=== PATIENT | female | born 1935 | race Caucasian/White ===

== ENCOUNTER → 2016-10-01 | Outpatient (CLI) | payer MEDICARE, BC, OTHER ==
[2016-08-15 05:23] VITALS: BP 145/83
[~2016-10-01] MED LIST: ACET325T9 PO; AMIO200T PO; AMIO200T2 PO; AMLO5TAB4 PO; ASPI-482 PO; ATOR40TA PO; ATOR40TA59 PO; BIOTENE DRY MO237 ML MM; BISA10SU55 RC; BISA5TAB4 PO; CARV3.122 PO; CARV6.25 PO; CYCL1DRO OP; DICY10CA53 PO; DICY20TA30 PO; DULO30CA2 PO; DULO60CA6 PO; ENAL2.5T PO; ENOX40DI SQ; FENT1PAT13 TD; FERR-26 PO; FOLI1TAB16 PO; FURO-68 PO; FURO40TA4 PO; GUAI100L79 PO; HYDR-2666 PO; HYDR-79 PO; HYDR-963 PO; HYDR-971 PO; LEVO88TA4 PO; LINA145C PO; MAGN400O4 PO; MAGN400T3 PO; MELA3TAB PO; METO25TA4 PO; METO50TA10 PO; MULT1TAB52 PO; NITR0.4T SL; NITR0.4T6 SL; NITR50CA11 PO; OMEP20CA9 PO; OMEP20TA PO; ONDA8TAB12 PO; PANT40TA3 PO; POLY17PO5 PO; POTA20TA12 PO; POTA20TA4 PO; POTA20TA82 PO; SENN8.6T6 PO; SENNA-S PO; SPIR50TA2 PO; TEMA15CA6 PO; TORS20TA PO; TORS20TA2 PO; WARF3TAB PO; WARF4TAB PO; WARF5TAB PO; WARF5TAB7 PO; Warfarin Sodium MC
--- NOTE | 2016-10-01 13:28 | RAD ---
EXAM: Right shoulder, 2 views. HISTORY: Fracture follow-up. COMPARISON: 07/12/2016. FINDINGS: Internal and external rotation views of the right shoulder are obtained. There has been slight interval callus rotation along a right humeral neck fracture line. The degree of displacement is unchanged. There is partial visual aeration of cardiac pacemaker defibrillator leads. IMPRESSION: Slight interval healing of a right femoral neck fracture.
== END | disposition home or self-care (01) ==
LOC: DXRADRC 13:11
PROVIDERS: ATTEND Orthopaedic Surgery Sports Medicine
DX: S42.211D Unspecified displaced fracture of surgical neck of right humerus, subsequent encounter for fracture with routine healing (principal); X58.XXXD Exposure to other specified factors, subsequent encounter
CPT/HCPCS: 73030

== ENCOUNTER 2017-02-04 10:32 | Emergency (ER) | payer MEDICARE, BC, OTHER ==
[~2017-02-04] VITALS: Ht 167.6 cm; Wt 86.2 kg
[~2017-02-04 10:32] MED LIST changes: +FENT-73 TD; -FENT1PAT13 TD; -HYDR-2666 PO; +HYDR-2758 PO; -MAGN400O4 PO; +MAGN400O7 PO; -MELA3TAB PO; +MELA3TAB2 PO; +NITR0.4T22 SL; -NITR0.4T6 SL; -OMEP20TA PO; +OMEP20TA8 PO; +WARF-78 PO; -WARF3TAB PO; +WARF3TAB54 PO; -WARF4TAB PO; +WARF4TAB68 PO; -WARF5TAB PO
--- NOTE | 2017-02-04 11:33 | PHYS DOC ---
General Chief Complaint: SORE THROAT Stated Complaint: SORE THROAT Time Seen by MD: 10:34 Source: patient, old records Exam Limitations: no limitations Problems: History of Present Illness Initial Comments Patient is an 81-year-old female who comes to the emergency department complaining of throat pain. Patient states that she saw her doctor 1 week ago today for the same symptoms. She saw Dr. White, says she was diagnosed with a virus and prescribed a Z-Luis Fernando. Patient states she's been taking medications as prescribed however her pain symptoms have shown no improvement. Patient describes right ear pain which radiates to the jaw angle/throat. Patient states that the discomfort is better when her lower plate of her denture is in, when it is removed the discomfort worsens. She is removed her dentures and has no intraoral lesions tenderness or swelling that she can locate. She denies any hearing changes no ear discharge she wears hearing aids but has not been using on the past week per her doctor's instructions. No fever chills sweats or myalgias no headache neck stiffness rash nausea or vomiting. Timing/Duration: last week Severity: moderate Location: ear (R), throat Prearrival Treatment: over the counter meds, prescription meds Modifying Factors: improves with other Associated Symptoms: sore throat, other Allergies: Coded Allergies: Penicillins (Verified Allergy, Intermediate, RASH, 05/05/15) Sulfa (Sulfonamide Antibiotics) (Verified Allergy, Intermediate, 05/05/15) UNKNOWN REACTION WAS TOLD I WAS ALLERGIC TO IT. Past Medical History Medical History: other (atrial fibrillation, arthritis, congestive heart failure, coagulopathy, depression, GERD, hyperlipidemia, hypertension, basal cell carcinoma) Surgical History: other (pacer/defibrillator, total knee replacement, cholecystectomy) Social History Smoker: non-smoker Alcohol: none Drugs: none Constitutional: denies chills, denies diaphoresis, denies fever, denies malaise Ears: see HPI, denies dizziness, denies tinnitus, denies bloody discharge, denies clear discharge Nose: denies clots, denies congestion, denies epistaxis Mouth: denies clots, denies pain, denies swelling, denies bloody discharge Throat: see HPI, denies neck stiffness Respiratory: denies cough, denies shortness of breath Cardiovascular: denies chest pain, denies palpitations Gastrointestinal: denies nausea, denies vomiting Physical Exam General Appearance: no apparent distress, obese Eyes: bilateral eye normal inspection, bilateral eye PERRL, bilateral eye EOMI Ears: right ear foreign body (large amount of wax noted), right ear TM dull, right ear TM red, left ear canal normal, left ear TM normal, bilateral ear auricle normal Nose: normal inspection Mouth/Throat: normal mouth inspection, pharynx normal Neck: non-tender, supple Cardiovascular/Respiratory: normal peripheral pulses, no respiratory distress Neurologic/Psychiatric: manager primary II-XII nml as tested, alert, normal mood/affect, oriented x 3 Skin: normal color, warm/dry Departure Time of Disposition: 11:28 Disposition: 01 HOME, SELF-CARE Diagnosis: serous otitis, reactive lymphadenopathy, allergic Condition: GOOD Additional Instructions: Activity as tolerated. Drink plenty of fluids to avoid dehydration. Over the counter zyrtec (cetirizine) daily at bedtime. OTC tylenol as needed. Rx: prednisone, doxycycline Take doxycycline with food to avoid abdominal discomfort and nausea. OTC probiotics or cultured yogurt (vince gonzalez) daily while taking above medications. Follow up with your doctor in 3-5 days for INR check. Follow up with your doctor in 7-10 days for recheck. Return to ED with new or changing symptoms. CLINT VIZCARRA DO Feb 04, 2017 11:33
[2017-02-04 11:41] VITALS: BP 150/81
[2017-02-04] MEDS ORDERED: predniSONE 10 MG TABLET PO ONE (12:00)
== END 2017-02-04 11:45 | disposition home or self-care (01) ==
LOC: ER 10:32
DX: H65.91 Unspecified nonsuppurative otitis media, right ear (principal); R59.1 Generalized enlarged lymph nodes; I48.91 Unspecified atrial fibrillation; I11.0 Hypertensive heart disease with heart failure; I50.9 Heart failure, unspecified; K21.9 Gastro-esophageal reflux disease without esophagitis; E78.5 Hyperlipidemia, unspecified; M19.90 Unspecified osteoarthritis, unspecified site; Z88.2 Allergy status to sulfonamides; Z88.0 Allergy status to penicillin; Z95.0 Presence of cardiac pacemaker
CPT/HCPCS: 87070; 87880; 99283; J7512

== ENCOUNTER 2017-02-12 11:28 | Inpatient (IN) | payer MEDICARE, BC, OTHER ==
[~2017-02-12] VITALS: Ht 165.1 cm; Wt 85.8 kg
[2017-02-12] MEDS ORDERED: 0.9 % SODIUM CHLORIDE 10 ML DISP.SYRIN. IV PRN (12:00)
[2017-02-12] MEDS ORDERED: IV NORMAL SALINE 1,000ML 1,000 ML IV SCH (12:10)
[2017-02-12] MEDS ORDERED: ONDANSETRON PF 4 MG/2 ML VIAL. IV ONE (12:10)
--- NOTE | 2017-02-12 12:12 | PHYS DOC ---
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 She's been seen by multiple providers for upper respiratory tract symptoms and sore throat been on a course of azithromycin and a course of doxycycline with prednisone and she says that her right lower quadrant left lower quadrant abdominal pain is just gotten progressively worse. She has had prior surgery on her uterus having a full hysterectomy back in April and cholecystectomy In January 1989. She says the pain is relatively constant but has gotten progressively worse over last several days although her bowel movements have been normal without blood or looseness she's had some mild nausea without vomiting. She denies any sick contacts denies any travel, has any fevers, chills UTI symptoms vaginal bleeding or discharge. She has chronic lower back pain is not new today. Her main concern is her nausea and increasing lower abdominal pain. He described as a dull ache at present as 7 of 10 worse with movements and direct pressure. my abdominal pain differential includes but not limited to ectopic , UTI, pyonephritis, cholecystitis, cholelithiasis, pancreatitis, appendicitis, small bowel obstruction, large bowel obstruction, diverticulosis, Diverticulum, intussusception, volvulus, irritable bowel disease, Crohn's or ulcerative colitis,, was considered upon arrival. Dr. Hamilton PCP Review of Systems Review of Systems Constitutional: Denies fever or chills [plains of generalized weakness and decreased appetite. Eyes: Denies change in visual acuity, redness, or eye pain [] HENT: Denies nasal congestion or sore throat [] Respiratory: Denies cough or shortness of breath [] Cardiovascular: No additional information not addressed in HPI [] GI: Does complain of lower abdominal pain with, nausea, no vomiting, bloody stools or diarrhea [] : Denies dysuria or hematuria [] Musculoskeletal: Planes of chronic lower joint pain lower back pain Integument: Denies rash or skin lesions [] Neurologic: Denies headache, focal weakness or sensory changes [] Endocrine: Denies polyuria or polydipsia [] Current Medications Current Medications Current Medications Medications (Trade) Dose Ordered Sig/[place] Start Time Stop Time Status Last Admin Dose Admin Hydromorphone HCl (Dilaudid) 0.5 mg PRN Q15MIN PRN 02/12/17 12:00 02/13/17 11:59 Ondansetron HCl (Zofran) 4 mg 1X ONCE 02/12/17 12:10 02/12/17 12:11 Sodium Chloride (Normal Saline Flush) 10 ml QSHIFT PRN 02/12/17 12:00 Allergies Allergies Allergies Coded Allergies Type Severity Reaction Last Updated Verified Penicillins Allergy Intermediate RASH 05/05/15 Yes Sulfa (Sulfonamide Antibiotics) Allergy Intermediate 05/05/15 Yes Physical Exam Physical Exam This patient's vital signs been reviewed by me upon arrival noted to be mildly hypertensive with no tachycardia and hypoxia no fever. Constitutional: Well developed, well nourished, patient is mildly obese and in mild distress secondary to pain she is nontoxic in appearance. HENT: Normocephalic, atraumatic, bilateral external ears normal, she does demonstrated dry mucous membranes no oral exudates, nose normal. [] Eyes: PERRLA, EOMI, conjunctiva normal, no discharge. [] Neck: Normal range of motion, no tenderness, supple, no stridor. [] Cardiovascular:Heart rate regular rhythm, no murmur [] Lungs & Thorax: Bilateral breath sounds clear to auscultation [] Abdomen: Does have tenderness to the right lower and left lower quadrant with no masses guarding rebound or organomegaly. She has no pulsatile masses or sign no Pimentel's or McBurney's point tenderness to palpation. Skin: Warm, dry, no erythema, no rash. [] Back: No tenderness, no CVA tenderness. [] Extremities: No tenderness, no cyanosis, no clubbing, ROM intact, no edema. [] Neurologic: Alert and oriented X 3, normal motor function, normal sensory function, no focal deficits noted. [] Psychologic: She does seem somewhat depressed with a blunted affect but judgment is normal. Current Patient Data Vital Signs Vital Signs Date Time Temp Pulse Resp B/P (MAP) Pulse Ox O2 Delivery O2 Flow Rate FiO2 02/12/17 11:28 97.6 80 18 96 Room Air 02/12/17 12:10 142/82 (102) Vital Signs Date Time Temp Pulse Resp B/P (MAP) Pulse Ox O2 Delivery O2 Flow Rate FiO2 02/12/17 13:12 82 16 111/68 (82) 93 02/12/17 11:28 97.6 Room Air Lab Results Laboratory Tests Test 02/12/17 12:00 02/12/17 12:56 White Blood Count 7.5 x10^3/uL (4.0-11.0) Red Blood Count 4.94 x10^6/uL (3.50-5.40) Hemoglobin 17.0 g/dL (12.0-15.5) H Hematocrit 49.6 % (36.0-47.0) H Mean Corpuscular Volume 101 fL (79-100) H Mean Corpuscular Hemoglobin 34 pg (25-35) Mean Corpuscular Hemoglobin Concent 34 g/dL (31-37) Red Cell Distribution Width 16.2 % (11.5-14.5) H Platelet Count 153 x10^3/uL (140-400) Neutrophils (%) (Auto) 73 % (31-73) Lymphocytes (%) (Auto) 18 % (24-48) L Monocytes (%) (Auto) 7 % (0-9) Eosinophils (%) (Auto) 2 % (0-3) Basophils (%) (Auto) 0 % (0-3) Neutrophils # (Auto) 5.4 x10^3uL (1.8-7.7) Lymphocytes # (Auto) 1.4 x10^3/uL (1.0-4.8) Monocytes # (Auto) 0.5 x10^3/uL (0.0-1.1) Eosinophils # (Auto) 0.1 x10^3/uL (0.0-0.7) Basophils # (Auto) 0.0 x10^3/uL (0.0-0.2) Prothrombin Time 47.6 SEC (9.4-11.4) H Prothrombin Time INR 4.6 (0.9-1.1) *H PTT 42 SEC (23-33) H Sodium Level 135 mmol/L (136-145) L Potassium Level 4.8 mmol/L (3.5-5.1) Chloride Level 96 mmol/L (98-107) L Carbon Dioxide Level 34 mmol/L (21-32) H Anion Gap 5 (6-14) L Blood Urea Nitrogen 44 mg/dL (7-20) H Creatinine 1.9 mg/dL (0.6-1.0) H Estimated GFR (Cockcroft-Gault) 25.3 Glucose Level 123 mg/dL (70-99) H Calcium Level 9.3 mg/dL (8.5-10.1) Total Bilirubin 1.3 mg/dL (0.2-1.0) H Direct Bilirubin 0.3 mg/dL (0.0-0.2) H Aspartate Amino Transferase (AST) 27 U/L (15-37) Alanine Aminotransferase (ALT) 49 U/L (14-59) Alkaline Phosphatase 63 U/L (46-116) Troponin I Quantitative < 0.017 ng/mL (0-0.055) Total Protein 6.6 g/dL (6.4-8.2) Albumin 3.4 g/dL (3.4-5.0) Lipase 239 U/L (73-393) Urine Collection Type Void Urine Color Straw Urine Clarity Clear Urine pH 6.0 Urine Specific [place] <=1.005 Urine Protein Neg (NEG-TRACE) Urine Glucose (UA) Neg mg/dL (NEG) Urine Ketones (Stick) Neg mg/dL (NEG) Urine Blood Neg (NEG) Urine Nitrite Neg (NEG) Urine Bilirubin Neg (NEG) Urine Urobilinogen Dipstick 0.2 mg/dL (0.2 mg/dL) Urine Leukocyte Esterase Neg (NEG) Urine RBC 0 /HPF (0-2) Urine WBC 0 /HPF (0-4) Urine Squamous Epithelial Cells Occ /LPF Urine Bacteria 0 /HPF (0-FEW) Urine Hyaline Casts Occ /HPF EKG EKG [] Impression to EKG timed 12:10 PM demonstrates 02/12/2017 a heart rate of 80 patient has a ventricular paced rhythm with a white count care is complex secondary to the pacing. Patient is an occasional PVC that is apparent by Dr. Parikh. Radiology/Procedures Radiology/Procedures [] Signed PATIENT: LEYDA RICHARDSON ACCOUNT: [id number] : 1935 LOCATION: ER AGE: 81 SEX: F EXAM STATUS: REG ER ORD. PHYSICIAN: CHAITANYA PARIKH MD REASON: lower ab pain PROCEDURE: CT ABDOMEN PELVIS WO CONTRAST CT scan of the abdomen and pelvis without contrast 02/12/2017 Clinical history: Abdominal pain for 2 weeks. Technique: Unenhanced contiguous, 3 mm axial sections were obtained through the abdomen and pelvis. One or more of the following individualized dose reduction techniques were utilized for this study: 1. Automated exposure control. 2. Adjustment of the mA and/or kV according to patient size. 3. Use of iterative reconstruction technique. Findings: Comparison study dated 01/04/2016. Images through the lung bases demonstrate mild cardiomegaly. Dependent subsegmental atelectasis is seen in both lower lobes. The liver, spleen, and pancreas are within normal limits. A 2.5 cm low-attenuation lesion is seen involving the right adrenal gland which likely represents an adrenal adenoma. Fullness of the left adrenal gland is seen. These findings are unchanged. Several well-defined low-attenuation lesions are seen scattered throughout both kidneys. These measure 5 mm 2.6 cm in size. They likely represent cysts. Moderate atherosclerotic calcification of the abdominal aorta and its branches is seen. The abdominal aorta tapers normally. Surgical clips are seen within the gallbladder fossa consistent with a cholecystectomy. No free fluid or free air is seen within the abdomen. An IVC filter is noted in place. There is no evidence of bowel obstruction. A small umbilical hernia seen which contains fat. It measures 2 cm in size. Surgical clips are seen posterior and medial to the cecum consistent with an appendectomy. Multiple diverticula are seen involving the descending colon. No inflammatory changes are seen in the adjacent fat. Images through the pelvis demonstrate the urinary bladder distended with urine. A small amount of air is seen within the urinary bladder which is presumably related to a recent catheterization. No free fluid is seen. The patient appears to be post hysterectomy. Calcifications are seen within the pelvis consistent with phleboliths. Innumerable diverticula are seen involving the sigmoid colon. No inflammatory changes are seen within the adjacent fat. Mild S-shaped curvature of the thoracolumbar spine is seen. Degenerative changes are seen involving the lower thoracic and throughout the lumbar spine and both hips. Impression: No acute abnormality is seen. DICTATED AND SIGNED BY: WENDY BELL MD DATE: 02/12/17 1230 CC: CHAITANYA PARIKH MD; MOLLY HAMILTON MD ~ Course & Med Decision Making Course & Med Decision Making Pertinent Labs and Imaging studies reviewed. (See chart for details) She presents with abdominal pain in the right lower left lower quadrant.y abdominal pain differential includes but not limited to, UTI, pyonephritis, cholecystitis, cholelithiasis, pancreatitis, appendicitis, small bowel obstruction, large bowel obstruction, diverticulosis, Diverticulum, intussusception, volvulus, irritable bowel disease, Crohn's or ulcerative colitis, was the considered diagnoses of differential on arrival. I concern is patient does have a history of vascular disease although she is on Coumadin ischemic colitis is in his seemingly possible cause for symptoms. Patient tells me that their symptoms given during CC are improved. We reviewed labs and radiology reports with patient and reviewed the vital signs as well as laboratory work which demonstrated increased hemoconcentration based on the fact of the patient's H&H is increased. Patient's BUN/creatinine also increased demonstrating significant dehydration and renal insufficiency. Patient feels better but still relatively uncomfortable. Although the patient's had symptoms for some time last 2 weeks progressively worse as pressure last several days after being provided to course of antibiotics by concern is an inflammatory and infectious process is gone unresolved. I would advise close follow-up and admission to the hospital for serial abdominal exams to make sure that there is no surgical issue that will develop ear. sHe is willing to be admitted to the hospital for specialty care and routine management of her abdominal pain. He was somewhat reluctant to be admitted to the hospital at first because she is worried about her at home the other part is the fact she's had an issue with her creatinine the past but does not know the specific numbers. Given the fact the patient's, poor historian and she still having some tenderness to palpation left lower quadrant on my exam although she says her pain is almost resolved my concern is ischemic bowel or some other issue within the bowel that has yet to reveal itself. Nurse Monitoring note: Internal Medicine Nurse Monitoring called at of the service 1:50 Consult called back at 1:58 PM Discussed the case I presented and they agreed with admission. Time of acceptance 1:58 PM []Impression: Abdominal pain of unclear etiology, renal insufficiency, dehydration, nausea without clear cause., Elevated INR of >4. Dragon Disclaimer Dragon Disclaimer This chart was dictated in whole or in part using Voice Recognition software in a busy, high-work load, and often noisy Emergency Department environment. It may contain unintended and wholly unrecognized errors or omissions. Departure Departure: Impression: Primary Impression: Atrial fibrillation Additional Impressions: Abdominal pain Dehydration Renal insufficiency Disposition: 09 ADMITTED INPATIENT Admitting Physician: Carito Box Condition: GUARDED Referrals: MOLLY HAMILTON MD (PCP) Problem Qualifiers CHAITANYA PARIKH MD Feb 12, 2017 12:12
[2017-02-12 12:13] LABS: BASO % 0 % (0-3); EOS # 0.1 x10^3/uL (0.0-0.7); EOS % 2 % (0-3); HEMATOCRIT 49.6 % (36.0-47.0); LYMPH # 1.4 x10^3/uL (1.0-4.8); LYMPH % 18 % (24-48); MEAN CORPUSCULAR HEMOGLOBIN 34 pg (25-35); MEAN CORPUSCULAR HGB CONC 34 g/dL (31-37); MEAN CORPUSCULAR VOLUME 101 fL (79-100); MONO # 0.5 x10^3/uL (0.0-1.1); MONO % 7 % (0-9); NEUT # 5.4 x10^3uL (1.8-7.7); NEUT % 73 % (31-73); PLATELET COUNT 153 x10^3/uL (140-400); RED BLOOD COUNT 4.94 x10^6/uL (3.50-5.40); RED CELL DISTRIBUTION WIDTH 16.2 % (11.5-14.5); WHITE BLOOD COUNT 7.5 x10^3/uL (4.0-11.0)
[2017-02-12 12:25] LABS: ALBUMIN 3.4 g/dL (3.4-5.0); CALCIUM 9.3 mg/dL (8.5-10.1); CREATININE 1.9 mg/dL (0.6-1.0); DIRECT BILIRUBIN 0.3 mg/dL (0.0-0.2); GFR 25.3; POTASSIUM 4.8 mmol/L (3.5-5.1); TOTAL BILIRUBIN 1.3 mg/dL (0.2-1.0); TOTAL PROTEIN 6.6 g/dL (6.4-8.2)
[2017-02-12] MEDS: HYDROmorphone PF 1 MG/ML DISP.SYRIN IV/SQ PRN ×2 (12:37→20:29)
--- NOTE | 2017-02-12 12:45 | RAD ---
CT scan of the abdomen and pelvis without contrast 02/12/2017 Clinical history: Abdominal pain for 2 weeks. Technique: Unenhanced contiguous, 3 mm axial sections were obtained through the abdomen and pelvis. One or more of the following individualized dose reduction techniques were utilized for this study: 1. Automated exposure control. 2. Adjustment of the mA and/or kV according to patient size. 3. Use of iterative reconstruction technique. Findings: Comparison study dated 01/04/2016. Images through the lung bases demonstrate mild cardiomegaly. Dependent subsegmental atelectasis is seen in both lower lobes. The liver, spleen, and pancreas are within normal limits. A 2.5 cm low-attenuation lesion is seen involving the right adrenal gland which likely represents an adrenal adenoma. Fullness of the left adrenal gland is seen. These findings are unchanged. Several well-defined low-attenuation lesions are seen scattered throughout both kidneys. These measure 5 mm 2.6 cm in size. They likely represent cysts. Moderate atherosclerotic calcification of the abdominal aorta and its branches is seen. The abdominal aorta tapers normally. Surgical clips are seen within the gallbladder fossa consistent with a cholecystectomy. No free fluid or free air is seen within the abdomen. An IVC filter is noted in place. There is no evidence of bowel obstruction. A small umbilical hernia seen which contains fat. It measures 2 cm in size. Surgical clips are seen posterior and medial to the cecum consistent with an appendectomy. Multiple diverticula are seen involving the descending colon. No inflammatory changes are seen in the adjacent fat. Images through the pelvis demonstrate the urinary bladder distended with urine. A small amount of air is seen within the urinary bladder which is presumably related to a recent catheterization. No free fluid is seen. The patient appears to be post hysterectomy. Calcifications are seen within the pelvis consistent with phleboliths. Innumerable diverticula are seen involving the sigmoid colon. No inflammatory changes are seen within the adjacent fat. Mild S-shaped curvature of the thoracolumbar spine is seen. Degenerative changes are seen involving the lower thoracic and throughout the lumbar spine and both hips. Impression: No acute abnormality is seen.
[2017-02-12 13:17] LABS: BACTERIA,URINE 0 /HPF (0-FEW); BILIRUBIN,URINE NEG (NEG); CLARITY,URINE CLEAR; COLOR,URINE STRAW; GLUCOSE,URINE NEG (NEG); HYALINE CASTS, URINE OCC /HPF; NITRITE,URINE NEG (NEG); RBC,URINE 0 /HPF (0-2); SQUAMOUS EPITHELIAL CELL,UR OCC /LPF; UROBILINOGEN,URINE 0.2 mg/dL (0.2 mg/dL); WBC,URINE 0 /HPF (0-4)
--- NOTE | 2017-02-12 13:27 | EKG ---
[address] [address] Test Date: 2017-02-12 Test Time: 12:10:50 Pat Name: LEYDA RICHARDSON Department: Room: Gender: F Veterinary Medicine Doctor: ANAID : 1935 Requested By: CHAITANYA PARIKH Order Number: [id number] Reading MD: Pedro Hughes Measurements Intervals [place] Rate: 80 P: 0 ND: 86 QRS: -151 QRSD: 140 T: 27 QT: 394 QTc: 458 Interpretive Statements V PACED BEATS VENTRICULAR PREMATURE COMPLEX(ES) RI6.01 Unconfirmed report Electronically Signed On 02-18-2017 9:29:47 CDT by Pedro Hughes
[2017-02-12] MEDS: IV NORMAL SALINE 1,000ML 1,000 ML IV SCH (14:01)
[2017-02-12] MEDS ORDERED: ONDANSETRON PF 4 MG/2 ML VIAL. IV PRN (14:15)
[2017-02-12] MEDS ORDERED: ACETAMINOPHEN 325 MG TABLET PO PRN (14:15)
[2017-02-12] MEDS ORDERED: fentaNYL PF 100 MCG/2 ML VIAL IV PRN (14:15)
[2017-02-12 16:21] VITALS: BP 142/81
[2017-02-12 18:38] VITALS: BP 103/63
[2017-02-12 21:49] VITALS: BP 132/77
--- NOTE | 2017-02-13 01:50 | ACF ---
Admission Criteria Forms ABDOMINAL PAIN Clinical Indications for Admission to Inpatient Care (Place 'X' for any and all applicable criteria): Admission is indicated for ANY ONE of the following(1)(2)(3)(4)(5): [x]I. Inpatient admission required rather than observation care (Also use Abdominal Pain: Observation Care, as appropriate) because of ANY ONE of the following: [x]a) Severe pain requiring acute inpatient management [x]b) Identification of etiology/finding that requires inpatient care (eg, aortic dissection, free air) [ ]c) Absent bowel sounds with complete ileus(6) [ ]d) Suspected toxic megacolon [ ]e) Severe electrolyte abnormalities requiring inpatient care [ ]f) High fever or infection requiring inpatient admission as indicated by ANY ONE of following(7)(8): [ ] i) Appropriate outpatient or observational care antimicrobial treatment unavailable, not effective, or not feasible [ ] ii) Documented bacteremia [ ] iii) Temperature > 104.9 degrees F (oral) [ ] iv) T >103.1 F (oral) or < 96.8 F(rectal) that does not respond to all emergency treatment measures [ ]g) Signs of intestinal obstruction [B] [ ]h) Hemodynamic instability [ ]i) IV fluid to replace significant ongoing losses (greater than 3 L/m2 per day) (12)(13) [ ]j) Percutaneous or open drainage (eg, abscess, biliary tract ) procedures [ ]k) Parenteral nutrition regimen that must be implemented on inpatient basis [ ]l) Other condition,treatment or monitoring requiring inpatient admission. [ ]II. Peritoneal signs present [ ]III. Surgery needed that cannot be performed on an ambulatory basis. [ ]IV. Evaluation requires patient to not eat or drink for extended period ( eg, more than 24 hours). [ ]V. Contraindications and/or Inappropriate clinical situations for Observational Care in patients with abdominal pain, when ANY ONE of the following is required: [ ]a) Thorough evaluation is required to prevent catastrophic events due to delays in diagnosing (e.g.Mesenteric ischemia) 1,3 [ ]b) Patient with severe pathology or with chronic symptoms unlikely to improve in the ED stay (3) [ ]. General contraindications and/or Inappropriate clinical situations for Observational Care in patients with abdominal pain, when ANY ONE of the following is required: [ ]a) Prediction of prolongation of LOS based on ANY ONE of the following may be considered as a contraindication for observational care 2, 3, 4, 5, 6, 7, 8, 9, 10, 11 [ ]i) Age > 65 yrs. [ ]ii) Patient arriving by ambulance [ ]iii) Patient with high acuity [ ]iv) Patient requiring vital sign monitoring [ ]v) Patient on IV medication [ ]b) Systolic blood pressures 180mmHg 3,12 [ ]c) Patient with altered mental status including delirium and other alteration of consciousness, (3) [ ]d) Patient whose discharge disposition will be to a fpc home or rehabilitation home should not be managed in Emergency Department Observation Unit. CMS rule requires 3 days hospital stay before such placement.3,13 [ ]e) Patient with failure to thrive due to broad array of etiologies 3,16,17 [ ]f) Inability to ambulate 3,14 Extended stay beyond goal length of stay may be needed for(2)(3): [ ]a) Persistent abdominal pain with suspected intra-abdominal process [ ]b) Diagnosed condition requiring continued stay (e.g., pancreatitis, complicated diverticulitis) [ ]c) Surgery (e.g., colectomy) The original [facility] content created by [employer] has been revised. The portions of the content which have been revised are identified through the use of italic text or in bold, and [facility] has neither reviewed nor approved the modified material.All other unmodified content is copyright [employer]. Please see references footnoted in the original [employer] edition 2016 Admission Criteria Met?: Yes MARY VALENZUELA Feb 13, 2017 01:50
[2017-02-13] MEDS: IV NORMAL SALINE 1,000ML 1,000 ML IV SCH ×2 (02:17→17:22)
[2017-02-13 05:19] VITALS: BP 123/77
[2017-02-13] MEDS: HYDROmorphone PF 1 MG/ML DISP.SYRIN IV/SQ PRN (07:24)
[2017-02-13] MEDS ORDERED: NITROGLYCERIN SUBLINGUAL 0.4 MG BOTTLE OF 25. SL PRN (08:00)
[2017-02-13 08:12] LABS: BASO % 0 % (0-3); EOS # 0.2 x10^3/uL (0.0-0.7); EOS % 3 % (0-3); HEMOGLOBIN 15.6 g/dL (12.0-15.5); LYMPH # 1.2 x10^3/uL (1.0-4.8); LYMPH % 22 % (24-48); MEAN CORPUSCULAR HEMOGLOBIN 34 pg (25-35); MEAN CORPUSCULAR HGB CONC 34 g/dL (31-37); MEAN CORPUSCULAR VOLUME 101 fL (79-100); MONO # 0.4 x10^3/uL (0.0-1.1); MONO % 7 % (0-9); NEUT # 3.6 x10^3uL (1.8-7.7); NEUT % 67 % (31-73); PLATELET COUNT 135 x10^3/uL (140-400); RED BLOOD COUNT 4.58 x10^6/uL (3.50-5.40); RED CELL DISTRIBUTION WIDTH 16.5 % (11.5-14.5); WHITE BLOOD COUNT 5.3 x10^3/uL (4.0-11.0)
[2017-02-13] MEDS ORDERED: ONDANSETRON ODT 4 MG TAB.RAPDIS PO PRN (08:15)
[2017-02-13 08:31] LABS: CALCIUM 8.4 mg/dL (8.5-10.1); CREATININE 1.5 mg/dL (0.6-1.0); GFR 33.2; MAGNESIUM 1.8 mg/dL (1.8-2.4); POTASSIUM 4.9 mmol/L (3.5-5.1)
[2017-02-13] MEDS: ASPIRIN ENTERIC COATED 81 MG TABLET.DR. PO SCH (08:54)
[2017-02-13] MEDS: CARVEDILOL 3.125 MG TABLET PO SCH ×2 (08:54→18:01)
[2017-02-13] MEDS: POTASSIUM CHLORIDE 20 MEQ TABLET.ER. PO SCH (08:54)
[2017-02-13] MEDS: DULoxetine HCL 60 MG CAPSULE.DR PO SCH (08:55)
[2017-02-13] MEDS: DICYCLOMINE HCL 20 MG TABLET PO SCH ×3 (08:55→20:18)
[2017-02-13] MEDS: FOLIC ACID 1 MG TABLET PO SCH (08:55)
[2017-02-13] MEDS: LEVOTHYROXINE 88 MCG TABLET PO SCH (08:55)
[2017-02-13] MEDS: PANTOPRAZOLE 40 MG TABLET. PO SCH (08:55)
[2017-02-13] MEDS: POLYETHYLENE GLYCOL 3350 17 GM PACKET. PO SCH (09:00)
[2017-02-13] MEDS ORDERED: fentaNYL 12MCG/HR 1 PATCH PATCH TD SCH (09:00)
[2017-02-13 10:28] VITALS: BP 153/81
--- NOTE | 2017-02-13 13:12 | RAD ---
Double contrast upper GI study 02/13/2017 Clinical history: Persistent nausea and vomiting. Technique: A double contrast upper GI study was performed under fluoroscopic control. The total fluoroscopic time is 1.9 minutes. 8 digital spot radiographs were obtained. Findings: Comparison is made to a CT scan of the abdomen and pelvis dated 02/24/2017. An AP supine digital radiograph of the abdomen/pelvis was obtained as a electrician bus radiograph. This demonstrates surgical clips within the right upper quadrant of the abdomen consistent with a cholecystectomy. An IVC filter is noted in place. The abdominal bowel gas pattern is nonobstructive. A moderate amount of stool is seen throughout the colon. Calcifications are seen within the pelvis consistent with phleboliths. Atherosclerotic calcification of the abdominal aorta and its branches is seen. Degenerative changes are seen involving the lumbar spine and both hips. The mucosal pattern of the esophagus, stomach and duodenum is within normal limits. Tertiary contractions of esophagus are seen consistent with mild to moderate esophageal dysmotility. There is a small to moderate sized sliding hiatal hernia. Moderate to severe gastroesophageal reflux is seen to the level of the superior thoracic esophagus. A Pacemaker is noted in place. Impression: 1. Mild to moderate esophageal dysmotility. 2. Small to moderate-sized sliding hiatal hernia. Moderate to severe gastroesophageal reflux is seen.
[2017-02-13 13:48] VITALS: BP 119/56
--- NOTE | 2017-02-13 13:55 | HP ---
ADMIT DATE: 02/13/2017 REASON FOR ADMISSION: Stomach pain and nausea. HISTORY OF PRESENT ILLNESS: This is an 81-year-old female who is well known to me from her previous admission. She states that she has had a 2-week history of her stomach bothering her. Denies vomiting, but definitely nausea and pain in her stomach without diarrhea. She has been to the doctor a couple of times. The first time she was prescribed a Z-TON and then was prescribed prednisone and doxycycline. She came to the Emergency Room on Saturday and then was prescribed prednisone and doxycycline. Reports a little bit of dizziness. She has had enalapril decreased from b.i.d. to once a day by her polygraph operator. Also associated with this problem is she had a little bit of right ear pain and that was why she was prescribed the prednisone and the doxycycline. She has also been having some problems with her gums from her dentures, but she has not been wearing them very much. She reports a weight loss also, a little bit of weight loss. ALLERGIES: PENICILLIN, SULFA. MEDICATIONS: Other medications are on the SEP. She has had her Coumadin decreased to 2 mg daily and 4 mg on Saturday. PAST MEDICAL HISTORY: Other medical problems include a right humerus fracture in July 2016 and coronary artery disease and has had stent deployment. She has a history of a DVT; history of mitral valve replacement; long-term use of anticoagulants; hyperlipidemia; hypothyroidism; Factor V Leiden; atrial fibrillation; hypokalemia, acute, and pain issues from her falls. PAST SURGICAL HISTORY: Coronary stent placement, hysterectomy, bilateral knee replacements, multiple cardiac catheterizations. REVIEW OF SYSTEMS: Positive for multiple falls and still some dizziness and this recurrent stomach pain that she has had. SOCIAL HISTORY: The patient still lives in her own home. She has been to her 66 years. No tobacco or alcohol. OBJECTIVE: VITAL SIGNS: Blood pressure is 123/77, temperature 97.2, pulse 79, respirations 15, pulse ox is 96% on room air. HEENT: The patient's right ear has a little bit of erythema in the canal, otherwise negative. Left ear negative. Eyes are clear. Nose patent. Throat clear. Gums were examined, could not find any type of inflammation or infection. Tongue is normal in appearance as well as underneath the tongue. NECK: Her neck was supple. I did not appreciate any abnormalities. LUNGS: Clear. CARDIOVASCULAR: Regular rhythm and rate with a 3/6 systolic murmur. ABDOMEN: Soft, nontender. EXTREMITIES: With trace to 1+ edema. LABORATORY DATA: Initially, sodium was 135; BUN 44; creatinine 1.9, now it is 3.8 and 1.5 after fluids. Bilirubin was 1.3, indirect bilirubin 0.3. Her upper GI is pending. Her INR was 4.6. IMAGING: Abdominal pelvis CT was negative, but she has had a cholecystectomy and upper GI is pending. ASSESSMENT: 1. Persistent stomach pain with nausea, questionable etiology, could be side effects from doxycycline or the Zithromax. 2. Dehydration, receiving IV fluids. 3. Nausea, receiving antiemetics. 4. Supratherapeutic INR. Coumadin is being held. 5. History of deep venous thrombosis. 6. Coronary artery disease with stent deployment 7. Frequent falls. 8. History of right femur fracture. PLAN: Await the results of upper GI. Give her IV fluids and we will hold off on any antibiotics at this time. HAMZAH GAMBINO DO DR: BRIAN/gary JOB#: [id number] / [id number]
[2017-02-13] MEDS: HYDROcodone/APAP 5/325MG 1 TAB TABLET PO PRN ×2 (14:31→20:23)
[2017-02-13] MEDS ORDERED: WARFARIN 4 MG TABLET. PO SCH (16:00)
[2017-02-13] MEDS: ACETAMINOPHEN 325 MG TABLET PO PRN (16:22)
[2017-02-13] MEDS: HYDROmorphone PF 1 MG/ML DISP.SYRIN IVP PRN ×2 (17:23→18:00)
[2017-02-13 19:39] VITALS: BP 113/64
[2017-02-13] MEDS ORDERED: ATORVASTATIN CALCIUM 20 MG TABLET PO SCH (21:00)
[2017-02-13] MEDS ORDERED: TEMAZEPAM 15 MG CAPSULE PO SCH (21:00)
[2017-02-13 22:01] VITALS: BP 115/70
[2017-02-14 05:06] VITALS: BP 118/74
[2017-02-14] MEDS: IV NORMAL SALINE 1,000ML 1,000 ML IV SCH (05:07)
[2017-02-14] MEDS: LEVOTHYROXINE 88 MCG TABLET PO SCH (05:07)
[2017-02-14] MEDS: HYDROcodone/APAP 5/325MG 1 TAB TABLET PO PRN (05:08)
[2017-02-14 06:41] LABS: BASO % 0 % (0-3); EOS # 0.2 x10^3/uL (0.0-0.7); EOS % 4 % (0-3); HEMATOCRIT 40.4 % (36.0-47.0); HEMOGLOBIN 13.6 g/dL (12.0-15.5); LYMPH # 1.2 x10^3/uL (1.0-4.8); LYMPH % 28 % (24-48); MEAN CORPUSCULAR HEMOGLOBIN 34 pg (25-35); MEAN CORPUSCULAR HGB CONC 34 g/dL (31-37); MEAN CORPUSCULAR VOLUME 101 fL (79-100); MONO # 0.3 x10^3/uL (0.0-1.1); MONO % 8 % (0-9); NEUT # 2.6 x10^3uL (1.8-7.7); NEUT % 60 % (31-73); PLATELET COUNT 120 x10^3/uL (140-400); RED BLOOD COUNT 3.99 x10^6/uL (3.50-5.40); RED CELL DISTRIBUTION WIDTH 16.5 % (11.5-14.5); WHITE BLOOD COUNT 4.4 x10^3/uL (4.0-11.0)
[2017-02-14 06:55] LABS: ALBUMIN 2.5 g/dL (3.4-5.0); ALBUMIN/GLOBULIN RATIO 0.9 (1.0-1.7); CALCIUM 8.2 mg/dL (8.5-10.1); CREATININE 1.2 mg/dL (0.6-1.0); MAGNESIUM 1.8 mg/dL (1.8-2.4); POTASSIUM 4.7 mmol/L (3.5-5.1); TOTAL BILIRUBIN 0.6 mg/dL (0.2-1.0); TOTAL PROTEIN 5.2 g/dL (6.4-8.2)
[2017-02-14] MEDS ORDERED: LINACLOTIDE 145 MCG CAPSULE. PO SCH (07:30)
[2017-02-14] MEDS: POLYETHYLENE GLYCOL 3350 17 GM PACKET. PO SCH (09:00)
[2017-02-14] MEDS: FOLIC ACID 1 MG TABLET PO SCH (09:33)
[2017-02-14] MEDS: POTASSIUM CHLORIDE 20 MEQ TABLET.ER. PO SCH (09:33)
[2017-02-14] MEDS: ASPIRIN ENTERIC COATED 81 MG TABLET.DR. PO SCH (09:34)
[2017-02-14] MEDS: DICYCLOMINE HCL 20 MG TABLET PO SCH (09:34)
[2017-02-14] MEDS: CARVEDILOL 3.125 MG TABLET PO SCH (09:34)
[2017-02-14] MEDS: DULoxetine HCL 60 MG CAPSULE.DR PO SCH (09:34)
[2017-02-14] MEDS: PANTOPRAZOLE 40 MG TABLET. PO SCH (09:34)
[2017-02-14 10:04] VITALS: BP 123/78
[2017-02-14] MEDS ORDERED: PANT40TA3 PO (10:52)
[2017-02-14] MEDS ORDERED: DULO60CA6 PO (10:52)
[2017-02-14] MEDS ORDERED: LINA145C PO (10:52)
[2017-02-14] MEDS ORDERED: WARF4TAB68 PO (10:52)
--- NOTE | 2017-02-14 13:18 | PDOC3 ---
Discharge Summary Visit Information Final Diagnosis Problems Medical Problems: (1) Abdominal pain Status: Acute 2. gum pain secondary poor fitting dentures Status: Acute (3) Dehydration Status: Acute (4)ANA from ATN from hypoperfusion Status: Acute . Persistent stomach pain with nausea, questionable etiology, could be side effects from doxycycline or the Zithromax. 2. Dehydration,-treated 3. Nausea, . 4. Supratherapeutic INR. In therapeutic range at discharge 5. History of deep venous thrombosis. 6. Coronary artery disease with stent deployment 7. Frequent falls. 8. History of right femur fracture 9. GERD 10. esophageal dysmotility 11. moderate hiatal hernia 12. otitis externa-resolved Problems: Brief Hospital Course Allergies Allergies Coded Allergies Type Severity Reaction Last Updated Verified Penicillins Allergy Intermediate RASH 02/12/17 Yes Sulfa (Sulfonamide Antibiotics) Allergy Intermediate 02/12/17 Yes Vital Signs Vital Signs Date Time Temp Pulse Resp B/P (MAP) Pulse Ox O2 Delivery O2 Flow Rate FiO2 02/14/17 10:04 97.5 77 20 123/78 (93) 96 Room Air Lab Results Laboratory Tests Test 02/12/17 16:36 02/13/17 07:47 02/14/17 06:05 Nasal Screen MRSA (PCR) Negative (Negative) White Blood Count 5.3 x10^3/uL (4.0-11.0) 4.4 x10^3/uL (4.0-11.0) Red Blood Count 4.58 x10^6/uL (3.50-5.40) 3.99 x10^6/uL (3.50-5.40) Hemoglobin 15.6 g/dL (12.0-15.5) 13.6 g/dL (12.0-15.5) Hematocrit 46.0 % (36.0-47.0) 40.4 % (36.0-47.0) Mean Corpuscular Volume 101 fL (79-100) 101 fL (79-100) Mean Corpuscular Hemoglobin 34 pg (25-35) 34 pg (25-35) Mean Corpuscular Hemoglobin Concent 34 g/dL (31-37) 34 g/dL (31-37) Red Cell Distribution Width 16.5 % (11.5-14.5) 16.5 % (11.5-14.5) Platelet Count 135 x10^3/uL (140-400) 120 x10^3/uL (140-400) Neutrophils (%) (Auto) 67 % (31-73) 60 % (31-73) Lymphocytes (%) (Auto) 22 % (24-48) 28 % (24-48) Monocytes (%) (Auto) 7 % (0-9) 8 % (0-9) Eosinophils (%) (Auto) 3 % (0-3) 4 % (0-3) Basophils (%) (Auto) 0 % (0-3) 0 % (0-3) Neutrophils # (Auto) 3.6 x10^3uL (1.8-7.7) 2.6 x10^3uL (1.8-7.7) Lymphocytes # (Auto) 1.2 x10^3/uL (1.0-4.8) 1.2 x10^3/uL (1.0-4.8) Monocytes # (Auto) 0.4 x10^3/uL (0.0-1.1) 0.3 x10^3/uL (0.0-1.1) Eosinophils # (Auto) 0.2 x10^3/uL (0.0-0.7) 0.2 x10^3/uL (0.0-0.7) Basophils # (Auto) 0.0 x10^3/uL (0.0-0.2) 0.0 x10^3/uL (0.0-0.2) Prothrombin Time 41.3 SEC (9.4-11.4) 23.7 SEC (9.4-11.4) Prothromb Time International Ratio 4.0 (0.9-1.1) 2.3 (0.9-1.1) Sodium Level 134 mmol/L (136-145) 137 mmol/L (136-145) Potassium Level 4.9 mmol/L (3.5-5.1) 4.7 mmol/L (3.5-5.1) Chloride Level 100 mmol/L (98-107) 104 mmol/L (98-107) Carbon Dioxide Level 35 mmol/L (21-32) 33 mmol/L (21-32) Anion Gap -1 (6-14) 0 (6-14) Blood Urea Nitrogen 38 mg/dL (7-20) 27 mg/dL (7-20) Creatinine 1.5 mg/dL (0.6-1.0) 1.2 mg/dL (0.6-1.0) Estimated GFR (Cockcroft-Gault) 33.2 43.0 Glucose Level 107 mg/dL (70-99) 118 mg/dL (70-99) Calcium Level 8.4 mg/dL (8.5-10.1) 8.2 mg/dL (8.5-10.1) Magnesium Level 1.8 mg/dL (1.8-2.4) 1.8 mg/dL (1.8-2.4) BUN/Creatinine Ratio 23 (6-20) Total Bilirubin 0.6 mg/dL (0.2-1.0) Aspartate Amino Transf (AST/SGOT) 18 U/L (15-37) Alanine Aminotransferase (ALT/SGPT) 35 U/L (14-59) Alkaline Phosphatase 46 U/L (46-116) Total Protein 5.2 g/dL (6.4-8.2) Albumin 2.5 g/dL (3.4-5.0) Albumin/Globulin Ratio 0.9 (1.0-1.7) Brief Hospital Course Ms. Kang is a 81 old who had been treated as an outpatient for otitis externa and sore gums with erythromax and doxycycline. I believe thes meds gave her stomach pain and that in combination with the gum soreness kept her from eating and dringin adequately. She presented with acute renal failure and dehydration. She was treated with IV fluids and a Protonix IV. Her kidney function improved to her baseline. She had a GI study which showed esophageal dysmotility, hiatal hernia and GERD, none of which are new findings but which need to be followed up upon. He PE did not show any evidence of a gum infection and her otitis externa of the right ear had resolved. Discharge Information Condition at Discharge: Improved Disposition/Orders: D/C to Home Dischare Medications Current Medications Hydromorphone HCl (Dilaudid) 0.5 mg PRN Q15MIN PRN IV/SQ PAIN GREATER THAN 3/ 10 Last administered on 02/13/17t 07:24; Start 02/12/17 at 12:00; Stop 02/13/17 at 11:59; Status DC Sodium Chloride 1,000 ml @ 1,000 mls/hr Q1H IV Last administered on 02/12/17 12:10; Start 02/12/17 at 12:10; Stop 02/12/17 at 13:09; Status DC Sodium Chloride (Normal Saline Flush) 10 ml QSHIFT PRN IV AFTER MEDS AND BLOOD DRAWS Last administered on 02/12/17 12:34; Start 02/12/17 at 12:00; Stop at 12:36; Status DC Ondansetron HCl (Zofran) 4 mg 1X ONCE IV Last administered on 02/12/17 12:10; Start 02/12/17 at 12:10; Stop 02/12/17 at 12:11; Status DC Ondansetron HCl (Zofran) 4 mg PRN Q4HRS PRN IV NAUSEA/VOMITING; Start 02/12/17 at 14:15; Stop 02/13/17 at 14:14; Status DC Fentanyl Citrate (Fentanyl 2ml Vial) 50 mcg PRN Q2HR PRN IV PAIN; Start at 14:15; Stop 02/13/17 at 08:24; Status DC Sodium Chloride 1,000 ml @ 80 mls/hr [id number] IV Last administered on 02/13/17 02:17; Start 02/12/17 at 14:01; Stop 02/13/17 at 14:00; Status DC Acetaminophen (Tylenol) 650 mg PRN Q4HRS PRN PO FEVER; Start 02/12/17 at 14:15; Stop 02/13/17 at 08:08; Status DC Acetaminophen (Tylenol) 650 mg PRN Q8HRS PRN PO PAIN Last administered on 16:22; Start 02/13/17 at 08:00; Stop 02/14/17 at 12:36; Status DC Aspirin (Aspirin Enteric Coated) 81 mg DAILY PO Last administered on 02/14/17 09:34; Start 02/13/17 at 09:00; Stop 02/14/17 at 12:36; Status DC Carvedilol (Coreg) 3.125 mg BIDWMEALS PO Last administered on 02/14/17 09:34; Start 02/13/17 at 08:00; Stop 02/14/17 at 12:36; Status DC Dicyclomine HCl (Bentyl) 20 mg TID PO Last administered on 02/14/17 09:34; Start 02/13/17 at 09:00; Stop 02/14/17 at 12:36; Status DC Duloxetine HCl (Cymbalta) 60 mg DAILY PO Last administered on 02/14/17 09:34; Start 02/13/17 at 09:00; Stop 02/14/17 at 12:36; Status DC Fentanyl (Duragesic 12mcg/ Hr) 1 patch Q3DAYS TD ; Start 02/13/17 at 09:00; Stop 02/13/17 at 16:56; Status DC Folic Acid (Folic Acid) 1 mg DAILY PO Last administered on 02/14/17 09:33; Start 02/13/17 at 09:00; Stop 02/14/17 at 12:36; Status DC Acetaminophen/ Hydrocodone Bitart (Lortab 5/325) 1 tab PRN Q4HRS PRN PO PAIN Last administered on 02/14/17 05:08; Start 02/13/17 at 08:00; Stop 02/14/17 at 12:36; Status DC Levothyroxine Sodium (Synthroid) 88 mcg DAILY06 PO Last administered on 05:07; Start 02/13/17 at 09:00; Stop 02/14/17 at 12:36; Status DC Nitroglycerin (Nitrostat) 0.4 mg PRN Q5MIN PRN SL CHEST PAIN; Start 02/13/17 at 08:00; Stop 02/14/17 at 12:36; Status DC Pantoprazole Sodium (Protonix) 40 mg DAILY PO Last administered on 02/14/17 09 :34; Start 02/13/17 at 09:00; Stop 02/14/17 at 12:36; Status DC Polyethylene Glycol (miraLAX) 17 gm DAILY PO ; Start 02/13/17 at 09:00; Stop 04/23 at 12:36; Status DC Potassium Chloride (Klor-Con) 20 meq DAILY PO Last administered on 02/14/17 09 :33; Start 02/13/17 at 09:00; Stop 02/14/17 at 12:36; Status DC Temazepam (Restoril) 15 mg QHS PO Last administered on 02/13/17 20:18; Start at 21:00; Stop 02/14/17 at 12:36; Status DC Warfarin Sodium (Coumadin) 4 mg DAILY16 PO ; Start 02/13/17 at 16:00; Stop at 16:00; Status DC Atorvastatin Calcium (Lipitor) 40 mg QHS PO Last administered on 02/13/17 20:18 ; Start 02/13/17 at 21:00; Stop 02/14/17 at 12:36; Status DC Ondansetron HCl (Zofran Odt) 8 mg PRN QID PRN PO NAUSEA; Start 02/13/17 at 08:15 ; Stop 02/14/17 at 12:36; Status DC Warfarin Sodium (Coumadin Per Pharmacy) 1 each PRN DAILY PRN MC SEE COMMENTS Last administered on 02/13/17 13:09; Start 02/13/17 at 08:30; Stop 02/14/17 at 12 :36; Status DC Warfarin Sodium (Coumadin - No Dose Today) 1 each 1X WARF ONCE MC ; Start at 16:00; Stop 02/13/17 at 16:01; Status DC Sodium Chloride 1,000 ml @ 75 mls/hr [id number] IV Last administered on 05:07; Start 02/13/17 at 17:20; Stop 02/14/17 at 12:36; Status DC Hydromorphone HCl (Dilaudid) 0.2 mg PRN Q4HRS PRN IVP PAIN Last administered on 02/13/17 18:00; Start 02/13/17 at 17:15; Stop 02/14/17 at 12:36; Status DC Active Scripts Active Coumadin (Warfarin Sodium) 4 Mg Tablet 2 Mg PO DAILY16 Linzess (Linaclotide) 145 Mcg Capsule 145 Mcg PO PRN PRN MDD 1 Protonix (Pantoprazole Sodium) 40 Mg Tablet.dr 40 Mg PO BID 90 Days LAST DOSE: today at 8AM NEXT DOSE: tomorrow at 8AM Cymbalta (Duloxetine Hcl) 60 Mg Capsule.dr 30 Mg PO DAILY 90 Days LAST DOSE: today at 8AM NEXT DOSE: tomorrow at 8AM [Warfarin Sodium] 1 EACH Each 1 Each MC PRN DAILY PRN Hydrocodone-Apap 5-325 (Hydrocodone Bit/Acetaminophen) 1 Each Tablet 1 Tab PO PRN Q4HRS PRN Carvedilol 3.125 Mg Tablet 3.125 Mg PO BIDWMEALS Restoril (Temazepam) 15 Mg Capsule 1 Cap PO QHS 30 Days Klor-Con M20 (Potassium Chloride) 20 Meq Tab.er.prt 1 Tab PO DAILY Reported Demadex (Torsemide) 20 Mg Tablet 20 Mg PO DAILY Enalapril Maleate 2.5 Mg Tablet 2.5 Mg PO HS CONTINUE PRESCRIBED Bentyl (Dicyclomine Hcl) 20 Mg Tablet 20 Mg PO TID LAST DOSE: today AM NEXT DOSE: today afternoon Lipitor (Atorvastatin Calcium) 40 Mg Tablet 40 Mg PO QHS last dose: last night at bedtime next dose: tonight at bedtime Aspir 81 (Aspirin) 81 Mg Tablet.dr 81 Mg PO DAILY Indication: heart health LAST DOSE: today at 8AM NEXT DOSE: tomorrow at 8AM NITROGLYCERIN SubLingual (Nitroglycerin) 0.4 Mg Tab.subl 0.4 Mg SL PRN Q5MIN PRN last dose As needed for chest pain next dose Tylenol (Acetaminophen) 325 Mg Tablet 650 Mg PO PRN Q8HRS PRN last dose: as needed next dose Levothyroxine Sodium 88 Mcg Tablet 88 Mcg PO DAILY LAST DOSE: today at 7AM NEXT DOSE: tomorrow at 7AM Folic Acid 1 Mg Tablet 1 Mg PO DAILY last dose: today at 8AM next dose: tomorrow at 8AM Patient Instructions Patient Instuctions See typwriitten instructions on [facility]. She will need to have her INR checked next week and her Coumadin was decreased. HAMZAH GAMBINO DO Feb 14, 2017 13:18
== END 2017-02-14 11:45 | disposition home or self-care (01) | DRG 684 ==
LOC: ER 11:28 → ICU 14:54 → 1 SOUTH 21:40 → OBSVTOIN 02-13 08:02
PROVIDERS: ADMIT Family Medicine; ATTEND Family Medicine
DX: N17.9 Acute kidney failure, unspecified (principal); I25.10 Atherosclerotic heart disease of native coronary artery without angina pectoris; I48.91 Unspecified atrial fibrillation; I50.9 Heart failure, unspecified; I11.0 Hypertensive heart disease with heart failure; K21.9 Gastro-esophageal reflux disease without esophagitis; K44.9 Diaphragmatic hernia without obstruction or gangrene; G89.29 Other chronic pain; H60.91 Unspecified otitis externa, right ear; K22.4 Dyskinesia of esophagus; E66.9 Obesity, unspecified; E87.6 Hypokalemia; E86.0 Dehydration; E78.5 Hyperlipidemia, unspecified; E78.00 Pure hypercholesterolemia, unspecified; E03.9 Hypothyroidism, unspecified; F32.9 Major depressive disorder, single episode, unspecified; R29.6 Repeated falls; Z96.653 Presence of artificial knee joint, bilateral; M19.90 Unspecified osteoarthritis, unspecified site; T36.4X5A Adverse effect of tetracyclines, initial encounter; T36.3X5A Adverse effect of macrolides, initial encounter; M54.5 Low back pain; Z86.73 Personal history of transient ischemic attack (TIA), and cerebral infarction without residual deficits; Z87.891 Personal history of nicotine dependence; Z95.2 Presence of prosthetic heart valve; Z95.5 Presence of coronary angioplasty implant and graft; Z79.01 Long term (current) use of anticoagulants; Z79.82 Long term (current) use of aspirin; Z79.899 Other long term (current) drug therapy; Z86.711 Personal history of pulmonary embolism; Z86.718 Personal history of other venous thrombosis and embolism; Z68.31 Body mass index [BMI] 31.0-31.9, adult; Z88.0 Allergy status to penicillin; Z88.1 Allergy status to other antibiotic agents; Z90.49 Acquired absence of other specified parts of digestive tract; Z95.0 Presence of cardiac pacemaker; Y92.89 Other specified places as the place of occurrence of the external cause; N18.3 Chronic kidney disease, stage 3 (moderate)
CPT/HCPCS: 36415; 74176; 74241; 80048; 80053; 80076; 81001; 83605; 83690; 83735; 84484; 85027; 85610; 85730; 86677; 87641; 93005; 96361; 96374; G0378; G0379; J1170; J2405; 99285-25; J7030

== ENCOUNTER → 2017-02-22 | Outpatient (CLI) | payer MEDICARE, BC, OTHER ==
[2017-02-14 10:04] VITALS: BP 123/78
[~2017-02-22] MED LIST changes: +SENN-87 PO; -SENN8.6T6 PO
[2017-02-22 10:29] LABS: BASO % 1 % (0-3); EOS # 0.1 x10^3/uL (0.0-0.7); EOS % 4 % (0-3); HEMATOCRIT 43.2 % (36.0-47.0); HEMOGLOBIN 14.2 g/dL (12.0-15.5); LYMPH # 1.4 x10^3/uL (1.0-4.8); LYMPH % 36 % (24-48); MEAN CORPUSCULAR HEMOGLOBIN 34 pg (25-35); MEAN CORPUSCULAR HGB CONC 33 g/dL (31-37); MEAN CORPUSCULAR VOLUME 102 fL (79-100); MONO # 0.3 x10^3/uL (0.0-1.1); MONO % 7 % (0-9); NEUT % 53 % (31-73); PLATELET COUNT 112 x10^3/uL (140-400); RED BLOOD COUNT 4.22 x10^6/uL (3.50-5.40); RED CELL DISTRIBUTION WIDTH 16.7 % (11.5-14.5); WHITE BLOOD COUNT 3.8 x10^3/uL (4.0-11.0)
[2017-02-22 10:36] LABS: ALBUMIN 3.2 g/dL (3.4-5.0); ALBUMIN/GLOBULIN RATIO 1.1 (1.0-1.7); CALCIUM 8.6 mg/dL (8.5-10.1); CREATININE 1.5 mg/dL (0.6-1.0); GFR 33.2; MAGNESIUM 1.8 mg/dL (1.8-2.4); POTASSIUM 4.5 mmol/L (3.5-5.1); TOTAL BILIRUBIN 0.7 mg/dL (0.2-1.0); TOTAL PROTEIN 6.1 g/dL (6.4-8.2)
[2017-02-22 13:35] LABS: FREE T4 1.33 ng/dL (0.76-1.46); THYROID STIM HORMONE (TSH) 5.35 uIU/mL (0.358-3.740)
== END | disposition home or self-care (01) ==
LOC: LAB 09:50
PROVIDERS: ATTEND Internal Medicine
DX: I10 Essential (primary) hypertension (principal); E03.9 Hypothyroidism, unspecified
CPT/HCPCS: 36415; 80053; 83735; 84439; 84443; 85025

== ENCOUNTER → 2017-04-09 | Outpatient (CLI) | payer MEDICARE, BC, OTHER ==
[~2017-04-09] MED LIST changes: +LEVO100T5 PO; -METO50TA10 PO; +METO50TA29 PO
== END | disposition home or self-care (01) ==
LOC: SURG 13:32
PROVIDERS: ATTEND Anesthesiology
DX: M47.816 Spondylosis without myelopathy or radiculopathy, lumbar region (principal); M54.16 Radiculopathy, lumbar region; M16.12 Unilateral primary osteoarthritis, left hip; I11.0 Hypertensive heart disease with heart failure; I50.9 Heart failure, unspecified; G45.9 Transient cerebral ischemic attack, unspecified; I48.91 Unspecified atrial fibrillation; Z90.89 Acquired absence of other organs; Z90.710 Acquired absence of both cervix and uterus; Z90.49 Acquired absence of other specified parts of digestive tract
CPT/HCPCS: 99204

== ENCOUNTER → 2017-04-09 | Outpatient (CLI) | payer MEDICARE, BC, OTHER ==
[~2017-04-09] MED LIST changes: -LEVO100T5 PO
--- NOTE | 2017-04-09 16:59 | RAD ---
CT lumbar spine Indication: Back pain Technique: CT of the lumbar spine without IV contrast with multiplanar reformats. Comparison: None Findings: 5 lumbar vertebral bodies. Lumbar spine is in normal anatomic alignment. No compression deformities. Multilevel intervertebral disc space narrowing with vacuum phenomena and productive changes compatible with degenerative disc disease. No lytic or sclerotic osseous lesions. Segmental analysis: L1-L2: Circumferential disc bulge flattening the anterior thecal sac. Mild bilateral facet arthropathy. Moderate right neural foramina narrowing. L2-L3: Circumferential disc bulge with superimposed central disc protrusion indenting anterior thecal sac. There is mild narrowing of spinal canal measuring 1.2 cm in AP dimension. Mild bilateral facet arthropathy. Severe left and mild right neural foramina narrowing. L3-L4: Circumferential disc bulge with superimposed central disc protrusion indenting anterior thecal sac. Mild to moderate bilateral facet arthropathy. Moderate right and severe left neural foramina narrowing. L4-L5: Circumferential disc bulge flattening anterior thecal sac. Severe bilateral facet arthropathy. Moderate right and left neural from narrowing. L5-S1: Circumferential disc bulge flattening anterior thecal sac. Severe bilateral facet arthropathy. Severe bilateral neural foramina narrowing. Infrarenal IVC noted. Moderate to severe diffuse atherosclerotic disease of the abdominal aorta and bilateral common iliac arteries. Multiple right-sided renal cysts. Impression: Multilevel degenerative disc disease and facet arthropathy causing varying amount of neural foramina narrowing as described above. PQRS Compliance Statement: One or more of the following individualized dose reduction techniques were utilized for this examination: 1. Automated exposure control 2. Adjustment of the mA and/or kV according to patient size 3. Use of iterative reconstruction technique
== END | disposition home or self-care (01) ==
LOC: CT 14:18
PROVIDERS: ATTEND Anesthesiology
DX: M51.36 Other intervertebral disc degeneration, lumbar region (principal); M12.88 Other specific arthropathies, not elsewhere classified, other specified site; I70.0 Atherosclerosis of aorta; N28.1 Cyst of kidney, acquired
CPT/HCPCS: 72131

== ENCOUNTER → 2017-04-30 | Outpatient (CLI) | payer MEDICARE, BC, OTHER ==
[~2017-04-30] MED LIST changes: +BUPIVACAINE MPF 0.25% 10 ML VIAL. ONE; +DEXAMETHASONE SOD PHOS 4 MG/ML VIAL ONE; +IOHEXOL 300 MG/ML 50 ML VIAL. ONE; +LEVO100T5 PO; +LIDOCAINE 1% PF 30 ML VIAL. ONE
== END | disposition home or self-care (01) ==
LOC: SURG 12:56
PROVIDERS: ATTEND Anesthesiology
DX: M54.16 Radiculopathy, lumbar region (principal); I25.10 Atherosclerotic heart disease of native coronary artery without angina pectoris; E78.00 Pure hypercholesterolemia, unspecified; E03.9 Hypothyroidism, unspecified; Z86.73 Personal history of transient ischemic attack (TIA), and cerebral infarction without residual deficits; Z90.710 Acquired absence of both cervix and uterus; Z87.440 Personal history of urinary (tract) infections; Z88.0 Allergy status to penicillin; Z88.2 Allergy status to sulfonamides
CPT/HCPCS: 64483; 64484; J1100; J2001; J3490; Q9967

== ENCOUNTER 2017-05-06 09:08 | Inpatient (IN) | payer MEDICARE, BC, OTHER ==
[~2017-05-06] VITALS: Ht 167.6 cm; Wt 87.1 kg
[~2017-05-06 09:08] MED LIST changes: -BUPIVACAINE MPF 0.25% 10 ML VIAL. ONE; -DEXAMETHASONE SOD PHOS 4 MG/ML VIAL ONE; -IOHEXOL 300 MG/ML 50 ML VIAL. ONE; -LEVO100T5 PO; -LIDOCAINE 1% PF 30 ML VIAL. ONE
[2017-05-06] MEDS ORDERED: NITROGLYCERIN SUBLINGUAL 0.4 MG BOTTLE OF 25. SL PRN ×3 (09:45→16:30)
--- NOTE | 2017-05-06 09:51 | PHYS DOC ---
General Chief Complaint: SHORTNESS OF BREATH Stated Complaint: SOA Time Seen by MD: 09:24 Source: patient, old records Exam Limitations: no limitations Problems: History of Present Illness Initial Comments Patient is an 82-year-old female brought to the ED by her with chest pain and shortness of breath. Patient states that she was taken off her Coumadin prior to epidural injection which was done last Saturday to treat left leg pain symptoms. She was treated with Lovenox in the period that she was off Coumadin, and states that on Saturday she resumed her Coumadin and discontinued Lovenox injections on Saturday or the following day, she says she has it written down in her black notebook at home. She states that her INR was checked by her doctor on Saturday it was subtherapeutic at 1. Her Coumadin dosing was increased over the weekend and she is due for INR checked this morning. Patient says starting on she first noticed intermittent chest pains described as located at her anterior left lower ribs, sharp and stabbing, pains occurring only with deep breaths and certain movements. The shortness of breath she describes as being present only when the pain limits her ability to breathe deeply, she denies any nausea diaphoresis weakness or lightheadedness arm or neck symptoms. No fever chills sweats or myalgias, no coughing and wheezing malaise or lethargy no headache or new focal neurologic deficit. She denies any increase or worsening of her chest pain and shortness of breath symptoms should she first noticed them last . She does state that for the past 2 days she's had swelling and tenderness at her posterolateral left lower leg. She denies any trauma and states it doesn't feel like prior DVTs. In the emergency department patient denies any chest pain at rest, and she has to take a deep breath to reproduce the discomfort which does make her wince somewhat. Nitroglycerin sublingually 1 had no effect on her pain symptoms. ED vitals: 97.7, 82, 16, 128/88, 96% room air Patient follows with Dr. Mahmood cardiology. Timing/Duration: intermittent Severity: severe Modifying Factors: worse with movement, improves with rest Associated Symptoms: chest pain, shortness of breath Allergies: Coded Allergies: Penicillins (Verified Allergy, Intermediate, RASH, 05/06/17) Sulfa (Sulfonamide Antibiotics) (Verified Allergy, Intermediate, 05/06/17) UNKNOWN REACTION WAS TOLD I WAS ALLERGIC TO IT. Past Medical History Medical History: other (coronary artery disease, mitral valve repair, hyperlipidemia, hypothyroidism, factor V Leiden deficiency, atrial fibrillation , hypokalemia, chronic pain, DVT, PE, hypertension, macular degeneration, skin cancer) Surgical History: other (cardiac stent, hysterectomy, multiple cardiac catheterizations, pacer/defibrillator, vena cava filter, cholecystectomy, appendectomy, total knee replacement, right femur fracture repair, cataracts) Social History Smoker: non-smoker Alcohol: none Drugs: none Review of Systems Constitutional: denies chills, denies diaphoresis, denies fever, denies malaise Respiratory: see HPI, denies cough, denies orthopnea, shortness of breath, denies wheezing Cardiovascular: see HPI, denies palpitations, denies syncope Gastrointestinal: denies abdominal pain, denies diarrhea, denies nausea, denies vomiting Genitourinary: denies dysuria, denies frequency, denies hematuria Musculoskeletal: see HPI Psychiatric/Neurological: denies headache, denies numbness, denies paresthesia , denies seizure, denies weakness Hematologic/Lymphatic: see HPI Physical Exam General Appearance: WD/WN, no apparent distress Ear, Nose, Throat: hearing grossly normal, normal ENT inspection, normal pharynx Neck: non-tender, supple Respiratory: normal breath sounds, no respiratory distress, other (mildly decreased at the bases good air movement, chest pain complaint nonreproducible) Cardiovascular: normal peripheral pulses, other (2+ pitting lower extremity edema patient states his baseline, paced rhythm auscultated's regular rate) Gastrointestinal: normal bowel sounds, non tender, soft Back: no CVA tenderness, no vertebral tenderness Extremities: normal range of motion, no calf tenderness, pelvis stable, other ( 1 cm superficial subcutaneous soft round mass posterior lateral left lower leg no erythema or increase in localized edema) 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 Interpreted by Dr. Persaud. 10:15: Patient reports "something is going on in my chest" she points to her epigastrium and states that it feels funny as if gurgling. Repeat EKG requested stat, vital signs remain unchanged no associated diaphoresis, nausea, shortness of breath, arm or neck symptoms. Patient reports that she took her morning meds but has not eaten this morning. EKG: (10:30) paced rhythm 80 bpm unchanged from prior study. Interpreted by Dr. Persaud. Pertinent labs: D-dimer 1.20, BUN 31, creatinine 1.4, BNP 3431, INR 1.6, troponin less than 0.017 1103: I discussed the patient thoroughly over the phone with instrumentation designer hospitalist Dr. Box. Dr. Box is immediately familiar with the patient by name as she has cared for the patient in the past. After thorough discussion of the patient's chief complaint and ED findings and inability to perform CT angiogram due to renal studies Dr. Box requests inpatient telemetry admission to follow cardiac enzymes and obtain VQ scan. Lower extremity Dopplers are pending, she also requests a cardiology consultation and gentle diuresis with Lasix 20 mg IV. I discussed this with the patient she expressed agreement, she does add that "if I have to have any surgeries I want to go to my doctor at Dr Mahmood." I asked the patient is that where she would like to be admitted initially and she replied negatively. Impressions: Congestive heart failure Dyspnea with chest tightness Hypercoagulable state with subtherapeutic INR Chronic renal insufficiency Elevated d-dimer Departure Disposition: ADMITTED INPATIENT Condition: STABLE Additional Instructions: Inpatient telemetry admission Dr. Box is accepting. CLINT PERSAUD DO May 06, 2017 09:51
[2017-05-06 09:58] LABS: BASO % 1 % (0-3); EOS # 0.2 x10^3/uL (0.0-0.7); EOS % 3 % (0-3); HEMATOCRIT 40.1 % (36.0-47.0); HEMOGLOBIN 13.7 g/dL (12.0-15.5); LYMPH # 1.1 x10^3/uL (1.0-4.8); LYMPH % 20 % (24-48); MEAN CORPUSCULAR HEMOGLOBIN 36 pg (25-35); MEAN CORPUSCULAR HGB CONC 34 g/dL (31-37); MEAN CORPUSCULAR VOLUME 104 fL (79-100); MONO # 0.5 x10^3/uL (0.0-1.1); MONO % 10 % (0-9); NEUT # 3.5 x10^3uL (1.8-7.7); NEUT % 66 % (31-73); PLATELET COUNT 125 x10^3/uL (140-400); RED BLOOD COUNT 3.86 x10^6/uL (3.50-5.40); RED CELL DISTRIBUTION WIDTH 15.4 % (11.5-14.5); WHITE BLOOD COUNT 5.3 x10^3/uL (4.0-11.0)
[2017-05-06] MEDS ORDERED: ENOXAPARIN ** NOTE DOSE ** SYRINGE SQ ONE (10:00)
[2017-05-06 10:17] LABS: ALBUMIN 3.2 g/dL (3.4-5.0); ALBUMIN/GLOBULIN RATIO 1.1 (1.0-1.7); CALCIUM 9.1 mg/dL (8.5-10.1); CREATININE 1.4 mg/dL (0.6-1.0); GFR 35.9; MAGNESIUM 1.9 mg/dL (1.8-2.4); POTASSIUM 4.8 mmol/L (3.5-5.1)
[2017-05-06] MEDS ORDERED: ACETAMINOPHEN 325 MG TABLET PO PRN ×2 (11:15→16:30)
[2017-05-06] MEDS ORDERED: FUROSEMIDE 40 MG/4 ML VIAL IVP ONE (11:15)
[2017-05-06] MEDS ORDERED: ONDANSETRON PF 4 MG/2 ML VIAL. IV PRN (11:15)
--- NOTE | 2017-05-06 11:43 | RAD ---
Bilateral lower extremity venous ultrasound, 05/06/2017: History: Chest pain, shortness of breath, factor V abnormality subtherapeutic INR, leg pain and swelling Duplex evaluation of the deep veins in the lower extremities was performed including grayscale, color-flow and spectral Doppler analysis. The femoral and popliteal veins demonstrate normal compressibility and normal responses to distal augmentation maneuvers. Color imaging of those vessels shows no evidence of intraluminal clot. The visualized deep veins in both calves are patent. IMPRESSION: There is no sonographic evidence of deep vein thrombosis in either lower extremity.
--- NOTE | 2017-05-06 12:13 | EKG ---
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
--- NOTE | 2017-05-06 12:14 | EKG ---
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
[2017-05-06 12:38] VITALS: BP 145/91
[2017-05-06] MEDS ORDERED: LEVO100T5 PO (15:59)
[2017-05-06 16:01] VITALS: BP 135/80
--- NOTE | 2017-05-06 16:03 | RAD ---
Indication shortness of air. Frontal and lateral views of the chest were obtained and are compared to an examination July 12, 2016. The heart and pulmonary vessels appear normal. The lungs are clear. Defibrillating and cardiac pacing device is noted. There has not been a significant change in the appearance of the chest compared to the previous exam. IMPRESSION: No acute finding in the chest. No significant change
--- NOTE | 2017-05-06 16:13 | RAD ---
Ventilation/perfusion lung scan, 05/06/2017: History: Dyspnea, subtherapeutic INR The ventilation study was performed utilizing 13.5 mCi of xenon-133. Comparison is made to a study from 05/21/2012. Activity in the lungs is mildly heterogeneous. There is moderate patchy retention of activity on the washout phase suggesting obstructive pulmonary disease. Perfusion imaging was performed utilizing 5.5 mCi of technetium 99m MAA. There is mildly heterogeneous activity in the lungs, similar to that seen on the ventilation study. These ventilation abnormalities are unchanged since an exam from 05/21/2012. No new, segmental or definite unmatched defects are seen to suggest acute emboli. IMPRESSION: 1. Abnormal ventilation and perfusion study suggesting obstructive pulmonary disease. 2. The probability of pulmonary emboli is considered to be low. 3. No significant change since 05/21/2012.
[2017-05-06] MEDS: HYDROcodone/APAP 5/325MG 1 TAB TABLET PO PRN ×2 (16:57→21:04)
[2017-05-06] MEDS: CARVEDILOL 3.125 MG TABLET PO SCH (16:58)
[2017-05-06] MEDS ORDERED: WARFARIN 4 MG TABLET. PO ONE (17:00)
[2017-05-06 19:17] VITALS: BP 117/74
[2017-05-06] MEDS: TEMAZEPAM 15 MG CAPSULE PO SCH (21:04)
[2017-05-06] MEDS: PANTOPRAZOLE 40 MG TABLET. PO SCH (21:04)
[2017-05-06] MEDS: ATORVASTATIN CALCIUM 20 MG TABLET PO SCH (21:04)
[2017-05-06] MEDS: DICYCLOMINE HCL 20 MG TABLET PO SCH (21:04)
[2017-05-06 23:05] VITALS: BP 118/77
[2017-05-07] MEDS: LEVOTHYROXINE 100 MCG TABLET PO SCH (05:32)
[2017-05-07 05:45] VITALS: BP 110/69
[2017-05-07 06:43] LABS: BASO % 1 % (0-3); EOS # 0.2 x10^3/uL (0.0-0.7); EOS % 4 % (0-3); HEMATOCRIT 40.9 % (36.0-47.0); HEMOGLOBIN 13.9 g/dL (12.0-15.5); LYMPH # 1.3 x10^3/uL (1.0-4.8); LYMPH % 34 % (24-48); MEAN CORPUSCULAR HEMOGLOBIN 35 pg (25-35); MEAN CORPUSCULAR HGB CONC 34 g/dL (31-37); MEAN CORPUSCULAR VOLUME 103 fL (79-100); MONO # 0.4 x10^3/uL (0.0-1.1); MONO % 11 % (0-9); NEUT % 50 % (31-73); PLATELET COUNT 135 x10^3/uL (140-400); RED BLOOD COUNT 3.95 x10^6/uL (3.50-5.40); RED CELL DISTRIBUTION WIDTH 15.6 % (11.5-14.5); WHITE BLOOD COUNT 3.9 x10^3/uL (4.0-11.0)
[2017-05-07 07:02] LABS: ALBUMIN 3.1 g/dL (3.4-5.0); ALBUMIN/GLOBULIN RATIO 1.1 (1.0-1.7); CREATININE 1.2 mg/dL (0.6-1.0); GFR 42.9; POTASSIUM 4.3 mmol/L (3.5-5.1); TOTAL BILIRUBIN 0.8 mg/dL (0.2-1.0)
[2017-05-07 07:12] LABS: MAGNESIUM 1.9 mg/dL (1.8-2.4)
[2017-05-07] MEDS: FOLIC ACID 1 MG TABLET PO SCH (08:37)
[2017-05-07] MEDS: TORSEMIDE 20 MG TABLET. PO SCH (08:37)
[2017-05-07] MEDS: DULoxetine HCL 30 MG CAPSULE.DR PO SCH (08:37)
[2017-05-07] MEDS: POTASSIUM CHLORIDE 20 MEQ TABLET.ER. PO SCH (08:38)
[2017-05-07] MEDS: CARVEDILOL 3.125 MG TABLET PO SCH ×2 (08:38→18:54)
[2017-05-07] MEDS: ASPIRIN ENTERIC COATED 81 MG TABLET.DR. PO SCH (08:39)
[2017-05-07] MEDS: PANTOPRAZOLE 40 MG TABLET. PO SCH ×2 (08:39→20:12)
[2017-05-07] MEDS: LISINOPRIL 5 MG TABLET. PO SCH (08:39)
[2017-05-07] MEDS: DICYCLOMINE HCL 20 MG TABLET PO SCH ×3 (08:39→20:11)
[2017-05-07] MEDS ORDERED: FLU VACC QS2017-18 (36MOS+)/PF 0.5 ML SYRINGE. VAX IM ONE (09:00)
--- NOTE | 2017-05-07 09:21 | CARD ---
APPROVED REPORT EXAM: Two-dimensional and M-mode echocardiogram with Doppler and color Doppler. Other Information Quality : Good Rhythm : Atrial Fibrillation--Pacemaker INDICATION Cardiac Disease: CAD Chest Pain Surgery/Intervention ICD/Pacemaker: 2D DIMENSIONS RVDd2.5 (2.9-3.5cm)Left Atrium(2D)3.8 (1.6-4.0cm) IVSd1.0 (0.7-1.1cm)Aortic Root(2D)3.1 (2.0-3.7cm) LVDd4.5 (3.9-5.9cm)LVOT Diameter2.0 (1.8-2.4cm) PWd0.9 (0.7-1.1cm)LVDs3.3 (2.5-4.0cm) FS (%) 27.2 %SV49.8 ml LVEF(%)53.1 (>50%) Aortic Valve AoV Peak Kee.114.5cm/sAoV VTI18.2cm AO Peak GR.5.2mmHgLVOT Peak Kee.79.6cm/s LVOT VTI 14.20cmAO Mean GR.3mmHg SONALI (VMAX)2.24wp2EBL (VTI)2.37cm2 AI P 1/2 Ozbk363aj Mitral Valve MV E Uufoygwm349.2cm/sMV DECEL BIRA288vd MV A Velocity1.3cm/sE/A Ratio78.6 Tricuspid Valve TR P. Wepptfmb548vt/sRAP XVTGGXBJ5vkAn TR Peak Gr.70jgCnWEZU28hjPi LEFT VENTRICLE The left ventricle is normal size. There is normal left ventricular wall thickness. Left ventricle sy stolic function is mild to moderate decreased. EF 40-45% The inferolateral wall is severely hypokinet ic. The remainder of the LV is mildly globally hypokinetic. Tissue Doppler imaging reveals moderate l eft ventricular diastolic dysfunction. RIGHT VENTRICLE The right ventricle is normal size. The right ventricular systolic function is normal. There is a pac emaker lead in the right ventricle. ATRIA The left atrium size is moderately dilated. The right atrium is moderately dilated. A pacemaker is se en in the right atrium consistent with history. The interatrial septum is intact with no evidence for an atrial septal defect or patent foramen ovale as noted on 2-D or Doppler imaging. AORTIC VALVE The aortic valve is calcified with mildly restricted leaflet motion. Doppler and Color Flow revealed mild aortic regurgitation. There is no significant aortic valvular stenosis. MITRAL VALVE The mitral valve is mildly thickened. Mitral annular calcification is moderate. There is no evidence of mitral valve prolapse. There is no mitral valve stenosis. Doppler and Color-flow revealed trace to mild mitral regurgitation. TRICUSPID VALVE The tricuspid valve is normal in structure and function. Doppler and Color Flow revealed trace tricus pid regurgitation. The PA pressure was estimated at 22 mmHg. There is no tricuspid valve stenosis. PULMONIC VALVE Doppler and Color Flow revealed no pulmonic valvular regurgitation. There is no pulmonic valvular vickey nosis. GREAT VESSELS The aortic root is normal in size. The ascending aorta is not well seen. The IVC is normal in size an d collapses >50% with inspiration. PERICARDIAL EFFUSION There is no evidence of significant pericardial effusion. Critical Notification Critical Value: No <Conclusion> Left ventricle systolic function is mild to moderate decreased. EF 40-45% The inferolateral wall is severely hypokinetic. The remainder of the LV is mildly globally hypokineti c. There is a pacemaker lead in the right ventricle. Doppler and Color Flow revealed mild aortic regurgitation.
--- NOTE | 2017-05-07 09:27 | PDOC2 ---
CONSULT Date of Admission DATE: 05/07/17 TIME: 09:26 Problem List Problems Medical Problems: (1) Congestive heart failure Status: Acute History of Present Illness Ms Kang is an 82 year old female who presented to the ED with complaints of chest pain. She describes left lower chest pain that is sharp and related to deep inspiration and upper body movement. She denies pain at rest or with walking unless taking a deep breath. This started last week but increased in intensity so she presented for evaluation. She denies dyspnea, palpitations, lightheadedness or syncope. She reports decreased functional capacity due to knee pain. She did have her knee injected last week and was off of her warfarin for this. Her INR remains subtherapeutic. She normally follows with Dr Mahmood at and would prefer any necessary procedures be done by him. Past Medical History CAD with prior stenting, Chronic atrial fibrillation, Factor V Leiden, mitral valve disease with repair, hypertension, hyperlipidemia, DVT, PE, hypothyroidism , hypokalemia, chronic pain, degenerative joint disease, PPM Past Surgical History Coronary stent placement, hysterectomy, bilateral knee replacements, multiple cardiac catheterizations, pacemaker placement Family History non contributory due to age Social History Non smoker, no significant ETOH, no illicit drugs Current Medications Current Medications Nitroglycerin (Nitrostat) 0.4 mg PRN Q5MIN PRN SL CP RATING > 1/10 Last administered on 05/06/17 10:26; Start 05/06/17 at 09:45; Stop 05/06/17 at 13 :32; Status DC Enoxaparin Sodium (Lovenox 100mg Syringe) 88 mg 1X ONCE SQ Last administered on 05/06/17 10:37; Start 05/06/17 at 10:00; Stop 05/06/17 at 10:01; Status DC Ondansetron HCl (Zofran) 4 mg PRN Q4HRS PRN IV NAUSEA/VOMITING; Start at 11:15; Stop 05/07/17 at 11:14 Acetaminophen (Tylenol) 650 mg PRN Q4HRS PRN PO FEVER; Start 05/06/17 at 11:15 ; Stop 05/06/17 at 16:44; Status DC Nitroglycerin (Nitrostat) 0.4 mg PRN Q5MIN PRN SL CHEST PAIN; Start 05/06/17 at 11:15; Stop 05/06/17 at 16:48; Status DC Furosemide (Lasix) 20 mg 1X ONCE IVP Last administered on 05/06/17 14:32; Start 05/06/17 at 11:15; Stop 05/06/17 at 11:16; Status DC Influenza Virus Vaccine Quadrival (Fluarix Quad [id number] Syringe) 0.5 ml ONCE ONCE VAX IM ; Start 05/07/17 at 09:00; Stop 05/07/17 at 09:01; Status DC Acetaminophen (Tylenol) 650 mg PRN Q8HRS PRN PO PAIN; Start 05/06/17 at 16:30 Aspirin (Aspirin Enteric Coated) 81 mg DAILY PO Last administered on 08:39; Start 05/07/17 at 09:00 Carvedilol (Coreg) 3.125 mg BIDWMEALS PO Last administered on 05/07/17 08:38 ; Start 05/06/17 at 17:00 Dicyclomine HCl (Bentyl) 20 mg TID PO Last administered on 05/07/17 08:39; Start 05/06/17 at 21:00 Duloxetine HCl (Cymbalta) 30 mg DAILY PO Last administered on 05/07/17 08:37 ; Start 05/07/17 at 09:00 Folic Acid (Folic Acid) 1 mg DAILY PO Last administered on 05/07/17 08:37; Start 05/07/17 at 09:00 Acetaminophen/ Hydrocodone Bitart (Lortab 5/325) 1 tab PRN Q4HRS PRN PO PAIN Last administered on 05/06/17 21:04; Start 05/06/17 at 16:30 Levothyroxine Sodium (Synthroid) 100 mcg DAILY06 PO Last administered on 05:32; Start 05/07/17 at 06:00 Nitroglycerin (Nitrostat) 0.4 mg PRN Q5MIN PRN SL CHEST PAIN; Start 05/06/17 at 16:30 Pantoprazole Sodium (Protonix) 40 mg BID PO Last administered on 05/07/17 08: 39; Start 05/06/17 at 21:00 Potassium Chloride (Klor-Con) 20 meq DAILY PO Last administered on 05/07/17 08:38; Start 05/07/17 at 09:00 Temazepam (Restoril) 15 mg QHS PO Last administered on 05/06/17 21:04; Start 05/06/17 at 21:00 Torsemide (Demadex) 20 mg DAILY PO Last administered on 05/07/17 08:37; Start 05/07/17 at 09:00 Atorvastatin Calcium (Lipitor) 40 mg QHS PO Last administered on 05/06/17 21: 04; Start 05/06/17 at 21:00 Lisinopril (Prinivil) 5 mg DAILY PO Last administered on 05/07/17 08:39; Start 05/07/17 at 09:00 Warfarin Sodium (Coumadin Per Pharmacy) 1 each PRN DAILY PRN MC SEE COMMENTS Last administered on 05/06/17 17:02; Start 05/06/17 at 17:00 Warfarin Sodium (Coumadin) 4 mg 1X ONCE PO Last administered on 05/06/17 16: 56; Start 05/06/17 at 17:00; Stop 05/06/17 at 17:01; Status DC Active Scripts Active Coumadin (Warfarin Sodium) 4 Mg Tablet 2 Mg PO DAILY16 Protonix (Pantoprazole Sodium) 40 Mg Tablet.dr 40 Mg PO BID 90 Days LAST DOSE: today at 8AM NEXT DOSE: tomorrow at 8AM Cymbalta (Duloxetine Hcl) 60 Mg Capsule.dr 30 Mg PO DAILY 90 Days LAST DOSE: today at 8AM NEXT DOSE: tomorrow at 8AM [Warfarin Sodium] 1 EACH Each 1 Each MC PRN DAILY PRN Hydrocodone-Apap 5-325 (Hydrocodone Bit/Acetaminophen) 1 Each Tablet 1 Tab PO PRN Q4HRS PRN Carvedilol 3.125 Mg Tablet 3.125 Mg PO BIDWMEALS Restoril (Temazepam) 15 Mg Capsule 1 Cap PO QHS 30 Days Klor-Con M20 (Potassium Chloride) 20 Meq Tab.er.prt 1 Tab PO DAILY Reported Levothyroxine Sodium 100 Mcg Tablet 1 Tab PO DAILY06 Demadex (Torsemide) 20 Mg Tablet 20 Mg PO DAILY Enalapril Maleate 2.5 Mg Tablet 2.5 Mg PO HS CONTINUE PRESCRIBED Bentyl (Dicyclomine Hcl) 20 Mg Tablet 20 Mg PO TID LAST DOSE: today AM NEXT DOSE: today afternoon Lipitor (Atorvastatin Calcium) 40 Mg Tablet 40 Mg PO QHS last dose: last night at bedtime next dose: tonight at bedtime Aspir 81 (Aspirin) 81 Mg Tablet.dr 81 Mg PO DAILY Indication: heart health LAST DOSE: today at 8AM NEXT DOSE: tomorrow at 8AM NITROGLYCERIN SubLingual (Nitroglycerin) 0.4 Mg Tab.subl 0.4 Mg SL PRN Q5MIN PRN last dose As needed for chest pain next dose Tylenol (Acetaminophen) 325 Mg Tablet 650 Mg PO PRN Q8HRS PRN last dose: as needed next dose Folic Acid 1 Mg Tablet 1 Mg PO DAILY last dose: today at 8AM next dose: tomorrow at 8AM Allergies: Coded Allergies: Penicillins (Verified Allergy, Intermediate, RASH, 05/06/17) Sulfa (Sulfonamide Antibiotics) (Verified Allergy, Intermediate, 05/06/17) UNKNOWN REACTION WAS TOLD I WAS ALLERGIC TO IT. Review of System as per HPI or negative General: Alert, Oriented X3, Cooperative, No acute distress HEENT: Atraumatic, EOMI, Other (no JVD/HJR) Lungs: Clear to auscultation, Normal air movement Heart: Regular rate, Normal S1, Normal S2 Abdomen: Normal bowel sounds, Soft, No tenderness Extremities: No clubbing, No cyanosis, No edema, Normal pulses Neuro: Normal speech, Strength at 5/5 X4 ext Psych/Mental Status: Mental status NL, Mood NL VITALS Vital Signs Date Time Temp Pulse Resp B/P (MAP) Pulse Ox O2 Delivery O2 Flow Rate FiO2 05/07/17 08:39 82 110/69 05/07/17 05:45 97.7 18 96 Room Air Labs Laboratory Tests Test 05/06/17 09:40 05/06/17 16:30 05/06/17 22:12 05/07/17 06:16 White Blood Count 5.3 x10^3/uL (4.0-11.0) 3.9 x10^3/uL (4.0-11.0) Red Blood Count 3.86 x10^6/uL (3.50-5.40) 3.95 x10^6/uL (3.50-5.40) Hemoglobin 13.7 g/dL (12.0-15.5) 13.9 g/dL (12.0-15.5) Hematocrit 40.1 % (36.0-47.0) 40.9 % (36.0-47.0) Mean Corpuscular Volume 104 fL (79-100) 103 fL (79-100) Mean Corpuscular Hemoglobin 36 pg (25-35) 35 pg (25-35) Mean Corpuscular Hemoglobin Concent 34 g/dL (31-37) 34 g/dL (31-37) Red Cell Distribution Width 15.4 % (11.5-14.5) 15.6 % (11.5-14.5) Platelet Count 125 x10^3/uL (140-400) 135 x10^3/uL (140-400) Neutrophils (%) (Auto) 66 % (31-73) 50 % (31-73) Lymphocytes (%) (Auto) 20 % (24-48) 34 % (24-48) Monocytes (%) (Auto) 10 % (0-9) 11 % (0-9) Eosinophils (%) (Auto) 3 % (0-3) 4 % (0-3) Basophils (%) (Auto) 1 % (0-3) 1 % (0-3) Neutrophils # (Auto) 3.5 x10^3uL (1.8-7.7) 2.0 x10^3uL (1.8-7.7) Lymphocytes # (Auto) 1.1 x10^3/uL (1.0-4.8) 1.3 x10^3/uL (1.0-4.8) Monocytes # (Auto) 0.5 x10^3/uL (0.0-1.1) 0.4 x10^3/uL (0.0-1.1) Eosinophils # (Auto) 0.2 x10^3/uL (0.0-0.7) 0.2 x10^3/uL (0.0-0.7) Basophils # (Auto) 0.0 x10^3/uL (0.0-0.2) 0.0 x10^3/uL (0.0-0.2) Prothrombin Time 16.7 SEC (9.4-11.4) 17.4 SEC (9.4-11.4) Prothromb Time International Ratio 1.6 (0.9-1.1) 1.7 (0.9-1.1) Activated Partial Thromboplast Time 25 SEC (23-33) D-Dimer (Leanna) 1.20 mg/L (0.00-0.50) Sodium Level 137 mmol/L (136-145) 137 mmol/L (136-145) Potassium Level 4.8 mmol/L (3.5-5.1) 4.3 mmol/L (3.5-5.1) Chloride Level 102 mmol/L (98-107) 101 mmol/L (98-107) Carbon Dioxide Level 32 mmol/L (21-32) 30 mmol/L (21-32) Anion Gap 3 (6-14) 6 (6-14) Blood Urea Nitrogen 31 mg/dL (7-20) 30 mg/dL (7-20) Creatinine 1.4 mg/dL (0.6-1.0) 1.2 mg/dL (0.6-1.0) Estimated GFR (Cockcroft-Gault) 35.9 42.9 BUN/Creatinine Ratio 22 (6-20) 25 (6-20) Glucose Level 119 mg/dL (70-99) 113 mg/dL (70-99) Calcium Level 9.1 mg/dL (8.5-10.1) 9.0 mg/dL (8.5-10.1) Magnesium Level 1.9 mg/dL (1.8-2.4) 1.9 mg/dL (1.8-2.4) Total Bilirubin 1.0 mg/dL (0.2-1.0) 0.8 mg/dL (0.2-1.0) Aspartate Amino Transf (AST/SGOT) 24 U/L (15-37) 21 U/L (15-37) Alanine Aminotransferase (ALT/SGPT) 36 U/L (14-59) 31 U/L (14-59) Alkaline Phosphatase 57 U/L (46-116) 56 U/L (46-116) Creatine Kinase 30 U/L (26-192) Troponin I Quantitative < 0.017 ng/mL (0-0.055) < 0.017 ng/mL (0-0.055) < 0.017 ng/mL (0-0.055) AH-Uwi-L-Type Natriuretic Peptide 3431 pg/mL (0-449) 2674 pg/mL (0-449) Total Protein 6.0 g/dL (6.4-8.2) 6.0 g/dL (6.4-8.2) Albumin 3.2 g/dL (3.4-5.0) 3.1 g/dL (3.4-5.0) Albumin/Globulin Ratio 1.1 (1.0-1.7) 1.1 (1.0-1.7) Lipase 67 U/L (73-393) Images EKG - V paced CXR - no acute abn VQ COPD, low risk for PE Venous duplex neg for DVT Assessment/Plan 1. Chest pain, atypical- most consistent with musculoskeletal pain. MD ruled out. Await echocardiogram. 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 2. Elevated BNP - no overt heart failure 3. Elevated d dimer - VQ low prob for PE, venous duplex negative. INR remains sub therapeutic. goal 2-3. Adjust per pharmacy/PCP. 4. Chronic atrial fibrillation - currently rate controlled and 100% V paced. 5. s/p PPM - she reports normal device check this month with Dr Mahmood 6. CAD s/p PCI/Stent - Vianney negative. Angina free. Continue medical therapy and follow up with Dr Mahmood. 7. Hyperlipidemia - continue statin. Problems: KATY SANCHEZ APRN May 07, 2017 09:27
[2017-05-07 10:23] VITALS: BP 116/71
[2017-05-07 14:59] VITALS: BP 101/69
[2017-05-07] MEDS ORDERED: WARFARIN 3 MG TABLET. PO ONE (16:00)
--- NOTE | 2017-05-07 18:09 | HP ---
ADMIT DATE: 05/06/2017 REASON FOR ADMISSION: This is an 82-year-old female presenting to the Emergency Room after experiencing some left lower chest pain that was sharp. It was associated with deep inspiration, some movement, but of note is that 1 week ago, she got an epidural shot for a very painful left leg. The Coumadin that she takes was held. Then 2 days later, she got this chest pain, could not breathe and refrigerator assembler's office told her to go to the Emergency Room. She did get Lovenox prior to having the procedure. Also of note is she has been going to physical therapy 2-3 times a week for her leg, but has not experienced any chest pain there. ALLERGIES: PENICILLIN and SULFA. MEDICATIONS: Reviewed and corrected. PAST MEDICAL HISTORY: Chronic AFib, coronary artery disease with stent deployment, history of DVT, factor V Leiden, history of mitral valve repair, hypokalemia, chronic pain, falls. PAST SURGICAL HISTORY: Coronary stent placement, hysterectomy, bilateral knee replacements, multiple cardiac catheterizations. REVIEW OF SYSTEMS: Positive for fatigue and improved gardner lately. Denies fever, denies sore throat, left leg pain. OBJECTIVE: The patient is seen in her room. VITAL SIGNS: Blood pressure 110/69, temperature 97.7, pulse 82, respirations 18, pulse ox 96% on room air, height 66 inches, weight 194.06 pounds. HEENT: She is mildly hard of hearing, wears glasses. Her eyes were clear. Nose was patent. Throat was clear. NECK: Supple. LUNGS: Clear to auscultation. CARDIOVASCULAR: Regular rhythm and rate with a 2/6 systolic murmur heard at the aortic area. ABDOMEN: Soft, nontender. EXTREMITIES: Without edema. Her skin is of elderly type and the place where the pain was on her leg is no longer there to palpation. She does ambulate to the bathroom without assistance. LABORATORY DATA: Platelets 135 normal, white count slightly low at 3.9. BUN 30, creatinine 1.2. BNP 2674, albumin 3.1. Her D-dimer was 1.20 and her INR started off at 1.6. Her VQ scan was negative for PE, but positive for COPD. Lower extremity ultrasound is negative for DVT. ASSESSMENT: Her troponins are negative x 3. Her echocardiogram, however, was not normal and compared to the echo from 1 year ago, she has inferior lateral wall with severe hypokinesis, continues with decreased systolic function with ejection fraction of 40-45% and mildly globally hypokinetic left ventricle. ASSESSMENT: 1. Chest pain, myocardial infarction ruled out. 2. Hypokinetic inferior lateral wall. 3. History of coronary artery disease with stent placement. 4. Mild cardiomyopathy at 40%. 5. Elevated D-dimer, pulmonary embolism ruled out. 6. Factor V Leiden. 7. History of deep vein thrombosis. 8. Subtherapeutic INR. 9. Chronic pain. PLAN: The patient will have a pharmaceutical stress test tomorrow and she will be n.p.o. after midnight. No caffeine. Appreciate cardiology's input. HAMZAH GAMBINO DO DR: BRIAN/gary JOB#: [id number] / [id number]
[2017-05-07] MEDS: ATORVASTATIN CALCIUM 20 MG TABLET PO SCH (20:11)
[2017-05-07] MEDS: TEMAZEPAM 15 MG CAPSULE PO SCH (20:12)
[2017-05-07] MEDS: HYDROcodone/APAP 5/325MG 1 TAB TABLET PO PRN (20:12)
[2017-05-07 20:44] VITALS: BP 100/65
[2017-05-07 23:00] VITALS: BP 93/59
[2017-05-08 05:37] VITALS: BP 102/61
[2017-05-08] MEDS: LEVOTHYROXINE 100 MCG TABLET PO SCH (05:51)
[2017-05-08 06:45] LABS: ALBUMIN 3.4 g/dL (3.4-5.0); ALBUMIN/GLOBULIN RATIO 1.4 (1.0-1.7); CALCIUM 8.8 mg/dL (8.5-10.1); CREATININE 1.4 mg/dL (0.6-1.0); GFR 35.9; MAGNESIUM 1.9 mg/dL (1.8-2.4); POTASSIUM 4.4 mmol/L (3.5-5.1); TOTAL BILIRUBIN 0.8 mg/dL (0.2-1.0); TOTAL PROTEIN 5.8 g/dL (6.4-8.2)
[2017-05-08 07:31] LABS: BASO % 1 % (0-3); EOS # 0.2 x10^3/uL (0.0-0.7); EOS % 3 % (0-3); HEMATOCRIT 41.6 % (36.0-47.0); HEMOGLOBIN 14.2 g/dL (12.0-15.5); LYMPH # 1.5 x10^3/uL (1.0-4.8); LYMPH % 29 % (24-48); MEAN CORPUSCULAR HEMOGLOBIN 36 pg (25-35); MEAN CORPUSCULAR HGB CONC 34 g/dL (31-37); MEAN CORPUSCULAR VOLUME 104 fL (79-100); MONO # 0.5 x10^3/uL (0.0-1.1); MONO % 11 % (0-9); NEUT # 2.8 x10^3uL (1.8-7.7); NEUT % 56 % (31-73); PLATELET COUNT 128 x10^3/uL (140-400); RED BLOOD COUNT 3.99 x10^6/uL (3.50-5.40); RED CELL DISTRIBUTION WIDTH 15.5 % (11.5-14.5)
[2017-05-08] MEDS ORDERED: REGADENOSON 0.4 MG/5 ML DISP.SYRIN. IV ONE (08:00)
[2017-05-08] MEDS ORDERED: FLU VACC QS2017-18 (36MOS+)/PF 0.5 ML SYRINGE. VAX IM ONE (09:00)
[2017-05-08] MEDS: POTASSIUM CHLORIDE 20 MEQ TABLET.ER. PO SCH (10:20)
[2017-05-08] MEDS: DICYCLOMINE HCL 20 MG TABLET PO SCH ×2 (10:21→17:08)
[2017-05-08] MEDS: DULoxetine HCL 30 MG CAPSULE.DR PO SCH (10:23)
[2017-05-08] MEDS: ASPIRIN ENTERIC COATED 81 MG TABLET.DR. PO SCH (10:24)
[2017-05-08] MEDS: TORSEMIDE 20 MG TABLET. PO SCH (10:24)
[2017-05-08] MEDS: FOLIC ACID 1 MG TABLET PO SCH (10:26)
[2017-05-08] MEDS: LISINOPRIL 5 MG TABLET. PO SCH (10:26)
[2017-05-08] MEDS: CARVEDILOL 3.125 MG TABLET PO SCH ×2 (10:31→17:09)
[2017-05-08] MEDS: PANTOPRAZOLE 40 MG TABLET. PO SCH (10:33)
[2017-05-08 11:36] VITALS: BP 134/82
--- NOTE | 2017-05-08 11:40 | PDOC ---
PROGRESS NOTES Diagnosis Problem Problems Medical Problems: (1) Congestive heart failure Status: Acute Assessment Problems Medical Problems: (1) Congestive heart failure Status: Acute 1. Chest pain, atypical- most consistent with musculoskeletal pain. OR ruled out. Echo reveals mild systolic dysfunction and new inferolateral WMA. MPI this am. 2. Elevated BNP - no overt heart failure 3. Elevated d dimer - VQ low prob for PE, venous duplex negative. INR remains sub therapeutic. goal 2-3. Adjust per pharmacy/PCP. 4. Chronic atrial fibrillation s/p AVN ablation - currently rate controlled and 100% V paced. 5. ICM s/p PAINTER ROUGH-D - Check device 6. CAD s/p PCI/Stent - Vianney negative. Angina free. Await MPI results. Continue medical therapy. 7. Hyperlipidemia - continue statin. Problems: Subjective no chest pain, breathing easy, no palpitations or lightheadedness Objective Vital Signs Date Time Temp Pulse Resp B/P (MAP) Pulse Ox O2 Delivery O2 Flow Rate FiO2 05/08/17 10:31 68 110/67 05/08/17 08:00 Room Air 05/08/17 05:37 97.6 20 94 05/07/17 23:00 2.0 Abdomen: Normal bowel sounds, Soft Heart: Regular rate, Normal S1, Normal S2 Extremities: No cyanosis, Normal pulses General: Alert, Oriented X3, Cooperative, No acute distress HEENT: Atraumatic, EOMI, Mucous membr. moist/pink Lungs: Other (decreased bases without crackles, wheezes or rhonchi) Neuro: Normal speech, Strength at 5/5 X4 ext Psych/Mental Status: Mental status NL, Mood NL Review of Relevant I have reviewed the following items angela (where applicable) has been applied. Labs Laboratory Tests Test 05/06/17 16:30 05/06/17 22:12 05/07/17 06:16 05/08/17 06:10 Troponin I Quantitative < 0.017 ng/mL (0-0.055) < 0.017 ng/mL (0-0.055) White Blood Count 3.9 x10^3/uL (4.0-11.0) Red Blood Count 3.95 x10^6/uL (3.50-5.40) Hemoglobin 13.9 g/dL (12.0-15.5) Hematocrit 40.9 % (36.0-47.0) Mean Corpuscular Volume 103 fL (79-100) Mean Corpuscular Hemoglobin 35 pg (25-35) Mean Corpuscular Hemoglobin Concent 34 g/dL (31-37) Red Cell Distribution Width 15.6 % (11.5-14.5) Platelet Count 135 x10^3/uL (140-400) Neutrophils (%) (Auto) 50 % (31-73) Lymphocytes (%) (Auto) 34 % (24-48) Monocytes (%) (Auto) 11 % (0-9) Eosinophils (%) (Auto) 4 % (0-3) Basophils (%) (Auto) 1 % (0-3) Neutrophils # (Auto) 2.0 x10^3uL (1.8-7.7) Lymphocytes # (Auto) 1.3 x10^3/uL (1.0-4.8) Monocytes # (Auto) 0.4 x10^3/uL (0.0-1.1) Eosinophils # (Auto) 0.2 x10^3/uL (0.0-0.7) Basophils # (Auto) 0.0 x10^3/uL (0.0-0.2) Prothrombin Time 17.4 SEC (9.4-11.4) Prothromb Time International Ratio 1.7 (0.9-1.1) Sodium Level 137 mmol/L (136-145) 137 mmol/L (136-145) Potassium Level 4.3 mmol/L (3.5-5.1) 4.4 mmol/L (3.5-5.1) Chloride Level 101 mmol/L (98-107) 99 mmol/L (98-107) Carbon Dioxide Level 30 mmol/L (21-32) 28 mmol/L (21-32) Anion Gap 6 (6-14) 10 (6-14) Blood Urea Nitrogen 30 mg/dL (7-20) 38 mg/dL (7-20) Creatinine 1.2 mg/dL (0.6-1.0) 1.4 mg/dL (0.6-1.0) Estimated GFR (Cockcroft-Gault) 42.9 35.9 BUN/Creatinine Ratio 25 (6-20) 27 (6-20) Glucose Level 113 mg/dL (70-99) 106 mg/dL (70-99) Calcium Level 9.0 mg/dL (8.5-10.1) 8.8 mg/dL (8.5-10.1) Magnesium Level 1.9 mg/dL (1.8-2.4) 1.9 mg/dL (1.8-2.4) Total Bilirubin 0.8 mg/dL (0.2-1.0) 0.8 mg/dL (0.2-1.0) Aspartate Amino Transf (AST/SGOT) 21 U/L (15-37) 23 U/L (15-37) Alanine Aminotransferase (ALT/SGPT) 31 U/L (14-59) 29 U/L (14-59) Alkaline Phosphatase 56 U/L (46-116) 63 U/L (46-116) UW-Itc-E-Type Natriuretic Peptide 2674 pg/mL (0-449) Total Protein 6.0 g/dL (6.4-8.2) 5.8 g/dL (6.4-8.2) Albumin 3.1 g/dL (3.4-5.0) 3.4 g/dL (3.4-5.0) Albumin/Globulin Ratio 1.1 (1.0-1.7) 1.4 (1.0-1.7) Test 05/08/17 06:50 White Blood Count 5.0 x10^3/uL (4.0-11.0) Red Blood Count 3.99 x10^6/uL (3.50-5.40) Hemoglobin 14.2 g/dL (12.0-15.5) Hematocrit 41.6 % (36.0-47.0) Mean Corpuscular Volume 104 fL (79-100) Mean Corpuscular Hemoglobin 36 pg (25-35) Mean Corpuscular Hemoglobin Concent 34 g/dL (31-37) Red Cell Distribution Width 15.5 % (11.5-14.5) Platelet Count 128 x10^3/uL (140-400) Neutrophils (%) (Auto) 56 % (31-73) Lymphocytes (%) (Auto) 29 % (24-48) Monocytes (%) (Auto) 11 % (0-9) Eosinophils (%) (Auto) 3 % (0-3) Basophils (%) (Auto) 1 % (0-3) Neutrophils # (Auto) 2.8 x10^3uL (1.8-7.7) Lymphocytes # (Auto) 1.5 x10^3/uL (1.0-4.8) Monocytes # (Auto) 0.5 x10^3/uL (0.0-1.1) Eosinophils # (Auto) 0.2 x10^3/uL (0.0-0.7) Basophils # (Auto) 0.0 x10^3/uL (0.0-0.2) Prothrombin Time 19.4 SEC (9.4-11.4) Prothromb Time International Ratio 1.9 (0.9-1.1) Medications Current Medications Nitroglycerin (Nitrostat) 0.4 mg PRN Q5MIN PRN SL CP RATING > 1/10 Last administered on 05/06/17 10:26; Start 05/06/17 at 09:45; Stop 05/06/17 at 13 :32; Status DC Enoxaparin Sodium (Lovenox 100mg Syringe) 88 mg 1X ONCE SQ Last administered on 05/06/17 10:37; Start 05/06/17 at 10:00; Stop 05/06/17 at 10:01; Status DC Ondansetron HCl (Zofran) 4 mg PRN Q4HRS PRN IV NAUSEA/VOMITING; Start at 11:15; Stop 05/07/17 at 11:14; Status DC Acetaminophen (Tylenol) 650 mg PRN Q4HRS PRN PO FEVER; Start 05/06/17 at 11:15 ; Stop 05/06/17 at 16:44; Status DC Nitroglycerin (Nitrostat) 0.4 mg PRN Q5MIN PRN SL CHEST PAIN; Start 05/06/17 at 11:15; Stop 05/06/17 at 16:48; Status DC Furosemide (Lasix) 20 mg 1X ONCE IVP Last administered on 05/06/17 14:32; Start 05/06/17 at 11:15; Stop 05/06/17 at 11:16; Status DC Influenza Virus Vaccine Quadrival (Fluarix Quad [id number] Syringe) 0.5 ml ONCE ONCE VAX IM ; Start 05/07/17 at 09:00; Stop 05/07/17 at 09:01; Status Cancel Acetaminophen (Tylenol) 650 mg PRN Q8HRS PRN PO PAIN Last administered on 05/07 11:06; Start 05/06/17 at 16:30 Aspirin (Aspirin Enteric Coated) 81 mg DAILY PO Last administered on 05/08/17 10:24; Start 05/07/17 at 09:00 Carvedilol (Coreg) 3.125 mg BIDWMEALS PO Last administered on 05/08/17 10:31; Start 05/06/17 at 17:00 Dicyclomine HCl (Bentyl) 20 mg TID PO Last administered on 05/08/17 10:21; Start 05/06/17 at 21:00 Duloxetine HCl (Cymbalta) 30 mg DAILY PO Last administered on 05/08/17 10:23; Start 05/07/17 at 09:00 Folic Acid (Folic Acid) 1 mg DAILY PO Last administered on 05/08/17 10:26; Start 05/07/17 at 09:00 Acetaminophen/ Hydrocodone Bitart (Lortab 5/325) 1 tab PRN Q4HRS PRN PO PAIN Last administered on 05/07/17 20:12; Start 05/06/17 at 16:30 Levothyroxine Sodium (Synthroid) 100 mcg DAILY06 PO Last administered on 05:51; Start 05/07/17 at 06:00 Nitroglycerin (Nitrostat) 0.4 mg PRN Q5MIN PRN SL CHEST PAIN; Start 05/06/17 at 16:30 Pantoprazole Sodium (Protonix) 40 mg BID PO Last administered on 05/08/17 10: 33; Start 05/06/17 at 21:00 Potassium Chloride (Klor-Con) 20 meq DAILY PO Last administered on 05/08/17 10 :20; Start 05/07/17 at 09:00 Temazepam (Restoril) 15 mg QHS PO Last administered on 05/07/17 20:12; Start 05/06/17 at 21:00 Torsemide (Demadex) 20 mg DAILY PO Last administered on 05/08/17 10:24; Start 05/07/17 at 09:00 Atorvastatin Calcium (Lipitor) 40 mg QHS PO Last administered on 05/07/17 20: 11; Start 05/06/17 at 21:00 Lisinopril (Prinivil) 5 mg DAILY PO Last administered on 05/08/17 10:26; Start 05/07/17 at 09:00 Warfarin Sodium (Coumadin Per Pharmacy) 1 each PRN DAILY PRN MC SEE COMMENTS Last administered on 05/07/17 12:04; Start 05/06/17 at 17:00 Warfarin Sodium (Coumadin) 4 mg 1X ONCE PO Last administered on 05/06/17 16: 56; Start 05/06/17 at 17:00; Stop 05/06/17 at 17:01; Status DC Warfarin Sodium (Coumadin) 3 mg 1X WARF ONCE PO Last administered on 16:07; Start 05/07/17 at 16:00; Stop 05/07/17 at 16:01; Status DC Influenza Virus Vaccine Quadrival (Fluarix Quad [id number] Syringe) 0.5 ml ONCE ONCE VAX IM ; Start 05/08/17 at 09:00; Stop 05/08/17 at 09:01; Status DC Regadenoson (Lexiscan) 0.4 mg 1X ONCE IV Last administered on 05/08/17 09:16 ; Start 05/08/17 at 08:00; Stop 05/08/17 at 08:01; Status DC Active Scripts Active Coumadin (Warfarin Sodium) 4 Mg Tablet 2 Mg PO DAILY16 Protonix (Pantoprazole Sodium) 40 Mg Tablet.dr 40 Mg PO BID 90 Days LAST DOSE: today at 8AM NEXT DOSE: tomorrow at 8AM Cymbalta (Duloxetine Hcl) 60 Mg Capsule.dr 30 Mg PO DAILY 90 Days LAST DOSE: today at 8AM NEXT DOSE: tomorrow at 8AM [Warfarin Sodium] 1 EACH Each 1 Each MC PRN DAILY PRN Hydrocodone-Apap 5-325 (Hydrocodone Bit/Acetaminophen) 1 Each Tablet 1 Tab PO PRN Q4HRS PRN Carvedilol 3.125 Mg Tablet 3.125 Mg PO BIDWMEALS Restoril (Temazepam) 15 Mg Capsule 1 Cap PO QHS 30 Days Klor-Con M20 (Potassium Chloride) 20 Meq Tab.er.prt 1 Tab PO DAILY Reported Levothyroxine Sodium 100 Mcg Tablet 1 Tab PO DAILY06 Demadex (Torsemide) 20 Mg Tablet 20 Mg PO DAILY Enalapril Maleate 2.5 Mg Tablet 2.5 Mg PO HS CONTINUE PRESCRIBED Bentyl (Dicyclomine Hcl) 20 Mg Tablet 20 Mg PO TID LAST DOSE: today AM NEXT DOSE: today afternoon Lipitor (Atorvastatin Calcium) 40 Mg Tablet 40 Mg PO QHS last dose: last night at bedtime next dose: tonight at bedtime Aspir 81 (Aspirin) 81 Mg Tablet.dr 81 Mg PO DAILY Indication: heart health LAST DOSE: today at 8AM NEXT DOSE: tomorrow at 8AM NITROGLYCERIN SubLingual (Nitroglycerin) 0.4 Mg Tab.subl 0.4 Mg SL PRN Q5MIN PRN last dose As needed for chest pain next dose Tylenol (Acetaminophen) 325 Mg Tablet 650 Mg PO PRN Q8HRS PRN last dose: as needed next dose Folic Acid 1 Mg Tablet 1 Mg PO DAILY last dose: today at 8AM next dose: tomorrow at 8AM Vitals/I & O Vital Sign - Last 24 Hours 05/07/17 05/07/17 05/07/17 05/07/17 14:59 18:54 19:10 20:12 Temp 97.3 Pulse 80 80 Resp 20 18 B/P (MAP) 101/69 (80) 101/69 Pulse Ox 98 O2 Delivery Room Air Room Air Room Air 05/07/17 05/07/17 05/07/17 05/08/17 20:44 21:10 23:00 05:37 Temp 97.6 97.5 97.6 Pulse 80 83 83 Resp 16 18 20 20 B/P (MAP) 100/65 (77) 93/59 (70) 102/61 (75) Pulse Ox 96 95 94 O2 Delivery Room Air Room Air Nasal Cannula Room Air O2 Flow Rate 2.0 05/08/17 05/08/17 05/08/17 08:00 10:26 10:31 Pulse 79 68 B/P (MAP) 110/67 110/67 O2 Delivery Room Air KATY SANCHEZ APRN May 08, 2017 11:40
--- NOTE | 2017-05-08 12:24 | RAD ---
APPROVED REPORT Test Type: Pharmacological Stress Nurse/Tech: RT Brijesh (R) (N) Test Indications: Chest pain Cardiac History: Hypertension, A-fib, pacemaker Medications: See EHR Medical History: See EHR Resting Heart Rate: 105 bpm Resting Blood Pressure: 149/78mmHg Pretest Chest Pain: slight Pharm. Details Pharmacologic stress testing was performed using 0.4mg per 5ml of regadenoson given intravenously ove r 7-10 seconds. Stress Symptoms Chest pain POST EXERCISE Max HR: 163 bpm Max Blood Pressure: 149/78mmHg Blood Pressure response to exercise: Normal blood pressure response during stress. Heart Rate response to exercise: Increased Chest Pain: Yes. Arrhythmia: No. ST Change: No. INTERPRETATION Stress EKG Conclusion: Non-diagnostic EKG due to v-pacing Imaging Protocol IMAGE PROTOCOL: Rest Tc-99m/stress Tc-99m 1 day Rest: Stress: Viability: Radiopharm.Tc99m [id number] Sestamibi [id number] 30mCi Duration 20min. 15min. Img Date 05/08/2017 05/08/2017 Inj-Img [id number]. 45min. Rest Admin Site:IV - Left AntecubitalAdministrator: RT Brijesh (R)(N) Stress Admin Site: IV - Left AntecubitalAdministrator: RT Brijesh (R)(N) STRESS DATA End Diast. Vol.65.0mlAv. Heart Rate81.0bpm LVEDV index BSA1.0mlCardiac Output0.1L/min End Syst. Vol.18.0mlCO Index BSA3.8L/min LVESV index BSA0.0mlMyocardial Whjr399.0g Eject. Uviaqazd59.0% Stress Rates Pk. Fill Rate4.22EDV/secLVtime Pk. Fill 152.45msec Pk. Empty Rate4.86ESV/secLVtime Pk. Etets593.08msec 07/10 Pk. Fill1.50EDV/sec Stress Scores Regional WT0.00Summed WT6.00 Regional WM0.00Summed WM0.00 LV Perfusion There is a moderate sized, severe in intensity fixed defect involving the apex consistent with prior infarction without active ischemia. Wall Motion Grossly normal wall motion with an EF > 65% LV Perf. Quant 17 Seg. SSS12.00 17 Seg. SRS15.00 17 Seg. SDS0.00 Stress Defect Extent (% LAD)30.60Rest Defect Extent (% LAD)24.40Rev. Defect Extent (% LAD)3.10 Stress Defect Extent (% LCX) 31.30Rest Defect Extent (% LCX)52.50Rev. Defect Extent (% LCX)0.00 Stress Defect Extent (% RCA)10.00Rest Defect Extent (% RCA)14.40Rev. Defect Extent (% RCA)0.00 Stress Defect Extent (% BERNICE)29.80Rest Defect Extent (% BERNICE)30.90Rev. Defect Extent (% BERNICE)1.50 Other Information Quality:Average Risk Assessment: Low-Moderate Risk Conclusion 1. No evidence of EKG changes with stress testing. 2. Normal perfusion at stress/rest. 3. Low risk study. 4. EF > 60%.
[2017-05-08] MEDS ORDERED: WARF4TAB68 PO (13:07)
[2017-05-08] MEDS: HYDROcodone/APAP 5/325MG 1 TAB TABLET PO PRN ×2 (13:08→17:53)
--- NOTE | 2017-05-08 13:12 | PDOC3 ---
Discharge Summary Visit Information Date of Admission: May 06, 2017 Date of Discharge: May 08, 2017 Final Diagnosis Problems Medical Problems: (1) Congestive heart failure Status: Acute SSESSMENT: 1. Chest pain, myocardial infarction ruled out. MPI UNCHANGED 2. Hypokinetic inferior lateral wall. 3. History of coronary artery disease with stent placement. 5. Elevated D-dimer, pulmonary embolism ruled out. 6. Factor V Leiden. 7. History of deep vein thrombosis. 8. Subtherapeutic INR.-COUMADIN ADJUSTED 9. Chronic pain. Problems: Brief Hospital Course Allergies Allergies Coded Allergies Type Severity Reaction Last Updated Verified Penicillins Allergy Intermediate RASH 05/06/17 Yes Sulfa (Sulfonamide Antibiotics) Allergy Intermediate 05/06/17 Yes Vital Signs Vital Signs Date Time Temp Pulse Resp B/P (MAP) Pulse Ox O2 Delivery O2 Flow Rate FiO2 05/08/17 11:36 97.5 81 20 134/82 (99) 98 Room Air 05/07/17 23:00 2.0 Lab Results Laboratory Tests Test 05/06/17 16:30 05/06/17 22:12 05/07/17 06:16 05/08/17 06:10 Troponin I Quantitative < 0.017 ng/mL (0-0.055) < 0.017 ng/mL (0-0.055) White Blood Count 3.9 x10^3/uL (4.0-11.0) Red Blood Count 3.95 x10^6/uL (3.50-5.40) Hemoglobin 13.9 g/dL (12.0-15.5) Hematocrit 40.9 % (36.0-47.0) Mean Corpuscular Volume 103 fL (79-100) Mean Corpuscular Hemoglobin 35 pg (25-35) Mean Corpuscular Hemoglobin Concent 34 g/dL (31-37) Red Cell Distribution Width 15.6 % (11.5-14.5) Platelet Count 135 x10^3/uL (140-400) Neutrophils (%) (Auto) 50 % (31-73) Lymphocytes (%) (Auto) 34 % (24-48) Monocytes (%) (Auto) 11 % (0-9) Eosinophils (%) (Auto) 4 % (0-3) Basophils (%) (Auto) 1 % (0-3) Neutrophils # (Auto) 2.0 x10^3uL (1.8-7.7) Lymphocytes # (Auto) 1.3 x10^3/uL (1.0-4.8) Monocytes # (Auto) 0.4 x10^3/uL (0.0-1.1) Eosinophils # (Auto) 0.2 x10^3/uL (0.0-0.7) Basophils # (Auto) 0.0 x10^3/uL (0.0-0.2) Prothrombin Time 17.4 SEC (9.4-11.4) Prothromb Time International Ratio 1.7 (0.9-1.1) Sodium Level 137 mmol/L (136-145) 137 mmol/L (136-145) Potassium Level 4.3 mmol/L (3.5-5.1) 4.4 mmol/L (3.5-5.1) Chloride Level 101 mmol/L (98-107) 99 mmol/L (98-107) Carbon Dioxide Level 30 mmol/L (21-32) 28 mmol/L (21-32) Anion Gap 6 (6-14) 10 (6-14) Blood Urea Nitrogen 30 mg/dL (7-20) 38 mg/dL (7-20) Creatinine 1.2 mg/dL (0.6-1.0) 1.4 mg/dL (0.6-1.0) Estimated GFR (Cockcroft-Gault) 42.9 35.9 BUN/Creatinine Ratio 25 (6-20) 27 (6-20) Glucose Level 113 mg/dL (70-99) 106 mg/dL (70-99) Calcium Level 9.0 mg/dL (8.5-10.1) 8.8 mg/dL (8.5-10.1) Magnesium Level 1.9 mg/dL (1.8-2.4) 1.9 mg/dL (1.8-2.4) Total Bilirubin 0.8 mg/dL (0.2-1.0) 0.8 mg/dL (0.2-1.0) Aspartate Amino Transf (AST/SGOT) 21 U/L (15-37) 23 U/L (15-37) Alanine Aminotransferase (ALT/SGPT) 31 U/L (14-59) 29 U/L (14-59) Alkaline Phosphatase 56 U/L (46-116) 63 U/L (46-116) EP-Xfm-Y-Type Natriuretic Peptide 2674 pg/mL (0-449) Total Protein 6.0 g/dL (6.4-8.2) 5.8 g/dL (6.4-8.2) Albumin 3.1 g/dL (3.4-5.0) 3.4 g/dL (3.4-5.0) Albumin/Globulin Ratio 1.1 (1.0-1.7) 1.4 (1.0-1.7) Test 05/08/17 06:50 White Blood Count 5.0 x10^3/uL (4.0-11.0) Red Blood Count 3.99 x10^6/uL (3.50-5.40) Hemoglobin 14.2 g/dL (12.0-15.5) Hematocrit 41.6 % (36.0-47.0) Mean Corpuscular Volume 104 fL (79-100) Mean Corpuscular Hemoglobin 36 pg (25-35) Mean Corpuscular Hemoglobin Concent 34 g/dL (31-37) Red Cell Distribution Width 15.5 % (11.5-14.5) Platelet Count 128 x10^3/uL (140-400) Neutrophils (%) (Auto) 56 % (31-73) Lymphocytes (%) (Auto) 29 % (24-48) Monocytes (%) (Auto) 11 % (0-9) Eosinophils (%) (Auto) 3 % (0-3) Basophils (%) (Auto) 1 % (0-3) Neutrophils # (Auto) 2.8 x10^3uL (1.8-7.7) Lymphocytes # (Auto) 1.5 x10^3/uL (1.0-4.8) Monocytes # (Auto) 0.5 x10^3/uL (0.0-1.1) Eosinophils # (Auto) 0.2 x10^3/uL (0.0-0.7) Basophils # (Auto) 0.0 x10^3/uL (0.0-0.2) Prothrombin Time 19.4 SEC (9.4-11.4) Prothromb Time International Ratio 1.9 (0.9-1.1) Brief Hospital Course Ms. Kang is a 82 old [sex] who presented with [ ] Ms Kang is an 82 year old female who presented to the ED with complaints of chest pain. She describes left lower chest pain that is sharp and related to deep inspiration and upper body movement. She denies pain at rest or with walking unless taking a deep breath. This started last week but increased in intensity so she presented for evaluation. She denies dyspnea, palpitations, lightheadedness or syncope. She reports decreased functional capacity due to knee pain. She did have her knee injected last week and was off of her warfarin for this. Her INR remains subtherapeutic. She normally follows with Dr Mahmood at and would prefer any necessary procedures be done by him. [place] RULED OUT. COUMADIN ADJUSTED. LEXISCAN UNCHANGED. Discharge Information Condition at Discharge: Improved Disposition/Orders: D/C to Home Dischare Medications Current Medications Nitroglycerin (Nitrostat) 0.4 mg PRN Q5MIN PRN SL CP RATING > 1/10 Last administered on 05/06/17 10:26; Start 05/06/17 at 09:45; Stop 05/06/17 at 13 :32; Status DC Enoxaparin Sodium (Lovenox 100mg Syringe) 88 mg 1X ONCE SQ Last administered on 05/06/17 10:37; Start 05/06/17 at 10:00; Stop 05/06/17 at 10:01; Status DC Ondansetron HCl (Zofran) 4 mg PRN Q4HRS PRN IV NAUSEA/VOMITING; Start at 11:15; Stop 05/07/17 at 11:14; Status DC Acetaminophen (Tylenol) 650 mg PRN Q4HRS PRN PO FEVER; Start 05/06/17 at 11:15 ; Stop 05/06/17 at 16:44; Status DC Nitroglycerin (Nitrostat) 0.4 mg PRN Q5MIN PRN SL CHEST PAIN; Start 05/06/17 at 11:15; Stop 05/06/17 at 16:48; Status DC Furosemide (Lasix) 20 mg 1X ONCE IVP Last administered on 05/06/17 14:32; Start 05/06/17 at 11:15; Stop 05/06/17 at 11:16; Status DC Influenza Virus Vaccine Quadrival (Fluarix Quad [id number] Syringe) 0.5 ml ONCE ONCE VAX IM ; Start 05/07/17 at 09:00; Stop 05/07/17 at 09:01; Status Cancel Acetaminophen (Tylenol) 650 mg PRN Q8HRS PRN PO PAIN Last administered on 05/07 11:06; Start 05/06/17 at 16:30 Aspirin (Aspirin Enteric Coated) 81 mg DAILY PO Last administered on 05/08/17 10:24; Start 05/07/17 at 09:00 Carvedilol (Coreg) 3.125 mg BIDWMEALS PO Last administered on 05/08/17 10:31; Start 05/06/17 at 17:00 Dicyclomine HCl (Bentyl) 20 mg TID PO Last administered on 05/08/17 10:21; Start 05/06/17 at 21:00 Duloxetine HCl (Cymbalta) 30 mg DAILY PO Last administered on 05/08/17 10:23; Start 05/07/17 at 09:00 Folic Acid (Folic Acid) 1 mg DAILY PO Last administered on 05/08/17 10:26; Start 05/07/17 at 09:00 Acetaminophen/ Hydrocodone Bitart (Lortab 5/325) 1 tab PRN Q4HRS PRN PO PAIN Last administered on 05/08/17 13:08; Start 05/06/17 at 16:30 Levothyroxine Sodium (Synthroid) 100 mcg DAILY06 PO Last administered on 05:51; Start 05/07/17 at 06:00 Nitroglycerin (Nitrostat) 0.4 mg PRN Q5MIN PRN SL CHEST PAIN; Start 05/06/17 at 16:30 Pantoprazole Sodium (Protonix) 40 mg BID PO Last administered on 05/08/17 10: 33; Start 05/06/17 at 21:00 Potassium Chloride (Klor-Con) 20 meq DAILY PO Last administered on 05/08/17 10 :20; Start 05/07/17 at 09:00 Temazepam (Restoril) 15 mg QHS PO Last administered on 05/07/17 20:12; Start 05/06/17 at 21:00 Torsemide (Demadex) 20 mg DAILY PO Last administered on 05/08/17 10:24; Start 05/07/17 at 09:00 Atorvastatin Calcium (Lipitor) 40 mg QHS PO Last administered on 05/07/17 20: 11; Start 05/06/17 at 21:00 Lisinopril (Prinivil) 5 mg DAILY PO Last administered on 05/08/17 10:26; Start 05/07/17 at 09:00 Warfarin Sodium (Coumadin Per Pharmacy) 1 each PRN DAILY PRN MC SEE COMMENTS Last administered on 05/07/17 12:04; Start 05/06/17 at 17:00 Warfarin Sodium (Coumadin) 4 mg 1X ONCE PO Last administered on 05/06/17 16: 56; Start 05/06/17 at 17:00; Stop 05/06/17 at 17:01; Status DC Warfarin Sodium (Coumadin) 3 mg 1X WARF ONCE PO Last administered on 16:07; Start 05/07/17 at 16:00; Stop 05/07/17 at 16:01; Status DC Influenza Virus Vaccine Quadrival (Fluarix Quad [id number] Syringe) 0.5 ml ONCE ONCE VAX IM ; Start 05/08/17 at 09:00; Stop 05/08/17 at 09:01; Status DC Regadenoson (Lexiscan) 0.4 mg 1X ONCE IV Last administered on 05/08/17 09:16 ; Start 05/08/17 at 08:00; Stop 05/08/17 at 08:01; Status DC Active Scripts Active Coumadin (Warfarin Sodium) 4 Mg Tablet 2 Mg PO DAILY16 Protonix (Pantoprazole Sodium) 40 Mg Tablet.dr 40 Mg PO BID 90 Days LAST DOSE: today at 8AM NEXT DOSE: tomorrow at 8AM Cymbalta (Duloxetine Hcl) 60 Mg Capsule.dr 30 Mg PO DAILY 90 Days LAST DOSE: today at 8AM NEXT DOSE: tomorrow at 8AM [Warfarin Sodium] 1 EACH Each 1 Each MC PRN DAILY PRN Hydrocodone-Apap 5-325 (Hydrocodone Bit/Acetaminophen) 1 Each Tablet 1 Tab PO PRN Q4HRS PRN Carvedilol 3.125 Mg Tablet 3.125 Mg PO BIDWMEALS Restoril (Temazepam) 15 Mg Capsule 1 Cap PO QHS 30 Days Klor-Con M20 (Potassium Chloride) 20 Meq Tab.er.prt 1 Tab PO DAILY Reported Levothyroxine Sodium 100 Mcg Tablet 1 Tab PO DAILY06 Demadex (Torsemide) 20 Mg Tablet 20 Mg PO DAILY Enalapril Maleate 2.5 Mg Tablet 2.5 Mg PO HS CONTINUE PRESCRIBED Bentyl (Dicyclomine Hcl) 20 Mg Tablet 20 Mg PO TID LAST DOSE: today AM NEXT DOSE: today afternoon Lipitor (Atorvastatin Calcium) 40 Mg Tablet 40 Mg PO QHS last dose: last night at bedtime next dose: tonight at bedtime Aspir 81 (Aspirin) 81 Mg Tablet.dr 81 Mg PO DAILY Indication: heart health LAST DOSE: today at 8AM NEXT DOSE: tomorrow at 8AM NITROGLYCERIN SubLingual (Nitroglycerin) 0.4 Mg Tab.subl 0.4 Mg SL PRN Q5MIN PRN last dose As needed for chest pain next dose Tylenol (Acetaminophen) 325 Mg Tablet 650 Mg PO PRN Q8HRS PRN last dose: as needed next dose Folic Acid 1 Mg Tablet 1 Mg PO DAILY last dose: today at 8AM next dose: tomorrow at 8AM Patient Instructions Patient Instuctions SEE DISCHARGE INSTRUCTIONS ON [facility]. HAMZAH GAMBINO DO May 08, 2017 13:12
[2017-05-08 15:22] VITALS: BP 121/81
[2017-05-08] MEDS ORDERED: WARFARIN 4 MG TABLET. PO ONE (16:00)
[2017-05-08 17:09] VITALS: BP 121/81
== END 2017-05-08 18:00 | disposition home or self-care (01) | DRG 291 ==
LOC: ER 09:08 → 1 SOUTH 11:08
PROVIDERS: ADMIT Family Medicine; ATTEND Family Medicine
DX: I13.0 Hypertensive heart and chronic kidney disease with heart failure and stage 1 through stage 4 chronic kidney disease, or unspecified chronic kidney disease (principal); I50.23 Acute on chronic systolic (congestive) heart failure; D68.51 Activated protein C resistance; D68.59 Other primary thrombophilia; R07.89 Other chest pain; I42.9 Cardiomyopathy, unspecified; N18.9 Chronic kidney disease, unspecified; I25.10 Atherosclerotic heart disease of native coronary artery without angina pectoris; I50.9 Heart failure, unspecified; E03.9 Hypothyroidism, unspecified; E78.5 Hyperlipidemia, unspecified; G89.29 Other chronic pain; H35.30 Unspecified macular degeneration; I48.2 Chronic atrial fibrillation; Z96.653 Presence of artificial knee joint, bilateral; M19.90 Unspecified osteoarthritis, unspecified site; Z79.01 Long term (current) use of anticoagulants; Z79.82 Long term (current) use of aspirin; Z79.899 Other long term (current) drug therapy; Z85.828 Personal history of other malignant neoplasm of skin; Z86.718 Personal history of other venous thrombosis and embolism; Z95.0 Presence of cardiac pacemaker; Z95.5 Presence of coronary angioplasty implant and graft; Z98.49 Cataract extraction status, unspecified eye; Z87.81 Personal history of (healed) traumatic fracture; Z88.0 Allergy status to penicillin; Z88.2 Allergy status to sulfonamides; Z90.710 Acquired absence of both cervix and uterus
CPT/HCPCS: 36415; 71020; 78452; 78582; 80053; 82550; 83690; 83735; 83880; 84484; 85025; 85379; 85610; 85730; 90686; 93005; 93017; 93306; 93970; 96372; 96374; 96375; 96376; A9500; A9540; A9558; J1650; J1940; J2785; 99285-25

== ENCOUNTER → 2017-06-04 | Outpatient (CLI) | payer MEDICARE, BC, OTHER ==
[2017-05-08 17:09] VITALS: BP 121/81
[~2017-06-04] MED LIST changes: +LEVO100T5 PO
== END | disposition home or self-care (01) ==
LOC: SURG 14:14
PROVIDERS: ATTEND Anesthesiology
DX: M54.16 Radiculopathy, lumbar region (principal); I11.0 Hypertensive heart disease with heart failure; I50.9 Heart failure, unspecified; I25.10 Atherosclerotic heart disease of native coronary artery without angina pectoris; Z90.49 Acquired absence of other specified parts of digestive tract; Z90.710 Acquired absence of both cervix and uterus
CPT/HCPCS: 99213

== ENCOUNTER 2017-06-17 17:59 | Emergency (ER) | payer MEDICARE, BC, OTHER ==
[~2017-06-17] VITALS: Ht 167.6 cm; Wt 87.1 kg
--- NOTE | 2017-06-17 18:29 | ED.ADGEN ---
Past History Past Medical History: A-Fib, CAD, Cancer, DVT, High Cholesterol, Hypertension, Other Past Surgical History: Appendectomy, Cancer Surgery, Cholecystectomy, Hysterectomy, Knee Replacement, Pacemaker Smoking: Quit Greater Than 1 Year Alcohol Use: None Drug Use: None Adult General Chief Complaint Chief Complaint " They got coming off Lovenox to back on Coumadin.. and now I got more subQ bleeding... " " I was to get a epi dural ,.. but I was on Keflex and Lovenox so the cancel that... and I scarped this Lt díaz the skin and it is bleeding now..." HPI HPI Patient is a 82 year old female who presents with above complaints and increased ecchymosis at lovenox injection sites. Patient concerned about the new ecchymosis. Patient is on transition from Lovenox to Coumadin. She injured left díaz and a small 1 cm area of bleeding. She neurovascular intact. She has history of coagulopathy including factor V deficiency Review of Systems Review of Systems Constitutional: Denies fever or chills [] Eyes: Denies change in visual acuity, redness, or eye pain [] HENT: Denies nasal congestion or sore throat [] Respiratory: Denies cough or shortness of breath [] Cardiovascular: No additional information not addressed in HPI [] GI: Denies abdominal pain, nausea, vomiting, bloody stools or diarrhea [] : Denies dysuria or hematuria [] Musculoskeletal: Denies back pain or joint pain [] Integument: Playing of increased ecchymosis at sites of injection Neurologic: Denies headache, focal weakness or sensory changes [] Endocrine: Denies polyuria or polydipsia [] All other systems were reviewed and found to be within normal limits, except as documented in this note. Family History Family History Noncontributory Current Medications Current Medications Current Medications Medications (Trade) Dose Ordered Sig/[place] Start Time Stop Time Status Last Admin Dose Admin Furosemide (Lasix) 40 mg 1X ONCE 06/17/17 20:45 06/17/17 20:46 DC 06/17/17 20:55 40 MG Gelatin (Gelfoam Size 12-7mm) 1 each STK-MED ONCE 06/17/17 21:07 06/17/17 21:08 DC Allergies Allergies Allergies Coded Allergies Type Severity Reaction Last Updated Verified Penicillins Allergy Intermediate RASH 05/06/17 Yes Sulfa (Sulfonamide Antibiotics) Allergy Intermediate 05/06/17 Yes Physical Exam Physical Exam Constitutional: no acute distress, non-toxic appearance. [] HENT: Normocephalic, atraumatic, bilateral external ears normal, oropharynx moist, no oral exudates, nose normal. [] Eyes: PERRLA, EOMI, conjunctiva normal, no discharge. [] Neck: Normal range of motion, no tenderness, supple, no stridor. [] Cardiovascular:Heart rate regular rhythm, no murmur [] Lungs & Thorax: Bilateral breath sounds clear to auscultation [] Abdomen: Bowel sounds normal, soft, no tenderness, no masses, no pulsatile masses. Obese. Injection sites are ecchymosis. Skin: Warm, dry, no erythema, no rash. Contusion Lt díaz- 1 cm- bleeding Back: Chronic lumbar sacral tenderness, no CVA tenderness. [] Extremities: No tenderness, no cyanosis, no clubbing, ROM intact, mild ankle edema. [] Neurologic: Alert and oriented X 3, normal motor function, normal sensory function, no focal deficits noted. [] Psychologic: Affect anxious, judgement normal, mood normal. [] Current Patient Data Vital Signs Vital Signs Date Time Temp Pulse Resp B/P (MAP) Pulse Ox O2 Delivery O2 Flow Rate FiO2 06/17/17 18:48 81 147/91 (109) 98 06/17/17 17:59 97.9 18 Room Air Lab Results Laboratory Tests Test 06/17/17 18:45 White Blood Count 3.5 x10^3/uL (4.0-11.0) L Red Blood Count 3.70 x10^6/uL (3.50-5.40) Hemoglobin 13.1 g/dL (12.0-15.5) Hematocrit 38.2 % (36.0-47.0) Mean Corpuscular Volume 103 fL (79-100) H Mean Corpuscular Hemoglobin 35 pg (25-35) Mean Corpuscular Hemoglobin Concent 34 g/dL (31-37) Red Cell Distribution Width 14.3 % (11.5-14.5) Platelet Count 117 x10^3/uL (140-400) L Neutrophils (%) (Auto) 47 % (31-73) Lymphocytes (%) (Auto) 36 % (24-48) Monocytes (%) (Auto) 11 % (0-9) H Eosinophils (%) (Auto) 4 % (0-3) H Basophils (%) (Auto) 1 % (0-3) Neutrophils # (Auto) 1.7 x10^3uL (1.8-7.7) L Lymphocytes # (Auto) 1.3 x10^3/uL (1.0-4.8) Monocytes # (Auto) 0.4 x10^3/uL (0.0-1.1) Eosinophils # (Auto) 0.1 x10^3/uL (0.0-0.7) Basophils # (Auto) 0.0 x10^3/uL (0.0-0.2) Prothrombin Time 11.9 SEC (9.4-11.4) H Prothrombin Time INR 1.2 (0.9-1.1) H PTT 31 SEC (23-33) Sodium Level 143 mmol/L (136-145) Potassium Level 5.3 mmol/L (3.5-5.1) H Chloride Level 102 mmol/L (98-107) Carbon Dioxide Level 33 mmol/L (21-32) H Anion Gap 8 (6-14) Blood Urea Nitrogen 31 mg/dL (7-20) H Creatinine 1.6 mg/dL (0.6-1.0) H Estimated GFR (Cockcroft-Gault) 30.8 Glucose Level 107 mg/dL (70-99) H Calcium Level 9.8 mg/dL (8.5-10.1) EKG EKG [] Radiology/Procedures Radiology/Procedures [] Course & Med Decision Making Course & Med Decision Making Pertinent Labs and Imaging studies reviewed. (See chart for details). Patient to hold potassium. Patient to hold aspirin tonight patient to hold Coumadin tonight patient to hold Lovenox tonight. Patient follow-up primary care and review all labs. Return if any concerns. [] Final Impression Final Impression 1. Increase bleeding at injury and injection sites[] 2. Hyperkalemia 3. Elevated creatinine and BUN 4. Anemia 5. Bleeding from injury site left díaz Problems: Dragon Disclaimer Dragon Disclaimer This electronic medical record was generated, in whole or in part, using a voice recognition dictation system. AME MUNOZ MD Jun 17, 2017 18:29
[2017-06-17 19:12] LABS: BASO % 1 % (0-3); EOS # 0.1 x10^3/uL (0.0-0.7); EOS % 4 % (0-3); HEMATOCRIT 38.2 % (36.0-47.0); HEMOGLOBIN 13.1 g/dL (12.0-15.5); LYMPH # 1.3 x10^3/uL (1.0-4.8); LYMPH % 36 % (24-48); MEAN CORPUSCULAR HEMOGLOBIN 35 pg (25-35); MEAN CORPUSCULAR HGB CONC 34 g/dL (31-37); MEAN CORPUSCULAR VOLUME 103 fL (79-100); MONO # 0.4 x10^3/uL (0.0-1.1); MONO % 11 % (0-9); NEUT # 1.7 x10^3uL (1.8-7.7); NEUT % 47 % (31-73); PLATELET COUNT 117 x10^3/uL (140-400); RED CELL DISTRIBUTION WIDTH 14.3 % (11.5-14.5); WHITE BLOOD COUNT 3.5 x10^3/uL (4.0-11.0)
[2017-06-17 19:19] LABS: CALCIUM 9.8 mg/dL (8.5-10.1); CREATININE 1.6 mg/dL (0.6-1.0); GFR 30.8; POTASSIUM 5.3 mmol/L (3.5-5.1)
[2017-06-17] MEDS ORDERED: FUROSEMIDE 40 MG TABLET PO ONE (20:45)
[2017-06-17] MEDS ORDERED: GELATIN SPONGE SIZE 12-7MM SPONGE. ONE (21:07)
[2017-06-17 21:10] VITALS: BP 154/77
== END 2017-06-17 21:14 | disposition home or self-care (01) ==
LOC: ER 17:59
DX: S30.1XXA Contusion of abdominal wall, initial encounter (principal); S80.12XA Contusion of left lower leg, initial encounter; E87.5 Hyperkalemia; D64.9 Anemia, unspecified; I48.91 Unspecified atrial fibrillation; I25.10 Atherosclerotic heart disease of native coronary artery without angina pectoris; E78.00 Pure hypercholesterolemia, unspecified; I10 Essential (primary) hypertension; D68.2 Hereditary deficiency of other clotting factors; Z86.718 Personal history of other venous thrombosis and embolism; Z95.0 Presence of cardiac pacemaker; Z87.891 Personal history of nicotine dependence; Z88.2 Allergy status to sulfonamides; Z88.0 Allergy status to penicillin; X58.XXXA Exposure to other specified factors, initial encounter; Y93.89 Activity, other specified; Y99.8 Other external cause status; Y92.89 Other specified places as the place of occurrence of the external cause
CPT/HCPCS: 36415; 80048; 85025; 85610; 85730; 99284

== ENCOUNTER → 2017-07-16 | Outpatient (CLI) | payer MEDICARE, BC, OTHER ==
[2017-06-17 21:10] VITALS: BP 154/77
[~2017-07-16] MED LIST changes: +BUPIVACAINE MPF 0.25% 10 ML VIAL. ONE; +LIDOCAINE 1% PF 30 ML VIAL. ONE; +methylPREDNISolone ACETATE 40 MG/ML VIAL. ONE
== END | disposition home or self-care (01) ==
LOC: SURG 13:39
PROVIDERS: ATTEND Anesthesiology
DX: M47.816 Spondylosis without myelopathy or radiculopathy, lumbar region (principal); I11.0 Hypertensive heart disease with heart failure; I50.9 Heart failure, unspecified; M19.90 Unspecified osteoarthritis, unspecified site; E07.9 Disorder of thyroid, unspecified; Z86.73 Personal history of transient ischemic attack (TIA), and cerebral infarction without residual deficits
CPT/HCPCS: 64493; 64494; 64495; J1030; J2001; J3490

== ENCOUNTER → 2017-07-19 | Outpatient (CLI) | payer MEDICARE, BC, OTHER ==
[~2017-07-19] MED LIST changes: -BUPIVACAINE MPF 0.25% 10 ML VIAL. ONE; -LIDOCAINE 1% PF 30 ML VIAL. ONE; -methylPREDNISolone ACETATE 40 MG/ML VIAL. ONE
== END | disposition home or self-care (01) ==
LOC: LAB 12:21
PROVIDERS: ATTEND Internal Medicine Interventional Cardiology
DX: I48.2 Chronic atrial fibrillation (principal); Z79.01 Long term (current) use of anticoagulants; Z87.891 Personal history of nicotine dependence
CPT/HCPCS: 36415; 85610

== ENCOUNTER → 2017-11-27 | Outpatient (CLI) | payer MEDICARE, BC, OTHER ==
[~2017-11-27] MED LIST changes: -FERR-26 PO; +FERR325T14 PO; +WARF-31 PO; -WARF5TAB7 PO
[2017-11-27 13:38] LABS: CLARITY,URINE CLOUDY; COLOR,URINE STRAW; GLUCOSE,URINE NEG (NEG)
[2017-11-27 13:39] LABS: BACTERIA,URINE MOD /HPF (0-FEW); BILIRUBIN,URINE NEG (NEG); NITRITE,URINE NEG (NEG); SQUAMOUS EPITHELIAL CELL,UR OCC /LPF; UROBILINOGEN,URINE 0.2 mg/dL (0.2 mg/dL); WBC,URINE >40 /HPF (0-4)
== END | disposition home or self-care (01) ==
LOC: LAB 12:46
PROVIDERS: ATTEND Internal Medicine
DX: R30.0 Dysuria (principal)
CPT/HCPCS: 81001; 87086

== ENCOUNTER → 2017-12-06 | Outpatient (CLI) | payer MEDICARE, BC, OTHER ==
[~2017-12-06] MED LIST changes: -AMIO200T2 PO; +AMIO200T4 PO; -SPIR50TA2 PO; +SPIR50TA4 PO
--- NOTE | 2017-12-06 11:50 | RAD ---
CT HEAD WO CONTRAST History: FALL TODAY, patient on Coumadin Comparison: July 12, 2016 Technique: Noncontrast CT imaging was performed of the head. Exposure: One or more of the following individualized dose reduction techniques were utilized for this examination: 1. Automated exposure control 2. Adjustment of the mA and/or kV according to patient size 3. Use of iterative reconstruction technique. Findings: No acute extra-axial or parenchymal hemorrhage is identified. There is no significant intra-axial mass effect, midline shift, or extra-axial fluid collection. The dubois-white differentiation of the major vascular territories is preserved. Ventricular size is stable, proportionate to the sulcal spaces. There is mild supratentorial involutional change. There is again multifocal ill-defined low-density of the supratentorial parenchyma bilaterally probably due to chronic microvascular ischemic disease in a patient this age. There is again mild mineralization/calcification of the left basal ganglia. The mastoid air cells and the visualized paranasal sinuses are aerated. No acute calvarial abnormality is identified. There is atherosclerotic calcification carotid siphons and intradural vertebral arteries bilaterally. Impression: 1. No acute intracranial hemorrhage is identified. There is again ill-defined low-density of the supratentorial parenchyma probably due to chronic microvascular ischemic disease in a patient this age. Electronically signed by: Donn Thorne MD (12/06/2017 11:46 AM) [id number]
== END | disposition home or self-care (01) ==
LOC: CT 11:24
PROVIDERS: ATTEND Internal Medicine
DX: I70.8 Atherosclerosis of other arteries (principal); I99.8 Other disorder of circulatory system; I11.0 Hypertensive heart disease with heart failure; I50.9 Heart failure, unspecified; I48.91 Unspecified atrial fibrillation; Z79.899 Other long term (current) drug therapy; W19.XXXA Unspecified fall, initial encounter
CPT/HCPCS: 70450

== ENCOUNTER 2018-06-19 21:01 | Inpatient (IN) | payer MEDICARE, BC, OTHER ==
[~2018-06-19] VITALS: Ht 167.6 cm; Wt 90.7 kg
[~2018-06-19 21:01] MED LIST changes: -CARV3.122 PO; +CARV3.1230 PO; +HYDR-1179 PO; +HYDR-2155 PO; -HYDR-2758 PO; +HYDR-3136 PO; +HYDR-3165 PO; -HYDR-79 PO; -HYDR-963 PO; -HYDR-971 PO
--- NOTE | 2018-06-19 21:04 | ED.ADGEN ---
Past History Past Medical History: A-Fib, CAD, Cancer, DVT, High Cholesterol, Hypertension, Other Past Surgical History: Appendectomy, Cancer Surgery, Cholecystectomy, Hysterectomy, Knee Replacement, Pacemaker Smoking: Quit Greater Than 1 Year Alcohol Use: None Drug Use: None Adult General Chief Complaint Chief Complaint ".. I don't know .. I ve been having a heart pain... or chest pain for two day.s...... I took Nitro... for two days now... but I don't think it has helped... I called Dr. Rodriguez.. the director electronics said go to the hospital... they wanted me to come to .... but I said I did not want to do that.... they said it could be my chest... or a heart attack.. or broken heart..." HPI HPI Patient is a 83 year old female who presents with above hx and complaints of chest pain. Pt. reports nothing has made the pain better. Pain has remained since yesterday and somewhat constant. Patient rates her pain 5-6 out of 10. Nothing makes the pain go away including nitroglycerin. Patient has an extensive medical history including CADz, Dysrhythmia, angina, arthritis, factor V deficiency, depression, GERD, elevated cholesterol, hypertension, DVT, pulmonary embolisms, anemia, renal insufficiency, hyperkalemia, and mitral valve repair, pacer and defibrillator. Patient recently on 05/30 at our hospital. Patient had been 66 years. Patient has had marked increase in episodes of uncontrollable crying. Patient normally follows with Dr. Ruelas as primary. Follow s with Dr. Mahmood- Cardiology at . Last INR on was 2.1 at [facility]. Patient denies any trauma. Patient denies any travel. Patient denies any specific ill contacts. Patient has been compliant with medications. Review of Systems Review of Systems Constitutional: Denies fever or chills [] Eyes: Denies change in visual acuity, redness, or eye pain [] HENT: Denies nasal congestion or sore throat [] Respiratory: Denies cough or shortness of breath [] Cardiovascular: No additional information not addressed in HPI [] GI: Denies abdominal pain, nausea, vomiting, bloody stools or diarrhea [] : Denies dysuria or hematuria [] Musculoskeletal: Denies back pain or joint pain [] Integument: Denies rash or skin lesions [] Neurologic: Denies headache, focal weakness or sensory changes [] Endocrine: Denies polyuria or polydipsia [] All other systems were reviewed and found to be within normal limits, except as documented in this note. Family History Family History Noncontributory Current Medications Current Medications Current Medications Medications (Trade) Dose Ordered Sig/[place] Start Time Stop Time Status Last Admin Dose Admin Furosemide (Lasix) 40 mg 1X ONCE 06/20/18 00:00 06/20/18 00:01 DC 06/20/18 00:23 40 MG Sodium Chloride 1,000 ml @ 100 mls/hr Q10H 06/19/18 21:15 06/20/18 05:05 DC 06/20/18 00:19 100 MLS/HR See Nursing for home meds Allergies Allergies Allergies Coded Allergies Type Severity Reaction Last Updated Verified Penicillins Allergy Intermediate RASH 05/06/17 Yes Sulfa (Sulfonamide Antibiotics) Allergy Intermediate 05/06/17 Yes sulfamethoxazole Allergy Unknown 06/19/18 Yes trimethoprim Allergy Unknown 06/19/18 Yes Physical Exam Physical Exam Constitutional: Moderately acute distress, tearful and depressed in appearance. [] HENT: Normocephalic, atraumatic, bilateral external ears normal, oropharynx moist, no oral exudates, nose normal. [] Eyes: PERRLA, EOMI, conjunctiva normal, no discharge. Glasses Neck: Normal range of motion, no tenderness, supple, no stridor. [] Cardiovascular:Heart rate regular rhythm, mitral murmur [], PMI to the left Lungs & Thorax: Bilateral breath sounds equal apexes on auscultation, [pacer on left chest wall. Basilar crackles and a few scattered wheezes. Abdomen: Bowel sounds normal, soft, no tenderness, no masses, no pulsatile masses. Old surgery scars Skin: Warm, dry, no erythema, no rash. Poor turgor. Venous stasis changes, some blood blisters on left leg from what appears to be trauma. Back: No tenderness, no CVA tenderness. [] Extremities: No tenderness, no cyanosis, no clubbing, ROM intact, no edema. [] Arthritic changes. Neurologic: Alert and oriented X 3, normal motor function, normal sensory function, no focal deficits noted. [] Psychologic: Affect tearful, judgement normal, mood depressed Current Patient Data Vital Signs Vital Signs Date Time Temp Pulse Resp B/P (MAP) Pulse Ox O2 Delivery O2 Flow Rate FiO2 06/19/18 22:41 80 16 134/67 (89) 95 Room Air 06/19/18 21:10 97.7 Lab Results Laboratory Tests Test 06/19/18 21:55 White Blood Count 4.0 x10^3/uL (4.0-11.0) Red Blood Count 4.06 x10^6/uL (3.50-5.40) Hemoglobin 13.6 g/dL (12.0-15.5) Hematocrit 41.0 % (36.0-47.0) Mean Corpuscular Volume 101 fL (79-100) H Mean Corpuscular Hemoglobin 34 pg (25-35) Mean Corpuscular Hemoglobin Concent 33 g/dL (31-37) Red Cell Distribution Width 16.4 % (11.5-14.5) H Platelet Count 126 x10^3/uL (140-400) L Neutrophils (%) (Auto) 47 % (31-73) Lymphocytes (%) (Auto) 36 % (24-48) Monocytes (%) (Auto) 12 % (0-9) H Eosinophils (%) (Auto) 4 % (0-3) H Basophils (%) (Auto) 1 % (0-3) Neutrophils # (Auto) 1.9 x10^3uL (1.8-7.7) Lymphocytes # (Auto) 1.4 x10^3/uL (1.0-4.8) Monocytes # (Auto) 0.5 x10^3/uL (0.0-1.1) Eosinophils # (Auto) 0.2 x10^3/uL (0.0-0.7) Basophils # (Auto) 0.1 x10^3/uL (0.0-0.2) Erythrocyte Sedimentation Rate 6 (0-25) Prothrombin Time 21.8 SEC (9.4-11.4) H Prothrombin Time INR 2.3 (0.9-1.1) H PTT 34 SEC (23-33) H D-Dimer (Leanna) 0.87 mg/L (0.00-0.50) H Sodium Level 141 mmol/L (136-145) Potassium Level 5.2 mmol/L (3.5-5.1) H Chloride Level 103 mmol/L (98-107) Carbon Dioxide Level 30 mmol/L (21-32) Anion Gap 8 (6-14) Blood Urea Nitrogen 39 mg/dL (7-20) H Creatinine 1.5 mg/dL (0.6-1.0) H Estimated GFR (Cockcroft-Gault) 33.1 Glucose Level 113 mg/dL (70-99) H Calcium Level 9.3 mg/dL (8.5-10.1) Magnesium Level 2.0 mg/dL (1.8-2.4) Total Bilirubin 0.8 mg/dL (0.2-1.0) Direct Bilirubin 0.2 mg/dL (0.0-0.2) Aspartate Amino Transferase (AST) 23 U/L (15-37) Alanine Aminotransferase (ALT) 21 U/L (14-59) Alkaline Phosphatase 76 U/L (46-116) Creatine Kinase 56 U/L (26-192) Troponin I Quantitative < 0.017 ng/mL (0-0.055) XY-Ojo-X-Type Natriuretic Peptide 3232 pg/mL (0-449) H Total Protein 6.6 g/dL (6.4-8.2) Albumin 3.5 g/dL (3.4-5.0) Lipase 164 U/L (73-393) EKG EKG My interpretation EKG shows a significant accelerated junctional rhythm which appears to have pacer spikes. Has had intraventricular block. Further evaluation not completed because it appears to be a paced ventricular rhythm[] Radiology/Procedures Radiology/Procedures My interpretation of chest x-ray shows cardiomegaly and increased cephalization and patchy infiltrate on chest portion no free air in the diaphragm. Does have increased stool throughout the colon. Does have a filter and clips in right upper quadrant. Has markedly degenerative joint changes. Clips in right lower leg femoral area. Does have a pacer defibrillator. Does have findings consistent with chronic lung changes/emphysema. [] Course & Med Decision Making Course & Med Decision Making Pertinent Labs and Imaging studies reviewed. (See chart for details) Patient declines transfer to for further evaluation of her chest pain. Patient requests admission here. This discussed with patient and her son. Discussed presentation, testing and treatment plan with . Will obtain cardiology consult- for CHF eval. [] Final Impression Final Impression 1. Chest pain 2. Grieving- Recent loss 05/30- 66 yrs. 3. Hx. Factor V def 4. CHF-BNP 3232 5. Hyperkalemia 5.2 6. Elev. Bun/Creat 39/1.5 7. Therapeutic INR 2.3 8. Thrombocytopenia 126 9. Macrocytic 101 10. Hx. GERD 11. Hx. HTN 12. Hx. Arthritis 13. Hx. Elevated Lipids Dragon Disclaimer Dragon Disclaimer This electronic medical record was generated, in whole or in part, using a voice recognition dictation system. AME MUNOZ MD Jun 19, 2018 21:04
[2018-06-19] MEDS ORDERED: IV NORMAL SALINE 1,000ML 1,000 ML IV SCH (21:15)
[2018-06-19 22:15] LABS: BASO # 0.1 x10^3/uL (0.0-0.2); BASO % 1 % (0-3); EOS # 0.2 x10^3/uL (0.0-0.7); EOS % 4 % (0-3); HEMOGLOBIN 13.6 g/dL (12.0-15.5); LYMPH # 1.4 x10^3/uL (1.0-4.8); LYMPH % 36 % (24-48); MEAN CORPUSCULAR HEMOGLOBIN 34 pg (25-35); MEAN CORPUSCULAR HGB CONC 33 g/dL (31-37); MEAN CORPUSCULAR VOLUME 101 fL (79-100); MONO # 0.5 x10^3/uL (0.0-1.1); MONO % 12 % (0-9); NEUT # 1.9 x10^3uL (1.8-7.7); NEUT % 47 % (31-73); PLATELET COUNT 126 x10^3/uL (140-400); RED BLOOD COUNT 4.06 x10^6/uL (3.50-5.40); RED CELL DISTRIBUTION WIDTH 16.4 % (11.5-14.5)
[2018-06-19 22:39] LABS: ALBUMIN 3.5 g/dL (3.4-5.0); CALCIUM 9.3 mg/dL (8.5-10.1); CREATININE 1.5 mg/dL (0.6-1.0); DIRECT BILIRUBIN 0.2 mg/dL (0.0-0.2); GFR 33.1; POTASSIUM 5.2 mmol/L (3.5-5.1); TOTAL BILIRUBIN 0.8 mg/dL (0.2-1.0); TOTAL PROTEIN 6.6 g/dL (6.4-8.2)
--- NOTE | 2018-06-19 22:39 | RAD ---
CHEST PA LATERAL History: Dyspnea Comparison: None. Findings: 2 views of the chest are submitted. There is no infiltrate, pneumothorax, or effusion. The cardiac silhouette is within normal limits in size. There is left electronic cardiac device. There is atherosclerotic calcification near aortic arch. There is probable emphysema. Impression: 1. There is probable emphysema. There is no significant infiltrate. Electronically signed by: Donn Thorne MD (06/19/2018 10:35 PM) [employer]
--- NOTE | 2018-06-19 22:50 | RAD ---
ABDOMEN SUPINE UPRIGHT History: Abdomen pain Comparison: July 20, 2016 KUB Findings: Single supine and single upright views of the abdomen are submitted. There is inferior vena cava filter. There has been cholecystectomy. There is retained stool in the colon, no gas dilated small bowel identified. No free air is identified. Leads from electronic cardiac device are noted. There is reverse S-shaped scoliosis of the thoracolumbar spine. Impression: 1. No gas dilated small bowel is identified. There is retained stool in the colon. Electronically signed by: Donn Thorne MD (06/19/2018 10:46 PM) [facility]
[2018-06-19 23:28] LABS: SEDIMENTATION RATE 6 (0-25)
[2018-06-20] VITALS (9 sets, daily range): BP systolic 102–149; BP diastolic 59–75
[2018-06-20] MEDS ORDERED: ONDANSETRON PF 4 MG/2 ML VIAL. IV PRN (00:30)
[2018-06-20] MEDS ORDERED: MORPHINE SULFATE 4 MG/ML DISP.SYRIN. IV PRN (00:30)
[2018-06-20 01:12] LABS: BARBITURATES NEG (NEG); BENZODIAZEPINES NEG (NEG); CANNABINOIDS NEG (NEG); COCAINE NEG (NEG); METHADONE NEG (NEG); OPIATES NEG (NEG); PHENCYCLIDINE NEG (NEG)
[2018-06-20 01:15] LABS: AMPHETAMINE/METHAMPHETAMINE NEG (NEG)
[2018-06-20 01:18] LABS: BACTERIA,URINE FEW /HPF (0-FEW); BILIRUBIN,URINE NEG (NEG); CLARITY,URINE CLEAR; COLOR,URINE YELLOW; GLUCOSE,URINE NEG (NEG); NITRITE,URINE NEG (NEG); RBC,URINE 0 /HPF (0-2); SQUAMOUS EPITHELIAL CELL,UR FEW /LPF; UROBILINOGEN,URINE 0.2 mg/dL (0.2 mg/dL)
[2018-06-20] MEDS ORDERED: VIT1CAPS11 PO (04:16)
[2018-06-20] MEDS ORDERED: GABA-586 PO (04:23)
[2018-06-20] MEDS ORDERED: TIZA4TAB PO (04:23)
[2018-06-20] MEDS ORDERED: GABA-585 PO (04:23)
[2018-06-20] MEDS ORDERED: NITROGLYCERIN SUBLINGUAL 0.4 MG BOTTLE OF 25. SL PRN (05:00)
[2018-06-20] MEDS ORDERED: ACETAMINOPHEN 325 MG TABLET PO PRN (05:15)
[2018-06-20] MEDS ORDERED: FUROSEMIDE 40 MG/4 ML VIAL IVP ONE ×2 (06:00)
--- NOTE | 2018-06-20 10:04 | PDOC2 ---
CONSULT Date of Admission DATE: 06/20/18 TIME: 10:03 Reason for Consult: cp Problem List Problems Medical Problems: (1) Chest pain Status: Acute (2) Grief Status: Acute History of Present Illness Ms Kang is an 83 year old female with history of CAD s/p prior pci/stent, CMP s /p ICD, factor V deficiency s/p IVC filter, hyperlipidemia, hypertension, multiple DVTs, pulmonary embolisms, and mitral valve repair, who presents to the ED with complaints of chest pain. She reports having had episodes of chest pain off and on for several days. She has taken NTG several times without improvement. Pain has been essentially constant. She apparently called her primary log hauler office and was advised to go to for evaluation but decided to come to [place] instead. She was evaluated in the ED and admitted for evaluation and treatment. She was given IV lasix in the ED and has diuresed almost 2 liters. She reports chest pain that was worse with a deep breath and with change of position. She denies congestive symptoms and reports breathing at baseline. She denies any significant increase in edema but does report a history of venous intervention in the past. She is very tearful this morning and wants to be out of ICU. She reports her two weeks ago in ICU4. She says she just received a letter to schedule an appointment with her primary log hauler (Dr Mahmood) and has an upcoming device check as well. Past Medical History as per HPI with addition of GERD,anemia, renal insufficiency, hyperkalemia Cardiovascular: AFIB, CAD, CHF, HTN, hyperipidemia, Other (mitral valve repair , ICD placement) Pulmonary: Pulmonary embolus GI: GERD, Irritable bowel disease Heme/Onc: Other (factor 5 deficiency) Psych: Depression Musculoskeletal: Osteoarthritis Renal/: Chronic renal insuff, UTI Endocrine: Hypothyroidism Dermatology: Other Past Surgical History ICD, mitral valve repair, joint replacement Past Surgical History: Appendectomy, Cholecystectomy, Hysterectomy Family History: Alcohol Abuse, Cancer, Other (glaucoma) Social History prior smoker, quit about 1 year ago. no drugs, ETOH. Lives in own home, 2 weeks ago. Current Medications Current Medications Sodium Chloride 1,000 ml @ 100 mls/hr Q10H IV Last administered on 06/20/18at 00:19; Start 06/19/18 at 21:15; Stop 06/20/18 at 05:05; Status DC Furosemide (Lasix) 40 mg 1X ONCE IVP Last administered on 06/20/18at 00:23; Start 06/20/18 at 00:00; Stop 06/20/18 at 00:01; Status DC Ondansetron HCl (Zofran) 4 mg PRN Q4HRS PRN IV NAUSEA/VOMITING; Start at 00:30; Stop 06/21/18 at 00:29 Morphine Sulfate (Morphine 4mg Syringe) 2 mg PRN Q2HR PRN IV PAIN; Start 06/20 at 00:30; Stop 06/21/18 at 00:29 Furosemide (Lasix) 40 mg 1X ONCE IVP Last administered on 06/20/18at 06:14; Start 06/20/18 at 06:00; Stop 06/20/18 at 06:01; Status DC Acetaminophen (Tylenol) 650 mg PRN Q8HRS PRN PO PAIN Last administered on 06/20at 05:21; Start 06/20/18 at 05:15 Nitroglycerin (Nitrostat) 0.4 mg PRN Q5MIN PRN SL CHEST PAIN Last administered on 06/20/18at 05:21; Start 06/20/18 at 05:00 Active Scripts Active Coumadin (Warfarin Sodium) 4 Mg Tablet 3 Mg PO DAILY16 30 Days Protonix (Pantoprazole Sodium) 40 Mg Tablet.dr 40 Mg PO BID 90 Days LAST DOSE: today at 8AM NEXT DOSE: tomorrow at 8AM Cymbalta (Duloxetine Hcl) 60 Mg Capsule.dr 30 Mg PO DAILY 90 Days LAST DOSE: today at 8AM NEXT DOSE: tomorrow at 8AM [Warfarin Sodium] 1 EACH Each 1 Each MC PRN DAILY PRN Hydrocodone-Apap 5-325 (Hydrocodone Bit/Acetaminophen) 1 Each Tablet 1 Tab PO PRN Q4HRS PRN Carvedilol (Carvedilol) 3.125 Mg Tablet 3.125 Mg PO BIDWMEALS Restoril (Temazepam) 15 Mg Capsule 1 Cap PO QHS 30 Days Klor-Con M20 (Potassium Chloride) 20 Meq Tab.er.prt 1 Tab PO DAILY Reported Tizanidine Hcl (Tizanidine HCl) 4 Mg Tablet 4 Mg PO HS Gabapentin (Gabapentin) 300 Mg Capsule 300 Mg PO TID Gabapentin (Gabapentin) 100 Mg Capsule 100 Mg PO PRN PRN Ocuvite Softgel (Vit C/Vit E/Lutein/Min/Ruby-3) 1 Each Capsule 1 Each PO DAILY Levothyroxine Sodium 100 Mcg Tablet 1 Tab PO DAILY06 LAST DOSE GIVEN: DATE: today TIME: am NEXT DOSE DUE: DATE: tomorrow TIME: am Demadex (Torsemide) 20 Mg Tablet 20 Mg PO DAILY LAST DOSE GIVEN: DATE: today TIME: am NEXT DOSE DUE: DATE: tomorrow TIME: am Enalapril Maleate 2.5 Mg Tablet 2.5 Mg PO HS NEXT DOSE DUE: DATE: today TIME: at bedtime Bentyl (Dicyclomine Hcl) 20 Mg Tablet 20 Mg PO TID LAST DOSE: today afternoon NEXT DOSE: today at bedtime Lipitor (Atorvastatin Calcium) 40 Mg Tablet 40 Mg PO QHS last dose: last night at bedtime next dose: tonight at bedtime Aspir 81 (Aspirin) 81 Mg Tablet.dr 81 Mg PO DAILY Indication: heart health LAST DOSE: today at 8AM NEXT DOSE: tomorrow at 8AM NITROGLYCERIN SubLingual (Nitroglycerin) 0.4 Mg Tab.subl 0.4 Mg SL PRN Q5MIN PRN NEXT DOSE DUE: DATE: TIME: if and when needed Tylenol (Acetaminophen) 325 Mg Tablet 650 Mg PO PRN Q8HRS PRN NEXT DOSE; WHEN NEEDED next dose Folic Acid 1 Mg Tablet 1 Mg PO DAILY last dose: today at 8AM next dose: tomorrow at 8AM Allergies: Coded Allergies: Penicillins (Verified Allergy, Intermediate, RASH, 05/06/17) Sulfa (Sulfonamide Antibiotics) (Verified Allergy, Intermediate, 05/06/17) UNKNOWN REACTION WAS TOLD I WAS ALLERGIC TO IT. sulfamethoxazole (Verified Allergy, Intermediate, 06/20/18) trimethoprim (Verified Allergy, Intermediate, 06/20/18) Review of System as per HPI General: Alert, Oriented X3, Cooperative, No acute distress HEENT: Atraumatic, EOMI Lungs: Clear to auscultation, Normal air movement Heart: Normal S1, Normal S2, Other (no gallops, clicks or rubs) Abdomen: Normal bowel sounds, Soft, No tenderness Extremities: No cyanosis, Normal pulses, Other (trace edema, chronic venous stasis changes) Neuro: Normal speech, Strength at 5/5 X4 ext Psych/Mental Status: Mental status NL, Other (tearful) VITALS Vital Signs Date Time Temp Pulse Resp B/P (MAP) Pulse Ox O2 Delivery O2 Flow Rate FiO2 06/20/18 08:00 Room Air 06/20/18 06:31 97.5 79 06/20/18 06:00 131/70 (90) 06/20/18 05:00 98 06/20/18 02:10 12 Labs Laboratory Tests Test 06/19/18 21:55 06/20/18 00:45 06/20/18 05:47 White Blood Count 4.0 x10^3/uL (4.0-11.0) Red Blood Count 4.06 x10^6/uL (3.50-5.40) Hemoglobin 13.6 g/dL (12.0-15.5) Hematocrit 41.0 % (36.0-47.0) Mean Corpuscular Volume 101 fL (79-100) Mean Corpuscular Hemoglobin 34 pg (25-35) Mean Corpuscular Hemoglobin Concent 33 g/dL (31-37) Red Cell Distribution Width 16.4 % (11.5-14.5) Platelet Count 126 x10^3/uL (140-400) Neutrophils (%) (Auto) 47 % (31-73) Lymphocytes (%) (Auto) 36 % (24-48) Monocytes (%) (Auto) 12 % (0-9) Eosinophils (%) (Auto) 4 % (0-3) Basophils (%) (Auto) 1 % (0-3) Neutrophils # (Auto) 1.9 x10^3uL (1.8-7.7) Lymphocytes # (Auto) 1.4 x10^3/uL (1.0-4.8) Monocytes # (Auto) 0.5 x10^3/uL (0.0-1.1) Eosinophils # (Auto) 0.2 x10^3/uL (0.0-0.7) Basophils # (Auto) 0.1 x10^3/uL (0.0-0.2) Erythrocyte Sedimentation Rate 6 (0-25) Prothrombin Time 21.8 SEC (9.4-11.4) Prothromb Time International Ratio 2.3 (0.9-1.1) Activated Partial Thromboplast Time 34 SEC (23-33) D-Dimer (Leanna) 0.87 mg/L (0.00-0.50) Sodium Level 141 mmol/L (136-145) Potassium Level 5.2 mmol/L (3.5-5.1) Chloride Level 103 mmol/L (98-107) Carbon Dioxide Level 30 mmol/L (21-32) Anion Gap 8 (6-14) Blood Urea Nitrogen 39 mg/dL (7-20) Creatinine 1.5 mg/dL (0.6-1.0) Estimated GFR (Cockcroft-Gault) 33.1 Glucose Level 113 mg/dL (70-99) Calcium Level 9.3 mg/dL (8.5-10.1) Magnesium Level 2.0 mg/dL (1.8-2.4) Total Bilirubin 0.8 mg/dL (0.2-1.0) Direct Bilirubin 0.2 mg/dL (0.0-0.2) Aspartate Amino Transf (AST/SGOT) 23 U/L (15-37) Alanine Aminotransferase (ALT/SGPT) 21 U/L (14-59) Alkaline Phosphatase 76 U/L (46-116) Creatine Kinase 56 U/L (26-192) Troponin I Quantitative < 0.017 ng/mL (0-0.055) < 0.017 ng/mL (0-0.055) DU-Wsr-G-Type Natriuretic Peptide 3232 pg/mL (0-449) Total Protein 6.6 g/dL (6.4-8.2) Albumin 3.5 g/dL (3.4-5.0) Lipase 164 U/L (73-393) Urine Collection Type Void Urine Color Yellow Urine Clarity Clear Urine pH 5.5 Urine Specific [place] 1.010 Urine Protein Neg (NEG-TRACE) Urine Glucose (UA) Neg mg/dL (NEG) Urine Ketones (Stick) Neg mg/dL (NEG) Urine Blood Neg (NEG) Urine Nitrite Neg (NEG) Urine Bilirubin Neg (NEG) Urine Urobilinogen Dipstick 0.2 mg/dL (0.2 mg/dL) Urine Leukocyte Esterase Trace (NEG) Urine RBC 0 /HPF (0-2) Urine WBC 5-10 /HPF (0-4) Urine Squamous Epithelial Cells Few /LPF Urine Bacteria Few /HPF (0-FEW) Urine Opiates Screen Neg (NEG) Urine Methadone Screen Neg (NEG) Urine Barbiturates Neg (NEG) Urine Phencyclidine Screen Neg (NEG) Urine Amphetamine/Methamphetamine Neg (NEG) Urine Benzodiazepines Screen Neg (NEG) Urine Cocaine Screen Neg (NEG) Urine Cannabinoids Screen Neg (NEG) Urine Ethyl Alcohol Neg (NEG) Images EKG - v paced Assessment/Plan 1. chest pain, atypical - CE negative x2, EKG V paced. Resume home medications. Check echo. Request records from Dr Mahmood. If no significant abn /changes could probably be discharged this evening with outpatient follow up in primary log hauler office within the next 2 weeks. 2. CAD s/p prior PCI 3. CMP s/p ICD - will interrogate device 4. CHF - no overt heart failure clinically despite elevated BNP. Will check optivol if avaliable on her device. 5. Hypertension - resume home meds 6. hyperlipidemia - resume statin, check lipids 7. situational depression - Ok to transfer out of ICU. further mgmt per PCP KATY SANCHEZ SERV[employer] DESK ASSOCIATE Jun 20, 2018 10:04
[2018-06-20 11:38] LABS: ALBUMIN 3.5 g/dL (3.4-5.0); ALBUMIN/GLOBULIN RATIO 1.1 (1.0-1.7); CALCIUM 9.3 mg/dL (8.5-10.1); CREATININE 1.4 mg/dL (0.6-1.0); GFR 35.8; POTASSIUM 4.3 mmol/L (3.5-5.1); TOTAL BILIRUBIN 1.1 mg/dL (0.2-1.0); TOTAL PROTEIN 6.7 g/dL (6.4-8.2)
--- NOTE | 2018-06-20 12:26 | HP ---
ADMIT DATE: 06/20/2018 HISTORY OF PRESENT ILLNESS: The patient is an 83-year-old female patient who came to the Emergency Room complaining of left-sided chest pain that she describes as sharp precipitated by taking a deep breath, it is not associated with exertion, started about 2 days ago. She took nitroglycerin multiple times without any improvement. She called her primary paperhanger who advised her to come to the hospital. In fact, they wanted her to go to [facility], but the patient did not want to do that and she came yesterday to the Emergency Room of [facility] where she was evaluated and was admitted to rule out myocardial infarction. Her first set of cardiac enzymes was normal. She was admitted to do 2 more sets of cardiac enzyme and to consult the cardiology team. PAST MEDICAL HISTORY: Significant for hypertension, hyperlipidemia, hypothyroidism, osteoarthritis, transient ischemic attack, senile macular degeneration. She has also sick sinus syndrome, status post automatic implantable cardioverter-defibrillator. She apparently had stress test done recently at [facility] that apparently was normal. PAST SURGICAL HISTORY: Significant for vaginal hysterectomy, cholecystectomy, appendectomy, exploratory laparotomy, bilateral total knee arthroplasty, bilateral cataract extraction, laser surgery. 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 She has AICD placed and a colonoscopy done recently showed no evidence of polyps. ALLERGIES: SHE IS ALLERGIC TO PENICILLIN AND SEPTRA. MEDICATIONS: She is currently on following medications: She is on dicyclomine 20 mg 3 times a day, tizanidine 4 mg at bedtime. She is also on Coumadin 3 mg once a day, atorvastatin calcium 40 mg at bedtime, nitroglycerin 0.4 mg sublingually every 5 minutes, carvedilol 3.125 mg twice a day, enalapril 2.5 mg at bedtime, aspirin 81 mg once a day, hydrocodone/APAP 5/325 one tablet every 4 hours, acetaminophen 650 mg every 8 hours, gabapentin 100 mg p.o. daily p.r.n. and gabapentin 300 mg 3 times a day, duloxetine 30 mg once a day, temazepam 50 mg at bedtime, potassium chloride 20 mEq daily. She is on torsemide 20 mg once a day, Protonix 40 mg once a day, levothyroxine sodium 100 mcg once a day, folic acid 1 mg once a day, multivitamin with mineral 1 tablet once a day. FAMILY HISTORY: She has one brother, of colon cancer and CVA. Her sister of breast cancer. Mother of colon cancer. Her dad was an alcoholic and does not know him very well. SOCIAL HISTORY: She is , has 1 son. She quit smoking in 1994 after smoking for almost more than 30 years. She does not drink alcohol or use any recreational drugs. 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 REVIEW OF SYSTEMS: The patient has bilateral cataract extraction, laser photocoagulation and injection with senile macular degeneration. She has bilateral hearing aids. Denied any nosebleeds or stuffy nose. Denied any sore throat, sore tongue, toothache, hoarseness of voice or difficulty swallowing. Denied any nausea, vomiting, diarrhea or constipation. Denied any hematemesis, melena or hematochezia. Denied any dysuria, frequency or hematuria. Apart from the chest pain, she denied any orthopnea, paroxysmal nocturnal dyspnea. Denied any cough, phlegm or hemoptysis. Denied any chills, rigors, or fever. Denied any dizziness, lightheadedness, or vertigo. PHYSICAL EXAMINATION: GENERAL: On arrival to the Emergency Room, she looked well and was clearly in no apparent respiratory distress, slightly pale, but no jaundice, cyanosis, or thyromegaly. No jugular venous distension. No limb edema. VITAL SIGNS: Her heart rate was 91, blood pressure was 146/86, temperature was 97.7, respiratory rate was 20, and her oxygen saturation was 97% on room air. HEAD, EYES, EARS, NOSE AND THROAT: Showed normocephalic, atraumatic. NECK: Supple. HEART: Showed normal first and second heart sounds. No gallop, rub or murmur. CHEST: Clear to auscultation. No crepitation or rhonchi. ABDOMEN: Distended, soft, nontender. NEUROLOGIC: She was awake, alert, responding appropriately. All the Cranial nerves intact. EXTREMITIES: She moves extremities without difficulty. She ambulates with a walker. LABORATORY DATA: On arrival to the Emergency Room showed a white cell count 4000, hemoglobin 13.6, hematocrit 41, MCV 101, and platelet count of 126,000. Her chemistry showed a serum sodium 141, potassium 5.2, chloride 103, bicarbonate 30, anion gap of 8, BUN 39, creatinine 1.5. Her calcium was 9.3, magnesium 2. Total bilirubin, AST, ALT, alkaline phosphatase were normal. Her first set of cardiac enzyme showed troponin to be less than 0.017. Beta natriuretic peptide was 3200. Total protein was 6.6, albumin was 3.5. Her prothrombin time was 21.8, INR of 2.3, aPTT was 34 and D-dimer was 0.87. Urinalysis was essentially unremarkable and toxic screen was also negative. Her chest x-ray showed that there is probable emphysema. There is no significant infiltrate, no pneumothorax or pleural effusion and her acute abdomen series was also unremarkable. The patient was admitted to do 2 more sets of cardiac enzyme, check her fasting lipid profile, and also consult the cardiology team. BELÉN ANGLIN MD DR: GABRIEL/gary JOB#: [id number] / [id number]
--- NOTE | 2018-06-20 12:44 | CARD ---
MR#: [id number] Date of Study: 06/20/2018 Ordering Physician: KATY SANCHEZ, Referring Physician: BELÉN ANGLIN Tech: Josey Jackson CLARITZA APPROVED REPORT EXAM: Two-dimensional and M-mode echocardiogram with Doppler and color Doppler. Other Information Quality : AverageHR: 80bpm Rhythm : NSRTechnically limited study due to body habitus. INDICATION Chest Pain 2D DIMENSIONS Left Atrium(2D)4.4 (1.6-4.0cm)IVSd1.0 (0.7-1.1cm) Aortic Root(2D)3.2 (2.0-3.7cm)LVDd4.2 (3.9-5.9cm) LVOT Diameter2.0 (1.8-2.4cm)PWd1.1 (0.7-1.1cm) LVDs2.9 (2.5-4.0cm)FS (%) 29.9 % SV45.3 mlLVEF(%)57.5 (>50%) M-Mode DIMENSIONS Left Atrium(MM)4.67 (2.5-4.0cm)Aortic Root2.80 (2.2-3.7cm) Aortic Valve AoV Peak Kee.134.6cm/sAoV VTI29.6cm AO Peak GR.7.2mmHgLVOT Peak Kee.87.2cm/s LVOT VTI 17.76cmAO Mean GR.4mmHg SONALI (VMAX)1.89dn1TYE (VTI)1.83cm2 AI P 1/2 Biou926ht Mitral Valve MV E Qzgxqwdb430.5cm/sMV E Peak Gr.94mmHg MV DECEL RPFM240acTN A Jeetlsdj64.5cm/s MV E Mean Gr.4mmHgE/A Ratio3.4 MV A Pbujtgss64xd Tricuspid Valve TR P. Ibnqfgev349lw/sRAP UTRUGWNO4ovXj TR Peak Gr.49reTkIQRG49wrHa LEFT VENTRICLE The left ventricle is normal size. There is normal left ventricular wall thickness. Left ventricle sy stolic function is mildly decreased. EF 45% Septal motion suggestive of conduction defect. Mild globa l hypokinesis. Transmitral Doppler flow pattern is abnormal. RIGHT VENTRICLE The right ventricle is normal size. There is normal right ventricular wall thickness. The right ventr icular systolic function is normal. ICD lead noted in RA/RV ATRIA The left atrium is mildly dilated. The right atrium is moderately dilated. The interatrial septum is intact with no evidence for an atrial septal defect or patent foramen ovale as noted on 2-D or Dopple r imaging. AORTIC VALVE The aortic valve is mildly to moderately calcified. The aortic valve is trileaflet. Doppler and Color Flow revealed trace aortic regurgitation. There is no significant aortic valvular stenosis. MITRAL VALVE Mitral valve ring in place. Moderate mitral calcification. There is no evidence of mitral valve prola pse. There is no significant mitral valve stenosis. Doppler and Color-flow revealed mild to moderate mitral regurgitation. TRICUSPID VALVE The tricuspid valve is normal in structure and function. Doppler and Color Flow revealed mild tricusp id regurgitation. There is mild pulmonary hypertension. The PA pressure was estimated at 33 mmHg. The re is no tricuspid valve prolapse or vegetation. There is no tricuspid valve stenosis. PULMONIC VALVE Pulmonic valve not well visualized. GREAT VESSELS The aortic root is normal in size. The ascending aorta is normal in size. The IVC is normal in size a nd collapses >50% with inspiration. PERICARDIAL EFFUSION There is no evidence of significant pericardial effusion. Critical Notification Critical Value: No <Conclusion> Left ventricle systolic function is low normal. The Ejection Fraction is 50-55% Left ventricle systolic function is mildly decreased. EF 45% Septal motion suggestive of conduction defect. Mild global hypokinesis. ICD lead noted in RA/RV Mitral valve ring in place. Moderate mitral calcification. Doppler and Color-flow revealed mild to moderate mitral regurgitation. Signed by : Adam Dc, Electronically Approved : 06/20/2018 12:43:09
--- NOTE | 2018-06-20 15:09 | DS ---
DATE OF DISCHARGE: 06/20/2018 HOSPITAL COURSE: The patient is an 83-year-old female patient, who came to the Emergency Room complaining of recurrent bouts of chest pain that she describes as sharp precipitated by taking a deep breath, it is not associated with exertion, started about 2 days ago, she took nitroglycerin multiple times without any improvement. She called her primary gastroenterology technician, who advised her to come to the hospital at [facility]; however, the patient was transferred all the way there and came to our Emergency Room where she was evaluated and was admitted to rule out myocardial infarction. She has had 3 sets of cardiac enzymes that showed her troponin to be less than 0.07. She was seen in consultation by the gastroenterology technician and has had an echocardiogram, which showed that her left ventricular ejection fraction estimated at 50-55%, ICD and pacer leads noted in the right atrium, right ventricle, mild to moderate mitral regurgitation, mild tricuspid regurgitation, mild pulmonary hypertension. Aortic valve is mildly to moderately calcified. The aortic valve is not well visualized. The patient has had no further episode of chest pain, remained hemodynamically stable. A decision was made to discharge her home to follow with her primary care physician and primary gastroenterology technician at [facility]. PHYSICAL EXAMINATION: GENERAL: On examining her this afternoon, she was sitting comfortably in her chair, in no apparent respiratory distress. She was evaluated by the physical and occupational therapist, apparently have been steady, able to walk with a walker without any assistance. VITAL SIGNS: Her heart rate was 80, blood pressure was 102/67, temperature was 97.5, respiratory rate was 16, and oxygen saturation was 96%. HEAD, EYES, EARS, NOSE AND THROAT: She is normocephalic, atraumatic. NECK: Supple. HEART: Showed normal first and second heart sounds. No gallop, rub, or murmur. CHEST: Clear to auscultation. No crepitation or rhonchi. ABDOMEN: Distended, soft, nontender. NEUROLOGIC: She was hard of hearing, but otherwise all cranial nerves intact. She moves extremities without difficulty. She ambulates with a walker. LABORATORY DATA: Showed that she has 3 sets of cardiac enzymes that showed troponin to be less than 0.017. Her serum triglycerides of 72, total cholesterol was 127, LDL cholesterol was 53, VLDL was 14, HDL cholesterol was 60 and the ratio was 2. Her TSH was 3.247. Her white cell count was 4000, hemoglobin 13, hematocrit 41, MCV 101, and platelet count of 126,000. Her prothrombin time was 21.8, INR of 2.3. Her D-dimer was slightly elevated; however, she is already on Coumadin. Her urinalysis and tox screen were negative. DISCHARGE MEDICATIONS: She was discharged home to continue on Tylenol 650 mg every 8 hours as needed, aspirin 81 mg once a day, atorvastatin calcium for Lipitor 40 mg at bedtime, carvedilol 3.125 mg twice a day, dicyclomine 20 mg 3 times a day, duloxetine for Cymbalta 60 mg once a day, enalapril maleate 2.5 mg at bedtime, folic acid 1 mg tablet once a day, gabapentin 300 mg 3 times a day, hydrocodone/APAP 5/325 one tablet every 4 hours, levothyroxine sodium 100 mcg tablet once a day, nitroglycerin 0.4 mg sublingually every 5 minutes, Protonix 40 mg twice a day, potassium chloride 20 mEq once a day, temazepam 15 mg at bedtime, torsemide for Demadex 20 mg daily, multivitamin with mineral one tablet once a day and Coumadin 3 mg daily. FINAL DISCHARGE DIAGNOSES: Atypical chest pain, myocardial infarction was ruled out, hypertension, hyperlipidemia, hypothyroidism, osteoarthritis. She also has sick sinus syndrome, status post automatic implantable cardioverter defibrillator. BELÉN ANGLIN MD DR: GABRIEL/gary JOB#: [id number] / [id number]
--- NOTE | 2018-06-20 23:08 | EKG ---
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
== END 2018-06-20 15:47 | disposition home or self-care (01) | DRG 313 ==
LOC: ER 21:01 → ICU 06-20 00:01 → 1 SOUTH 06-20 11:21
PROVIDERS: ADMIT Internal Medicine; ATTEND Internal Medicine
DX: R07.89 Other chest pain (principal); I13.0 Hypertensive heart and chronic kidney disease with heart failure and stage 1 through stage 4 chronic kidney disease, or unspecified chronic kidney disease; F32.9 Major depressive disorder, single episode, unspecified; M19.90 Unspecified osteoarthritis, unspecified site; E03.9 Hypothyroidism, unspecified; E78.00 Pure hypercholesterolemia, unspecified; I08.1 Rheumatic disorders of both mitral and tricuspid valves; E78.5 Hyperlipidemia, unspecified; I25.10 Atherosclerotic heart disease of native coronary artery without angina pectoris; I27.20 Pulmonary hypertension, unspecified; I48.91 Unspecified atrial fibrillation; N18.9 Chronic kidney disease, unspecified; Z96.653 Presence of artificial knee joint, bilateral; K21.9 Gastro-esophageal reflux disease without esophagitis; Z80.0 Family history of malignant neoplasm of digestive organs; Z80.3 Family history of malignant neoplasm of breast; Z82.3 Family history of stroke; Z87.440 Personal history of urinary (tract) infections; Z90.49 Acquired absence of other specified parts of digestive tract; Z86.711 Personal history of pulmonary embolism; Z85.828 Personal history of other malignant neoplasm of skin; Z86.73 Personal history of transient ischemic attack (TIA), and cerebral infarction without residual deficits; Z90.710 Acquired absence of both cervix and uterus; Z87.891 Personal history of nicotine dependence; I50.9 Heart failure, unspecified; Z95.5 Presence of coronary angioplasty implant and graft; Z95.810 Presence of automatic (implantable) cardiac defibrillator; Z98.41 Cataract extraction status, right eye; Z98.42 Cataract extraction status, left eye
CPT/HCPCS: 36415; 71046; 74021; 80048; 80053; 80061; 80076; 80307; 81001; 82550; 83690; 83735; 83880; 84443; 84484; 85025; 85379; 85610; 85651; 85730; 87086; 87641; 93005; 93306; 96361; 96374; J1940; 99285-25; J7030

== ENCOUNTER 2018-08-07 17:08 | Observation (INO) | payer MEDICARE, BC, OTHER ==
[~2018-08-07] VITALS: Ht 167.6 cm; Wt 84.8 kg
[~2018-08-07 17:08] MED LIST changes: +GABA-585 PO; +GABA-586 PO; +TIZA4TAB PO; +VIT1CAPS11 PO
[2018-08-07] MEDS ORDERED: LORazepam 2 MG/ML VIAL ONE (17:58)
[2018-08-07] MEDS ORDERED: LORazepam 2 MG/ML VIAL IV ONE (18:00)
[2018-08-07 18:04] LABS: BASO # 0.1 x10^3/uL (0.0-0.2); BASO % 2 % (0-3); EOS # 0.2 x10^3/uL (0.0-0.7); EOS % 5 % (0-3); HEMATOCRIT 43.9 % (36.0-47.0); HEMOGLOBIN 14.5 g/dL (12.0-15.5); LYMPH # 1.1 x10^3/uL (1.0-4.8); LYMPH % 26 % (24-48); MEAN CORPUSCULAR HEMOGLOBIN 33 pg (25-35); MEAN CORPUSCULAR HGB CONC 33 g/dL (31-37); MEAN CORPUSCULAR VOLUME 101 fL (79-100); MONO # 0.5 x10^3/uL (0.0-1.1); MONO % 12 % (0-9); NEUT # 2.3 x10^3uL (1.8-7.7); NEUT % 56 % (31-73); PLATELET COUNT 148 x10^3/uL (140-400); RED BLOOD COUNT 4.34 x10^6/uL (3.50-5.40); RED CELL DISTRIBUTION WIDTH 15.3 % (11.5-14.5); WHITE BLOOD COUNT 4.1 x10^3/uL (4.0-11.0)
--- NOTE | 2018-08-07 18:06 | PHYS DOC ---
Past History Past Medical History: CHF, High Cholesterol, Hypertension (RAMILA DEAN MD) Past Surgical History: Cholecystectomy, Hysterectomy, Knee Replacement, Pacemaker (RAMILA DEAN MD) Smoking: Quit Greater Than 1 Year Alcohol Use: None Drug Use: None (RAMILA DEAN MD) Adult General Chief Complaint Chief Complaint: left arm pain [facility] HPI Patient is a 83 year old female who presents with complaining of left arm pain that started at 1509 as a sharp pain and rated her pain 8/10. Patient denies chest pain, shortness of breath, nausea and vomiting. Later on in emergency room she complaining of numbness of left arm. Patient had history of extensive cardiac risk factors and lost her recently and was seen in this emergency room with the same problem and was admitted at ICU. Patient had anxiety attack she was admitted at ICU because her was in ICU of this hospital. (RAMILA DEAN MD) Review of Systems Review of Systems Constitutional: Denies fever or chills [] Eyes: Denies change in visual acuity, redness, or eye pain [] HENT: Denies nasal congestion or sore throat [] Respiratory: Denies cough or shortness of breath [] Cardiovascular: No additional information not addressed in HPI [] GI: Denies abdominal pain, nausea, vomiting, bloody stools or diarrhea [] : Denies dysuria or hematuria [] Musculoskeletal: Denies back pain or joint pain, reports extremity pain [] Integument: Denies rash or skin lesions [] Neurologic: Denies headache, focal weakness or sensory changes [] Endocrine: Denies polyuria or polydipsia [] All other systems were reviewed and found to be within normal limits, except as documented in this note. (RAMILA DEAN MD) Allergies Allergies Allergies Coded Allergies Type Severity Reaction Last Updated Verified Penicillins Allergy Intermediate RASH 05/06/17 Yes Sulfa (Sulfonamide Antibiotics) Allergy Intermediate 05/06/17 Yes sulfamethoxazole Allergy Intermediate 06/20/18 Yes trimethoprim Allergy Intermediate 06/20/18 Yes (RAMILA DEAN MD) Physical Exam Physical Exam Constitutional: Well nourished, mild distress, non-toxic appearance. [] HENT: Normocephalic, atraumatic, oropharynx dry, no oral exudates, nose normal. [] Eyes: PERRLA, EOMI, conjunctiva normal, no discharge. [] Neck: Normal range of motion, no tenderness, supple, no stridor. [] Cardiovascular:Heart rate regular rhythm, no murmur [] Lungs & Thorax: Bilateral breath sounds clear to auscultation [] Abdomen: Bowel sounds normal, soft, no tenderness, no masses, no pulsatile masses. [] Skin: Warm, dry, no erythema, no rash. [] Back: No tenderness, no CVA tenderness. [] Extremities: No tenderness, no cyanosis, no clubbing, ROM intact, no edema. [] Neurologic: Alert and oriented X 3, normal motor function, normal sensory function, no focal deficits noted. [] Psychologic: Affect anxious, judgement normal, mood normal. [] (RAMILA DEAN MD) Current Patient Data Vital Signs Vital Signs Date Time Temp Pulse Resp B/P (MAP) Pulse Ox O2 Delivery O2 Flow Rate FiO2 08/07/18 17:15 97.4 85 100 Room Air (RAMILA DEAN MD) EKG EKG EKG interpreted by me. EKG at 1711 showed sinus rhythm with multiple artifact at rate of 82, right superior axis deviation, low QRS voltage, RBBB, RVH no acute ST and T-wave abnormalities (RAMILA DEAN MD) Radiology/Procedures Radiology/Procedures [] (RAMILA DEAN MD) Impressions: PROCEDURE: PORTABLE CHEST 1V PORTABLE CHEST 1V Clinical History: CHEST PAIN RADIATING DOWN THE LEFT ARM ONSET TODAY Technique: AP view of the chest was obtained at 08/07/2018 4:52 PM. Comparison: None. Findings: The cardiomediastinal silhouette is normal. The pulmonary vasculature is normal. The lungs and pleural margins are clear. There is a left-sided defibrillator. Impression: No evidence of an acute cardiopulmonary process. Electronically signed by: Thomas Weston III, MD (08/07/2018 6:09 PM) [facility] (MINOO ARCHULETA Jr., DO) Course & Med Decision Making Course & Med Decision Making Pertinent Labs and Imaging studies are pending. Patient's care transferred to Dr. Archuleta at 1800. (RAMILA DEAN MD) Dragon Disclaimer Dragon Disclaimer This electronic medical record was generated, in whole or in part, using a voice recognition dictation system. (RAMILA DEAN MD) Departure Departure: Impression: Primary Impression: Chest pain Additional Impression: Dehydration Disposition: ADMITTED INPATIENT Admitting Physician: Gissel Rowe (MINOO ARCHULETA Jr. DO) Condition: IMPROVED Referrals: MOLLY HAMILTON MD (PCP) Problem Qualifiers Primary Impression: Chest pain Chest pain type: unspecified Qualified Codes: R07.9 - Chest pain, unspecified RAMILA DEAN MD Aug 07, 2018 18:05 MINOO ARCHULETA Jr., DO Aug 07, 2018 18:23
--- NOTE | 2018-08-07 18:14 | RAD ---
PORTABLE CHEST 1V Clinical History: CHEST PAIN RADIATING DOWN THE LEFT ARM ONSET TODAY Technique: AP view of the chest was obtained at 08/07/2018 4:52 PM. Comparison: None. Findings: The cardiomediastinal silhouette is normal. The pulmonary vasculature is normal. The lungs and pleural margins are clear. There is a left-sided defibrillator. Impression: No evidence of an acute cardiopulmonary process. Electronically signed by: Thomas Weston III, MD (08/07/2018 6:09 PM) [facility]
[2018-08-07 18:31] LABS: ALBUMIN 3.7 g/dL (3.4-5.0); ALBUMIN/GLOBULIN RATIO 1.3 (1.0-1.7); CALCIUM 9.1 mg/dL (8.5-10.1); CREATININE 1.5 mg/dL (0.6-1.0); GFR 33.1; POTASSIUM 4.6 mmol/L (3.5-5.1); TOTAL BILIRUBIN 0.8 mg/dL (0.2-1.0); TOTAL PROTEIN 6.5 g/dL (6.4-8.2)
[2018-08-07] MEDS ORDERED: ONDANSETRON PF 4 MG/2 ML VIAL. IV PRN (19:45)
[2018-08-07] MEDS ORDERED: NITROGLYCERIN SUBLINGUAL 0.4 MG BOTTLE OF 25. SL PRN ×2 (19:45→23:00)
[2018-08-07 20:50] VITALS: BP 158/87
--- NOTE | 2018-08-07 21:49 | EKG ---
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
[2018-08-07] MEDS ORDERED: SYSTANE EYE OU PRN (22:15)
[2018-08-07] MEDS ORDERED: GABA400C7 PO (22:44)
[2018-08-07] MEDS ORDERED: LACT1CAP38 PO (22:44)
[2018-08-07] MEDS ORDERED: SPIR50TA4 PO (22:44)
[2018-08-07] MEDS ORDERED: ESTR30CR VG (22:44)
[2018-08-07] MEDS ORDERED: MULT-658 PO (22:44)
[2018-08-07] MEDS ORDERED: ATORVASTATIN CALCIUM 20 MG TABLET PO SCH (23:00)
[2018-08-07] MEDS ORDERED: LISINOPRIL 5 MG TABLET. PO SCH (23:00)
[2018-08-07] MEDS ORDERED: WARFARIN 3 MG TABLET. PO SCH (23:00)
[2018-08-07] MEDS ORDERED: tiZANidine 4 MG TABLET. PO SCH (23:00)
[2018-08-08] MEDS: GABAPENTIN 400 MG CAPSULE. PO SCH ×4 (00:04→17:19)
[2018-08-08] MEDS: DICYCLOMINE HCL 20 MG TABLET PO SCH ×3 (00:04→13:59)
[2018-08-08] MEDS: CARVEDILOL 3.125 MG TABLET PO SCH ×3 (00:05→17:19)
[2018-08-08] MEDS: WARFARIN 4 MG TABLET. PO SCH ×2 (00:06→17:19)
[2018-08-08 01:06] VITALS: BP 128/83
[2018-08-08] MEDS ORDERED: LEVOTHYROXINE 100 MCG TABLET PO SCH (06:00)
[2018-08-08] MEDS ORDERED: ASPIRIN 81 MG TAB.CHEW PO SCH (08:00)
[2018-08-08] MEDS ORDERED: TORSEMIDE 20 MG TABLET. PO SCH (09:00)
[2018-08-08] MEDS ORDERED: MULTIVITAMIN I-VITE TABLET. PO SCH ×2 (09:00)
[2018-08-08] MEDS ORDERED: MULTIVITAMIN with MINERAL TABLET. PO SCH (09:00)
[2018-08-08] MEDS ORDERED: LACTOBACILLUS RHAMNOSUS GG 1 CAPSULE. PO SCH (09:00)
[2018-08-08] MEDS ORDERED: DULoxetine HCL 30 MG CAPSULE.DR PO SCH (09:00)
[2018-08-08] MEDS ORDERED: PANTOPRAZOLE 40 MG TABLET. PO SCH (09:00)
[2018-08-08] MEDS ORDERED: FOLIC ACID 1 MG TABLET PO SCH (09:00)
[2018-08-08] MEDS ORDERED: SPIRONOLACTONE 25 MG TABLET PO SCH (09:00)
[2018-08-08 11:09] VITALS: BP 138/74
--- NOTE | 2018-08-08 12:56 | HP ---
ADMIT DATE: 08/07/2018 HISTORY OF PRESENT ILLNESS: The patient is an 83-year-old female patient, who came to the Emergency Room with the complaint of left arm pain that started about 3:00 in the afternoon. It was a sharp pain, rated as 8/10 in severity. She denied any chest pain, shortness of breath, nausea, or vomiting. Later while in the Emergency did complain of numbness of left arm. The patient has a history of extensive cardiac risk factors and has lost her recently and was recently admitted to same problem to the ICU. She did have severe anxiety attack at that time with her who was in ICU of this hospital. She was extensively investigated and in the Emergency Room, has had an EKG, which showed that she was in sinus rhythm with multiple artifacts at a rate of 82 beats per minute, low QRS voltage, right bundle branch block, right ventricular hypertrophy with no acute ST-T changes. Her chest x-ray was unremarkable, and her first set of cardiac enzyme was normal with` a troponin to be less than 0.017, and the patient was admitted to do 2 more sets of cardiac enzyme and to consult the cardiology team. PAST MEDICAL HISTORY: Significant for hypertension, hyperlipidemia, hypothyroidism, osteoarthritis, transient ischemic attack, senile macular degeneration. She is also known to have sick sinus syndrome, status post automatic implantable cardioverter defibrillator placement. She apparently had stress test done at [facility] and apparently was normal. PAST SURGICAL HISTORY: Significant for vaginal hysterectomy, cholecystectomy, appendectomy, exploratory laparotomy, bilateral total knee arthroplasty, bilateral cataract extraction, laser surgery. 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 She has AICD placed and a colonoscopy done recently with no evidence of polyps. ALLERGIES: She is allergic to PENICILLIN AND SEPTRA. FAMILY HISTORY: She has one brother of colon cancer and CVA. Her sister of breast cancer. Mother of colon cancer and her dad was an alcoholic and does not know him very well. SOCIAL HISTORY: She is . Her recently and she has 1 son. She quit smoking in 1994 after smoking for almost 30 years. She does not drink alcohol or recreational drugs. 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 MEDICATIONS: She is currently on dicyclomine for Bentyl 20 mg 3 times a day, tizanidine 4 mg at bedtime, Coumadin 3 mg daily, atorvastatin calcium 40 mg at bedtime, nitroglycerin 0.4 mg sublingually every 5 minutes x 3, carvedilol 3.125 mg twice a day with meals. She is on enalapril 2.5 mg at bedtime, spironolactone 50 mg daily, aspirin 81 mg once a day, gabapentin 100 mg 3 times a day, duloxetine 30 mg daily, torsemide 20 mg daily, Protonix 40 mg twice a day, Restora capsule 1 daily. She is on conjugated estrogen for Premarin 0.5 grams vaginally twice a week, levothyroxine sodium 100 mcg once a day, folic acid 1 mg once a day, multivitamin with mineral 1 tablet once a day, Ocuvite soft gel 1 p.o. daily. PHYSICAL EXAMINATION: GENERAL: On arrival to the Emergency Room, she looked well and was clearly in no apparent respiratory distress, slightly pale, but no jaundice, cyanosis, or thyromegaly. No jugular venous distension. No limb edema. VITAL SIGNS: Her heart rate was 85, blood pressure was 129/78, temperature was 97.4, respiratory rate was 15 and oxygen saturation was 100%. HEAD, EYES, EARS, NOSE, and THROAT: Showed normocephalic, atraumatic. NECK: Supple. HEART: Showed normal first and second heart sounds. No gallop or murmur. CHEST: Clear to auscultation. No crepitation or rhonchi. ABDOMEN: Distended, soft, nontender. NEUROLOGIC: She is awake, alert, responding appropriately. Her cranial nerves are intact. She ambulates with a walker. LABORATORY DATA: On admission showed a white cell count 4100, hemoglobin 14.5, hematocrit 44, MCV 101, and platelet count of 148,000 with normal manual differential. Her chemistry showed a serum sodium 140, potassium 4.6, chloride 101, bicarbonate 32, anion gap of 7, BUN 46, creatinine 1.5, estimated GFR was 33 mL per minute. Her glucose was 81, calcium was 9.1. Total bilirubin, AST, ALT, alkaline phosphatase were normal. Her first set of cardiac enzymes showed troponin to be less than 0.017. Total protein was 6.5, albumin 3.7. Her beta-natriuretic peptide was 3000. Her prothrombin time was 24.6, INR of 2.6. IMPRESSION AND PLAN: In summary, this is an 83-year-old female patient with extensive cardiac risk factors, which she was admitted with left arm pain as well as chest pain. We will do 2 more sets of cardiac enzyme, consult the Cardiology team and decide on further management accordingly. BELÉN ANGLIN MD DR: GABRIEL/gary JOB#: [id number] / [id number]
[2018-08-08 15:26] VITALS: BP 107/70
[2018-08-08] MEDS ORDERED: WARF4TAB64 PO (15:43)
[2018-08-08] MEDS ORDERED: ESTROGENS, CONJ VAGINAL CREAM 30GM TUBE. VG SCH (16:00)
[2018-08-08 17:19] VITALS: BP 107/70
--- NOTE | 2018-08-08 17:24 | PDOC2 ---
CONSULT Date of Admission DATE: 08/08/18 TIME: 17:20 Reason for Consult: left arm pain Problem List Problems Medical Problems: (1) Chest pain Status: Acute (2) Dehydration Status: Acute History of Present Illness Ms Kang is an 83 year old female with history of CAD s/p prior pci/stent, CMP s /p ICD, factor V deficiency s/p IVC filter, hyperlipidemia, hypertension, multiple DVTs, pulmonary embolisms, and mitral valve repair, who presented with complaints of left arm pain. She reports that she had been sitting in her chair for a couple hours and got up to go look out her window. She initially had some muscle cramps in her legs on standing and then as she walked to the window she became shaky and lightheaded. She states this resolved quickly but she gripped her walker and leaned on both arms. She then developed pain in her left arm she describes as pins and needles feeling. She became worried as she says this has never occurred previously so came for evaluation. She is pain free and has had no reoccurrence of pain. She denies congestive symptoms, syncope or palpations. She normally follows with Dr Mahmood. Past Medical History GERD,anemia, renal insufficiency, hyperkalemia Cardiovascular: AFIB, CAD, CHF, HTN, hyperipidemia, Other (mitral valve repair , ICD placement) Pulmonary: Pulmonary embolus GI: GERD, Irritable bowel disease Heme/Onc: Other (factor 5 deficiency) Psych: Depression Musculoskeletal: Osteoarthritis Renal/: Chronic renal insuff, UTI Endocrine: Hypothyroidism Dermatology: Other Past Surgical History ICD, mitral valve repair, joint replacement Past Surgical History: Appendectomy, Cholecystectomy, Hysterectomy Family History Alcohol Abuse, Cancer, Other (glaucoma) Social History prior smoker, quit about 1 year ago. no drugs, ETOH. Lives in own home, recently Current Medications Current Medications Lorazepam (Ativan) 1 mg 1X ONCE IV Last administered on 08/07/18at 18:03; Start 08/07/18 at 18:00; Stop 08/07/18 at 18:01; Status DC Lorazepam (Ativan) 2 mg STK-MED ONCE .ROUTE ; Start 08/07/18 at 17:58; Stop at 18:00; Status DC Ondansetron HCl (Zofran) 4 mg PRN Q4HRS PRN IV NAUSEA/VOMITING; Start 08/07/18 at 19:45; Stop 08/08/18 at 19:44 Nitroglycerin (Nitrostat) 0.4 mg PRN Q5MIN PRN SL CHEST PAIN; Start 08/07/18 at 19:45; Stop 08/08/18 at 07:48; Status DC Non-Formulary Medication 1 ea PRN DAILY PRN OU DRY EYE; Start 08/07/18 at 22:15 Carvedilol (Coreg) 3.125 mg BIDWMEALS PO Last administered on 08/08/18at 17:19; Start 08/07/18 at 23:00 Estrogens Conjugated (Premarin) 0.5 akira QMONFR VG ; Start 08/08/18 at 16:00 Levothyroxine Sodium (Synthroid) 100 mcg DAILY06 PO Last administered on at 05:43; Start 08/08/18 at 06:00 Nitroglycerin (Nitrostat) 0.4 mg PRN Q5MIN PRN SL CHEST PAIN; Start 08/07/18 at 23:00 Aspirin (Children'S Aspirin) 81 mg DAILYWBKFT PO Last administered on 08/08/18at 09:04; Start 08/08/18 at 08:00 Atorvastatin Calcium (Lipitor) 40 mg QHS PO Last administered on 08/08/18at 00:04 ; Start 08/07/18 at 23:00 Dicyclomine HCl (Bentyl) 20 mg TID PO Last administered on 08/08/18at 13:59; Start 08/07/18 at 23:00 Duloxetine HCl (Cymbalta) 30 mg DAILY PO Last administered on 08/08/18at 09:04; Start 08/08/18 at 09:00 Lisinopril (Prinivil) 5 mg QHS PO Last administered on 08/08/18at 00:04; Start at 23:00 Folic Acid (Folic Acid) 1 mg DAILY PO Last administered on 08/08/18at 09:04; Start 08/08/18 at 09:00 Gabapentin (Neurontin) 400 mg TID PO Last administered on 08/08/18at 09:04; Start 08/07/18 at 23:00; Stop 08/08/18 at 13:52; Status DC Lactobacillus Rhamnosus (Culturelle) 1 cap DAILY PO Last administered on at 09:04; Start 08/08/18 at 09:00 Multivitamins/ Minerals (I-Jia) 1 tab DAILY PO Last administered on 08/08/18at 09:03; Start 08/08/18 at 09:00 Pantoprazole Sodium (Protonix) 40 mg BID PO Last administered on 08/08/18at 09:03 ; Start 08/08/18 at 09:00 Spironolactone (Aldactone) 50 mg DAILY PO Last administered on 08/08/18at 09:03; Start 08/08/18 at 09:00 Tizanidine HCl (Zanaflex) 4 mg QHS PO Last administered on 08/08/18at 00:05; Start 08/07/18 at 23:00 Torsemide (Demadex) 20 mg DAILY PO Last administered on 08/08/18at 09:04; Start 08/08/18 at 09:00 Multivitamins/ Minerals (I-Jia) 1 tab DAILY PO ; Start 08/08/18 at 09:00; Stop 08/08/18 at 09:00; Status DC Warfarin Sodium (Coumadin) 3 mg DAILY16 PO ; Start 08/07/18 at 23:00; Stop 08/07 at 23:30; Status DC Warfarin Sodium (Coumadin) 4 mg DAILY16 PO Last administered on 08/08/18at 17:19 ; Start 08/07/18 at 23:45 Multivitamins/ Calcium (Thera-M Plus) 1 tab DAILY PO Last administered on at 09:04; Start 08/08/18 at 09:00 Warfarin Sodium (Coumadin Per Physician) 1 each PRN DAILY PRN MC SEE COMMENTS; Start 08/08/18 at 08:00 Gabapentin (Neurontin) 400 mg QID PO Last administered on 08/08/18at 17:19; Start 08/08/18 at 14:00 Active Scripts Active Protonix (Pantoprazole Sodium) 40 Mg Tablet.dr 40 Mg PO BID 90 Days LAST DOSE: today at 8AM NEXT DOSE: tomorrow at 8AM Cymbalta (Duloxetine Hcl) 60 Mg Capsule.dr 30 Mg PO DAILY 90 Days LAST DOSE: today at 8AM NEXT DOSE: tomorrow at 8AM [Warfarin Sodium] 1 EACH Each 1 Each MC PRN DAILY PRN Carvedilol (Carvedilol) 3.125 Mg Tablet 3.125 Mg PO BIDWMEALS Reported Warfarin Sodium 4 Mg Tablet 4 Mg PO DAILY Spironolactone 50 Mg Tablet 1 Tab PO DAILY [facility] Rx Capsule (Lactobacillus Casei/Folic Acid) 1 Each Capsule 1 Each PO DAILY Premarin (Estrogens, Conjugated) 30 Gm Cream.appl 0.5 Gm VG TWICE WEEKLY Centrum Silver Tablet (Multivits-Min/Fa/Lycopene/Lut) 1 Each Tablet 1 Each PO DAILY Gabapentin 400 Mg Capsule 400 Mg PO QID Tizanidine Hcl (Tizanidine HCl) 4 Mg Tablet 4 Mg PO HS Ocuvite Softgel (Vit C/Vit E/Lutein/Min/[place]-3) 1 Each Capsule 1 Each PO DAILY Levothyroxine Sodium 100 Mcg Tablet 1 Tab PO DAILY06 LAST DOSE GIVEN: DATE: today TIME: am NEXT DOSE DUE: DATE: tomorrow TIME: am Demadex (Torsemide) 20 Mg Tablet 20 Mg PO DAILY LAST DOSE GIVEN: DATE: today TIME: am NEXT DOSE DUE: DATE: tomorrow TIME: am Enalapril Maleate 2.5 Mg Tablet 2.5 Mg PO HS NEXT DOSE DUE: DATE: today TIME: at bedtime Bentyl (Dicyclomine Hcl) 20 Mg Tablet 20 Mg PO TID LAST DOSE: today afternoon NEXT DOSE: today at bedtime Lipitor (Atorvastatin Calcium) 40 Mg Tablet 40 Mg PO QHS last dose: last night at bedtime next dose: tonight at bedtime Aspir 81 (Aspirin) 81 Mg Tablet.dr 81 Mg PO DAILY Indication: heart health LAST DOSE: today at 8AM NEXT DOSE: tomorrow at 8AM NITROGLYCERIN SubLingual (Nitroglycerin) 0.4 Mg Tab.subl 0.4 Mg SL PRN Q5MIN PRN NEXT DOSE DUE: DATE: today TIME: if and when needed Folic Acid 1 Mg Tablet 1 Mg PO DAILY last dose: today at 8AM next dose: tomorrow at 8AM Allergies: Coded Allergies: Penicillins (Verified Allergy, Intermediate, RASH, 05/06/17) Sulfa (Sulfonamide Antibiotics) (Verified Allergy, Intermediate, 05/06/17) UNKNOWN REACTION WAS TOLD I WAS ALLERGIC TO IT. sulfamethoxazole (Verified Allergy, Intermediate, 06/20/18) trimethoprim (Verified Allergy, Intermediate, 06/20/18) Review of System as per HPI or negative General: Alert, Oriented X3, Cooperative, No acute distress HEENT: Atraumatic, EOMI, Mucous membr. moist/pink Lungs: Clear to auscultation, Normal air movement Heart: Normal S1, Normal S2, Other (no gallops, clicks or rubs) Abdomen: Normal bowel sounds, Soft, No tenderness Extremities: No cyanosis, No edema, Normal pulses Neuro: Normal speech, Strength at 5/5 X4 ext Psych/Mental Status: Mental status NL, Mood NL VITALS Vital Signs Date Time Temp Pulse Resp B/P (MAP) Pulse Ox O2 Delivery O2 Flow Rate FiO2 08/08/18 17:19 86 107/70 08/08/18 15:26 98.3 20 99 Room Air 08/08/18 11:09 94.0 Labs Laboratory Tests Test 08/07/18 17:40 08/07/18 18:42 08/07/18 22:30 08/08/18 01:45 White Blood Count 4.1 x10^3/uL (4.0-11.0) Red Blood Count 4.34 x10^6/uL (3.50-5.40) Hemoglobin 14.5 g/dL (12.0-15.5) Hematocrit 43.9 % (36.0-47.0) Mean Corpuscular Volume 101 fL (79-100) Mean Corpuscular Hemoglobin 33 pg (25-35) Mean Corpuscular Hemoglobin Concent 33 g/dL (31-37) Red Cell Distribution Width 15.3 % (11.5-14.5) Platelet Count 148 x10^3/uL (140-400) Neutrophils (%) (Auto) 56 % (31-73) Lymphocytes (%) (Auto) 26 % (24-48) Monocytes (%) (Auto) 12 % (0-9) Eosinophils (%) (Auto) 5 % (0-3) Basophils (%) (Auto) 2 % (0-3) Neutrophils # (Auto) 2.3 x10^3uL (1.8-7.7) Lymphocytes # (Auto) 1.1 x10^3/uL (1.0-4.8) Monocytes # (Auto) 0.5 x10^3/uL (0.0-1.1) Eosinophils # (Auto) 0.2 x10^3/uL (0.0-0.7) Basophils # (Auto) 0.1 x10^3/uL (0.0-0.2) Sodium Level 140 mmol/L (136-145) Potassium Level 4.6 mmol/L (3.5-5.1) Chloride Level 101 mmol/L (98-107) Carbon Dioxide Level 32 mmol/L (21-32) Anion Gap 7 (6-14) Blood Urea Nitrogen 46 mg/dL (7-20) Creatinine 1.5 mg/dL (0.6-1.0) Estimated GFR (Cockcroft-Gault) 33.1 BUN/Creatinine Ratio 31 (6-20) Glucose Level 81 mg/dL (70-99) Calcium Level 9.1 mg/dL (8.5-10.1) Total Bilirubin 0.8 mg/dL (0.2-1.0) Aspartate Amino Transf (AST/SGOT) 36 U/L (15-37) Alanine Aminotransferase (ALT/SGPT) 29 U/L (14-59) Alkaline Phosphatase 76 U/L (46-116) Creatine Kinase 59 U/L (26-192) Troponin I Quantitative < 0.017 ng/mL (0-0.055) < 0.017 ng/mL (0-0.055) < 0.017 ng/mL (0-0.055) GC-Yul-K-Type Natriuretic Peptide 3098 pg/mL (0-449) Total Protein 6.5 g/dL (6.4-8.2) Albumin 3.7 g/dL (3.4-5.0) Albumin/Globulin Ratio 1.3 (1.0-1.7) Prothrombin Time 24.6 SEC (9.4-11.4) Prothromb Time International Ratio 2.6 (0.9-1.1) Images EKG - v paced CXR - Impression: No evidence of an acute cardiopulmonary process. Assessment/Plan 1. left arm pain, most consistent with musculoskeletal or radicular pain. Vianney negative x 3, no acute EKG changes. 2. CAD s/p prior PCI - angina free. continue aspirin, statin, beta mia. EF 55% by echo in June. Follow up with primary senior product designer. 3. CMP s/p ICD - appropriate device function by recent interrogation. 4. CHF - no overt heart failure clinically . CXR without pulmonary congestion. . 5. Hypertension - continue home meds 6. hyperlipidemia - continue statin, lipids checked 1 month ago. 7, mild orthostatic lightheadedness, - encouraged preventative measures. compression hose. OK \cv [facility] for discharge and follow up with primary senior product designer. KATY SANCHEZ APRN Aug 08, 2018 17:24
== END 2018-08-08 18:25 | disposition home or self-care (01) ==
LOC: ER 17:08 → 1 SOUTH 20:15
PROVIDERS: ADMIT Internal Medicine; ATTEND Internal Medicine
DX: R07.9 Chest pain, unspecified (principal); E86.0 Dehydration; E03.9 Hypothyroidism, unspecified; I13.0 Hypertensive heart and chronic kidney disease with heart failure and stage 1 through stage 4 chronic kidney disease, or unspecified chronic kidney disease; I50.9 Heart failure, unspecified; N18.9 Chronic kidney disease, unspecified; E78.00 Pure hypercholesterolemia, unspecified; E78.5 Hyperlipidemia, unspecified; H35.30 Unspecified macular degeneration; I25.10 Atherosclerotic heart disease of native coronary artery without angina pectoris; I26.99 Other pulmonary embolism without acute cor pulmonale; I48.91 Unspecified atrial fibrillation; K58.9 Irritable bowel syndrome, unspecified; K21.9 Gastro-esophageal reflux disease without esophagitis; Z79.82 Long term (current) use of aspirin; Z80.0 Family history of malignant neoplasm of digestive organs; Z80.3 Family history of malignant neoplasm of breast; Z82.3 Family history of stroke; Z85.828 Personal history of other malignant neoplasm of skin; Z86.711 Personal history of pulmonary embolism; Z86.73 Personal history of transient ischemic attack (TIA), and cerebral infarction without residual deficits; Z87.891 Personal history of nicotine dependence; Z90.710 Acquired absence of both cervix and uterus; Z95.5 Presence of coronary angioplasty implant and graft; Z95.810 Presence of automatic (implantable) cardiac defibrillator; Z96.653 Presence of artificial knee joint, bilateral; Z98.41 Cataract extraction status, right eye; Z98.42 Cataract extraction status, left eye; Z88.8 Allergy status to other drugs, medicaments and biological substances; Z88.0 Allergy status to penicillin
CPT/HCPCS: 36415; 71045; 80053; 82550; 83880; 84484; 85025; 85610; 93005; 96374; 99284; G0378; J2060; G0379

== ENCOUNTER 2018-08-26 18:00 | Inpatient (IN) | payer MEDICARE, BC, OTHER ==
[~2018-08-26] VITALS: Ht 167.6 cm; Wt 90.3 kg
[~2018-08-26 18:00] MED LIST changes: +ESTR30CR VG; +GABA400C7 PO; +LACT1CAP38 PO; +MULT-658 PO; +OCUVITE SOFTGE1 EACH PO; -VIT1CAPS11 PO; +WARF4TAB64 PO
[2018-08-26] MEDS ORDERED: IV RINGERS SOLUTION,LACTATED 1,000 ML IV SCH (18:14)
--- NOTE | 2018-08-26 18:14 | ED.ADGEN ---
Past History Past Medical History: CAD, CHF, GERD, High Cholesterol, Hypertension, Hypothyroid Past Surgical History: Cholecystectomy, Hysterectomy, Knee Replacement, Pacemaker Smoking: Quit Greater Than 1 Year Alcohol Use: None Drug Use: None Adult General Chief Complaint Chief Complaint ".. I am stress out.. my in ... I ve been in here twice since his for chest pain... and now I moving out my home... I lived there almost 50 yrs... to long term.. My BP is up.....I did take the nitro... it got rid of chest pain... but now I ve got a splinting headache..." HPI HPI Patient is a 83 year old female who presents with above hx with complaints chest pain. Pain is central and some into Lt shoulder and arm. Pt. reports elevated blood pressure night and angina type complaints. Angina complaints. Lead with one nitroglycerin. Patient states she is under a lot of stress since her in May and recent plan to move out of her home with 50 some years. Patient lives alone. Patient is very anxious. Patient states recently evaluated for chest pain. Patient has a history of CHF. Chronic renal insufficiency and hypertension. Patient normally follows with Dr. Ochoa. Review of Systems Review of Systems Constitutional: Denies fever or chills [] Eyes: Denies change in visual acuity, redness, or eye pain [] HENT: Denies nasal congestion or sore throat [] Respiratory: Denies cough or shortness of breath [] Cardiovascular: No additional information not addressed in HPI [] GI: Denies abdominal pain, nausea, vomiting, bloody stools or diarrhea [] : Denies dysuria or hematuria [] Musculoskeletal: Denies back pain or joint pain [] Integument: Denies rash or skin lesions [] Neurologic: Denies headache, focal weakness or sensory changes [] Endocrine: Denies polyuria or polydipsia [] All other systems were reviewed and found to be within normal limits, except as documented in this note. Family History Family History Noncontributory Current Medications Current Medications Current Medications Medications (Trade) Dose Ordered Sig/[place] Start Time Stop Time Status Last Admin Dose Admin Aspirin (Children'S Aspirin) 324 mg 1X ONCE 08/26/18 18:30 08/26/18 18:31 DC 08/26/18 18:59 324 MG Furosemide (Lasix) 40 mg 1X ONCE 08/26/18 20:30 08/26/18 20:31 DC 08/26/18 23:20 40 MG Lactated Ringer's 1,000 ml @ 100 mls/hr Q10H 08/26/18 18:14 08/27/18 04:13 08/26/18 19:00 100 MLS/HR Ondansetron HCl (Zofran Odt) 8 mg 1X ONCE 08/26/18 18:45 08/26/18 18:46 DC 08/26/18 18:59 8 MG Ondansetron HCl (Zofran) 4 mg PRN Q4HRS PRN 08/26/18 20:15 08/27/18 20:14 Oxycodone/ Acetaminophen (Percocet 5/325) 2 tab 1X ONCE 08/26/18 18:45 08/26/18 18:46 DC 08/26/18 18:59 2 TAB Allergies Allergies Allergies Coded Allergies Type Severity Reaction Last Updated Verified Penicillins Allergy Intermediate RASH 08/26/18 Yes Sulfa (Sulfonamide Antibiotics) Allergy Intermediate 08/26/18 Yes sulfamethoxazole Allergy Intermediate 08/26/18 Yes trimethoprim Allergy Intermediate 08/26/18 Yes Physical Exam Physical Exam Constitutional: Moderately acute distress, non-toxic appearance. [] HENT: Normocephalic, atraumatic, bilateral external ears normal, oropharynx moist, no oral exudates, nose normal. [] Eyes: PERRLA, EOMI, conjunctiva normal, no discharge. [] Neck: Normal range of motion, no tenderness, supple, no stridor. [] Cardiovascular:Heart rate regular rhythm, no murmur [] Lungs & Thorax: Bilateral breath sounds equal apex with some basilar crackles. On Auscultation [] Abdomen: Bowel sounds normal, soft, no tenderness, no masses, no pulsatile masses. Old surgical scars. Skin: Warm, dry, no erythema, no rash. [] Back: No tenderness, no CVA tenderness. [] Extremities: No tenderness, no cyanosis, no clubbing, ROM intact, ankle edema. [ ] Neurologic: Alert and oriented X 3, normal motor function, normal sensory function, no focal deficits noted. [] Psychologic: Affect very anxious, judgement normal, mood depressed. Current Patient Data Vital Signs Vital Signs Date Time Temp Pulse Resp B/P (MAP) Pulse Ox O2 Delivery O2 Flow Rate FiO2 08/26/18 20:56 80 18 120/63 (82) 97 Room Air 08/26/18 18:26 97.5 Lab Results Laboratory Tests Test 08/26/18 18:43 08/26/18 19:08 White Blood Count 3.8 x10^3/uL (4.0-11.0) L Red Blood Count 4.45 x10^6/uL (3.50-5.40) Hemoglobin 15.0 g/dL (12.0-15.5) Hematocrit 45.0 % (36.0-47.0) Mean Corpuscular Volume 101 fL (79-100) H Mean Corpuscular Hemoglobin 34 pg (25-35) Mean Corpuscular Hemoglobin Concent 33 g/dL (31-37) Red Cell Distribution Width 15.4 % (11.5-14.5) H Platelet Count 135 x10^3/uL (140-400) L Neutrophils (%) (Auto) 45 % (31-73) Lymphocytes (%) (Auto) 38 % (24-48) Monocytes (%) (Auto) 10 % (0-9) H Eosinophils (%) (Auto) 5 % (0-3) H Basophils (%) (Auto) 2 % (0-3) Neutrophils # (Auto) 1.7 x10^3uL (1.8-7.7) L Lymphocytes # (Auto) 1.4 x10^3/uL (1.0-4.8) Monocytes # (Auto) 0.4 x10^3/uL (0.0-1.1) Eosinophils # (Auto) 0.2 x10^3/uL (0.0-0.7) Basophils # (Auto) 0.1 x10^3/uL (0.0-0.2) Sodium Level 138 mmol/L (136-145) Potassium Level 5.0 mmol/L (3.5-5.1) Chloride Level 98 mmol/L (98-107) Carbon Dioxide Level 29 mmol/L (21-32) Anion Gap 11 (6-14) Blood Urea Nitrogen 46 mg/dL (7-20) H Creatinine 1.7 mg/dL (0.6-1.0) H Estimated GFR (Cockcroft-Gault) 28.6 Glucose Level 82 mg/dL (70-99) Calcium Level 9.4 mg/dL (8.5-10.1) Magnesium Level 1.8 mg/dL (1.8-2.4) Total Bilirubin 1.0 mg/dL (0.2-1.0) Direct Bilirubin 0.2 mg/dL (0.0-0.2) Aspartate Amino Transferase (AST) 42 U/L (15-37) H Alanine Aminotransferase (ALT) 29 U/L (14-59) Alkaline Phosphatase 77 U/L (46-116) Creatine Kinase 104 U/L (26-192) Troponin I Quantitative < 0.017 ng/mL (0-0.055) NX-Mpk-D-Type Natriuretic Peptide 4079 pg/mL (0-449) H Total Protein 7.3 g/dL (6.4-8.2) Albumin 4.0 g/dL (3.4-5.0) Lipase 135 U/L (73-393) Prothrombin Time 25.9 SEC (9.4-11.4) H Prothrombin Time INR 2.7 (0.9-1.1) H PTT 35 SEC (23-33) H D-Dimer (Leanna) 0.99 mg/L (0.00-0.50) H EKG EKG My interpretation of EKG shows a ill regular rhythm in ventricular rhythm 80, chronic. [place], mood depressed block, non-specific anterior septal changes. Radiology/Procedures Radiology/Procedures I interpretation of chest x-ray shows degenerative joint changes. Large cardiac silhouette, pacer and defibrillator, increased cephalization consistent with CHF. Findings consistent with emphysema.[] Course & Med Decision Making Course & Med Decision Making Pertinent Labs and Imaging studies reviewed. (See chart for details) Admitted to Dr. Rowe [] Final Impression Final Impression 1. Chest Pain[] 2. HTN 3. Anxiety 4. Hyperkalemia 5.0 5. Thrombocytopenia 135 6. CHF, diastolic dysfunction-BNP 4079 Dragon Disclaimer Dragon Disclaimer This electronic medical record was generated, in whole or in part, using a voice recognition dictation system. Dragon Disclaimer This chart was dictated in whole or in part using Voice Recognition software in a busy, high-work load, and often noisy Emergency Department environment. It may contain unintended and wholly unrecognized errors or omissions. Discharge Summary Visit Information Final Diagnosis Problems Medical Problems: (1) Chest pain Status: Acute Brief Hospital Course Allergies Allergies Coded Allergies Type Severity Reaction Last Updated Verified Penicillins Allergy Intermediate RASH 08/26/18 Yes Sulfa (Sulfonamide Antibiotics) Allergy Intermediate 08/26/18 Yes sulfamethoxazole Allergy Intermediate 08/26/18 Yes trimethoprim Allergy Intermediate 08/26/18 Yes Vital Signs Vital Signs Date Time Temp Pulse Resp B/P (MAP) Pulse Ox O2 Delivery O2 Flow Rate FiO2 08/26/18 20:56 80 18 120/63 (82) 97 Room Air 08/26/18 18:26 97.5 Lab Results Laboratory Tests Test 08/26/18 18:43 08/26/18 19:08 White Blood Count 3.8 x10^3/uL (4.0-11.0) Red Blood Count 4.45 x10^6/uL (3.50-5.40) Hemoglobin 15.0 g/dL (12.0-15.5) Hematocrit 45.0 % (36.0-47.0) Mean Corpuscular Volume 101 fL (79-100) Mean Corpuscular Hemoglobin 34 pg (25-35) Mean Corpuscular Hemoglobin Concent 33 g/dL (31-37) Red Cell Distribution Width 15.4 % (11.5-14.5) Platelet Count 135 x10^3/uL (140-400) Neutrophils (%) (Auto) 45 % (31-73) Lymphocytes (%) (Auto) 38 % (24-48) Monocytes (%) (Auto) 10 % (0-9) Eosinophils (%) (Auto) 5 % (0-3) Basophils (%) (Auto) 2 % (0-3) Neutrophils # (Auto) 1.7 x10^3uL (1.8-7.7) Lymphocytes # (Auto) 1.4 x10^3/uL (1.0-4.8) Monocytes # (Auto) 0.4 x10^3/uL (0.0-1.1) Eosinophils # (Auto) 0.2 x10^3/uL (0.0-0.7) Basophils # (Auto) 0.1 x10^3/uL (0.0-0.2) Sodium Level 138 mmol/L (136-145) Potassium Level 5.0 mmol/L (3.5-5.1) Chloride Level 98 mmol/L (98-107) Carbon Dioxide Level 29 mmol/L (21-32) Anion Gap 11 (6-14) Blood Urea Nitrogen 46 mg/dL (7-20) Creatinine 1.7 mg/dL (0.6-1.0) Estimated GFR (Cockcroft-Gault) 28.6 Glucose Level 82 mg/dL (70-99) Calcium Level 9.4 mg/dL (8.5-10.1) Magnesium Level 1.8 mg/dL (1.8-2.4) Total Bilirubin 1.0 mg/dL (0.2-1.0) Direct Bilirubin 0.2 mg/dL (0.0-0.2) Aspartate Amino Transf (AST/SGOT) 42 U/L (15-37) Alanine Aminotransferase (ALT/SGPT) 29 U/L (14-59) Alkaline Phosphatase 77 U/L (46-116) Creatine Kinase 104 U/L (26-192) Troponin I Quantitative < 0.017 ng/mL (0-0.055) RJ-Ptm-O-Type Natriuretic Peptide 4079 pg/mL (0-449) Total Protein 7.3 g/dL (6.4-8.2) Albumin 4.0 g/dL (3.4-5.0) Lipase 135 U/L (73-393) Prothrombin Time 25.9 SEC (9.4-11.4) Prothromb Time International Ratio 2.7 (0.9-1.1) Activated Partial Thromboplast Time 35 SEC (23-33) D-Dimer (Leanna) 0.99 mg/L (0.00-0.50) Brief Hospital Course Ms. Kang is a 83 old female who presented with chest pain. Admitted to Dr. Rowe for further eval. tx. Discharge Information Condition at Discharge: Improved, Stable Dischare Medications Current Medications Aspirin (Children'S Aspirin) 324 mg 1X ONCE PO Last administered on 08/26/18at 18:59; Admin Dose 324 MG; Start 08/26/18 at 18:30; Stop 08/26/18 at 18:31; Status DC Lactated Ringer's 1,000 ml @ 100 mls/hr Q10H IV Last administered on at 19:00; Admin Dose 100 MLS/HR; Start 08/26/18 at 18:14; Stop 08/27/18 at 04: 13 Oxycodone/ Acetaminophen (Percocet 5/325) 2 tab 1X ONCE PO Last administered on 08/26/18at 18:59; Admin Dose 2 TAB; Start 08/26/18 at 18:45; Stop 08/26/18 at 18:46; Status DC Ondansetron HCl (Zofran Odt) 8 mg 1X ONCE PO Last administered on 08/26/18at 18 :59; Admin Dose 8 MG; Start 08/26/18 at 18:45; Stop 08/26/18 at 18:46; Status DC Furosemide (Lasix) 40 mg 1X ONCE IVP Last administered on 08/26/18at 23:20; Admin Dose 40 MG; Start 08/26/18 at 20:30; Stop 08/26/18 at 20:31; Status DC Ondansetron HCl (Zofran) 4 mg PRN Q4HRS PRN IV NAUSEA/VOMITING; Start 08/26/18 at 20:15; Stop 08/27/18 at 20:14 Active Scripts Active Protonix (Pantoprazole Sodium) 40 Mg Tablet.dr 40 Mg PO BID 90 Days LAST DOSE: today at 8AM NEXT DOSE: tomorrow at 8AM Cymbalta (Duloxetine Hcl) 60 Mg Capsule.dr 30 Mg PO DAILY 90 Days LAST DOSE: today at 8AM NEXT DOSE: tomorrow at 8AM [Warfarin Sodium] 1 EACH Each 1 Each MC PRN DAILY PRN Carvedilol (Carvedilol) 3.125 Mg Tablet 3.125 Mg PO BIDWMEALS Reported Warfarin Sodium 4 Mg Tablet 4 Mg PO DAILY LAST DOSE GIVEN: DATE: TODAY TIME: AT DINNER TIME NEXT DOSE DUE: DATE: TOMORROW TIME: AT DINNER TIME Spironolactone 50 Mg Tablet 1 Tab PO DAILY LAST DOSE GIVEN: DATE: TODAY TIME: AM NEXT DOSE DUE: DATE: TOMORROW TIME: AM [facility] Rx Capsule (Lactobacillus Casei/Folic Acid) 1 Each Capsule 1 Each PO DAILY LAST DOSE GIVEN: DATE: TODAY TIME: AM NEXT DOSE DUE: DATE: TOMORROW TIME: AM Premarin (Estrogens, Conjugated) 30 Gm Cream.appl 0.5 Gm VG TWICE WEEKLY NOT GIVEN IN THE HOSPITAL NEXT DOSE DUE: DATE: RESTART ON YOUR REGULAR DAY Centrum Silver Tablet (Multivits-Min/Fa/Lycopene/Lut) 1 Each Tablet 1 Each PO DAILY LAST DOSE GIVEN: DATE: TODAY TIME: AM NEXT DOSE DUE: DATE: TOMORROW TIME: AM Gabapentin 400 Mg Capsule 400 Mg PO QID LAST DOSE GIVEN: DATE: TODAY TIME: WITH DINNER NEXT DOSE DUE: DATE: TODAY TIME: AT BEDTIME Tizanidine Hcl (Tizanidine HCl) 4 Mg Tablet 4 Mg PO HS NOT GIVEN IN THE HOSPITAL NEXT DOSE DUE: DATE: TODAY TIME: AT BEDTIME Ocuvite Softgel (Vit C/Vit E/Lutein/Min/[place]-3) 1 Each Capsule 1 Each PO DAILY LAST DOSE GIVEN: DATE: TODAY TIME: AM NEXT DOSE DUE: DATE: TOMORR TIME: AM Levothyroxine Sodium 100 Mcg Tablet 1 Tab PO DAILY06 LAST DOSE GIVEN: DATE: today TIME: BEFORE BREAKFAST NEXT DOSE DUE: DATE: tomorr TIME: BEFORE BREAKFAST Demadex (Torsemide) 20 Mg Tablet 20 Mg PO DAILY LAST DOSE GIVEN: DATE: today TIME: am NEXT DOSE DUE: DATE: TIME: am Enalapril Maleate 2.5 Mg Tablet 2.5 Mg PO HS LAST DOSE GIVEN: DATE: YESTER TIME: AT BEDTIME NEXT DOSE DUE: DATE: TODAY TIME: AT BEDTIME Bentyl (Dicyclomine Hcl) 20 Mg Tablet 20 Mg PO TID LAST DOSE GIVEN: DATE: TIME: AFTERNOON NEXT DOSE DUE: DATE: TODAY TIME: PM Lipitor (Atorvastatin Calcium) 40 Mg Tablet 40 Mg PO QHS LAST DOSE: DATE: YESTERDAY TIME: AT BEDTIME NEXT DOSE DUE: DATE: TODAY TIME: AT BEDTIME Aspir 81 (Aspirin) 81 Mg Tablet.dr 81 Mg PO DAILY LAST DOSE GIVEN: DATE: TODAY TIME: AM NEXT DOSE DUE: DATE: ORR TIME: AM NITROGLYCERIN SubLingual (Nitroglycerin) 0.4 Mg Tab.subl 0.4 Mg SL PRN Q5MIN PRN NEXT DOSE DUE: DATE: today TIME: if and when needed Folic Acid 1 Mg Tablet 1 Mg PO DAILY LAST DOSE GIVEN: DATE: TODAY TIME: AM NEXT DOSE DUE: DATE: ORROW TIME: AM AME MUNOZ MD Aug 26, 2018 18:14
[2018-08-26] MEDS ORDERED: ASPIRIN 81 MG TAB.CHEW PO ONE (18:30)
[2018-08-26] MEDS ORDERED: ONDANSETRON ODT 4 MG TAB.RAPDIS PO ONE (18:45)
[2018-08-26] MEDS ORDERED: oxyCODONE/APAP 5/325 1 TAB TABLET PO ONE (18:45)
[2018-08-26 19:00] LABS: BASO # 0.1 x10^3/uL (0.0-0.2); BASO % 2 % (0-3); EOS # 0.2 x10^3/uL (0.0-0.7); EOS % 5 % (0-3); LYMPH # 1.4 x10^3/uL (1.0-4.8); LYMPH % 38 % (24-48); MEAN CORPUSCULAR HEMOGLOBIN 34 pg (25-35); MEAN CORPUSCULAR HGB CONC 33 g/dL (31-37); MEAN CORPUSCULAR VOLUME 101 fL (79-100); MONO # 0.4 x10^3/uL (0.0-1.1); MONO % 10 % (0-9); NEUT # 1.7 x10^3uL (1.8-7.7); NEUT % 45 % (31-73); PLATELET COUNT 135 x10^3/uL (140-400); RED BLOOD COUNT 4.45 x10^6/uL (3.50-5.40); RED CELL DISTRIBUTION WIDTH 15.4 % (11.5-14.5); WHITE BLOOD COUNT 3.8 x10^3/uL (4.0-11.0)
[2018-08-26 19:31] LABS: CALCIUM 9.4 mg/dL (8.5-10.1); CREATININE 1.7 mg/dL (0.6-1.0); DIRECT BILIRUBIN 0.2 mg/dL (0.0-0.2); GFR 28.6; MAGNESIUM 1.8 mg/dL (1.8-2.4); TOTAL PROTEIN 7.3 g/dL (6.4-8.2)
[2018-08-26] MEDS ORDERED: ONDANSETRON PF 4 MG/2 ML VIAL. IV PRN (20:15)
[2018-08-26] MEDS ORDERED: FUROSEMIDE 40 MG/4 ML VIAL IVP ONE (20:30)
--- NOTE | 2018-08-26 21:49 | RAD ---
Chest radiograph 08/26/2018 5:48 PM INDICATION: Chest pain, shortness of breath COMPARISON: August 07, 2018 TECHNIQUE: Portable upright frontal view of the chest is provided. FINDINGS: The cardiomediastinal silhouette is within normal limits. Left chest wall cardiac device is in similar position. There are no pleural effusions. There is no pulmonary vascular congestion. There is no pneumothorax. The lungs are clear. No significant osseous abnormality is identified. IMPRESSION: No acute cardiopulmonary process. Electronically signed by: Ingris Little MD (08/26/2018 9:46 PM) [facility]
[2018-08-26 22:34] VITALS: BP 148/70
[2018-08-27] MEDS ORDERED: CARB15DR3 EACHEYE
[2018-08-27] MEDS ORDERED: NITROGLYCERIN SUBLINGUAL 0.4 MG BOTTLE OF 25. SL PRN
[2018-08-27 01:12] LABS: BARBITURATES NEG (NEG); BENZODIAZEPINES NEG (NEG); CANNABINOIDS NEG (NEG); COCAINE NEG (NEG); METHADONE NEG (NEG); OPIATES NEG (NEG); PHENCYCLIDINE NEG (NEG)
[2018-08-27 01:31] LABS: BACTERIA,URINE FEW /HPF (0-FEW); BILIRUBIN,URINE NEG (NEG); CLARITY,URINE CLEAR; COLOR,URINE YELLOW; GLUCOSE,URINE NEG (NEG); NITRITE,URINE NEG (NEG); RBC,URINE 0 /HPF (0-2); SQUAMOUS EPITHELIAL CELL,UR MANY /LPF; UROBILINOGEN,URINE 0.2 mg/dL (0.2 mg/dL)
[2018-08-27 01:38] LABS: AMPHETAMINE/METHAMPHETAMINE NEG (NEG)
--- NOTE | 2018-08-27 02:54 | EKG ---
[address] [address] Test Date: 2018-08-26 Test Time: 18:26:12 Pat Name: LEYDA RICHARDSON Department: Room: 115 A Gender: F Manager Retail: : 1935 Requested By: AME MUNOZ Order Number: [id number] Reading MD: Robby Choi Measurements Intervals [place] Rate: 80 P: [place]: QRS: -147 QRSD: 138 T: 26 QT: 404 QTc: 470 Interpretive Statements VENTRICULAR PACED RHYTHM Electronically Signed On 08-27-2018 9:14:19 PROTECTIVE SIGNAL SUPERINTENDENT by Robby Choi
[2018-08-27] MEDS: LEVOTHYROXINE 100 MCG TABLET PO SCH (05:25)
[2018-08-27 05:35] VITALS: BP 96/66
[2018-08-27 06:40] LABS: BASO # 0.1 x10^3/uL (0.0-0.2); BASO % 2 % (0-3); EOS # 0.2 x10^3/uL (0.0-0.7); EOS % 7 % (0-3); HEMATOCRIT 40.8 % (36.0-47.0); HEMOGLOBIN 13.7 g/dL (12.0-15.5); LYMPH # 1.2 x10^3/uL (1.0-4.8); LYMPH % 36 % (24-48); MEAN CORPUSCULAR HEMOGLOBIN 34 pg (25-35); MEAN CORPUSCULAR HGB CONC 33 g/dL (31-37); MEAN CORPUSCULAR VOLUME 100 fL (79-100); MONO # 0.4 x10^3/uL (0.0-1.1); MONO % 12 % (0-9); NEUT # 1.5 x10^3uL (1.8-7.7); NEUT % 45 % (31-73); PLATELET COUNT 125 x10^3/uL (140-400); RED BLOOD COUNT 4.07 x10^6/uL (3.50-5.40); RED CELL DISTRIBUTION WIDTH 15.3 % (11.5-14.5); WHITE BLOOD COUNT 3.3 x10^3/uL (4.0-11.0)
[2018-08-27 06:55] LABS: CREATININE 1.8 mg/dL (0.6-1.0); GFR 26.8; POTASSIUM 4.1 mmol/L (3.5-5.1)
[2018-08-27] MEDS: CARVEDILOL 3.125 MG TABLET PO SCH ×2 (08:00→17:23)
[2018-08-27] MEDS: GABAPENTIN 400 MG CAPSULE. PO SCH (08:37)
[2018-08-27] MEDS: DULoxetine HCL 30 MG CAPSULE.DR PO SCH (08:37)
[2018-08-27] MEDS: PANTOPRAZOLE 40 MG TABLET. PO SCH ×2 (08:37→17:23)
[2018-08-27] MEDS: SPIRONOLACTONE 25 MG TABLET PO SCH (08:37)
[2018-08-27] MEDS: TORSEMIDE 20 MG TABLET. PO SCH (08:37)
[2018-08-27] MEDS: FOLIC ACID 1 MG TABLET PO SCH (08:38)
[2018-08-27] MEDS: ASPIRIN 81 MG TAB.CHEW PO SCH (08:38)
[2018-08-27] MEDS: LACTOBACILLUS RHAMNOSUS GG 1 CAPSULE. PO SCH ×2 (08:38→20:46)
[2018-08-27] MEDS: MULTIVITAMIN with MINERAL TABLET. PO SCH (08:38)
[2018-08-27] MEDS: POLYVINYL ALCOHOL 1.4% OPHTH SOLUTION 15ML BOTTLE. OU SCH ×4 (08:40→20:46)
[2018-08-27] MEDS: DICYCLOMINE HCL 20 MG TABLET PO SCH ×3 (08:40→20:46)
[2018-08-27] MEDS: MULTIVITAMIN I-VITE TABLET. PO SCH (08:43)
[2018-08-27 10:38] VITALS: BP 136/58
[2018-08-27 13:47] LABS: THYROID STIM HORMONE (TSH) 0.728 uIU/mL (0.358-3.740)
[2018-08-27] MEDS ORDERED: oxyCODONE/APAP 5/325 1 TAB TABLET PO ONE (14:15)
--- NOTE | 2018-08-27 15:16 | HP ---
ADMIT DATE: 08/26/2018 HISTORY OF PRESENT ILLNESS: The patient is an 83-year-old female patient who basically came to the Emergency Room complaining that she is having chest pain. The pain is central and to some extent radiates to the left shoulder and arm. She reports that her blood pressure was elevated and she has also some shortness of breath. She took 1 nitroglycerin and was brought to the Emergency Room by her son for further evaluation and treatment. She was extensively investigated in the Emergency Room. Her EKG showed that she was in sinus rhythm with a ventricular rate of 80 beats per minute. Her chest x-ray showed enlarged cardiac silhouette with a pacemaker defibrillator with increased cephalization consistent with congestive heart failure, finding consistent with also emphysema and was admitted with chest pain, hypertension, anxiety, hyperkalemia, thrombocytopenia and chronic diastolic congestive heart failure. PAST MEDICAL HISTORY: Significant for hypertension, hyperlipidemia, hypothyroidism, osteoarthritis, transient ischemic attack, senile macular degeneration. She is also known to have sick sinus syndrome, status post automatic implantable cardioverter defibrillator. She apparently had a stress test done at [facility] and apparently was normal. PAST SURGICAL HISTORY: Significant for vaginal hysterectomy, cholecystectomy, appendectomy, exploratory laparotomy, bilateral total knee arthroplasty, bilateral cataract extraction, laser surgery. 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 She has AICD placed and a colonoscopy done recently with no evidence of polyps. ALLERGIES: She is allergic to PENICILLIN AND SEPTRA. FAMILY HISTORY: One of her brothers of colon cancer and CVA. Her sister of breast cancer. Mother of colon cancer, and her dad was an alcoholic and does not know him very well. SOCIAL HISTORY: She is . Her recently and has one son. She quit smoking in 1994 after smoking for almost 30 years. She does not drink alcohol or use any recreational drugs. 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 MEDICATIONS: She is currently on following medications: She is on dicyclomine 20 mg 3 times a day, tizanidine 4 mg at bedtime, Coumadin 4 mg daily, atorvastatin calcium 40 mg at bedtime, nitroglycerin 0.4 mg every 5 minutes x 3, carvedilol 3.125 mg twice a day, enalapril 2.5 mg once a day, spironolactone 50 mg daily, aspirin 81 mg once a day, gabapentin 400 mg 4 times a day, duloxetine 30 mg daily, furosemide 20 mg daily, Refresh Optive eyedrops 1 drop to both eyes 4 times a day, Protonix 40 mg twice a day, lactobacillus for Restora prescription capsule 1 daily, conjugated estrogen for Premarin 0.5 mg vaginally twice weekly, levothyroxine 100 mcg daily and folic acid 1 mg daily, multivitamin with mineral 1 tablet once a day, Ocuvite soft gel one capsule daily. PHYSICAL EXAMINATION: GENERAL: On arrival to the Emergency Room, the patient looked well and was clearly in no apparent respiratory distress, pale, but no jaundice, cyanosis, or thyromegaly. No jugular venous distention. No limb edema. VITAL SIGNS: Her heart rate was 80, blood pressure was 152/64, temperature was 97.5, respiratory rate was 18 and oxygen saturation was 93% on room air. HEAD, EYES, EARS, NOSE AND THROAT: Showed normocephalic, atraumatic. NECK: Supple. HEART: Showed normal first and second sounds. No gallop, rub or murmur. CHEST: Clear to auscultation. No crepitation or rhonchi. ABDOMEN: Distended, soft, nontender. No guarding or rigidity. No organomegaly. All hernial orifices intact. Bowel sounds normal. NEUROLOGIC: She is awake, alert, responding appropriately. Cranial nerves intact. EXTREMITIES: She moves extremities without difficulty. She ambulates with a walker. LABORATORY DATA: On arrival showed a white cell count of 3800, hemoglobin 15, hematocrit 45, MCV 101, and platelet count of 135,000. Her chemistry showed serum sodium 138, potassium 5, chloride 98, bicarbonate 29, anion gap of 11, BUN 46, creatinine 1.7, estimated GFR was 28 mL per minute. Her glucose was 82, calcium was 9.4, magnesium was 1.8. Total bilirubin, AST, ALT, alkaline phosphatase were normal. Her beta-natriuretic peptide was 4079. Total protein was 7.3, albumin 4. Her lipase was 135. Her prothrombin time was 25.9, INR of 2.7, aPTT was 35 and D-dimer was 0.99. Urinalysis was unremarkable and toxic screen was essentially negative. DIAGNOSTIC DATA: She did have a chest x-ray that showed that the cardiomediastinal silhouette is within normal limits, left chest wall cardiac devices in similar position. There is no pleural effusion. There is no pulmonary vascular congestion, no pneumothorax. The lungs are clear. No significant osseous abnormality identified. No acute cardiopulmonary process. Her first set of cardiac enzyme showed troponin to be less than 0.017. ASSESSMENT AND PLAN: The patient will be admitted. We will do 2 more sets of cardiac enzyme; consult the Cardiology, although she has been evaluated by Cardiology team multiple times. BELÉN ANGLIN MD DR: GABRIEL/gary JOB#: [id number] / [id number]
[2018-08-27 16:00] VITALS: BP 129/86
[2018-08-27] MEDS: oxyCODONE/APAP 5/325 1 TAB TABLET PO PRN (17:22)
[2018-08-27] MEDS: WARFARIN 4 MG TABLET. PO SCH (17:22)
[2018-08-27 19:50] VITALS: BP 100/66
[2018-08-27] MEDS: ATORVASTATIN CALCIUM 20 MG TABLET PO SCH (20:46)
[2018-08-27] MEDS: tiZANidine 4 MG TABLET. PO SCH (20:47)
[2018-08-27] MEDS: LISINOPRIL 5 MG TABLET. PO SCH (20:47)
--- NOTE | 2018-08-27 21:33 | PN ---
DATE: 08/27/2018 SUBJECTIVE: The patient is resting, slightly propped up in bed, in no apparent respiratory distress. She is awake, alert, responding appropriately. She continued to have headache. She has had no further chest pain or shortness of breath. She has 2 sets of cardiac enzymes that are normal and ruled out myocardial infarction. PHYSICAL EXAMINATION: GENERAL: When I examined her, she looked pale, but no jaundice, cyanosis, or thyromegaly. No jugular venous distension. No limb edema. VITAL SIGNS: Her heart rate was 83, blood pressure was 136/58, temperature was 97.3, respiratory rate was 20, and oxygen saturation was 97%. HEAD, EYES, EARS, NOSE AND THROAT: Normocephalic, atraumatic. NECK: Supple. HEART: Showed normal first and second heart sounds with no gallop, rub or murmur. CHEST: Clear to auscultation. No crepitation or rhonchi. ABDOMEN: Distended, soft, nontender. No guarding or rigidity. No organomegaly. Hernial orifice intact. Bowel sounds normal. NEUROLOGIC: She is awake, alert, responding appropriately. Cranial nerves intact. She moves extremities without difficulty. She ambulates with a walker. LABORATORY DATA: Her lab work showed a white cell count of 3300, hemoglobin 13.7, hematocrit 41, MCV 100, and platelet count of 125,000. Her chemistry showed a serum sodium 142, potassium 4.1, chloride 101, bicarbonate 34, anion gap of 7, BUN 46, creatinine 1.8, estimated GFR was 27 mL per minute. Her glucose was 97, calcium was 9. She has 2 more sets of cardiac enzymes that showed a troponin to be less than 0.017. Her triglycerides were 93, total cholesterol 170, LDL was 107, VLDL was 18, and HDL cholesterol 45, ratio was 3. TSH was 0.728. ASSESSMENT AND PLAN: Hypertension. Blood pressure seems to be well controlled. Chest pain, myocardial infarction was ruled out. Her 3 sets of cardiac enzymes ruled out myocardial infarction. Severe anxiety, debility and deconditioning. I would consult the Cardiology as well as the Physical and Occupational Therapy. BELÉN ANGLIN MD DR: GABRIEL/gary JOB#: [id number] / [id number]
[2018-08-27 22:28] VITALS: BP 98/62
[2018-08-28 05:16] VITALS: BP 115/75
[2018-08-28] MEDS: LEVOTHYROXINE 100 MCG TABLET PO SCH (05:19)
[2018-08-28] MEDS: PANTOPRAZOLE 40 MG TABLET. PO SCH ×2 (08:47→16:30)
[2018-08-28] MEDS: DICYCLOMINE HCL 20 MG TABLET PO SCH ×3 (08:47→21:00)
[2018-08-28] MEDS: SPIRONOLACTONE 25 MG TABLET PO SCH (08:47)
[2018-08-28] MEDS: MULTIVITAMIN with MINERAL TABLET. PO SCH (08:47)
[2018-08-28] MEDS: LACTOBACILLUS RHAMNOSUS GG 1 CAPSULE. PO SCH ×2 (08:47→21:00)
[2018-08-28] MEDS: MULTIVITAMIN I-VITE TABLET. PO SCH (08:47)
[2018-08-28] MEDS: FOLIC ACID 1 MG TABLET PO SCH (08:47)
[2018-08-28] MEDS: ASPIRIN 81 MG TAB.CHEW PO SCH (08:48)
[2018-08-28] MEDS: TORSEMIDE 20 MG TABLET. PO SCH (08:48)
[2018-08-28] MEDS: CARVEDILOL 3.125 MG TABLET PO SCH ×2 (08:48→17:00)
[2018-08-28] MEDS: GABAPENTIN 400 MG CAPSULE. PO SCH (08:48)
[2018-08-28] MEDS: DULoxetine HCL 30 MG CAPSULE.DR PO SCH (08:49)
[2018-08-28] MEDS: POLYVINYL ALCOHOL 1.4% OPHTH SOLUTION 15ML BOTTLE. OU SCH ×4 (08:50→21:00)
[2018-08-28 11:06] VITALS: BP 102/57
[2018-08-28] MEDS: oxyCODONE/APAP 5/325 1 TAB TABLET PO PRN (14:05)
[2018-08-28] MEDS ORDERED: GABA-585 PO (15:33)
[2018-08-28] MEDS: WARFARIN 4 MG TABLET. PO SCH (16:00)
[2018-08-28 16:07] VITALS: BP_SYST 103; BP_SYST 96; BP_DIAS 66; BP_DIAS 70
[2018-08-28 16:12] VITALS: BP 117/82
[2018-08-28] MEDS ORDERED: IV NORMAL SALINE 500ML 500 ML IV ONE (16:45)
--- NOTE | 2018-08-28 17:18 | DS ---
DATE OF DISCHARGE: HISTORY OF PRESENT ILLNESS: The patient is an 83-year-old female patient who was admitted to the Emergency Room with a complaint of chest pain as well as accelerated blood pressure and shortness of breath. She took 1 nitroglycerin and was brought to the Emergency Room by her son for further evaluation and treatment. She was extensively investigated. Her EKG showed she was in sinus rhythm with a ventricular rate of 80 beats per minute. Her chest x-ray showed enlarged cardiac silhouette with a pacemaker defibrillator with increased cephalization consistent with congestive heart failure findings, consistent with also emphysema. She was admitted with chest pain, hypertension, anxiety, hyperkalemia, thrombocytopenia and chronic diastolic congestive heart failure. She has had 3 sets of cardiac enzymes that showed no evidence of myocardial infarction. Her troponin was less than 0.017. Her chest x-ray showed that repeat chest x-ray, there is no pulmonary vascular congestion or pneumothorax. Lungs are clear. The patient's blood pressure has remained stable throughout her stay here and she has been up and about without difficulty and a decision was made to discharge her home to continue all her current medications. PHYSICAL EXAMINATION: GENERAL: When I saw her this afternoon, she looked well and was clearly in no apparent respiratory distress. No pallor, jaundice, cyanosis, or thyromegaly. No jugular venous distension. No lower limb edema. VITAL SIGNS: Her heart rate was 81, blood pressure was 102/57, temperature was 98.2, respiratory rate was 18 and oxygen saturation was 94% on room air. HEAD, EYES, EARS, NOSE, AND THROAT: Showed normocephalic, atraumatic. NECK: Supple. HEART: Showed normal first and second heart sounds. No gallop, rub or murmur. CHEST: Clear to auscultation. No crepitation or rhonchi. ABDOMEN: Distended, soft, nontender. NEUROLOGIC: She is awake, alert, responding appropriately. All cranial nerves intact. She moves extremities without difficulty. She ambulates without assistance or assistive devices. Her intake over the last 24 hours was 2500, output was 1050. LABORATORY DATA: Her most recent lab work showed serum sodium 142, potassium 4.1, chloride 101, bicarbonate 34, anion gap of 7, BUN 46, creatinine 1.8, estimated GFR was 26 mL per minute. Her glucose was 94. Her total white cell count was 3300, hemoglobin 13.7, hematocrit 40.8, MCV 100, and platelet count of 125,000. Her prothrombin time was 25.9, INR 2.7, aPTT was 35 and D-dimer was 0.99. Urinalysis was essentially unremarkable. Toxic screen was negative. DISCHARGE MEDICATIONS: She was discharged on aspirin 81 mg once a day, atorvastatin calcium 40 mg at bedtime, Refresh Optive eyedrops 1 drop to both eyes 4 times a day, carvedilol 3.125 mg twice a day, dicyclomine 20 mg 3 times a day, duloxetine for Cymbalta 30 mg daily, enalapril 2.5 mg at bedtime, conjugated estrogen 0.5 mg vaginally twice weekly, folic acid 1 mg daily, gabapentin 400 mg 3 times a day, lactobacillus 1 capsule daily, levothyroxine sodium 100 mcg once a day, multivitamin 1 tablet once a day, nitroglycerin 0.4 mg sublingually every 5 minutes, Protonix 40 mg once a day, spironolactone 50 mg once a day, tizanidine 4 mg at bedtime, torsemide 20 mg daily, multivitamin with mineral 1 tablet once a day and Coumadin 4 mg p.o. daily. FINAL DISCHARGE DIAGNOSES: Chest pain, myocardial infarction ruled out; hypertension; hypothyroidism; chronic diastolic congestive heart failure; osteoarthritis; transient ischemic attack; sick sinus syndrome, status post automatic implantable cardioverter defibrillator. BELÉN ANGLIN MD DR: GABRIEL/gary JOB#: [id number] / [id number]
[2018-08-28 19:33] VITALS: BP 125/82
[2018-08-28] MEDS: LISINOPRIL 5 MG TABLET. PO SCH (20:55)
[2018-08-28] MEDS: tiZANidine 4 MG TABLET. PO SCH (20:59)
[2018-08-28] MEDS: ATORVASTATIN CALCIUM 20 MG TABLET PO SCH (21:00)
[2018-08-28 22:51] VITALS: BP 128/81
[2018-08-29] MEDS: LEVOTHYROXINE 100 MCG TABLET PO SCH (06:00)
[2018-08-29 06:13] VITALS: BP 108/72
[2018-08-29 06:48] LABS: HEMATOCRIT 39.9 % (36.0-47.0); HEMOGLOBIN 13.7 g/dL (12.0-15.5); RED BLOOD COUNT 4.01 x10^6/uL (3.50-5.40); RED CELL DISTRIBUTION WIDTH 15.1 % (11.5-14.5); WHITE BLOOD COUNT 3.4 x10^3/uL (4.0-11.0)
[2018-08-29 06:53] LABS: CALCIUM 8.9 mg/dL (8.5-10.1); CREATININE 1.5 mg/dL (0.6-1.0); GFR 33.1; POTASSIUM 4.3 mmol/L (3.5-5.1)
[2018-08-29] MEDS: CARVEDILOL 3.125 MG TABLET PO SCH (08:00)
[2018-08-29] MEDS: POLYVINYL ALCOHOL 1.4% OPHTH SOLUTION 15ML BOTTLE. OU SCH ×2 (09:00→13:00)
[2018-08-29] MEDS: DULoxetine HCL 30 MG CAPSULE.DR PO SCH (09:43)
[2018-08-29] MEDS: PANTOPRAZOLE 40 MG TABLET. PO SCH (09:43)
[2018-08-29] MEDS: FOLIC ACID 1 MG TABLET PO SCH (09:44)
[2018-08-29] MEDS: ASPIRIN 81 MG TAB.CHEW PO SCH (09:44)
[2018-08-29] MEDS: MULTIVITAMIN with MINERAL TABLET. PO SCH (09:44)
[2018-08-29] MEDS: LACTOBACILLUS RHAMNOSUS GG 1 CAPSULE. PO SCH (09:44)
[2018-08-29] MEDS: SPIRONOLACTONE 25 MG TABLET PO SCH (09:44)
[2018-08-29] MEDS: GABAPENTIN 400 MG CAPSULE. PO SCH (09:44)
[2018-08-29] MEDS: DICYCLOMINE HCL 20 MG TABLET PO SCH ×2 (09:44→14:00)
[2018-08-29] MEDS: MULTIVITAMIN I-VITE TABLET. PO SCH (09:44)
[2018-08-29] MEDS: TORSEMIDE 20 MG TABLET. PO SCH (09:44)
[2018-08-29] MEDS ORDERED: ACETAMINOPHEN 325 MG TABLET PO PRN (12:00)
[2018-08-29] MEDS ORDERED: LINA145C PO (13:14)
[2018-08-29 15:14] VITALS: BP 129/85
== END 2018-08-29 16:00 | disposition home or self-care (01) | DRG 392 ==
LOC: ER 18:00 → 1 SOUTH 21:00
PROVIDERS: ADMIT Internal Medicine; ATTEND Internal Medicine
DX: K21.9 Gastro-esophageal reflux disease without esophagitis (principal); I13.0 Hypertensive heart and chronic kidney disease with heart failure and stage 1 through stage 4 chronic kidney disease, or unspecified chronic kidney disease; I50.32 Chronic diastolic (congestive) heart failure; D69.6 Thrombocytopenia, unspecified; E78.00 Pure hypercholesterolemia, unspecified; E03.9 Hypothyroidism, unspecified; N18.9 Chronic kidney disease, unspecified; F41.9 Anxiety disorder, unspecified; E87.5 Hyperkalemia; E78.5 Hyperlipidemia, unspecified; M19.90 Unspecified osteoarthritis, unspecified site; J43.9 Emphysema, unspecified; K59.09 Other constipation; I25.10 Atherosclerotic heart disease of native coronary artery without angina pectoris; Z96.653 Presence of artificial knee joint, bilateral; Z90.710 Acquired absence of both cervix and uterus; Z90.49 Acquired absence of other specified parts of digestive tract; Z87.891 Personal history of nicotine dependence; Z88.0 Allergy status to penicillin; Z88.2 Allergy status to sulfonamides; Z88.8 Allergy status to other drugs, medicaments and biological substances; Z98.42 Cataract extraction status, left eye; Z86.73 Personal history of transient ischemic attack (TIA), and cerebral infarction without residual deficits; Z95.810 Presence of automatic (implantable) cardiac defibrillator; Z80.0 Family history of malignant neoplasm of digestive organs; Z80.3 Family history of malignant neoplasm of breast; Z82.3 Family history of stroke; Z85.828 Personal history of other malignant neoplasm of skin; Z98.41 Cataract extraction status, right eye
CPT/HCPCS: 36415; 71045; 80048; 80061; 80076; 80307; 81001; 82550; 83690; 83735; 83880; 84443; 84484; 85025; 85027; 85379; 85610; 85730; 87086; 93005; 96360; 96361; J1940; J7120; Q0162; 99285-25

== ENCOUNTER 2018-09-10 16:55 | Inpatient (IN) | payer MEDICARE, BC, OTHER ==
[~2018-09-10] VITALS: Ht 167.6 cm; Wt 92.1 kg
[~2018-09-10 16:55] MED LIST changes: +CARB15DR3 EACHEYE
[2018-09-10] MEDS ORDERED: ASPIRIN 81 MG TAB.CHEW PO ONE (17:30)
[2018-09-10] MEDS ORDERED: NITROGLYCERIN SUBLINGUAL 0.4 MG BOTTLE OF 25. SL PRN ×2 (17:30→23:15)
[2018-09-10 17:36] LABS: BASO % 1 % (0-3); EOS # 0.1 x10^3/uL (0.0-0.7); EOS % 4 % (0-3); HEMATOCRIT 40.8 % (36.0-47.0); HEMOGLOBIN 13.5 g/dL (12.0-15.5); LYMPH # 1.2 x10^3/uL (1.0-4.8); LYMPH % 36 % (24-48); MEAN CORPUSCULAR HEMOGLOBIN 34 pg (25-35); MEAN CORPUSCULAR HGB CONC 33 g/dL (31-37); MEAN CORPUSCULAR VOLUME 102 fL (79-100); MONO # 0.3 x10^3/uL (0.0-1.1); MONO % 9 % (0-9); NEUT # 1.6 x10^3uL (1.8-7.7); NEUT % 50 % (31-73); PLATELET COUNT 129 x10^3/uL (140-400); RED BLOOD COUNT 3.99 x10^6/uL (3.50-5.40); RED CELL DISTRIBUTION WIDTH 16.2 % (11.5-14.5); WHITE BLOOD COUNT 3.3 x10^3/uL (4.0-11.0)
--- NOTE | 2018-09-10 17:42 | PHYS DOC ---
Past History Past Medical History: A-Fib, CHF, Constipation, Depression, DVT, GERD, Hypertension, Hypothyroid, Pneumonia, TIA (RAMILA DEAN MD) Past Surgical History: Appendectomy, Cholecystectomy, Hysterectomy, Knee Replacement (RAMILA DEAN MD) Smoking: Quit Greater Than 1 Year Alcohol Use: None Drug Use: None (RAMILA DEAN MD) Adult General Chief Complaint Chief Complaint: HYPERTENSION and chest pain HPI HPI Patient is a 83 year old female who presents with complaining of elevation of blood pressure and chest pain. Patient states she did not feel good all day today and her blood pressure was 140/90 and later on was 150/100. Patient complaining of discomfort feeling his substernal area without shortness of breath, dizziness, palpitation, nausea and vomiting, cough and congestion. Patient patient is under stress and lost her recently and had frequent emergency room visits because of chest pain and elevation of blood pressure. Patient has history of extraocular physician and taking Coumadin . Patient had orthostatic hypotension and Torsemide was stopped. According to EMR patient gained 13 pounds since her last visit to emergency room. (RAMILA DEAN MD) Review of Systems Review of Systems Constitutional: Denies fever or chills [] Eyes: Denies change in visual acuity, redness, or eye pain [] HENT: Denies nasal congestion or sore throat [] Respiratory: Denies cough or shortness of breath [] Cardiovascular: No additional information not addressed in HPI [] GI: Denies abdominal pain, nausea, vomiting, bloody stools or diarrhea [] : Denies dysuria or hematuria [] Musculoskeletal: Denies back pain or joint pain [] Integument: Denies rash or skin lesions [] Neurologic: Denies headache, focal weakness or sensory changes [] Endocrine: Denies polyuria or polydipsia [] All other systems were reviewed and found to be within normal limits, except as documented in this note. (RAMILA DEAN MD) Current Medications Current Medications Current Medications Medications (Trade) Dose Ordered Sig/[place] Start Time Stop Time Status Last Admin Dose Admin Aspirin (Children'S Aspirin) 243 mg 1X ONCE 09/10/18 17:30 09/10/18 17:31 DC Nitroglycerin (Nitrostat) 0.4 mg PRN Q5MIN PRN 09/10/18 17:30 09/11/18 17:29 (RAMILA DEAN MD) Allergies Allergies Allergies Coded Allergies Type Severity Reaction Last Updated Verified Penicillins Allergy Intermediate RASH 08/26/18 Yes Sulfa (Sulfonamide Antibiotics) Allergy Intermediate 08/26/18 Yes sulfamethoxazole Allergy Intermediate 08/26/18 Yes trimethoprim Allergy Intermediate 08/26/18 Yes (RAMILA DEAN MD) Physical Exam Physical Exam Constitutional: Well nourished, mild distress, non-toxic appearance. [] HENT: Normocephalic, atraumatic Eyes: PERRLA, EOMI, conjunctiva normal, no discharge. [] Neck: Normal range of motion, no tenderness, supple, no stridor. [] Cardiovascular: Irregularly irregular, no murmur [] Lungs & Thorax: Bilateral breath sounds clear to auscultation [] Abdomen: Bowel sounds normal, soft, no tenderness, no masses, no pulsatile masses. [] Skin: Warm, dry, no erythema, no rash. [] Back: No tenderness, no CVA tenderness. [] Extremities: No tenderness, no cyanosis, no clubbing, ROM intact, bilateral 1+ edema. [] Neurologic: Alert and oriented X 3, normal motor function, normal sensory function, no focal deficits noted. [] Psychologic: Affect anxious, judgement normal, mood normal. [] (RAMILA DEAN MD) EKG EKG EKG interpreted by me. EKG at 1709 showed atrial fibrillation at rate of 80, right superior axis deviation, normal QRS four-page, right bundle branch block, poor R-wave progress in anteroseptal leads, no acute ST and T-wave abnormalities (RAMILA DEAN MD) Radiology/Procedures Radiology/Procedures [] (RAMILA DEAN MD) Impressions: PORTABLE CHEST 1V History: CHEST PAIN, HYPERTENSION, HEADACHE Comparison: 08/26/2018 Findings: AP view of the chest is submitted. There is again left electronic cardiac device. Cardiac silhouette is stable. There is no pneumothorax or significant pleural fluid. There is probable emphysema. There is no lobar consolidation. Impression: 1. No acute radiographic abnormality is identified. Electronically signed by: Nataly Thorne MD (09/10/2018 5:42 PM) [facility] DICTATED AND SIGNED BY: NATALY THORNE MD DATE: 09/10/18 2331 CC: RAMILA DEAN MD; MOLLY HAMILTON MD (MANUELITO LEIVA DO) Course & Med Decision Making Course & Med Decision Making Pertinent Labs and Imaging studies are pending. Evaluation of patient in ER showed 83-year-old female patient with multiple medical problems presented to ER with elevation of blood pressure and chest pain. Patient had previous emergency room visit with the same presentation. Labs and chest x-ray is pending. Patient's care transferred to Dr. Leiva at 1800. (RAMILA DEAN MD) Course & Med Decision Making The patient's chest x-ray is unremarkable. The patient's labs are remarkable for a BNP of over 6400. This is at least double her previous numbers with tenderness in the high 2000 to low 3000s. I will give her 40 mg of Lasix IV. I discussed the case with Dr. Rowe and he has accepted the patient for admission. (MANUELITO LEIVA DO) Dragon Disclaimer Dragon Disclaimer This electronic medical record was generated, in whole or in part, using a voice recognition dictation system. (RAMILA DEAN MD) Departure Departure: Impression: Primary Impression: Chest pain Additional Impressions: Anxiety Atrial fibrillation Acute exacerbation of CHF (congestive heart failure) Disposition: ADMITTED INPATIENT Condition: STABLE Referrals: MOLLY HAMILTON MD (PCP) Problem Qualifiers Primary Impression: Chest pain Chest pain type: precordial pain Qualified Codes: R07.2 - Precordial pain Additional Impressions: Atrial fibrillation Atrial fibrillation type: chronic Qualified Codes: I48.2 - Chronic atrial fibrillation RAMILA DEAN MD Sep 10, 2018 17:42 MANUELITO LEIVA DO Sep 10, 2018 18:23
--- NOTE | 2018-09-10 17:45 | RAD ---
PORTABLE CHEST 1V History: CHEST PAIN, HYPERTENSION, HEADACHE Comparison: 08/26/2018 Findings: AP view of the chest is submitted. There is again left electronic cardiac device. Cardiac silhouette is stable. There is no pneumothorax or significant pleural fluid. There is probable emphysema. There is no lobar consolidation. Impression: 1. No acute radiographic abnormality is identified. Electronically signed by: Donn Thorne MD (09/10/2018 5:42 PM) [facility]
[2018-09-10 18:33] LABS: ALBUMIN 3.4 g/dL (3.4-5.0); ALBUMIN/GLOBULIN RATIO 1.2 (1.0-1.7); CALCIUM 9.5 mg/dL (8.5-10.1); CREATININE 1.2 mg/dL (0.6-1.0); GFR 42.8; MAGNESIUM 1.6 mg/dL (1.8-2.4); POTASSIUM 4.1 mmol/L (3.5-5.1); TOTAL BILIRUBIN 0.9 mg/dL (0.2-1.0); TOTAL PROTEIN 6.2 g/dL (6.4-8.2)
--- NOTE | 2018-09-10 18:59 | EKG ---
[address] [address] Test Date: 2018-09-10 Test Time: 17:09:22 Pat Name: LEYDA RICHARDSON Department: Room: Gender: F Press Writer: ANAID : 1935 Requested By: RAMILA DEAN Order Number: [id number] Reading MD: Adam Dc MD Measurements Intervals [place] Rate: 80 P: [place]: QRS: -146 QRSD: 130 T: 42 QT: 404 QTc: 470 Interpretive Statements V-PACED Electronically Signed On 09-11-2018 11:12:24 KILN SETTER by Adam Dc MD
[2018-09-10] MEDS ORDERED: ONDANSETRON PF 4 MG/2 ML VIAL. IV PRN (19:00)
[2018-09-10] MEDS ORDERED: FUROSEMIDE 40 MG/4 ML VIAL IVP ONE (19:15)
[2018-09-10 19:55] VITALS: BP 133/73
[2018-09-10] MEDS ORDERED: ATORVASTATIN CALCIUM 20 MG TABLET PO SCH (22:00)
[2018-09-10] MEDS ORDERED: WARFARIN 4 MG TABLET. PO SCH (22:00)
[2018-09-10] MEDS ORDERED: tiZANidine 4 MG TABLET. PO SCH (22:00)
[2018-09-10] MEDS: GABAPENTIN 100 MG CAPSULE. PO SCH (22:11)
[2018-09-10] MEDS: DICYCLOMINE HCL 20 MG TABLET PO SCH (22:11)
[2018-09-10] MEDS: CARVEDILOL 3.125 MG TABLET PO SCH (22:12)
[2018-09-11 05:12] VITALS: BP 109/71
[2018-09-11] MEDS ORDERED: LEVOTHYROXINE 100 MCG TABLET PO SCH (06:00)
[2018-09-11] MEDS ORDERED: PANTOPRAZOLE 40 MG TABLET. PO SCH (07:30)
[2018-09-11] MEDS ORDERED: ASPIRIN 81 MG TAB.CHEW PO SCH (08:00)
[2018-09-11] MEDS: GABAPENTIN 100 MG CAPSULE. PO SCH ×2 (08:20→13:00)
[2018-09-11] MEDS: CARVEDILOL 3.125 MG TABLET PO SCH (08:20)
[2018-09-11] MEDS: DICYCLOMINE HCL 20 MG TABLET PO SCH ×2 (08:21→13:00)
[2018-09-11] MEDS: POLYVINYL ALCOHOL/POVIDONE/PF OPHTH SOLUTION DROPERETTE. OU SCH ×3 (08:21→13:00)
[2018-09-11] MEDS: LINACLOTIDE 145 MCG CAPSULE. PO SCH ×2 (08:22→10:33)
[2018-09-11] MEDS ORDERED: LACTOBACILLUS RHAMNOSUS GG 1 CAPSULE. PO SCH (09:00)
[2018-09-11] MEDS ORDERED: FOLIC ACID 1 MG TABLET PO SCH (09:00)
[2018-09-11] MEDS ORDERED: MULTIVITAMIN I-VITE TABLET. PO SCH ×2 (09:00)
[2018-09-11] MEDS ORDERED: DULoxetine HCL 60 MG CAPSULE.DR PO SCH (09:00)
[2018-09-11 10:56] VITALS: BP 114/74
[2018-09-11] MEDS ORDERED: ACETAMINOPHEN 325 MG TABLET PO ONE (13:15)
[2018-09-11 14:44] VITALS: BP 95/56
[2018-09-11 14:46] VITALS: BP_SYST 102; BP_SYST 104; BP_DIAS 66; BP_DIAS 67
--- NOTE | 2018-09-11 17:18 | SSS ---
ADMIT DATE: 09/10/2018 HISTORY OF PRESENT ILLNESS: The patient is an 83-year-old female patient who came to the Emergency Room yesterday complaining of chest pain and shortness of breath. She also complained that her blood pressure was high. She has had multiple episodes of orthostatic hypertension and last time we discontinued her furosemide as well as spironolactone and enalapril. She was evaluated in the Emergency Room. Her EKG showed that she was in atrial fibrillation at a rate of 80 with right axis deviation, normal QRS duration, poor R-wave progression, but no acute ST segment elevation. Chest x-ray showed that she has no acute radiographic abnormality identified. She has left electronic cardiac device. Cardiac silhouette is stable. There is no pneumothorax or significant pleural fluid. There is probable emphysema, but no lobar consolidation. She was admitted with acute exacerbation of congestive heart failure, chest pain, anxiety, and atrial fibrillation. She was treated with IV Lasix, continued on all her medications. PAST MEDICAL HISTORY: Significant for hypertension, hyperlipidemia, hypothyroidism, osteoarthritis, transient ischemic attack, senile macular degeneration. She is also known to have sick sinus syndrome, status post automatic implantable cardioverter defibrillator. She apparently had a stress test done at [facility] that was normal. PAST SURGICAL HISTORY: Significant for a vaginal hysterectomy, cholecystectomy, appendectomy, exploratory laparotomy, bilateral total knee arthroplasty, bilateral cataract extraction, laser surgery. She has also had basal cell carcinoma removed from her nose, squamous cell carcinoma from the left neck. She has had an AICD placed and had a colonoscopy done recently with no evidence of polyps. ALLERGIES: She is allergic to PENICILLIN AND SEPTRA. FAMILY HISTORY: One brother of colon cancer and CVA. Her sister of breast cancer. Mother of colon cancer and her dad was alcoholic and she does not know him very well. SOCIAL HISTORY: She is . Her recently. She has 1 son. She quit smoking in 1994 after smoking for almost 30 years. She does not drink alcohol or recreational drugs. She is retired from [employer]. MEDICATIONS: She is currently on the following medications: Dicyclomine 20 mg 3 times a day, tizanidine 4 mg at bedtime, warfarin 4 mg daily, atorvastatin 40 mg at bedtime, nitroglycerin 0.4 mg sublingually every 5 minutes x 3, carvedilol 3.125 mg twice a day. She is on aspirin 81 mg daily, Neurontin 100 mg 4 times a day, duloxetine 30 mg daily. She is on Refresh Optive eyedrops 1 drop to both eyes 4 times a day, Protonix 40 mg once a day, lactobacillus, lactobacillus rhamnosus 1 capsule once a day, linaclotide for Linzess 145 mcg daily. She is on conjugated estrogen for Premarin 0.5 g vaginally twice a week, levothyroxine sodium 100 mcg daily, folic acid 1 mg once a day, multivitamin with mineral 1 tablet once a day. She is on Ocuvite soft gel one capsule daily. PHYSICAL EXAMINATION: GENERAL: On arrival to the Emergency Room, she actually looked well and was clearly in no apparent respiratory distress, pale, but no jaundice, cyanosis, or thyromegaly. No jugular venous distention. No limb edema. VITAL SIGNS: Her heart rate was 81, blood pressure was 150/80, temperature was 98, respiratory rate was 18 and oxygen saturation was 93% on room air. HEAD: Showed normocephalic, atraumatic. NECK: Supple. HEART: Showed normal first and second heart sounds with no gallop, rub or murmur. CHEST: Clear to auscultation. No crepitation or rhonchi. ABDOMEN: Distended, soft, nontender. NEUROLOGIC: She is awake, alert, responding appropriately. All cranial nerves are intact. EXTREMITIES: She moves extremities without difficulty. She ambulates with a walker. LABORATORY DATA: On admission showed a white cell count 3300, hemoglobin 13.5, hematocrit 41, MCV 102 and platelet count of 129,000 with normal manual differential. Her chemistry showed that her serum sodium was 143, potassium 4.1, chloride 106, bicarbonate 29, anion gap of 8, BUN 16, creatinine 1.2, estimated GFR was 43 mL per minute. Her glucose was 93, calcium was 9.5, magnesium was 1.6. Total bilirubin, AST, ALT, alkaline phosphatase were normal. Total protein was 6.2, albumin was 3.4. Her beta natriuretic peptide was 6487. She has 3 sets of cardiac enzymes, ruled out myocardial infarction. Her prothrombin time was 18.3, INR 1.9. ASSESSMENT AND PLAN: The patient did well. She has had no myocardial infarction. She is hemodynamically stable and decision was made to discharge her home to follow with her primary rn admit tomorrow. BELÉN ANGLIN MD DR: GABRIEL/gary JOB#: [id number] / [id number]
== END 2018-09-11 14:00 | disposition home or self-care (01) | DRG 292 ==
LOC: ER 16:55 → 1 SOUTH 18:50
PROVIDERS: ADMIT Internal Medicine; ATTEND Internal Medicine
DX: I11.0 Hypertensive heart disease with heart failure (principal); D68.59 Other primary thrombophilia; I50.9 Heart failure, unspecified; R07.9 Chest pain, unspecified; F41.9 Anxiety disorder, unspecified; I48.91 Unspecified atrial fibrillation; E03.9 Hypothyroidism, unspecified; E78.5 Hyperlipidemia, unspecified; H35.30 Unspecified macular degeneration; I95.1 Orthostatic hypotension; J43.9 Emphysema, unspecified; K21.9 Gastro-esophageal reflux disease without esophagitis; Z80.0 Family history of malignant neoplasm of digestive organs; Z80.3 Family history of malignant neoplasm of breast; Z82.3 Family history of stroke; Z85.828 Personal history of other malignant neoplasm of skin; Z86.73 Personal history of transient ischemic attack (TIA), and cerebral infarction without residual deficits; Z87.891 Personal history of nicotine dependence; Z90.49 Acquired absence of other specified parts of digestive tract; Z90.710 Acquired absence of both cervix and uterus; Z95.810 Presence of automatic (implantable) cardiac defibrillator; Z96.653 Presence of artificial knee joint, bilateral; Z98.41 Cataract extraction status, right eye; Z98.42 Cataract extraction status, left eye; F32.9 Major depressive disorder, single episode, unspecified; Z87.01 Personal history of pneumonia (recurrent); M19.90 Unspecified osteoarthritis, unspecified site; Z88.0 Allergy status to penicillin; Z88.2 Allergy status to sulfonamides; Z88.8 Allergy status to other drugs, medicaments and biological substances
CPT/HCPCS: 36415; 71045; 80053; 82550; 83690; 83735; 83880; 84484; 85025; 85379; 85610; 85730; 93005; 96374; J1940; 99285-25

== ENCOUNTER 2018-09-16 22:13 | Observation (INO) | payer MEDICARE, BC, OTHER ==
[~2018-09-16] VITALS: Ht 167.6 cm; Wt 91.3 kg
[2018-09-16] MEDS ORDERED: ONDANSETRON ODT 4 MG TAB.RAPDIS PO ONE (22:30)
--- NOTE | 2018-09-16 23:16 | RAD ---
CT study of the pelvis without contrast Clinical indications: Fall. Anterior pelvic pain. TECHNIQUE: Noncontrast helical CT scanning of the pelvis was performed. Multiplanar 2-D reconstructions were generated. PQRS compliance Statement One or more of the following individualized dose reduction techniques were utilized for this study: 1. Automated exposure control 2. Adjustment of the mA and/or kV according to patient size 3. Use of iterative reconstruction technique FINDINGS: No acute fracture is evident. No lytic process is evident. The hip joints are symmetric without dislocation. No diastases of the symphysis pubis or either SI joint is seen. Sigmoid diverticulosis is seen without diverticulitis. No soft tissue mass or enlarged pelvic lymphadenopathy is evident. IMPRESSION: No acute fracture. Electronically signed by: Arnold Chopra MD (09/16/2018 11:13 PM) [facility]
--- NOTE | 2018-09-16 23:21 | RAD ---
CT study lumbar spine without contrast Clinical indications: Fall. Low back pain. TECHNIQUE: Noncontrast helical CT scanning of the lumbar spine was performed. Multiplanar 2-D reconstructions were generated. PQRS compliance Statement One or more of the following individualized dose reduction techniques were utilized for this study: 1. Automated exposure control 2. Adjustment of the mA and/or kV according to patient size 3. Use of iterative reconstruction technique FINDINGS: No compression fracture or discitis or lytic process is evident. Grade 1 anterolisthesis of L4-5 is seen but no spondylolysis is seen. The transverse processes are intact. There is diffuse disc protrusions at L1-2 and L2-3 and L3-4 and L4-5 and L5-S1. There is a moderate spinal canal stenosis at L3-4 and L4-5. IMPRESSION: No acute fracture. Electronically signed by: Arnold Chopra MD (09/16/2018 11:18 PM) [facility]
--- NOTE | 2018-09-16 23:42 | PHYS DOC ---
Past History Past Medical History: A-Fib, CHF, Constipation, Depression, DVT, GERD, Hypertension, Hypothyroid, Pneumonia, TIA Past Surgical History: Appendectomy, Cholecystectomy, Hysterectomy, Knee Replacement Smoking: Quit Greater Than 1 Year Alcohol Use: Rarely Drug Use: None Adult General Chief Complaint Chief Complaint: MECHANICAL FALL HPI HPI Patient is an 83-year-old female who presents with complaint of lower back and pelvic pain after falling earlier this evening at about 6:30 PM. Patient states that she had tripped over a box and states that she fell onto her buttocks. She rates the pain in her lower back at an 8 out of 10. She also states that she kind of tweaked her right knee but has been able to bear weight since. She states the pain in her back is worsened with movement and with weightbearing. She denies any loss of bowel or bladder control. She also denies any radiation of the pain into either leg. Review of Systems Review of Systems Constitutional: Denies fever or chills [] Respiratory: Denies cough or shortness of breath [] Cardiovascular: No additional information not addressed in HPI [] GI: Denies abdominal pain, nausea, vomiting or diarrhea [] Musculoskeletal: Complains of lower back pain [] Integument: Denies rash or skin lesions [] All other systems were reviewed and found to be within normal limits, except as documented in this note. Current Medications Current Medications Current Medications Medications (Trade) Dose Ordered Sig/[facility] Start Time Stop Time Status Last Admin Dose Admin Fentanyl Citrate (Fentanyl 2ml Vial) 50 mcg 1X ONCE 09/16/18 22:30 09/16/18 22:33 DC 09/16/18 23:00 50 MCG Ondansetron HCl (Zofran Odt) 4 mg 1X ONCE 09/16/18 22:30 09/16/18 22:33 DC 09/16/18 23:00 4 MG Allergies Allergies Allergies Coded Allergies Type Severity Reaction Last Updated Verified Penicillins Allergy Intermediate RASH 08/26/18 Yes Sulfa (Sulfonamide Antibiotics) Allergy Intermediate 08/26/18 Yes sulfamethoxazole Allergy Intermediate 08/26/18 Yes trimethoprim Allergy Intermediate 08/26/18 Yes Physical Exam Physical Exam Constitutional: Well developed, well nourished, in mild distress. [] HENT: Normocephalic, atraumatic, bilateral external ears normal, oropharynx moist, no oral exudates, nose normal. [] Eyes: PERRLA, EOMI, conjunctiva normal, no discharge. [] Neck: Normal range of motion, no tenderness, supple, no stridor. [] Cardiovascular: Regular rate and rhythm[] Lungs & Thorax: Bilateral breath sounds clear to auscultation [] Abdomen: Bowel sounds normal, soft, no tenderness. [] Skin: Warm, dry, no erythema, no rash. [] Back: There is tenderness to palpation in the lumbar paraspinal musculature as well as around L1-L3 spinous processes. [] Extremities: No tenderness, no cyanosis, no clubbing, ROM intact. [] Neurologic: Awake and alert, no focal deficits noted. [] Current Patient Data Vital Signs Vital Signs Date Time Temp Pulse Resp B/P (MAP) Pulse Ox O2 Delivery O2 Flow Rate FiO2 09/16/18 23:00 18 98 Room Air EKG EKG [] Radiology/Procedures Radiology/Procedures [] Impressions: PROCEDURE: CT LUMBAR SPINE WO CONTRAST CT study lumbar spine without contrast Clinical indications: Fall. Low back pain. TECHNIQUE: Noncontrast helical CT scanning of the lumbar spine was performed. Multiplanar 2-D reconstructions were generated. PQRS compliance Statement One or more of the following individualized dose reduction techniques were utilized for this study: 1. Automated exposure control 2. Adjustment of the mA and/or kV according to patient size 3. Use of iterative reconstruction technique FINDINGS: No compression fracture or discitis or lytic process is evident. Grade 1 anterolisthesis of L4-5 is seen but no spondylolysis is seen. The transverse processes are intact. There is diffuse disc protrusions at L1-2 and L2-3 and L3-4 and L4-5 and L5-S1. There is a moderate spinal canal stenosis at L3-4 and L4-5. IMPRESSION: No acute fracture. Electronically signed by: Arnold Chopra MD (09/16/2018 11:18 PM) [facility] Course & Med Decision Making Course & Med Decision Making Pertinent Labs and Imaging studies reviewed. (See chart for details) [] Dragon Disclaimer Dragon Disclaimer This electronic medical record was generated, in whole or in part, using a voice recognition dictation system. Departure Departure: Impression: Primary Impression: Intractable low back pain Additional Impression: Acute lumbar myofascial strain Disposition: ADMITTED INPATIENT Admitting Physician: Gissel Rowe Condition: IMPROVED Referrals: MOLLY HAMILTON MD (PCP) Problem Qualifiers Additional Impression: Acute lumbar myofascial strain Encounter type: initial encounter Qualified Codes: S39.012A - Strain of muscle, fascia and tendon of lower back, initial encounter MINOO SOSA Jr., DO Sep 16, 2018 23:42
[2018-09-16] MEDS ORDERED: ONDANSETRON PF 4 MG/2 ML VIAL. IV PRN (23:45)
[2018-09-17 01:00] VITALS: BP 139/80
[2018-09-17] MEDS ORDERED: TORS10TA PO (02:14)
[2018-09-17] MEDS: LEVOTHYROXINE 100 MCG TABLET PO SCH (04:44)
[2018-09-17 05:33] VITALS: BP 122/78
[2018-09-17 06:42] LABS: BASO # 0.1 x10^3/uL (0.0-0.2); BASO % 2 % (0-3); EOS # 0.2 x10^3/uL (0.0-0.7); EOS % 6 % (0-3); HEMATOCRIT 36.6 % (36.0-47.0); HEMOGLOBIN 12.2 g/dL (12.0-15.5); LYMPH # 1.3 x10^3/uL (1.0-4.8); LYMPH % 40 % (24-48); MEAN CORPUSCULAR HEMOGLOBIN 34 pg (25-35); MEAN CORPUSCULAR HGB CONC 33 g/dL (31-37); MEAN CORPUSCULAR VOLUME 102 fL (79-100); MONO # 0.4 x10^3/uL (0.0-1.1); MONO % 11 % (0-9); NEUT # 1.3 x10^3uL (1.8-7.7); NEUT % 42 % (31-73); PLATELET COUNT 114 x10^3/uL (140-400); RED CELL DISTRIBUTION WIDTH 15.5 % (11.5-14.5); WHITE BLOOD COUNT 3.2 x10^3/uL (4.0-11.0)
[2018-09-17 06:51] LABS: CALCIUM 9.2 mg/dL (8.5-10.1); CREATININE 1.2 mg/dL (0.6-1.0); GFR 42.8
[2018-09-17 10:53] VITALS: BP 108/68
[2018-09-17 14:24] VITALS: BP 103/68
[2018-09-17] MEDS ORDERED: NITROGLYCERIN SUBLINGUAL 0.4 MG BOTTLE OF 25. SL PRN (15:15)
[2018-09-17] MEDS: GABAPENTIN 100 MG CAPSULE. PO SCH ×2 (15:55→20:14)
[2018-09-17] MEDS: CARVEDILOL 3.125 MG TABLET PO SCH (15:55)
[2018-09-17] MEDS: POLYVINYL ALCOHOL/POVIDONE/PF OPHTH SOLUTION DROPERETTE. OU SCH ×2 (15:57→20:11)
[2018-09-17] MEDS ORDERED: WARFARIN 4 MG TABLET. PO SCH (16:00)
--- NOTE | 2018-09-17 16:12 | HP ---
ADMIT DATE: 09/17/2018 HISTORY OF PRESENT ILLNESS: The patient is an 83-year-old female patient, who was brought to the Emergency Room as she apparently fell. According to her, she apparently tripped over a box and stated that she fell onto her buttocks. The pain was in her lower back that she rated about 8/10 in severity. She also stated that she had kind of tweaked her right knee, but has been able to bear weight since. She said her pain in her back is worsened with movement and weightbearing; however, she denied any loss of bowel or bladder control. She denied any radiation of pain into either leg. She was evaluated in the Emergency Room, has had extensive investigation including lab work and imaging studies. She has had CT scan of the lumbar spine, which showed no acute fracture as well as pelvic CT scan, which again showed no acute fracture is evident. No lytic process evident. The hip joints are symmetric without dislocation. No diastasis of the symphysis pubis or either SI joints seen. Sigmoid diverticulosis seen without diverticulitis. No soft tissue mass and large pelvic lymphadenopathy is evident. The patient was admitted for pain management and also to eventually admit her to a rehab center before eventually she moves to her independent living. PAST MEDICAL HISTORY: Significant for hypertension, hyperlipidemia, hypothyroidism, osteoarthritis, transient ischemic attack, senile macular degeneration. She is also known to have sick sinus syndrome, status post automatic implantable cardioverter defibrillator. She apparently had stress test done at [facility] that was normal. PAST SURGICAL HISTORY: Significant for vaginal hysterectomy, cholecystectomy, appendectomy, exploratory laparotomy, bilateral total knee arthroplasty, bilateral cataract extraction and laser surgery. 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 ALLERGIES: She is allergic to PENICILLIN AND SEPTRA. FAMILY HISTORY: One brother of colon cancer and CVA. Her sister of breast cancer. Mother of colon cancer and her dad was alcoholic and she does not know him very well. SOCIAL HISTORY: She is . Her only recently. She has 1 son. She quit smoking in 1994 after smoking for almost 30 years. She does not drink alcohol or use any recreational drugs. She is retired from [employer]. MEDICATIONS: She is currently on the following medications: Conjugated estrogen 0.5 gram applied vaginally 2 times a week. She is on Coumadin 4 mg daily, multivitamin, Ocuvite soft gel one capsule daily. She is on torsemide for Demadex 10 mg daily. She is on multivitamin for Centrum Silver 1 tablet once a day, lactobacillus KCI for Restora capsule 1 capsule daily. She is on folic acid 1 mg once a day and duloxetine 30 mg daily, linaclotide for Linzess 145 mcg daily, aspirin 81 mg once a day. She is on tizanidine 4 mg at bedtime and Protonix 40 mg twice a day. She is on dicyclomine 20 mg 3 times a day, atorvastatin 40 mg at bedtime, artificial tears 1 drop to both eyes 4 times a day, gabapentin 100 mg 4 times a day, carvedilol 3.125 mg twice a day with meals, nitroglycerin 0.4 mg sublingually every 5 minutes, levothyroxine 100 mcg daily, fentanyl citrate 25 mcg every 2 hours as needed and ondansetron 4 mg IV every 4 hours as needed for nausea and vomiting. REVIEW OF SYSTEMS: As per history of present illness. PHYSICAL EXAMINATION: GENERAL: On arrival to the Emergency Room, the patient looked well and was clearly in no apparent respiratory distress. She was somewhat pale, but not jaundiced or cyanosis. No lymphadenopathy, no thyromegaly. No jugular venous distension. No lower limb edema. VITAL SIGNS: Her heart rate was 79, blood pressure was 150/77, temperature was 98, respiratory rate was 18 and oxygen saturation was 96%. HEAD, EYES, EARS, NOSE, AND THROAT: Showed normocephalic, atraumatic. NECK: Supple. HEART: Showed normal first and second heart sounds with no gallop, rub or murmur. CHEST: Clear to auscultation. No crepitation or rhonchi. ABDOMEN: Distended, soft, nontender. No guarding or rigidity. No organomegaly. All hernial orifices intact. Bowel sounds normal. NEUROLOGIC: She is awake, alert, responding appropriately. All cranial nerves intact. EXTREMITIES: She moves extremities without difficulty. She ambulates with a walker. LABORATORY DATA: While in the Emergency Room, she had lab work done, which showed a white cell count 3200, hemoglobin 12, hematocrit 36, MCV 102 and platelet count of 114,000. Serum sodium was 142, potassium 4, chloride 105, bicarbonate 30, anion gap of 7, BUN 25, creatinine 1.2, estimated GFR was 42 mL per minute. Her glucose was 98, calcium was 9.2. CT scan of the lumbar spine as well as pelvic CT scan showed no acute fracture. ASSESSMENT AND PLAN: The patient was admitted for pain management. We will continue all her medication. I will arrange for her to be discharged to [place] for rehabilitation before she goes ultimately to her inpatient rehabilitation. BELÉN ANGLIN MD DR: GABRIEL/gary JOB#: [id number] / [id number]
[2018-09-17 19:29] VITALS: BP 107/70
[2018-09-17] MEDS: DICYCLOMINE HCL 20 MG TABLET PO SCH (20:14)
[2018-09-17] MEDS: PANTOPRAZOLE 40 MG TABLET. PO SCH (20:14)
[2018-09-17] MEDS ORDERED: tiZANidine 4 MG TABLET. PO SCH (21:00)
[2018-09-17] MEDS ORDERED: ATORVASTATIN CALCIUM 20 MG TABLET PO SCH (21:00)
[2018-09-17 22:34] VITALS: BP 106/69
[2018-09-18 05:08] VITALS: BP 119/77
[2018-09-18] MEDS: LEVOTHYROXINE 100 MCG TABLET PO SCH (05:30)
[2018-09-18 07:53] VITALS: BP 119/77
[2018-09-18] MEDS: PANTOPRAZOLE 40 MG TABLET. PO SCH (07:53)
[2018-09-18] MEDS: CARVEDILOL 3.125 MG TABLET PO SCH (07:53)
[2018-09-18] MEDS: DICYCLOMINE HCL 20 MG TABLET PO SCH (07:53)
[2018-09-18] MEDS: GABAPENTIN 100 MG CAPSULE. PO SCH (07:53)
[2018-09-18] MEDS: POLYVINYL ALCOHOL/POVIDONE/PF OPHTH SOLUTION DROPERETTE. OU SCH (08:00)
[2018-09-18] MEDS ORDERED: ASPIRIN ENTERIC COATED 81 MG TABLET.DR. PO SCH (08:00)
[2018-09-18] MEDS ORDERED: ACETAMINOPHEN 325 MG TABLET PO ONE (08:00)
[2018-09-18] MEDS ORDERED: MULTIVITAMIN I-VITE TABLET. PO SCH (09:00)
[2018-09-18] MEDS ORDERED: LINACLOTIDE 145 MCG CAPSULE. PO SCH (09:00)
[2018-09-18] MEDS ORDERED: MULTIVITAMIN with MINERAL TABLET. PO SCH (09:00)
[2018-09-18] MEDS ORDERED: TORSEMIDE 20 MG TABLET. PO SCH (09:00)
[2018-09-18] MEDS ORDERED: FOLIC ACID 1 MG TABLET PO SCH (09:00)
[2018-09-18] MEDS ORDERED: LACTOBACILLUS RHAMNOSUS GG 1 CAPSULE. PO SCH (09:00)
[2018-09-18] MEDS ORDERED: DULoxetine HCL 30 MG CAPSULE.DR PO SCH (09:00)
[2018-09-19] MEDS ORDERED: ESTROGENS, CONJ VAGINAL CREAM 30GM TUBE. VG SCH (09:00)
== END 2018-09-18 10:10 | disposition short-term general hospital (02) ==
LOC: ER 22:13 → INTOOBSV 23:38 → 1 SOUTH 23:38
PROVIDERS: ADMIT Internal Medicine; ATTEND Internal Medicine
DX: S39.012A Strain of muscle, fascia and tendon of lower back, initial encounter (principal); E03.9 Hypothyroidism, unspecified; E78.5 Hyperlipidemia, unspecified; I11.0 Hypertensive heart disease with heart failure; I50.9 Heart failure, unspecified; I48.91 Unspecified atrial fibrillation; K21.9 Gastro-esophageal reflux disease without esophagitis; H35.30 Unspecified macular degeneration; Z80.0 Family history of malignant neoplasm of digestive organs; Z80.3 Family history of malignant neoplasm of breast; Z82.3 Family history of stroke; Z85.828 Personal history of other malignant neoplasm of skin; Z86.73 Personal history of transient ischemic attack (TIA), and cerebral infarction without residual deficits; Z87.891 Personal history of nicotine dependence; Z90.49 Acquired absence of other specified parts of digestive tract; Z90.710 Acquired absence of both cervix and uterus; Z95.810 Presence of automatic (implantable) cardiac defibrillator; Z96.653 Presence of artificial knee joint, bilateral; Z98.41 Cataract extraction status, right eye; Z98.42 Cataract extraction status, left eye; Y93.89 Activity, other specified; W18.09XA Striking against other object with subsequent fall, initial encounter; Y92.89 Other specified places as the place of occurrence of the external cause
CPT/HCPCS: 36415; 72131; 72192; 80048; 85025; 96372; 96374; 96376; 99284; G0378; J3010; Q0162; G0379

== ENCOUNTER 2018-10-23 10:33 | Emergency (ER) | payer MEDICARE, BC, OTHER ==
[~2018-10-23] VITALS: Ht 167.6 cm; Wt 91.1 kg
[~2018-10-23 10:33] MED LIST changes: +TORS10TA PO
[2018-10-23 10:41] VITALS: BP 153/75
--- NOTE | 2018-10-23 11:17 | PHYS DOC ---
Past History Past Medical History: A-Fib, CHF, Constipation, Depression, DVT, GERD, Hypertension, Hypothyroid, Pneumonia, TIA, Other Additional Past Medical Histor: factor V Leiden Past Surgical History: Appendectomy, Cholecystectomy, Hysterectomy, Knee Replacement, Pacemaker, Other Additional Past Surgical Histo: cardiac stent, filter Smoking: Non-smoker, Quit Greater Than 1 Year Alcohol Use: Rarely Drug Use: None Adult General Chief Complaint Chief Complaint: CHEST PAIN HPI HPI Patient is a 83-year-old female presents with left-sided chest discomfort that began last night. Worse with deep breaths and cough. No fever. No worsening with exertion. She is on Coumadin for previous history of DVT as well as factor V. She also has a filter in place. She has taken no medicine help with the discomfort other than nitroglycerin which did seem to help.[] Review of Systems Review of Systems Constitutional: Denies fever or chills [] Eyes: Denies change in visual acuity, redness, or eye pain [] HENT: Denies nasal congestion or sore throat [] Respiratory: Denies shortness of breath [] Cardiovascular: No additional information not addressed in HPI [] GI: Denies abdominal pain, nausea, vomiting, bloody stools or diarrhea [] : Denies dysuria or hematuria [] Musculoskeletal: Denies back pain or joint pain [] Integument: Denies rash or skin lesions [] Neurologic: Denies headache, focal weakness or sensory changes [] Endocrine: Denies polyuria or polydipsia [] All other systems were reviewed and found to be within normal limits, except as documented in this note. Allergies Allergies Allergies Coded Allergies Type Severity Reaction Last Updated Verified Penicillins Allergy Intermediate RASH 08/26/18 Yes Sulfa (Sulfonamide Antibiotics) Allergy Intermediate 08/26/18 Yes sulfamethoxazole Allergy Intermediate 08/26/18 Yes trimethoprim Allergy Intermediate 08/26/18 Yes Physical Exam Physical Exam Constitutional: Well developed, well nourished, no acute distress, non-toxic appearance. [] HENT: Normocephalic, atraumatic, bilateral external ears normal, oropharynx moist, no oral exudates, nose normal. [] Eyes: PERRLA, EOMI, conjunctiva normal, no discharge. [] Neck: Normal range of motion, no tenderness, supple, no stridor. [] Cardiovascular:Heart rate regular rhythm, no murmur [] Lungs & Thorax: Bilateral breath sounds clear to auscultation [] Abdomen: Bowel sounds normal, soft, no tenderness, no masses, no pulsatile masses. [] Skin: Warm, dry, no erythema, no rash. [] Back: No tenderness, no CVA tenderness. [] Extremities: No tenderness, no cyanosis, no clubbing, ROM intact, symmetric bilateral lower extremity edema 2+. [] Neurologic: Alert and oriented X 3, normal motor function, normal sensory function, no focal deficits noted. [] Psychologic: Affect normal, judgement normal, mood normal. [] Current Patient Data Vital Signs Vital Signs Date Time Temp Pulse Resp B/P (MAP) Pulse Ox O2 Delivery O2 Flow Rate FiO2 10/23/18 10:41 97.9 84 18 98 Room Air EKG EKG EKG shows a paced rhythm at 85 bpm, right superior axis deviation of -153, QTC of 481 ms, no acute changes when compared with EKG of 09/10/2018. Interpreted by me at 1043[] Radiology/Procedures Radiology/Procedures PROCEDURE: LUNG VENT/PERFUSION SCAN(VQ) Examination: LUNG VENT/PERFUSION SCAN(VQ) History: lt sided cp x 1 day. elevated d-dimer. Comparison/Correlation: 10/23/2018 portable chest x-ray exam Findings: 20 mCi xenon-133 gas was administered. Delayed washout radiotracer is noted. 6 mCi technetium 99m MAA was intravenously administered. Imaging was performed in 8 projections. There is no suspicious segmental matched defect. No mismatch defect. Impression: Low probability for pulmonary embolism. PROCEDURE: PORTABLE CHEST 1V Examination: PORTABLE CHEST 1V History: LEFT SIDED CHEST PAIN Comparison/Correlation: 09/10/2018 frontal view of the chest Findings: Upright portable frontal view chest was obtained. Left-sided ICD with associated leads noted heart size and pulmonary vasculature are normal. No infiltrate or pleural effusion. No pneumothorax. Bony structures are grossly unremarkable. Impression: No active disease. [] Course & Med Decision Making Course & Med Decision Making Pertinent Labs and Imaging studies reviewed. (See chart for details) D course: Patient arrived, was placed in bed, and tolerated exam well. She has no significant chest discomfort while in the emergency department. She was transported to the main hospital, [facility], for the VQ scan and returned without any difficulty. After the return of laboratory and imaging studies, these were discussed with the patient who voiced understanding. All questions were answered. She was discharged in improved condition. Medical decision making: There does not appear to be a pulmonary embolism, acute coronary syndrome, pneumonia, pneumothorax, dissecting thoracic aneurysm, nor esophageal rupture.[] Dragon Disclaimer Dragon Disclaimer This electronic medical record was generated, in whole or in part, using a voice recognition dictation system. Departure Departure: Impression: Primary Impression: Atypical chest pain Additional Impression: Cardiac pacemaker in situ Disposition: HOME, SELF-CARE Condition: IMPROVED Referrals: MOLLY HAMILTON MD (PCP) Follow-up within 2 days Patient Instructions: Chest Pain (Nonspecific) Additional Instructions: Follow-up with your regular doctor within 2 days. Return to the ER if worsening discomfort or any other concerns. Scripts Tramadol Hcl (TRAMADOL HCL) 50 Mg Tablet 50 MG PO PRN Q6HRS PRN for PAIN, #20 TAB Prov: LEIF DAMON DO 10/23/18 Problem Qualifiers LEIF DAMON DO Oct 23, 2018 11:17
[2018-10-23 11:21] LABS: BASO # 0.1 x10^3/uL (0.0-0.2); BASO % 2 % (0-3); EOS # 0.1 x10^3/uL (0.0-0.7); EOS % 3 % (0-3); HEMATOCRIT 40.4 % (36.0-47.0); HEMOGLOBIN 13.4 g/dL (12.0-15.5); LYMPH # 0.8 x10^3/uL (1.0-4.8); LYMPH % 22 % (24-48); MEAN CORPUSCULAR HEMOGLOBIN 33 pg (25-35); MEAN CORPUSCULAR HGB CONC 33 g/dL (31-37); MEAN CORPUSCULAR VOLUME 101 fL (79-100); MONO # 0.3 x10^3/uL (0.0-1.1); MONO % 9 % (0-9); NEUT # 2.4 x10^3uL (1.8-7.7); NEUT % 65 % (31-73); PLATELET COUNT 148 x10^3/uL (140-400); RED BLOOD COUNT 4.01 x10^6/uL (3.50-5.40); RED CELL DISTRIBUTION WIDTH 15.1 % (11.5-14.5); WHITE BLOOD COUNT 3.7 x10^3/uL (4.0-11.0)
--- NOTE | 2018-10-23 11:30 | RAD ---
Examination: PORTABLE CHEST 1V History: LEFT SIDED CHEST PAIN Comparison/Correlation: 09/10/2018 frontal view of the chest Findings: Upright portable frontal view chest was obtained. Left-sided ICD with associated leads noted heart size and pulmonary vasculature are normal. No infiltrate or pleural effusion. No pneumothorax. Bony structures are grossly unremarkable. Impression: No active disease. Electronically signed by: Thomas Akers MD (10/23/2018 11:27 AM) [id number]
[2018-10-23 11:35] LABS: ALBUMIN 3.5 g/dL (3.4-5.0); ALBUMIN/GLOBULIN RATIO 1.3 (1.0-1.7); CALCIUM 9.1 mg/dL (8.5-10.1); CREATININE 1.4 mg/dL (0.6-1.0); GFR 35.8; MAGNESIUM 1.9 mg/dL (1.8-2.4); POTASSIUM 4.3 mmol/L (3.5-5.1); TOTAL PROTEIN 6.1 g/dL (6.4-8.2)
[2018-10-23] MEDS ORDERED: ASPIRIN 81 MG TAB.CHEW PO ONE (11:40)
[2018-10-23 11:55] LABS: BILIRUBIN,URINE NEG (NEG); CLARITY,URINE CLOUDY; COLOR,URINE STRAW; GLUCOSE,URINE NEG (NEG)
[2018-10-23 11:56] LABS: AMORPHOUS SEDIMENT,UR PRESENT /HPF; BACTERIA,URINE MOD /HPF (0-FEW); NITRITE,URINE NEG (NEG); RBC,URINE 0 /HPF (0-2); SQUAMOUS EPITHELIAL CELL,UR MANY /LPF; UROBILINOGEN,URINE 0.2 mg/dL (0.2 mg/dL)
[2018-10-23] MEDS ORDERED: IOHEXOL 350 MG/ML 100 ML VIAL. IV ONE (12:40)
--- NOTE | 2018-10-23 13:55 | EKG ---
[address] [address] Test Date: 2018-10-23 Test Time: 10:40:27 Pat Name: LEYDA RICHARDSON Department: Room: Gender: F [employer]: : [id number] Requested By: LEIF DAMON Order Number: [id number] Reading MD: Robby Choi Measurements Intervals [place] Rate: 85 P: [place]: QRS: -153 QRSD: 138 T: 32 QT: 404 QTc: 481 Interpretive Statements VENTRICULAR PACED RHYTHM Electronically Signed On 10-28-2018 8:17:31 CDT by Robby Choi
--- NOTE | 2018-10-23 14:30 | RAD ---
Examination: LUNG VENT/PERFUSION SCAN(VQ) History: lt sided cp x 1 day. elevated d-dimer. Comparison/Correlation: 10/23/2018 portable chest x-ray exam Findings: 20 mCi xenon-133 gas was administered. Delayed washout radiotracer is noted. 6 mCi technetium 99m MAA was intravenously administered. Imaging was performed in 8 projections. There is no suspicious segmental matched defect. No mismatch defect. Impression: Low probability for pulmonary embolism. Electronically signed by: Thomas Akers MD (10/23/2018 2:27 PM) [id number]
[2018-10-23] MEDS ORDERED: TRAM50TA PO (14:48)
== END 2018-10-23 15:12 | disposition home or self-care (01) ==
LOC: ER 10:33
DX: R07.89 Other chest pain (principal); Z95.0 Presence of cardiac pacemaker; I48.91 Unspecified atrial fibrillation; I11.0 Hypertensive heart disease with heart failure; I50.9 Heart failure, unspecified; F32.9 Major depressive disorder, single episode, unspecified; K21.9 Gastro-esophageal reflux disease without esophagitis; E03.9 Hypothyroidism, unspecified; Z86.718 Personal history of other venous thrombosis and embolism; Z86.73 Personal history of transient ischemic attack (TIA), and cerebral infarction without residual deficits; Z87.891 Personal history of nicotine dependence; Z88.0 Allergy status to penicillin; Z88.2 Allergy status to sulfonamides; Z88.1 Allergy status to other antibiotic agents
CPT/HCPCS: 36415; 71045; 78582; 80053; 81001; 83690; 83735; 83880; 84484; 85025; 85379; 85610; 87086; 93005; 96374; 99285; A9540; A9558

== ENCOUNTER 2018-11-02 17:09 | Emergency (ER) | payer MEDICARE, BC, OTHER ==
[~2018-11-02] VITALS: Ht 167.6 cm; Wt 93.0 kg
[~2018-11-02 17:09] MED LIST changes: +TRAM50TA PO
--- NOTE | 2018-11-02 17:28 | PHYS DOC ---
Past History Past Medical History: A-Fib, CHF, Constipation, Depression, DVT, GERD, Hypertension, Hypothyroid, Pneumonia, TIA, Other Additional Past Medical Histor: factor V Leiden Past Surgical History: Appendectomy, Cholecystectomy, Hysterectomy, Knee Replacement, Pacemaker, Other Additional Past Surgical Histo: cardiac stent, filter Smoking: Non-smoker, Quit Greater Than 1 Year Alcohol Use: Rarely Drug Use: None Adult General Chief Complaint Chief Complaint: HYPERTENSION HPI HPI Patient is a 83-year-old female presents with high blood pressure. She noted that it was up last night, in the 170s systolic so she took 2 nitroglycerin to help it to come down. It was up again today so she presented to the emergency department. She did not take any nitroglycerin today. There is no chest pain, difficulty breathing, change in vision, headache, nausea or vomiting. Nitroglycerin seems to make this better. She recently had her medication adjusted by her primary care team and is scheduled for a stress test in 3 days. Denies any increase in salt intake.[] Review of Systems Review of Systems Constitutional: Denies fever or chills [] Eyes: Denies change in visual acuity, redness, or eye pain [] HENT: Denies nasal congestion or sore throat [] Respiratory: Denies cough or shortness of breath [] Cardiovascular: No chest pain or palpitations[] GI: Denies abdominal pain, nausea, vomiting, bloody stools or diarrhea [] : Denies dysuria or hematuria [] Musculoskeletal: Denies back pain or joint pain [] Integument: Denies rash or skin lesions [] Neurologic: Denies headache, focal weakness or sensory changes [] Endocrine: Denies polyuria or polydipsia [] All other systems were reviewed and found to be within normal limits, except as documented in this note. Allergies Allergies Allergies Coded Allergies Type Severity Reaction Last Updated Verified Penicillins Allergy Intermediate RASH 08/26/18 Yes Sulfa (Sulfonamide Antibiotics) Allergy Intermediate 08/26/18 Yes sulfamethoxazole Allergy Intermediate 08/26/18 Yes trimethoprim Allergy Intermediate 08/26/18 Yes Physical Exam Physical Exam Constitutional: Well developed, well nourished, no acute distress, non-toxic appearance. [] HENT: Normocephalic, atraumatic, bilateral external ears normal, oropharynx moist, no oral exudates, nose normal. [] Eyes: PERRLA, EOMI, conjunctiva normal, no discharge. [] Neck: Normal range of motion, no tenderness, supple, no stridor. [] Cardiovascular:Heart rate regular rhythm, no murmur [] Lungs & Thorax: Bilateral breath sounds clear to auscultation [] Abdomen: Bowel sounds normal, soft, no tenderness, no masses, no pulsatile masses. [] Skin: Warm, dry, no erythema, no rash. [] Back: No tenderness, no CVA tenderness. [] Extremities: No tenderness, no cyanosis, no clubbing, ROM intact, pretibial edema is present, 2+. [] Neurologic: Alert and oriented X 3, normal motor function, normal sensory function, no focal deficits noted. [] Psychologic: Affect normal, judgement normal, mood normal. [] EKG EKG EKG shows a paced rhythm, rate of 80 bpm, no significant discordance, no, accordance, no acute changes when compared with 08/30/2018. This was interpreted by me at 1749.[] Radiology/Procedures Radiology/Procedures PROCEDURE: CHEST PA & LATERAL PA and lateral chest. HISTORY: High blood pressure, short of breath PA and lateral views were taken of the chest. Left pacemaker is unchanged. Lungs are free of infiltrates. Heart is upper normal in size. There is no pleural effusion. There is thoracolumbar scoliosis. There is a vena cava filter in the abdomen. IMPRESSION: 1. No acute chest disease.[] Course & Med Decision Making Course & Med Decision Making Pertinent Labs and Imaging studies reviewed. (See chart for details) ED course and medical decision making: Patient arrived, was placed in bed, in tolerated exam well. Patient's blood pressure was within reasonable limits given her age and the JNC recommendations. There is no evidence of an acute coronary syndrome, despite her elevated BNP, no evidence of congestive heart failure. No evidence of acute end organ dysfunction. She was discharged in improved condit ion.[] Dragon Disclaimer Dragon Disclaimer This electronic medical record was generated, in whole or in part, using a voice recognition dictation system. Departure Departure: Impression: Primary Impression: Hypertension Disposition: HOME, SELF-CARE Condition: IMPROVED Referrals: MOLLY HAMILTON MD (PCP) Follow-up in 2 days Patient Instructions: DASH Diet, Hypertension Additional Instructions: Take your medication as prescribed. Follow-up with your regular doctor in 2 days. Return to the ER if you develop chest pain, difficulty breathing, or any other concerns Problem Qualifiers Primary Impression: Hypertension Hypertension type: unspecified Qualified Codes: I10 - Essential (primary) hypertension LEIF DAMON DO Nov 02, 2018 17:28
[2018-11-02 18:02] LABS: BASO # 0.1 x10^3/uL (0.0-0.2); BASO % 2 % (0-3); EOS # 0.1 x10^3/uL (0.0-0.7); EOS % 4 % (0-3); HEMATOCRIT 40.6 % (36.0-47.0); HEMOGLOBIN 13.4 g/dL (12.0-15.5); LYMPH % 32 % (24-48); MEAN CORPUSCULAR HEMOGLOBIN 33 pg (25-35); MEAN CORPUSCULAR HGB CONC 33 g/dL (31-37); MEAN CORPUSCULAR VOLUME 100 fL (79-100); MONO # 0.3 x10^3/uL (0.0-1.1); MONO % 10 % (0-9); NEUT # 1.6 x10^3uL (1.8-7.7); NEUT % 52 % (31-73); PLATELET COUNT 136 x10^3/uL (140-400); RED BLOOD COUNT 4.05 x10^6/uL (3.50-5.40); RED CELL DISTRIBUTION WIDTH 14.9 % (11.5-14.5)
--- NOTE | 2018-11-02 18:06 | RAD ---
PA and lateral chest. HISTORY: High blood pressure, short of breath PA and lateral views were taken of the chest. Left pacemaker is unchanged. Lungs are free of infiltrates. Heart is upper normal in size. There is no pleural effusion. There is thoracolumbar scoliosis. There is a vena cava filter in the abdomen. IMPRESSION: 1. No acute chest disease. Electronically signed by: Elijah Louie MD (11/02/2018 6:03 PM) [email or web address]
[2018-11-02 18:27] LABS: BILIRUBIN,URINE NEG (NEG); CLARITY,URINE CLEAR; COLOR,URINE STRAW; GLUCOSE,URINE NEG (NEG)
[2018-11-02 18:28] LABS: BACTERIA,URINE FEW /HPF (0-FEW); NITRITE,URINE NEG (NEG); RBC,URINE OCC /HPF (0-2); SQUAMOUS EPITHELIAL CELL,UR OCC /LPF; UROBILINOGEN,URINE 0.2 mg/dL (0.2 mg/dL)
[2018-11-02 18:31] LABS: ALBUMIN 3.6 g/dL (3.4-5.0); ALBUMIN/GLOBULIN RATIO 1.3 (1.0-1.7); CALCIUM 8.9 mg/dL (8.5-10.1); CREATININE 1.6 mg/dL (0.6-1.0); GFR 30.7; TOTAL BILIRUBIN 0.8 mg/dL (0.2-1.0); TOTAL PROTEIN 6.3 g/dL (6.4-8.2)
[2018-11-02 19:15] VITALS: BP 147/75
--- NOTE | 2018-11-03 06:37 | EKG ---
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
== END 2018-11-02 19:04 | disposition home or self-care (01) ==
LOC: ER 17:09
DX: I11.0 Hypertensive heart disease with heart failure (principal); I50.9 Heart failure, unspecified; I48.91 Unspecified atrial fibrillation; F32.9 Major depressive disorder, single episode, unspecified; E03.9 Hypothyroidism, unspecified; K21.9 Gastro-esophageal reflux disease without esophagitis; Z86.73 Personal history of transient ischemic attack (TIA), and cerebral infarction without residual deficits; Z86.718 Personal history of other venous thrombosis and embolism; Z95.0 Presence of cardiac pacemaker; Z87.891 Personal history of nicotine dependence; Z88.0 Allergy status to penicillin; Z88.2 Allergy status to sulfonamides; Z88.1 Allergy status to other antibiotic agents
CPT/HCPCS: 36415; 71046; 80053; 81001; 83880; 85025; 85610; 87086; 93005; 99285

== ENCOUNTER 2018-11-11 11:07 | Emergency (ER) | payer MEDICARE, BC, OTHER ==
[~2018-11-11] VITALS: Ht 320 cm; Wt 91.1 kg
[~2018-11-11 11:07] MED LIST changes: -BUPIVACAINE MPF 0.25% 10 ML VIAL. ONE; -LIDOCAINE 1% PF 30 ML VIAL. ONE; -methylPREDNISolone ACETATE 80 MG/ML VIAL. ONE
--- NOTE | 2018-11-11 11:52 | PHYS DOC ---
Past History Past Medical History: A-Fib, CHF, Constipation, Depression, DVT, GERD, Hypertension, Hypothyroid, Pneumonia, TIA, Other Additional Past Medical Histor: factor V Leiden Past Surgical History: Appendectomy, Cholecystectomy, Hysterectomy, Knee Replacement, Pacemaker, Other Additional Past Surgical Histo: cardiac stent, filter Smoking: Non-smoker, Quit Greater Than 1 Year Alcohol Use: Rarely Drug Use: None Adult General Chief Complaint Chief Complaint: SKIN PROBLEM HPI HPI 83-year-old female presents with left arm bruising. 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 She stopped her Coumadin 6 days ago so that she can have a pain injection today. She has been on Lovenox 100 mg twice a day. Her last dose was last night. The patient came to the ED after her pain injection because she has significant bruising of the left forearm. She was hit in the left forearm by the [employer] ramp door. Her pain was not significant, but a large bruise has developed it is nearly circumferential of her forearm. There is a central area about or centimeters in diameter that is a bit more firm. It is not hot to the touch. She denies fever or chills. She also has a 2 cm blood blister on her right posterior calf. This just showed up in the last 24 hours. Review of Systems Review of Systems Constitutional: Denies fever or chills [] Eyes: Denies change in visual acuity, redness, or eye pain [] HENT: Denies nasal congestion or sore throat [] Respiratory: Denies cough or shortness of breath [] Cardiovascular: No additional information not addressed in HPI [] GI: Denies abdominal pain, nausea, vomiting, bloody stools or diarrhea [] : Denies dysuria or hematuria [] Musculoskeletal: Denies back pain or joint pain [] Integument: Bruising[] Neurologic: Denies headache, focal weakness or sensory changes [] Endocrine: Denies polyuria or polydipsia [] All other systems were reviewed and found to be within normal limits, except as documented in this note. Allergies Allergies Allergies Coded Allergies Type Severity Reaction Last Updated Verified Penicillins Allergy Intermediate RASH 08/26/18 Yes Sulfa (Sulfonamide Antibiotics) Allergy Intermediate 08/26/18 Yes sulfamethoxazole Allergy Intermediate 08/26/18 Yes trimethoprim Allergy Intermediate 08/26/18 Yes Physical Exam Physical Exam Constitutional: Well developed, well nourished, no acute distress, non-toxic appearance. [] HENT: Normocephalic, atraumatic, bilateral external ears normal, oropharynx moist, no oral exudates, nose normal. [] Eyes: PERRLA, EOMI, conjunctiva normal, no discharge. [] Neck: Normal range of motion, no tenderness, supple, no stridor. [] Cardiovascular:Heart rate regular rhythm, no murmur [] Lungs & Thorax: Bilateral breath sounds clear to auscultation [] Abdomen: Bowel sounds normal, soft, no tenderness, no masses, no pulsatile masses. [] Skin: Diffuse bruising of the left forearm with 1 cm fluid-filled lesion and 4 cm surrounding from area without warmth. 2 cm round, superficial blister of the right calf, 1 cm deep.[] Back: No tenderness, no CVA tenderness. [] Extremities: No tenderness, no cyanosis, no clubbing, ROM intact, no edema. [] Neurologic: Alert and oriented X 3, normal motor function, normal sensory function, no focal deficits noted. [] Psychologic: Affect normal, judgement normal, mood normal. [] Current Patient Data Vital Signs Vital Signs Date Time Temp Pulse Resp B/P (MAP) Pulse Ox O2 Delivery O2 Flow Rate FiO2 11/11/18 11:22 98.2 82 18 98 Room Air EKG EKG [] Radiology/Procedures Radiology/Procedures [] Impressions: Limited soft tissue ultrasound of the left arm HISTORY: Bruising, hematoma. FINDINGS: Scanning was performed in the area of bruising. There is a small complex collection measuring 14 x 14 x 6 mm, near the skin surface, corresponds with a palpable blister. This likely represents a small blood collection or hematoma. No significant internal vascularity. No other organized collections are seen. IMPRESSION: Small complex collection or hematoma at the area of concern. Electronically signed by: Maame Gurrola MD (11/11/2018 1:16 PM) [facility] DICTATED AND SIGNED BY: MAAME GURROLA MD DATE: 11/11/18 [id number] CC: MANUELITO LEIVA DO; MOLLY HAMILTON MD ~ Course & Med Decision Making Course & Med Decision Making Pertinent Labs and Imaging studies reviewed. (See chart for details) The patient's labs are significant for a decreased white count as well as an el evated creatinine. Review of her chart shows that she typically has low white count and has had similar creatinines. Her ultrasound shows complex collection at the area of injury likely hematoma. This is consistent with the history and physical exam. I have advised that the patient talked to her nurse auditor about her Lovenox dosing and restarting her Coumadin. I do not want to alter the regimen as they know her better. The patient states that she feels like she would be safe to go home even though she lives alone. She is stable for discharge at this time. We did wrap her superficial blood blister on her calves to help protect it. [] Dragon Disclaimer Dragon Disclaimer This electronic medical record was generated, in whole or in part, using a voice recognition dictation system. Departure Departure: Impression: Primary Impression: Hematoma Disposition: 01 HOME, SELF-CARE Condition: STABLE Referrals: MOLLY HAMILTON MD (PCP) Patient Instructions: Hematoma, [id number] MANUELITO LEIVA DO November 11, 2018 11:52
[2018-11-11 12:16] LABS: BASO % 2 % (0-3); EOS # 0.1 x10^3/uL (0.0-0.7); EOS % 3 % (0-3); HEMOGLOBIN 13.6 g/dL (12.0-15.5); LYMPH # 0.8 x10^3/uL (1.0-4.8); LYMPH % 29 % (24-48); MEAN CORPUSCULAR HEMOGLOBIN 33 pg (25-35); MEAN CORPUSCULAR HGB CONC 33 g/dL (31-37); MEAN CORPUSCULAR VOLUME 100 fL (79-100); MONO # 0.2 x10^3/uL (0.0-1.1); MONO % 8 % (0-9); NEUT # 1.6 x10^3uL (1.8-7.7); NEUT % 59 % (31-73); PLATELET COUNT 140 x10^3/uL (140-400); RED CELL DISTRIBUTION WIDTH 14.5 % (11.5-14.5); WHITE BLOOD COUNT 2.6 x10^3/uL (4.0-11.0)
[2018-11-11 12:30] LABS: ALBUMIN 3.6 g/dL (3.4-5.0); ALBUMIN/GLOBULIN RATIO 1.1 (1.0-1.7); CALCIUM 9.7 mg/dL (8.5-10.1); CREATININE 1.4 mg/dL (0.6-1.0); GFR 35.8; POTASSIUM 3.9 mmol/L (3.5-5.1); TOTAL BILIRUBIN 1.1 mg/dL (0.2-1.0); TOTAL PROTEIN 6.9 g/dL (6.4-8.2)
--- NOTE | 2018-11-11 13:19 | RAD ---
Limited soft tissue ultrasound of the left arm HISTORY: Bruising, hematoma. FINDINGS: Scanning was performed in the area of bruising. There is a small complex collection measuring 14 x 14 x 6 mm, near the skin surface, corresponds with a palpable blister. This likely represents a small blood collection or hematoma. No significant internal vascularity. No other organized collections are seen. IMPRESSION: Small complex collection or hematoma at the area of concern. Electronically signed by: Azar Gurrola MD (11/11/2018 1:16 PM) [facility]
[2018-11-11 14:25] VITALS: BP 156/72
== END 2018-11-11 14:15 | disposition home or self-care (01) ==
LOC: ER 11:07
DX: S50.12XA Contusion of left forearm, initial encounter (principal); S80.821A Blister (nonthermal), right lower leg, initial encounter; I48.91 Unspecified atrial fibrillation; F32.9 Major depressive disorder, single episode, unspecified; K21.9 Gastro-esophageal reflux disease without esophagitis; I11.0 Hypertensive heart disease with heart failure; I50.9 Heart failure, unspecified; E03.9 Hypothyroidism, unspecified; Z86.718 Personal history of other venous thrombosis and embolism; Z86.73 Personal history of transient ischemic attack (TIA), and cerebral infarction without residual deficits; Z95.0 Presence of cardiac pacemaker; Z87.891 Personal history of nicotine dependence; Z88.0 Allergy status to penicillin; Z88.2 Allergy status to sulfonamides; Z88.1 Allergy status to other antibiotic agents; W46.0XXA Contact with hypodermic needle, initial encounter; Y93.89 Activity, other specified; Y92.89 Other specified places as the place of occurrence of the external cause; Y99.8 Other external cause status
CPT/HCPCS: 36415; 76881; 80053; 85025; 85610; 85730; 99285

== ENCOUNTER → 2018-11-11 | Outpatient (CLI) | payer MEDICARE, BC, OTHER ==
[2018-10-23 10:41] VITALS: BP_DIAS 75
[2018-11-02 19:15] VITALS: BP_SYST 147
[~2018-11-11] MED LIST changes: +BUPIVACAINE MPF 0.25% 10 ML VIAL. ONE; +LIDOCAINE 1% PF 30 ML VIAL. ONE; +methylPREDNISolone ACETATE 80 MG/ML VIAL. ONE
== END | disposition home or self-care (01) ==
LOC: SURG 09:36
PROVIDERS: ATTEND Anesthesiology
DX: M47.816 Spondylosis without myelopathy or radiculopathy, lumbar region (principal); Z88.0 Allergy status to penicillin; Z88.5 Allergy status to narcotic agent; I11.0 Hypertensive heart disease with heart failure; I50.9 Heart failure, unspecified; K21.9 Gastro-esophageal reflux disease without esophagitis; Z95.5 Presence of coronary angioplasty implant and graft; Z95.0 Presence of cardiac pacemaker; Z79.899 Other long term (current) drug therapy; Z79.82 Long term (current) use of aspirin; Z88.1 Allergy status to other antibiotic agents
CPT/HCPCS: 64493; 64494; 64495; J1040; J2001; J3490

== ENCOUNTER → 2018-12-09 | Outpatient (CLI) | payer MEDICARE, BC, OTHER ==
[2018-11-11 14:25] VITALS: BP 156/72
--- NOTE | 2018-12-09 17:59 | RAD ---
EXAM: Bilateral lower extremity venous Doppler sonogram. HISTORY: Pain and swelling. TECHNIQUE: Cabrera scale and color Doppler sonographic evaluation of the bilateral lower extremity veins with spectral waveform analysis was performed. FINDINGS: There is normal color flow, normal compressibility and there are normal spectral waveforms in the common femoral, superficial femoral, popliteal, posterior tibial and greater saphenous veins. IMPRESSION: No Doppler evidence of lower extremity deep venous thrombosis. Electronically signed by: Venita Hanna MD (12/09/2018 5:56 PM) [facility]
== END | disposition home or self-care (01) ==
LOC: US 15:26
PROVIDERS: ATTEND Family Medicine
DX: M79.604 Pain in right leg (principal); M79.605 Pain in left leg
CPT/HCPCS: 93970

== ENCOUNTER 2019-01-03 10:39 | Emergency (ER) | payer MEDICARE, BC, OTHER ==
[~2019-01-03] VITALS: Ht 320 cm; Wt 91.1 kg
[2019-01-03 10:39] VITALS: BP 156/72
[~2019-01-03 10:39] MED LIST changes: +OMEP20CA10 PO; -OMEP20CA9 PO
[2019-01-03] MEDS ORDERED: IV NORMAL SALINE 1,000ML 1,000 ML IV ONE (11:00)
--- NOTE | 2019-01-03 11:09 | PHYS DOC ---
Past History Past Medical History: A-Fib, CHF, Constipation, Depression, DVT, GERD, Hypertension, Hypothyroid, Pneumonia, TIA, Other Additional Past Medical Histor: factor V Leiden Past Surgical History: Appendectomy, Cholecystectomy, Hysterectomy, Knee Replacement, Pacemaker, Other Additional Past Surgical Histo: cardiac stent, filter Smoking: Non-smoker, Quit Greater Than 1 Year Alcohol Use: Rarely Drug Use: None Adult General Chief Complaint Chief Complaint: BACK PAIN OR INJURY HPI HPI 83-year-old female presents via EMS with left-sided lower back pain and constipation. The patient has chronic pain in this area for which she was getting pain injections. Her last injection was in October. They did seem to help, but her tank pumper has recommended discontinuing those. The patient is not on any other pain medication. She had so much pain last night that she asked her son to find an old pain pill. He was able to find a hydrocodone 2017. It was a 11/07/24 and did seem to help with the pain. She also tells me that she has not had a bowel movement in at least 3 days. Concerned that the constipation may be making the back pain worse. She denies fever or chills. She denies dysuria or increased urinary frequency. She has had some urinary hesitancy. No new trauma or falls. Review of Systems Review of Systems Constitutional: Denies fever or chills [] Eyes: Denies change in visual acuity, redness, or eye pain [] HENT: Denies nasal congestion or sore throat [] Respiratory: Denies cough or shortness of breath [] Cardiovascular: No additional information not addressed in HPI [] GI: Constipation. Denies abdominal pain, nausea, vomiting, bloody stools or diarrhea [] : Denies dysuria or hematuria [] Musculoskeletal: Left low back pain[] Integument: Denies rash or skin lesions [] Neurologic: Denies headache, focal weakness or sensory changes [] Endocrine: Denies polyuria or polydipsia [] All other systems were reviewed and found to be within normal limits, except as documented in this note. Current Medications Current Medications Current Medications Medications (Trade) Dose Ordered Sig/[place] Start Time Stop Time Status Last Admin Dose Admin Acetaminophen/ Hydrocodone Bitart (Lortab 5/325) 1 tab 1X ONCE 01/03/19 11:30 01/03/19 11:31 Sodium Chloride 1,000 ml @ 1,000 mls/hr 1X ONCE 01/03/19 11:00 01/03/19 11:59 Allergies Allergies Allergies Coded Allergies Type Severity Reaction Last Updated Verified Penicillins Allergy Intermediate RASH 08/26/18 Yes Sulfa (Sulfonamide Antibiotics) Allergy Intermediate 08/26/18 Yes sulfamethoxazole Allergy Intermediate 08/26/18 Yes trimethoprim Allergy Intermediate 08/26/18 Yes Physical Exam Physical Exam Constitutional: Well developed, well nourished, no acute distress, non-toxic appearance. [] HENT: Normocephalic, atraumatic, bilateral external ears normal, oropharynx moist, no oral exudates, nose normal. [] Eyes: PERRLA, EOMI, conjunctiva normal, no discharge. [] Neck: Normal range of motion, no tenderness, supple, no stridor. [] Cardiovascular:Heart rate regular rhythm, no murmur [] Lungs & Thorax: Bilateral breath sounds clear to auscultation [] Abdomen: Bowel sounds normal, soft, no tenderness, no masses, no pulsatile masses. [] Skin: Warm, dry, no erythema, no rash. Age-related skin changes. [] Back: Left lower lumbar tenderness[] Extremities: No tenderness, no cyanosis, no clubbing, ROM intact, no edema. [] Neurologic: Alert and oriented X 3, normal motor function, normal sensory function, no focal deficits noted. [] Psychologic: Affect normal, judgement normal, mood normal. [] Current Patient Data Vital Signs Vital Signs Date Time Temp Pulse Resp B/P (MAP) Pulse Ox O2 Delivery O2 Flow Rate FiO2 01/03/19 10:39 97.8 82 20 97 Room Air EKG EKG [] Radiology/Procedures Radiology/Procedures [] Impressions: EXAM: Abdomen one view. HISTORY: Constipation. COMPARISON: 08/30/2018. FINDINGS: A frontal view of the abdomen is obtained. Pacer/defibrillator leads are partially visualized. Cholecystectomy clips and an inferior vena cava filter are noted. There are no distended small bowel loops. There is gas distally. Stool throughout the colon is consistent with constipation. There are moderate to severe degenerative changes throughout the lumbar spine with a mild dextroscoliosis. Atherosclerotic calcifications are noted. There are vascular clips in the right groin. IMPRESSION: 1. Stool throughout the colon is consistent with constipation. Electronically signed by: Naomi Rubin MD (01/03/2019 11:35 AM) [facility] DICTATED AND SIGNED BY: YSABEL RUBIN MD DATE: 01/03/19 1135 CC: MANUELITO LEIVA DO; MOLLY HAMILTON MD ~ Course & Med Decision Making Course & Med Decision Making Pertinent Labs and Imaging studies reviewed. (See chart for details) The patient's KUB does show constipation. We will try an enema for the patient. I have given her [place] 5/325 for her pain. Rest of her workup is pending. The patient's labs are unremarkable. The enema was successful and she is output. She is feeling better at this time. She states that her pain has decreased. I will discharge the patient with [place] 5/325 and advise she continue to follow-up with pain management to get a longer term prescription of pain medication or another treatment modality. She is stable for discharge at this time. [] Dragon Disclaimer Dragon Disclaimer This electronic medical record was generated, in whole or in part, using a voice recognition dictation system. Departure Departure: Impression: Primary Impression: Constipation by delayed colonic transit Additional Impression: Low back pain Disposition: 01 HOME, SELF-CARE Condition: STABLE Referrals: MOLLY HAMILTON MD (PCP) Patient Instructions: Back Pain, Adult, [id number], Constipation, Adult, [id number] Additional Instructions: I would advise you to take 1-2 capfuls of MiraLAX daily as long as you're taking [place] pain medication. This will help keep your bowels more regular. You should have a soft bowel movement once a day. You may increase or decrease the MiraLAX dose to achieve a daily bowel movement. Scripts Hydrocodone Bit/Acetaminophen (NORCO 5-325 TABLET) 1 Each Tablet 1 TAB PO PRN Q6HRS PRN for PAIN, #20 TAB 0 Refills Prov: MANUELITO LEIVA DO 01/03/19 Problem Qualifiers Additional Impression: Low back pain Chronicity: acute Back pain laterality: left Sciatica presence: without sciatica Qualified Codes: M54.5 - Low back pain MANUELITO LEIVA DO Jan 03, 2019 11:09
[2019-01-03 11:29] LABS: BASO % 1 % (0-3); EOS # 0.2 x10^3/uL (0.0-0.7); EOS % 5 % (0-3); HEMATOCRIT 42.8 % (36.0-47.0); HEMOGLOBIN 14.1 g/dL (12.0-15.5); LYMPH % 33 % (24-48); MEAN CORPUSCULAR HEMOGLOBIN 32 pg (25-35); MEAN CORPUSCULAR HGB CONC 33 g/dL (31-37); MEAN CORPUSCULAR VOLUME 98 fL (79-100); MONO # 0.3 x10^3/uL (0.0-1.1); MONO % 9 % (0-9); NEUT # 1.6 x10^3uL (1.8-7.7); NEUT % 51 % (31-73); PLATELET COUNT 131 x10^3/uL (140-400); RED BLOOD COUNT 4.37 x10^6/uL (3.50-5.40); RED CELL DISTRIBUTION WIDTH 16.2 % (11.5-14.5); WHITE BLOOD COUNT 3.1 x10^3/uL (4.0-11.0)
[2019-01-03] MEDS ORDERED: HYDROcodone/APAP 5/325MG 1 TAB TABLET PO ONE ×2 (11:30→14:40)
--- NOTE | 2019-01-03 11:38 | RAD ---
EXAM: Abdomen one view. HISTORY: Constipation. COMPARISON: 08/30/2018. FINDINGS: A frontal view of the abdomen is obtained. Pacer/defibrillator leads are partially visualized. Cholecystectomy clips and an inferior vena cava filter are noted. There are no distended small bowel loops. There is gas distally. Stool throughout the colon is consistent with constipation. There are moderate to severe degenerative changes throughout the lumbar spine with a mild dextroscoliosis. Atherosclerotic calcifications are noted. There are vascular clips in the right groin. IMPRESSION: 1. Stool throughout the colon is consistent with constipation. Electronically signed by: Naomi Rubin MD (01/03/2019 11:35 AM) [facility]
[2019-01-03 11:39] LABS: ALBUMIN 3.5 g/dL (3.4-5.0); ALBUMIN/GLOBULIN RATIO 1.2 (1.0-1.7); CALCIUM 9.4 mg/dL (8.5-10.1); CREATININE 1.3 mg/dL (0.6-1.0); POTASSIUM 4.2 mmol/L (3.5-5.1); TOTAL BILIRUBIN 0.7 mg/dL (0.2-1.0); TOTAL PROTEIN 6.5 g/dL (6.4-8.2)
[2019-01-03] MEDS ORDERED: SODIUM PHOSPHATES 19/7GM 133 ML ENEMA. PR ONE (12:20)
[2019-01-03] MEDS ORDERED: HYDR-3165 PO (13:33)
== END 2019-01-03 14:45 | disposition home or self-care (01) ==
LOC: ER 10:39
DX: K59.01 Slow transit constipation (principal); M54.5 Low back pain; G89.29 Other chronic pain; I48.91 Unspecified atrial fibrillation; I11.0 Hypertensive heart disease with heart failure; I50.9 Heart failure, unspecified; F32.9 Major depressive disorder, single episode, unspecified; K21.9 Gastro-esophageal reflux disease without esophagitis; E03.9 Hypothyroidism, unspecified; Z86.718 Personal history of other venous thrombosis and embolism; Z86.73 Personal history of transient ischemic attack (TIA), and cerebral infarction without residual deficits; Z90.89 Acquired absence of other organs; Z90.49 Acquired absence of other specified parts of digestive tract; Z90.710 Acquired absence of both cervix and uterus; Z95.0 Presence of cardiac pacemaker; Z87.891 Personal history of nicotine dependence; Z88.0 Allergy status to penicillin; Z88.2 Allergy status to sulfonamides; Z88.1 Allergy status to other antibiotic agents
CPT/HCPCS: 36415; 74018; 80053; 85025; 99285-25; J7030

== ENCOUNTER 2019-06-14 18:52 | Inpatient (IN) | payer MEDICARE, BC, OTHER ==
[~2019-06-14] VITALS: Ht 165.1 cm; Wt 89.5 kg
[~2019-06-14 18:52] MED LIST changes: -MAGN400T3 PO; +MAGN400T5 PO; -MELA3TAB2 PO; +MELA3TAB56 PO; -NITR0.4T SL; +NITR0.4T24 SL; +OMEP-229 PO; -OMEP20CA10 PO; -POTA20TA82 PO; -TIZA4TAB PO; +TIZA4TAB2 PO
[2019-06-14 19:15] LABS: BASO % 1 % (0-3); EOS # 0.1 x10^3/uL (0.0-0.7); EOS % 4 % (0-3); HEMATOCRIT 41.6 % (36.0-47.0); HEMOGLOBIN 13.4 g/dL (12.0-15.5); LYMPH # 1.1 x10^3/uL (1.0-4.8); LYMPH % 28 % (24-48); MEAN CORPUSCULAR HEMOGLOBIN 33 pg (25-35); MEAN CORPUSCULAR HGB CONC 32 g/dL (31-37); MEAN CORPUSCULAR VOLUME 101 fL (79-100); MONO # 0.4 x10^3/uL (0.0-1.1); MONO % 11 % (0-9); NEUT # 2.3 x10^3uL (1.8-7.7); NEUT % 57 % (31-73); PLATELET COUNT 130 x10^3/uL (140-400); RED CELL DISTRIBUTION WIDTH 18.1 % (11.5-14.5)
--- NOTE | 2019-06-14 19:26 | RAD ---
Chest AP portable 06/14/2019. Reason for exam: Chest pain and hypertension. Comparison is made with a study of 11/02/2018. Depth of inspiration is much shallower. A pacemaker device remains in place. No new infiltrate is seen. Heart size is normal. Mild hilar prominence appears similar to the prior study. IMPRESSION: Shallow inspiration. No definite acute findings. Electronically signed by: Pedro Barnhart Jr., MD (06/14/2019 7:23 PM) [facility]
--- NOTE | 2019-06-14 19:37 | PHYS DOC ---
Past History Past Medical History: A-Fib, CHF, Constipation, Depression, DVT, GERD, Hypertension, Hypothyroid, Pneumonia, TIA, Other Additional Past Medical Histor: factor V Leiden Past Surgical History: Appendectomy, Cholecystectomy, Hysterectomy, Knee Replacement, Pacemaker, Other Additional Past Surgical Histo: cardiac stent, filter Smoking: Non-smoker, Quit Greater Than 1 Year Alcohol Use: Rarely Drug Use: None Adult General Chief Complaint Chief Complaint: CHEST PAIN HPI HPI f CAD s/p prior pci/stent, CMP s/p ICD, factor V deficiency s/p IVC filter, hyperlipidemia, hypertension, multiple DVTs, pulmonary embolisms, and mitral valve rep pt hs cc of cp high bp tight chest feels like rubber band around it occurred last night at 9 pm with bp 180/122 then recurred today around 3 pm or so bp was high got better with nitro from ems hasnt had chest pain in awhile reprots recent mpi at was normal doesnt know exactly but thinks within six months no cough no fever did have diarrhea earlier she is under stress because her hsuband last year around this time Review of Systems Review of Systems GI: Denies abdominal pain, nausea, vomiting, bloody stools or diarrhea [] : Denies dysuria or hematuria [] Musculoskeletal: Denies back pain or joint pain [] Integument: Denies rash or skin lesions [] Neurologic: Denies headache, focal weakness or sensory changes [] Endocrine: Denies polyuria or polydipsia [] All other systems were reviewed and found to be within normal limits, except as documented in this note. Allergies Allergies Allergies Coded Allergies Type Severity Reaction Last Updated Verified Penicillins Allergy Intermediate RASH 08/26/18 Yes Sulfa (Sulfonamide Antibiotics) Allergy Intermediate 08/26/18 Yes sulfamethoxazole Allergy Intermediate 08/26/18 Yes trimethoprim Allergy Intermediate 08/26/18 Yes Physical Exam Physical Exam Constitutional: Well developed, well nourished, no acute distress, non-toxic appearance. [] HENT: Normocephalic, atraumatic, bilateral external ears normal, oropharynx moist, no oral exudates, nose normal. [] Eyes: PERRLA, EOMI, conjunctiva normal, no discharge. [] Neck: Normal range of motion, no tenderness, supple, no stridor. [] Cardiovascular:Heart rate regular rhythm, 2/6 murmur Lungs & Thorax: Bilateral breath sounds clear to auscultation [] Abdomen: Bowel sounds normal, soft, no tenderness, no masses, no pulsatile ma sses. [] Skin: Warm, dry, no erythema, no rash. [] Back: No tenderness, no CVA tenderness. [] Extremities: No tenderness, no cyanosis, no clubbing, ROM intact, chronic apearing Neurologic: Alert and oriented X 3, normal motor function, normal sensory function, no focal deficits noted. [] Psychologic: Affect normal, judgement normal, mood normal. [] Current Patient Data Vital Signs Vital Signs Date Time Temp Pulse Resp B/P (MAP) Pulse Ox O2 Delivery O2 Flow Rate FiO2 06/14/19 18:54 82 21 98 Room Air Lab Results perature (Fahrenheit): * 97.8 degrees F (97.6-99.5) Patient Temperature * 97.8 degrees F (97.5-99.5) Temperature Source * Oral Blood Pressure Systolic * 145 mm Hg (100-140) H Blood Pressure Diastolic * 84 mm Hg (60-100) Blood Pressure Mean * 104 mm Hg Blood Pressure Location * Right Arm Blood Pressure Source * Automatic Cuff Pulse Rate * 82 beats per minute (60-90) Pulse Assessment Method * Monitor Respiratory Rate * 21 breaths per minute (12-24) Oxygen Delivery Method EKG EKG i believe paced rhythm in light of that no stemi seen[] Radiology/Procedures Radiology/Procedures [] Impressions: no acute findings on cxr Course & Med Decision Making Course & Med Decision Making Pertinent Labs and Imaging studies reviewed. (See chart for details) []f CAD s/p prior pci/stent, CMP s/p ICD, factor V deficiency s/p IVC filter, hyperlipidemia, hypertension, multiple DVTs, pulmonary embolisms, and mitral valve repair p/w cp in settintg of high bp my first eval bp 145, no cp GOT ASA FROM EMS noted multriple prior visits but pt has known cad and son strongly prefers admit for obs inr is THERAPEUTIC DOESNT SOUND LIKE PE BNP UP BUT CXR AND CLNICAL HX/EXAM NOT C/W ACUTE CHF D/W LINNETTE 2030 Ko Disclaimer Dragon Disclaimer This electronic medical record was generated, in whole or in part, using a voice recognition dictation system. Departure Departure: Impression: Primary Impression: Chest pain Disposition: ADMITTED INPATIENT Admitting Physician: Gissel Rowe Condition: STABLE Referrals: MOLLY HAMILTON MD (PCP) RIP OHARA MD Jun 14, 2019 19:37
[2019-06-14] MEDS ORDERED: ACETAMINOPHEN 325 MG TABLET PO ONE (19:45)
[2019-06-14] MEDS ORDERED: CARVEDILOL 3.125 MG TABLET PO STA (20:14)
[2019-06-14 20:22] LABS: ALBUMIN 3.4 g/dL (3.4-5.0); ALBUMIN/GLOBULIN RATIO 1.4 (1.0-1.7); CALCIUM 8.9 mg/dL (8.5-10.1); CREATININE 1.3 mg/dL (0.6-1.0); GFR 38.9; MAGNESIUM 1.8 mg/dL (1.8-2.4); POTASSIUM 4.5 mmol/L (3.5-5.1); TOTAL BILIRUBIN 0.9 mg/dL (0.2-1.0); TOTAL PROTEIN 5.9 g/dL (6.4-8.2)
[2019-06-14] MEDS ORDERED: NITROGLYCERIN SUBLINGUAL 0.4 MG BOTTLE OF 25. SL PRN (20:45)
[2019-06-14 22:11] VITALS: BP 147/83
--- NOTE | 2019-06-14 22:30 | NUR ---
Pt admitted to [address] [place] [address]
--- NOTE | 2019-06-14 22:30 | NUR ---
Pt admitted to [facility] room 105 via EMS from ER. Pt presents A&OX3, denies any complaints of pain. Pt states she is feeling much better. Oriented pt to unit, nurse, call light and plan of care. V/U stated. A full history and assessment completed. Pt requesting all bedtime medications at this time. Will address and monitor pt closely.
[2019-06-14] MEDS: tiZANidine 4 MG TABLET. PO SCH (22:56)
[2019-06-14] MEDS: ATORVASTATIN CALCIUM 20 MG TABLET PO SCH (22:56)
[2019-06-14] MEDS ORDERED: WARFARIN 4 MG TABLET. PO ONE (23:30)
[2019-06-15 05:32] VITALS: BP 156/78
--- NOTE | 2019-06-15 08:31 | NUR ---
NURSING NOTE CONSULT CALLED CONSULT CALLED TO CARDIOLOGY. CHELLE DONAHUE.
[2019-06-15] MEDS ORDERED: NITROGLYCERIN SUBLINGUAL 0.4 MG BOTTLE OF 25. SL PRN (09:15)
[2019-06-15] MEDS: DULoxetine HCL 30 MG CAPSULE.DR PO SCH (09:43)
[2019-06-15] MEDS: FOLIC ACID 1 MG TABLET PO SCH (09:43)
[2019-06-15] MEDS: ASPIRIN ENTERIC COATED 81 MG TABLET.DR. PO SCH (09:43)
[2019-06-15] MEDS: PANTOPRAZOLE 40 MG TABLET. PO SCH ×2 (09:43→20:10)
[2019-06-15] MEDS: CARVEDILOL 3.125 MG TABLET PO SCH ×2 (09:43→17:04)
[2019-06-15] MEDS: TORSEMIDE 20 MG TABLET. PO SCH (09:44)
[2019-06-15] MEDS: MULTIVITAMIN I-VITE TABLET. PO SCH (09:44)
[2019-06-15] MEDS: LACTOBACILLUS RHAMNOSUS GG 1 CAPSULE. PO SCH (09:44)
[2019-06-15] MEDS: POLYVINYL ALCOHOL 1.4% OPHTH SOLUTION 15ML BOTTLE. OU SCH ×4 (09:45→20:10)
[2019-06-15] MEDS: LEVOTHYROXINE 100 MCG TABLET PO SCH (09:46)
[2019-06-15 10:58] VITALS: BP 126/81
--- NOTE | 2019-06-15 11:40 | HP ---
ADMIT DATE: HISTORY OF PRESENT ILLNESS: The patient is an 84-year-old female patient, a resident at [facility], who was brought to the Emergency Room with a complaint of chest pain. Apparently, her blood pressure also was extremely high and the patient herself said that she has been not feeling well. She stated that her chest pain felt like a rubber band around it, started at night around 9:00 p.m. Her blood pressure at that time was 180/122 and recurred again at 3:00 p.m. Her blood pressure also at that time was extremely high; however, her chest pain and blood pressure improved after she received nitroglycerin. She stated that the patient has not had any chest pain for a while. She apparently had a stress test done about 6 months ago [address] [facility] and it was normal. She was basically seen in the Emergency Room and had had an EKG done, which showed that she has paced rhythm. Her chest x-ray showed no acute finding and her first set of cardiac enzyme was less than 0.017. Therefore, the patient was admitted to do two more sets of cardiac enzyme and to consult the Cardiology team for further evaluation and treatment. PAST MEDICAL HISTORY: Significant for hypertension, hyperlipidemia, hypothyroidism, osteoarthritis, transient ischemic attack, senile macular degeneration. She is also known to have sick sinus syndrome, status post automatic implantable cardioverter-defibrillator. PAST SURGICAL HISTORY: Significant for vaginal hysterectomy, cholecystectomy, appendectomy, exploratory laparotomy, bilateral total knee arthroplasty, bilateral cataract extraction and laser surgery. She also had had basal cell carcinoma removed from her nose, squamous cell carcinoma of the left neck and has had an AICD placed and had a colonoscopy done with no evidence of any polyps. ALLERGIES: She is allergic to PENICILLIN and SEPTRA. FAMILY HISTORY: One brother of colon cancer and CVA. Her sister of breast cancer. Mother of colon cancer and her dad was alcoholic and she does not know him very well. SOCIAL HISTORY: She is . Her around this time last year. She has one son. She quit smoking in 1994 after smoking for almost 30 years. She does not drink alcohol or use any recreational drugs. She is retired from [employer]. REVIEW OF SYSTEMS: As per history of present illness. PHYSICAL EXAMINATION: GENERAL: On arrival to the Emergency Room, the patient looked well and was clearly in no apparent distress, slightly pale, but no jaundice, cyanosis or thyromegaly. No jugular venous distention. No limb edema. VITAL SIGNS: Her heart rate was 82, blood pressure was 143/72, temperature was 97.8, respiratory rate was 21 and oxygen saturation was 98%. HEAD, EYES, EARS, NOSE AND THROAT: Showed normocephalic, atraumatic. NECK: Supple. HEART: Showed normal first and second heart sounds with no gallop or murmur. CHEST: Clear to auscultation. No crepitation or rhonchi. ABDOMEN: Distended, soft, nontender. NEUROLOGIC: She is awake, alert, responding appropriately. All cranial nerves intact. EXTREMITIES: She moves extremities without difficulty. She ambulates with a walker. LABORATORY DATA: Her lab work showed a white cell count 4000, hemoglobin 13.4, hematocrit 41, MCV 101, and platelet count of 130,000. Her chemistry showed a serum sodium 143, potassium 4.5, chloride 105, bicarbonate 33, anion gap of 5, BUN 20, creatinine 1.3, estimated GFR was 39 mL per minute. Her glucose was 96, calcium was 8.9, magnesium was 1.8. Total bilirubin, AST, ALT, alkaline phosphatase were normal. Her BNP was high at 5530. Her total protein was 5.9, albumin was 3.4. Her prothrombin time was 28.7, INR of 2.8. Her chest x-ray showed depth of inspiration is much shallower. A pacemaker device remains in place. No new infiltrate is seen. Heart size is normal, mild hilar prominence appears similar to prior studies. ASSESSMENT AND PLAN: The patient was admitted to do 2 more sets of cardiac enzymes, to consult the Cardiology team. Her blood pressure apparently was high ____ she arrived to the Emergency Room where it has normalized. She is normally on carvedilol 3.125 mg twice a day. She is also on Lasix, torsemide 10 mg once a day and her heart rate in the 80s and if the blood pressure continued to be high, we can double the dose of Coreg given that she has already had an AICD that will protect her from extreme bradycardia. BELÉN ANGLIN MD DR: GABRIEL/gary JOB#: [id number] / [id number]
--- NOTE | 2019-06-15 12:12 | EKG ---
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
--- NOTE | 2019-06-15 12:31 | NUR ---
NURSING NOTE PT IS A&O THIS AM. CARDIOLOGY CONSULT CALLED FOR CHEST PAIN. PT HAS BEEN HERE IN THE PAST FOR CHEST PAIN. PT STATES SHE TOOK 2 NITRO AT HOME AND HAD 1 IN OUR ED. PT COMPLAINT OF HEADACHE THIS AM. PT EVALUATED BY DR ANGLIN, PLAN TO SEE CARDIOLOGY AND ADJUST BLOOD PRESSURE MEDICATIONS DUE TO HYPERTENSION PER PT SON. PT AND OT ORDERED TODAY WELL. SPOKE WITH PHILLY GRAY ABOUT POSSIBLE DISCHARGE TOMORROW, PER PHILLY GRAY, NO PAPERWORK NEEDED IN THE INDEPENDENT LIVING SIDE, JUST LONG PT TAKES THEIR UPDATED MEDICATION LIST WITH THEM. AFTER EVALUATION WITH DR ANGLIN, PT C/O SOME PAIN IN HER FEET, PT SEES DR VIDES AND TAKES GABAPENTIN FOR PAIN. PT IS RESTING COMFORTABLY IN HER BED. CHELLE DONAHUE.
[2019-06-15] MEDS ORDERED: GABAPENTIN 100 MG CAPSULE. PO SCH (13:00)
[2019-06-15] MEDS ORDERED: GABA-585 PO (13:05)
[2019-06-15] MEDS ORDERED: GABA-586 PO (13:05)
[2019-06-15] MEDS: ISOSORBIDE MONONITRATE ER 30 MG TAB.ER.24H PO SCH (14:00)
[2019-06-15] MEDS: DICYCLOMINE HCL 20 MG TABLET PO SCH ×2 (14:00→20:10)
--- NOTE | 2019-06-15 14:30 | CONS ---
DATE OF CONSULTATION: 06/15/2019 REASON FOR CONSULTATION: Chest pain. HISTORY OF PRESENT ILLNESS: The patient is a pleasant 84-year-old woman with extensive past medical history as noted below, who presented to the hospital because of some chest discomfort. According to her son, she started to have physical therapy regimen at her assisted living facility and after doing some strenuous physical activity over the last week or so, began to complain of some right-sided chest pain. This pain also was described as a band-like sensation. She denied any prior previous episodes. She had an elevated blood pressure at that time. Recently, she has had her carvedilol decreased to a lower dose because of some labile blood pressures and some dizziness. She was seen by her primary air table operator, Dr. Mahmood at [facility] approximately 6 weeks ago where he reported that she was in stable health. Currently, the patient denies any recurrent chest pain and telemetry does not reveal any pathology and initial laboratory evaluation including cardiac enzymes, CBC and basic metabolic panel are unremarkable. She has mildly elevated BNP. PAST MEDICAL HISTORY: 1. No significant coronary artery disease. 2. Mitral valve repair via robotic surgery in 2011. 3. History of biventricular ICD currently with 99% V pacing. 4. Transient ischemic attack. 5. Hypertension. 6. Dyslipidemia. ALLERGIES: PENICILLIN AND SEPTRA. FAMILY HISTORY: Noncontributory. SOCIAL HISTORY: The patient has 1 son. She is . Denies any alcohol, tobacco or illicit drug use. CURRENT CARDIOVASCULAR MEDICATIONS: 1. Carvedilol 3.125 mg p.o. b.i.d. 2. Warfarin 4 mg as directed. 3. Torsemide 10 mg daily. 4. Aspirin 81 mg daily. 5. Atorvastatin 40 mg at bedtime. REVIEW OF SYSTEMS: Negative unless otherwise mentioned above in HPI. PHYSICAL EXAMINATION: VITAL SIGNS: Afebrile, 80, 18, 126/81, 94% on room air. GENERAL: She is alert and oriented, in no acute distress. HEAD AND NECK: Unremarkable. CARDIAC: Irregularly irregular without any murmurs, rubs or gallops. LUNGS: Clear to auscultation. ABDOMEN: Soft, nontender. EXTREMITIES: Significant bilateral lower extremity venous stasis changes and varicosities. DIAGNOSTIC STUDIES: Including hemoglobin, platelets, creatinine and cardiac enzymes are negative. BNP is elevated at 5533. Chest x-ray demonstrates no acute pathology. EKG reveals atrial fibrillation with V pacing. IMPRESSION: 1. Most likely noncardiac chest pain. 2. Hypertensive labile blood pressure. 3. Status post biventricular ICD currently well and functioning. 4. Dyslipidemia. 5. Hypertension. 6. History of mitral valve repair. RECOMMENDATIONS: We will add low-dose Imdur 30 mg daily in the event this was chest pain related to any high blood pressure episodes. Otherwise, continue home medical therapy. Supportive care for now. Please call with any further questions. DEXTER MATA MD DR: ADITYA/gary JOB#: [id number] / [id number]
[2019-06-15 15:06] VITALS: BP 104/64
[2019-06-15] MEDS ORDERED: WARFARIN 4 MG TABLET. PO SCH (16:00)
[2019-06-15 18:34] VITALS: BP 103/64
[2019-06-15] MEDS: ATORVASTATIN CALCIUM 20 MG TABLET PO SCH (20:10)
[2019-06-15] MEDS: tiZANidine 4 MG TABLET. PO SCH (20:10)
[2019-06-15] MEDS: GABAPENTIN 300 MG CAPSULE. PO SCH (20:10)
[2019-06-15] MEDS ORDERED: ATORVASTATIN CALCIUM 40 MG PO SCH (21:00)
--- NOTE | 2019-06-15 21:26 | PN ---
DATE: 06/15/2019 SUBJECTIVE: The patient is resting, slightly propped up in bed, in no apparent respiratory distress. She is awake, alert, continued to complain of chest pain, described as rubber band around her chest; however, she have 3 sets of cardiac enzymes that has ruled out myocardial infarction. Chest x-ray was normal and her prothrombin time was within therapeutic range, making pulmonary embolism very unlikely. Her blood pressure was slightly elevated. The patient continued to complain also generalized weakness and debility. PHYSICAL EXAMINATION: GENERAL: When I examined her this morning, she was pale. No jaundice, cyanosis or thyromegaly. No jugular venous distention. No lower limb edema. VITAL SIGNS: Her heart rate was 84, blood pressure was 147/83, temperature was 97.3, respiratory rate was 18 and oxygen saturation was 96%. HEAD, EYES, EARS, NOSE AND THROAT: Showed normocephalic, atraumatic. NECK: Supple. HEART: Showed normal first and second heart sounds with no gallop or murmur. CHEST: Clear to auscultation. No crepitation or rhonchi. ABDOMEN: Slightly distended, soft, nontender. NEUROLOGIC: She was awake, alert, responding appropriately. All cranial nerves intact. She moves extremities without difficulty. She ambulates with a walker. Her intake and output are incompletely recorded. LABORATORY DATA: Showed that she had 2 more sets of cardiac enzymes that ruled out myocardial infarction. ASSESSMENT AND PLAN: 1. Chest pain, acute myocardial infarction ruled out, accelerated hypertension. Blood pressure seems to be reasonably controlled. Her heart rate is in the 80s and we could probably critically increase the dose of Coreg. 2. Other medical problems include atrial fibrillation, rate controlled; congestive heart failure. The patient seems to be clinically, biochemically, and radiologically well compensated. 3. Hypothyroidism. I will add her thyroid function test to make sure that she is complaining of being cold. I will consult the physical and occupational therapy. Await evaluation by the climatology teacher and hopefully discharge her back tomorrow. BELÉN ANGLIN MD DR: GABRIEL/gary JOB#: [id number] / [id number]
[2019-06-15] MEDS ORDERED: ACETAMINOPHEN 325 MG TABLET PO PRN (22:00)
[2019-06-15 22:24] VITALS: BP 102/65
[2019-06-16 06:14] LABS: CALCIUM 8.7 mg/dL (8.5-10.1); CREATININE 1.3 mg/dL (0.6-1.0); GFR 38.9; POTASSIUM 3.8 mmol/L (3.5-5.1)
[2019-06-16] MEDS: LEVOTHYROXINE 100 MCG TABLET PO SCH (06:18)
[2019-06-16 06:23] VITALS: BP 138/81
[2019-06-16] MEDS ORDERED: LINACLOTIDE 145 MCG CAPSULE. PO SCH (07:00)
[2019-06-16 08:09] VITALS: BP 138/81
[2019-06-16] MEDS: FOLIC ACID 1 MG TABLET PO SCH (08:09)
[2019-06-16] MEDS: DULoxetine HCL 30 MG CAPSULE.DR PO SCH (08:09)
[2019-06-16] MEDS: CARVEDILOL 3.125 MG TABLET PO SCH (08:09)
[2019-06-16] MEDS: ISOSORBIDE MONONITRATE ER 30 MG TAB.ER.24H PO SCH (08:09)
[2019-06-16] MEDS: TORSEMIDE 20 MG TABLET. PO SCH (08:09)
[2019-06-16] MEDS: LACTOBACILLUS RHAMNOSUS GG 1 CAPSULE. PO SCH (08:09)
[2019-06-16] MEDS: PANTOPRAZOLE 40 MG TABLET. PO SCH (08:09)
[2019-06-16] MEDS: GABAPENTIN 300 MG CAPSULE. PO SCH (08:09)
[2019-06-16] MEDS: ASPIRIN ENTERIC COATED 81 MG TABLET.DR. PO SCH (08:10)
[2019-06-16] MEDS: DICYCLOMINE HCL 20 MG TABLET PO SCH (08:10)
[2019-06-16] MEDS: POLYVINYL ALCOHOL 1.4% OPHTH SOLUTION 15ML BOTTLE. OU SCH (08:10)
[2019-06-16] MEDS: MULTIVITAMIN I-VITE TABLET. PO SCH (08:10)
--- NOTE | 2019-06-16 08:14 | PDOC ---
CARDIO Progress Notes Date & Time Date of Service DATE: 06/16/19 TIME: 08:09 Time of Evaluation 08:09 Subjective Notes c/o FINNEGAN. No further chest pain overnight. Vitals Vitals Vital Signs Date Time Temp Pulse Resp B/P (MAP) Pulse Ox O2 Delivery O2 Flow Rate FiO2 06/16/19 06:23 97.5 80 20 138/81 (100) 95 Room Air Weight Weight [ ] Input and Output I.O. Intake and Output 06/16/19 07:00 Intake Total 1290 ml Balance 1290 ml Intake Oral 1290 ml # Voids 7 # Bowel Movements 1 Laboratory Labs Laboratory Tests Test 06/14/19 19:07 06/14/19 19:51 06/15/19 02:05 06/15/19 07:00 White Blood Count 4.0 x10^3/uL (4.0-11.0) Red Blood Count 4.10 x10^6/uL (3.50-5.40) Hemoglobin 13.4 g/dL (12.0-15.5) Hematocrit 41.6 % (36.0-47.0) Mean Corpuscular Volume 101 fL (79-100) Mean Corpuscular Hemoglobin 33 pg (25-35) Mean Corpuscular Hemoglobin Concent 32 g/dL (31-37) Red Cell Distribution Width 18.1 % (11.5-14.5) Platelet Count 130 x10^3/uL (140-400) Neutrophils (%) (Auto) 57 % (31-73) Lymphocytes (%) (Auto) 28 % (24-48) Monocytes (%) (Auto) 11 % (0-9) Eosinophils (%) (Auto) 4 % (0-3) Basophils (%) (Auto) 1 % (0-3) Neutrophils # (Auto) 2.3 x10^3uL (1.8-7.7) Lymphocytes # (Auto) 1.1 x10^3/uL (1.0-4.8) Monocytes # (Auto) 0.4 x10^3/uL (0.0-1.1) Eosinophils # (Auto) 0.1 x10^3/uL (0.0-0.7) Basophils # (Auto) 0.0 x10^3/uL (0.0-0.2) Prothrombin Time 28.7 SEC (9.4-11.4) Prothromb Time International Ratio 2.8 (0.9-1.1) Sodium Level 143 mmol/L (136-145) Potassium Level 4.5 mmol/L (3.5-5.1) Chloride Level 105 mmol/L (98-107) Carbon Dioxide Level 33 mmol/L (21-32) Anion Gap 5 (6-14) Blood Urea Nitrogen 20 mg/dL (7-20) Creatinine 1.3 mg/dL (0.6-1.0) Estimated GFR (Cockcroft-Gault) 38.9 BUN/Creatinine Ratio 15 (6-20) Glucose Level 96 mg/dL (70-99) Calcium Level 8.9 mg/dL (8.5-10.1) Magnesium Level 1.8 mg/dL (1.8-2.4) Total Bilirubin 0.9 mg/dL (0.2-1.0) Aspartate Amino Transf (AST/SGOT) 21 U/L (15-37) Alanine Aminotransferase (ALT/SGPT) 22 U/L (14-59) Alkaline Phosphatase 94 U/L (46-116) Troponin I Quantitative < 0.017 ng/mL (0-0.055) < 0.017 ng/mL (0-0.055) < 0.017 ng/mL (0-0.055) WY-Ryt-T-Type Natriuretic Peptide 5533 pg/mL (0-449) Total Protein 5.9 g/dL (6.4-8.2) Albumin 3.4 g/dL (3.4-5.0) Albumin/Globulin Ratio 1.4 (1.0-1.7) Thyroid Stimulating Hormone (TSH) 2.413 uIU/mL (0.358-3.740) Test 06/16/19 05:46 Sodium Level 144 mmol/L (136-145) Potassium Level 3.8 mmol/L (3.5-5.1) Chloride Level 105 mmol/L (98-107) Carbon Dioxide Level 31 mmol/L (21-32) Anion Gap 8 (6-14) Blood Urea Nitrogen 24 mg/dL (7-20) Creatinine 1.3 mg/dL (0.6-1.0) Estimated GFR (Cockcroft-Gault) 38.9 Glucose Level 94 mg/dL (70-99) Calcium Level 8.7 mg/dL (8.5-10.1) Physical Exams HEENT: Neck Supple W Full Motion Chest: Symmetric Lungs: Clear to Auscultation Heart: S1S2, RRR (v-paced ) Abdomen: Soft N/T Extremities: No Edema Neurology: alert, oriented, follow commands Assessment Assessment 1. Chest pain, atypical. AMI ruled out. 2. Accelerated hypertension; now controlled 3. Cardiomyopathy; s/p AICD. Most recent echo with LVEF 45-50% 4. Hyperlipidemia; stain 5. History of mitral valve repair. 6. Factor V deficiency; PE/DVT. s/p IVC filter 7. PAFIB; on warfarin therapy. V-paced Recommendations Continue ASA, statin, BB, imdur May discharge from a CV standpoint and f/u with primary kosher dietary service supervisor, TERE Shoemaker APRN Jun 16, 2019 08:14
[2019-06-16] MEDS ORDERED: ISOS30TA4 PO (09:08)
--- NOTE | 2019-06-16 09:31 | DS ---
DATE OF DISCHARGE: 06/16/2019 HOSPITAL COURSE: The patient is sitting comfortably in her chair, in no apparent distress. On questioning, she has had no further episode of chest pain. Denied any shortness of breath. Her blood pressure is much better controlled after Imdur was added. She has 3 sets of cardiac enzymes that ruled out myocardial infarction. PHYSICAL EXAMINATION: GENERAL: When I examined her, she was pale, no jaundice, cyanosis or thyromegaly. No jugular venous distention. No limb edema. VITAL SIGNS: Her heart rate was 80, blood pressure was 138/81, temperature was 97.5, respiratory rate was 20, and oxygen saturation was 95% on room air. HEAD, EYES, EARS, NOSE AND THROAT: Showed normocephalic, atraumatic. NECK: Supple. HEART: Showed normal first and second heart sounds. No gallop or murmur. CHEST: Clear to auscultation. No crepitation or rhonchi. ABDOMEN: Distended, soft, nontender. NEUROLOGIC: She was awake, alert, responding appropriately. All cranial nerves intact. She moves extremities without difficulty. She ambulates with a walker. Her intake over the last 24 hours was 1300, no output was recorded. LABORATORY DATA: As of this morning showed a serum sodium 144, potassium 3.8, chloride 105, bicarbonate 31, anion gap of 8, BUN 24, creatinine 1.3, estimated GFR was 39 mL per minute. Her glucose was 94, calcium was 8.7. Hemoglobin was 13. Her white cell count was 4000, hemoglobin 13, hematocrit 41, MCV 101, and platelet count of 130,000. Her prothrombin time was 28.7, INR 2.8. DISCHARGE MEDICATIONS: The patient was discharged home to continue on following medications: Isosorbide mononitrate extended release 30 mg once a day, aspirin 81 mg once a day, atorvastatin, calcium 40 mg at bedtime. She is on Refresh Optive eyedrops 1 drop to both eyes 4 times a day, carvedilol 3.125 mg twice a day, dicyclomine for Bentyl 20 mg 3 times a day, duloxetine for Cymbalta 30 mg once a day, conjugated estrogen for Premarin half a gram vaginally twice weekly for estrogen replacement, folic acid 1 mg daily, gabapentin 200 mg daily, gabapentin 300 mg twice a day, hydrocodone/APAP 5/325 one tablet every 6 hours, lactobacillus for Restora 1 capsule daily. She is on levothyroxine sodium 100 mcg once a day, linaclotide for Linzess 145 mcg once a day, nitroglycerin 0.4 mg sublingually every 5 minutes x 3, Protonix 40 mg twice a day, tizanidine 4 mg at bedtime, torsemide for Demadex 10 mg once a day, tramadol 50 mg every 6 hours, Ocuvite soft gel one capsule once a day and warfarin 4 mg daily. FINAL DISCHARGE DIAGNOSES: 1. Chest pain, atypical, acute myocardial infarction ruled out. 2. Accelerated hypertension. Her blood pressure is much better controlled. 3. Other medical problems include atrial fibrillation, rate controlled, well anticoagulated. B. Congestive heart failure. The patient is both clinically and biochemically compensated. 4. Hypothyroidism. 5. Hyperlipidemia. 6. 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 BELÉN ANGLIN MD DR: GABRIEL/gary JOB#: [id number] / [id number]
--- NOTE | 2019-06-16 10:37 | NUR ---
NURSING NOTE DISCHARGE PT DISCHARGED VIA WHEELCHAIR ACCOMPANIED BY SON AT 1035. DISCHARGE INSTRUCTIONS GIVEN TO PT. EXTRA COPY OF MED LIST SENT WITH PT FOR PHILLY GRAY. SCRIPT FOR IMDUR CALLED INTO [facility]. 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 NO COMPLICATIONS. CHELLE DONAHUE.
[2019-06-16] MEDS ORDERED: GABAPENTIN 100 MG CAPSULE. PO SCH (13:00)
== END 2019-06-16 10:35 | disposition home or self-care (01) | DRG 205 ==
LOC: ER 18:52 → 1 SOUTH 20:40
PROVIDERS: ADMIT Internal Medicine; ATTEND Internal Medicine
DX: M94.0 Chondrocostal junction syndrome [Tietze] (principal); I50.33 Acute on chronic diastolic (congestive) heart failure; I42.9 Cardiomyopathy, unspecified; E03.9 Hypothyroidism, unspecified; E78.5 Hyperlipidemia, unspecified; I11.0 Hypertensive heart disease with heart failure; I25.10 Atherosclerotic heart disease of native coronary artery without angina pectoris; I48.91 Unspecified atrial fibrillation; Z79.01 Long term (current) use of anticoagulants; Z79.82 Long term (current) use of aspirin; Z79.899 Other long term (current) drug therapy; Z80.0 Family history of malignant neoplasm of digestive organs; Z80.3 Family history of malignant neoplasm of breast; Z82.3 Family history of stroke; Z85.828 Personal history of other malignant neoplasm of skin; Z86.73 Personal history of transient ischemic attack (TIA), and cerebral infarction without residual deficits; Z87.891 Personal history of nicotine dependence; Z90.49 Acquired absence of other specified parts of digestive tract; Z90.710 Acquired absence of both cervix and uterus; Z95.5 Presence of coronary angioplasty implant and graft; Z95.810 Presence of automatic (implantable) cardiac defibrillator; Z95.828 Presence of other vascular implants and grafts; Z96.653 Presence of artificial knee joint, bilateral; Z98.41 Cataract extraction status, right eye; Z98.42 Cataract extraction status, left eye; F32.9 Major depressive disorder, single episode, unspecified; K21.9 Gastro-esophageal reflux disease without esophagitis; M19.90 Unspecified osteoarthritis, unspecified site; Z88.0 Allergy status to penicillin; Z88.2 Allergy status to sulfonamides
CPT/HCPCS: 36415; 71045; 80048; 80053; 83735; 83880; 84443; 84484; 85025; 85610; 93005; 97116; 97530; 99285-25

== ENCOUNTER 2019-08-16 17:11 | Inpatient (IN) | payer MEDICARE, BC, OTHER ==
[~2019-08-16] VITALS: Ht 165.1 cm; Wt 93.3 kg
[~2019-08-16 17:11] MED LIST changes: +ISOS30TA4 PO; -OMEP-229 PO; +OMEP20CA16 PO
--- NOTE | 2019-08-16 17:56 | EKG ---
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
[2019-08-16 18:11] LABS: BASO % 0 % (0-3); EOS % 0 % (0-3); HEMATOCRIT 43.3 % (36.0-47.0); HEMOGLOBIN 13.8 g/dL (12.0-15.5); LYMPH # 0.2 x10^3/uL (1.0-4.8); LYMPH % 7 % (24-48); MEAN CORPUSCULAR HEMOGLOBIN 32 pg (25-35); MEAN CORPUSCULAR HGB CONC 32 g/dL (31-37); MEAN CORPUSCULAR VOLUME 100 fL (79-100); MONO # 0.1 x10^3/uL (0.0-1.1); MONO % 5 % (0-9); NEUT # 2.3 x10^3uL (1.8-7.7); NEUT % 88 % (31-73); PLATELET COUNT 129 x10^3/uL (140-400); RED BLOOD COUNT 4.32 x10^6/uL (3.50-5.40); RED CELL DISTRIBUTION WIDTH 16.8 % (11.5-14.5); WHITE BLOOD COUNT 2.6 x10^3/uL (4.0-11.0)
[2019-08-16 18:13] LABS: CREATININE 1.3 mg/dL (0.6-1.0); GFR 38.9
--- NOTE | 2019-08-16 18:17 | PHYS DOC ---
Past History Past Medical History: A-Fib, CHF, Constipation, Depression, DVT, GERD, Hypertension, Hypothyroid, Pneumonia, TIA, UTI, Other Additional Past Medical Histor: factor V Leiden Past Surgical History: Appendectomy, Cholecystectomy, Hysterectomy, Knee Replacement, Pacemaker, Other Additional Past Surgical Histo: cardiac stent, filter Smoking: Non-smoker, Quit Greater Than 1 Year Alcohol Use: Rarely Drug Use: None Adult General Chief Complaint Chief Complaint: FLU SYMPTOM.. " I feel like I got .. the flu ...or something... .".." I am just so weak.. " " Keep feelling like .. I am having fevers..." HPI HPI Patient is a 84 year old female who presents with above hx. fever, chills, malaise, arthralgia, weakness and nausea. Patient has history of multiple medical issues A. fib, CHF, chronic constipation, depression, DVTs, GERD, hypertension, hypothyroidism, pneumonia, TIAs, factor V Leiden deficiency, coronary artery disease with pacemaker placement and stents. Patient has Hx. dementia and times confusion. Patient has had multiple surgeries appendectomy, cholecystectomy, hysterectomy, bilateral knee replacements, pacemaker placement,.. No specific recent ill contacts or travel. Review of Systems Review of Systems Constitutional: Complaints of fever and chills. Eyes: Denies change in visual acuity, redness, or eye pain [] HENT: Denies nasal congestion or sore throat [] Respiratory: Denies cough or shortness of breath [] Cardiovascular: No additional information not addressed in HPI [] GI: Denies abdominal pain, nausea, vomiting, bloody stools or diarrhea [] : Denies dysuria or hematuria [] Musculoskeletal: Complaints of generalized weakness and pain. Integument: Denies rash or skin lesions [] Neurologic: Denies headache, focal weakness or sensory changes [] Endocrine: Denies polyuria or polydipsia [] All other systems were reviewed and found to be within normal limits, except as documented in this note. Family History Family History Not currently available Current Medications Current Medications See nursing for home meds Allergies Allergies Allergies Coded Allergies Type Severity Reaction Last Updated Verified Penicillins Allergy Intermediate RASH 08/26/18 Yes Sulfa (Sulfonamide Antibiotics) Allergy Intermediate 08/26/18 Yes sulfamethoxazole Allergy Intermediate 08/26/18 Yes trimethoprim Allergy Intermediate 2/19/19 Yes Physical Exam Physical Exam Constitutional: Moderate distress, non-toxic appearance. [] HENT: Normocephalic, atraumatic, bilateral external ears normal, oropharynx dry. , no oral exudates, nose normal. [] Eyes: PERRLA, EOMI, conjunctiva normal, no discharge. [] Neck: Normal range of motion, no tenderness, supple, no stridor. Surgical scar Cardiovascular:Heart rate regular rhythm, no murmur []. PMI to the left Lungs & Thorax: Bilateral breath sounds equal apex with scattered wheezes and basilar crackles on auscultation []pacer/fibrillator scar Abdomen: Bowel sounds normal, soft, no tenderness, no masses, no pulsatile jane s. []Obese. Old surgery scars. Distended. bilateral knee scar.s Skin: Warm, dry, no erythema, no rash. Poor turgor Back: No tenderness, no CVA tenderness. [] Extremities: No tenderness, no cyanosis, no clubbing, ROM intact, ankle edema. Arthritic changes. No obvious cording. Neurologic: Alert and oriented X 3, at times confused , moves ext. on request, decreased distal sensory in feet., , Psychologic: Affect anxious, judgement impaired, , mood depressed. Current Patient Data Vital Signs Vital Signs Date Time Temp Pulse Resp B/P (MAP) Pulse Ox O2 Delivery O2 Flow Rate FiO2 08/16/19 17:11 98.0 80 22 145/66 (92) Room Air 91.0 Lab Results Laboratory Tests Test 08/16/19 17:25 White Blood Count 2.6 x10^3/uL (4.0-11.0) L Red Blood Count 4.32 x10^6/uL (3.50-5.40) Hemoglobin 13.8 g/dL (12.0-15.5) Hematocrit 43.3 % (36.0-47.0) Mean Corpuscular Volume 100 fL (79-100) Mean Corpuscular Hemoglobin 32 pg (25-35) Mean Corpuscular Hemoglobin Concent 32 g/dL (31-37) Red Cell Distribution Width 16.8 % (11.5-14.5) H Platelet Count 129 x10^3/uL (140-400) L Neutrophils (%) (Auto) 88 % (31-73) H Lymphocytes (%) (Auto) 7 % (24-48) L Monocytes (%) (Auto) 5 % (0-9) Eosinophils (%) (Auto) 0 % (0-3) Basophils (%) (Auto) 0 % (0-3) Neutrophils # (Auto) 2.3 x10^3uL (1.8-7.7) Lymphocytes # (Auto) 0.2 x10^3/uL (1.0-4.8) L Monocytes # (Auto) 0.1 x10^3/uL (0.0-1.1) Eosinophils # (Auto) 0.0 x10^3/uL (0.0-0.7) Basophils # (Auto) 0.0 x10^3/uL (0.0-0.2) Sodium Level 143 mmol/L (136-145) Potassium Level 4.0 mmol/L (3.5-5.1) Chloride Level 103 mmol/L (98-107) Carbon Dioxide Level 32 mmol/L (21-32) Anion Gap 8 (6-14) Blood Urea Nitrogen 28 mg/dL (7-20) H Creatinine 1.3 mg/dL (0.6-1.0) H Estimated GFR (Cockcroft-Gault) 38.9 BUN/Creatinine Ratio 22 (6-20) H Glucose Level 110 mg/dL (70-99) H Calcium Level 9.0 mg/dL (8.5-10.1) Total Bilirubin Pending Aspartate Amino Transferase (AST) Pending Alanine Aminotransferase (ALT) Pending Alkaline Phosphatase Pending Total Protein Pending Albumin Pending Albumin/Globulin Ratio Pending Amylase Level Pending Lipase Pending EKG EKG My interpretation EKG shows a junctional rhythm at rate of 80. Does have findings of Debra block. Does appear she may have some pacer spikes[] Radiology/Procedures Radiology/Procedures [[address] [address] IMAGING REPORT Signed PATIENT: LEYDA RICHARDSON ACCOUNT: [id number] : 1935 LOCATION: ER AGE: 84 SEX: F EXAM STATUS: REG ER ORD. PHYSICIAN: AME MUNOZ MD REASON: weakness PROCEDURE: KUB Exam: Abdomen one view INDICATION: Weakness TECHNIQUE: Frontal view of the chest Comparisons: 01/03/2019 FINDINGS: Air and stool are noted throughout the colon to level the rectum in a nonobstructive bowel gas pattern. No suspicious masses or calcifications. IVC filter and surgical clips from cholecystectomy are again noted. Severe degenerative change lumbar spine. IMPRESSION: Nonobstructive bowel gas pattern. Electronically signed by: Brenda Billings MD (08/16/2019 7:16 PM) [id number] DICTATED AND SIGNED BY: BRENDA BILLINGS MD DATE: 08/16/191915 CC: AME MUNOZ MD; MOLLY HAMILTON MD ~ IMAGING REPORT Signed PATIENT: LEYDA RICHARDSON ACCOUNT: [id number] : 1935 LOCATION: ER AGE: 84 SEX: F EXAM STATUS: REG ER ORD. PHYSICIAN: AME MUNOZ MD REASON: weakness PROCEDURE: PORTABLE CHEST 1V Exam: Chest one view INDICATION: Weakness TECHNIQUE: Frontal view of the chest Comparisons: None FINDINGS: AICD with leads in the right ventricle and coronary sinus. The cardiomediastinal silhouette and pulmonary vessels are within normal limits. The lung and pleural spaces are clear. IMPRESSION: No acute pulmonary process. Electronically signed by: Brenda Billings MD (08/16/2019 7:17 PM) [id number] DICTATED AND SIGNED BY: BRENDA BILLINGS MD DATE: 08/16/191916 CC: AME MUNOZ MD; MOLLY HAMILTON MD ~ ][address] [address] IMAGING REPORT Signed PATIENT: LEYDA RICHARDSON ACCOUNT: [id number] : 1935 LOCATION: ER AGE: 84 SEX: F EXAM STATUS: REG ER ORD. PHYSICIAN: AME MUNOZ MD REASON: dizzy PROCEDURE: CT HEAD WO CONTRAST Exam: CT head INDICATION: Dizzy TECHNIQUE: Sequential axial images through the head were obtained without the administration of IV contrast. Comparisons: 12/06/2017 FINDINGS: No focal parenchymal lesion or hemorrhage is identified. There is no midline shift or sulcal effacement. Patchy hypodensity within the periventricular white matter. No acute vascular territory infarction is identified. Cabrera-white distinction is preserved. The ventricular system is within normal limits without compression hydrocephalus. The basal cisterns are well maintained. The visualized portions of the paranasal sinuses and mastoid air cells are well-pneumatized. No acute fractures. IMPRESSION: Small vessel ischemic change not significantly changed compared to the prior study. Exposure: One or more of the following in the visualized dose reduction techniques were utilized for this examination: 1. Automated exposure control 2. Adjustment of the MA and/or KV according to patient size Use of iterative of reconstructive technique Electronically signed by: Brenda Billings MD (08/16/2019 7:50 PM) [id number] DICTATED AND SIGNED BY: BRENDA BILLINGS MD DATE: 08/16/19 1950 CC: AME MUNOZ MD; MOLLY HAMILTON MD ~ Course & Med Decision Making Course & Med Decision Making Pertinent Labs and Imaging studies reviewed. (See chart for details) Pt. Admit to Dr. Rowe- further eval and tx. Impression: 1. Weakness 2. Dehydration 3. Thrombocytopenia 129 4. Elevated Bun / Creat. 28/1.3 5. Elevated T. Bili 1.2 6. Diarrhea 7. UTI 8. Leukopenia 2.6 9. Dementia 10. Constipation. []Note there may be duplication and omission in record due to computer malfunction. See Hand Written report. Dragon Disclaimer Dragon Disclaimer This electronic medical record was generated, in whole or in part, using a voice recognition dictation system. Departure Departure: Disposition: 01 HOME/RESIDENCE PRIOR TO ADM Condition: STABLE Referrals: MOLLY HAMILTON MD (PCP) Dragon Disclaimer This chart was dictated in whole or in part using Voice Recognition software in a busy, high-work load, and often noisy Emergency Department environment. It may contain unintended and wholly unrecognized errors or omissions. Dragon Disclaimer This chart was dictated in whole or in part using Voice Recognition software in a busy, high-work load, and often noisy Emergency Department environment. It may contain unintended and wholly unrecognized errors or omissions. AME MUNOZ MD Aug 16, 2019 18:17
[2019-08-16 18:18] LABS: ALBUMIN 3.6 g/dL (3.4-5.0); ALBUMIN/GLOBULIN RATIO 1.1 (1.0-1.7); TOTAL BILIRUBIN 1.2 mg/dL (0.2-1.0); TOTAL PROTEIN 6.8 g/dL (6.4-8.2)
[2019-08-16 18:26] LABS: INFLUENZA A PATIENT NEGATIVE (NEGATIVE); INFLUENZA B PATIENT NEGATIVE (NEGATIVE)
--- NOTE | 2019-08-16 19:18 | RAD ---
Exam: Abdomen one view INDICATION: Weakness TECHNIQUE: Frontal view of the chest Comparisons: 01/03/2019 FINDINGS: Air and stool are noted throughout the colon to level the rectum in a nonobstructive bowel gas pattern. No suspicious masses or calcifications. IVC filter and surgical clips from cholecystectomy are again noted. Severe degenerative change lumbar spine. IMPRESSION: Nonobstructive bowel gas pattern. Electronically signed by: Brenda Darnell MD (08/16/2019 7:16 PM) [id number]
--- NOTE | 2019-08-16 19:20 | RAD ---
Exam: Chest one view INDICATION: Weakness TECHNIQUE: Frontal view of the chest Comparisons: None FINDINGS: AICD with leads in the right ventricle and coronary sinus. The cardiomediastinal silhouette and pulmonary vessels are within normal limits. The lung and pleural spaces are clear. IMPRESSION: No acute pulmonary process. Electronically signed by: Brenda Darnell MD (08/16/2019 7:17 PM) [id number]
[2019-08-16] MEDS ORDERED: ACETAMINOPHEN 325 MG TABLET PO PRN (19:45)
[2019-08-16] MEDS ORDERED: ONDANSETRON PF 4 MG/2 ML VIAL. IV PRN (19:45)
[2019-08-16] MEDS: IV RINGERS SOLUTION,LACTATED 1,000 ML IV SCH (19:50)
--- NOTE | 2019-08-16 19:53 | RAD ---
Exam: CT head INDICATION: Dizzy TECHNIQUE: Sequential axial images through the head were obtained without the administration of IV contrast. Comparisons: 12/06/2017 FINDINGS: No focal parenchymal lesion or hemorrhage is identified. There is no midline shift or sulcal effacement. Patchy hypodensity within the periventricular white matter. No acute vascular territory infarction is identified. Cabrera-white distinction is preserved. The ventricular system is within normal limits without compression hydrocephalus. The basal cisterns are well maintained. The visualized portions of the paranasal sinuses and mastoid air cells are well-pneumatized. No acute fractures. IMPRESSION: Small vessel ischemic change not significantly changed compared to the prior study. Exposure: One or more of the following in the visualized dose reduction techniques were utilized for this examination: 1. Automated exposure control 2. Adjustment of the MA and/or KV according to patient size Use of iterative of reconstructive technique Electronically signed by: Brenda Darnell MD (08/16/2019 7:50 PM) [id number]
[2019-08-16 20:27] LABS: BACTERIA,URINE MOD /HPF (0-FEW); BILIRUBIN,URINE NEG (NEG); CLARITY,URINE HAZY; COLOR,URINE YELLOW; GLUCOSE,URINE NEG (NEG); HYALINE CASTS, URINE OCC /HPF; NITRITE,URINE POS (NEG); RBC,URINE 0 /HPF (0-2); SQUAMOUS EPITHELIAL CELL,UR OCC /LPF; UROBILINOGEN,URINE 0.2 mg/dL (0.2 mg/dL)
[2019-08-16] MEDS: IPRATRPIUM/ALBUTEROL 0.5/2.5MG 3 ML NEBU. NEB SCH (20:33)
[2019-08-16] MEDS ORDERED: levoFLOXacin 500 MG TABLET PO ONE (20:45)
[2019-08-16 21:50] VITALS: BP 108/50
[2019-08-16] MEDS ORDERED: TORS20TA2 PO (22:14)
--- NOTE | 2019-08-16 23:46 | NUR ---
The patient, LEYDA RICHARDSON, 84 y/o, F admitted by BELÉN ANGLIN MD, was given written information regarding hospital policies, unit procedures and contact persons. Past medical history and home medications were reviewed with the patient. Bed locked and in lowest position, call light within reach. Valuables were checked and left in room.
[2019-08-17] MEDS: IV RINGERS SOLUTION,LACTATED 1,000 ML IV SCH ×4 (03:16→20:45)
[2019-08-17] MEDS: IPRATRPIUM/ALBUTEROL 0.5/2.5MG 3 ML NEBU. NEB SCH ×3 (04:52→15:44)
[2019-08-17 05:10] VITALS: BP 121/75
[2019-08-17 06:19] LABS: BASO % 1 % (0-3); EOS % 1 % (0-3); HEMATOCRIT 36.2 % (36.0-47.0); HEMOGLOBIN 11.8 g/dL (12.0-15.5); LYMPH # 0.3 x10^3/uL (1.0-4.8); LYMPH % 18 % (24-48); MEAN CORPUSCULAR HEMOGLOBIN 32 pg (25-35); MEAN CORPUSCULAR HGB CONC 33 g/dL (31-37); MEAN CORPUSCULAR VOLUME 99 fL (79-100); MONO # 0.2 x10^3/uL (0.0-1.1); MONO % 9 % (0-9); NEUT # 1.4 x10^3uL (1.8-7.7); NEUT % 72 % (31-73); PLATELET COUNT 105 x10^3/uL (140-400); RED BLOOD COUNT 3.67 x10^6/uL (3.50-5.40); RED CELL DISTRIBUTION WIDTH 16.5 % (11.5-14.5)
[2019-08-17 06:21] LABS: CREATININE 1.1 mg/dL (0.6-1.0); GFR 47.2; POTASSIUM 3.8 mmol/L (3.5-5.1)
[2019-08-17 06:26] LABS: WHITE BLOOD COUNT 1.9 x10^3/uL (4.0-11.0)
[2019-08-17 06:51] LABS: % BANDS 7 % (0-9); % EOS 1 % (0-5); % LYMPHS 18 % (24-48); % MONOS 8 % (0-10); % SEGS 66 % (35-66)
[2019-08-17 06:52] LABS: OVALOCYTES FEW; PLT ESTIMATE DECREASED (ADEQUATE)
[2019-08-17 06:53] LABS: TEAR DROP CELLS OCC
[2019-08-17 06:54] LABS: POLYCHROMASIA PRESENT
[2019-08-17 06:55] LABS: TOXIC GRANULATION SLIGHT
[2019-08-17] MEDS: levoFLOXacin 250 MG TABLET PO SCH (08:22)
[2019-08-17 10:55] VITALS: BP 117/69
[2019-08-17] MEDS ORDERED: HYDROcodone/APAP 5/325MG 1 TAB TABLET PO PRN (11:45)
[2019-08-17] MEDS ORDERED: NITROGLYCERIN SUBLINGUAL 0.4 MG BOTTLE OF 25. SL PRN (11:45)
[2019-08-17] MEDS: GABAPENTIN 100 MG CAPSULE. PO SCH (12:30)
[2019-08-17] MEDS: POLYVINYL ALCOHOL/POVIDONE/PF OPHTH SOLUTION DROPERETTE. OU SCH ×4 (12:30→20:55)
--- NOTE | 2019-08-17 12:30 | HP ---
ADMIT DATE: 08/16/2019 HISTORY OF PRESENT ILLNESS: The patient is an 84-year-old female patient who came to the Emergency Room with a complaint of fever, chills, malaise, arthralgia, weakness and nausea. The patient has a history of multiple medical problems and she apparently slid from her bed and landed on her buttock and was unable to get up, so she called the ambulance. Initially, she refused to come, but eventually she decided to come to the Emergency Room where she was evaluated and she was extensively investigated in the Emergency Room and her lab work showed that her white cell count was low at 2.6. She has also low platelet count and she was slightly dehydrated. Her BUN and creatinine are high at 28 and 1.3 and her urinalysis showed that the patient was positive for nitrite and there was moderate amount of bacteria and 1-4 wbc's; however, her influenza A and B were negative. Her KUB showed nonobstructive bowel gas pattern. Chest x-ray was also unremarkable and CT scan of the head showed that there are small vessel ischemic changes, not significantly changed compared to the prior study, was admitted with dehydration, weakness and UTI. She has also leukopenia and thrombocytopenia. PAST MEDICAL HISTORY: Significant for hypertension, hyperlipidemia, hypothyroidism, osteoarthritis, transient ischemic attack, and senile macular degeneration. She is also known to have sick sinus syndrome, status post automatic implantable cardioverter defibrillator. PAST SURGICAL HISTORY: Significant for vaginal hysterectomy, cholecystectomy, appendectomy, exploratory laparotomy, bilateral total knee arthroplasty, bilateral cataract extraction and laser surgery. She also had basal cell carcinoma removed from her nose, squamous cell carcinoma of the left neck and has had an AICD placed and a colonoscopy done with no evidence of any polyps. ALLERGIES: SHE IS ALLERGIC TO PENICILLIN AND SULFA DRUGS. FAMILY HISTORY: She has one brother of colon cancer and CVA. Her sister of breast cancer. Mother of colon cancer and her dad was alcoholic and she does not know him very well. SOCIAL HISTORY: She is . Her in 2018. She has 1 son. She quit smoking in 1994 after smoking for almost 30 years. She does not drink alcohol or use recreational drugs. 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 MEDICATIONS: She is currently on following medications: She is on dicyclomine for Bentyl 20 mg 3 times a day, tizanidine 4 mg at bedtime. She is on Coumadin 4 mg p.o. daily, atorvastatin calcium 40 mg at bedtime. She is on isosorbide mononitrate 30 mg daily, nitroglycerin 0.4 mg sublingually every 5 minutes x 3, carvedilol 3.125 mg twice a day, aspirin 81 mg once a day, hydrocodone/APAP 5/325 one tablet every 6 hours, gabapentin 200 mg daily, gabapentin 200 mg with lunch, gabapentin 300 mg with breakfast and dinner. She is on duloxetine 30 mg daily, furosemide 20 mg once a day, carboxymethylcellulose for Refresh Optive eyedrops 1 drop to each eye 4 times a day. She is also on conjugated estrogens, applied half a gram vaginally twice a week. She is on Protonix 40 mg twice a day, lactobacillus casei 1 capsule daily, linaclotide for Linzess 145 mcg once a day, levothyroxine sodium 100 mcg once a day, folic acid 1 mg once a day, vitamin C for Ocuvite Soft Gels 1 capsule once a day. PHYSICAL EXAMINATION: GENERAL: On arrival to the Emergency Room, she looked well and was clearly in no apparent respiratory distress. Slightly pale, but no jaundice, cyanosis or thyromegaly. No jugular venous distention. No limb edema. VITAL SIGNS: Her heart rate was 80, blood pressure was 145/66, temperature was 98, respiratory rate was 22 and oxygen saturation was 91%. HEAD, EYES, EARS, NOSE AND THROAT: Showed normocephalic, atraumatic. NECK: Supple. HEART: Showed normal first and second heart sounds. No gallop or murmur. CHEST: Clear to auscultation. No crepitation or rhonchi. ABDOMEN: Distended, soft, nontender. NEUROLOGIC: She is awake, alert, responding appropriately. All cranial nerves intact. EXTREMITIES: She moves extremities without difficulty. LABORATORY DATA: Her lab work on arrival to the Emergency Room showed a white cell count to be 2600, hemoglobin 13.8, hematocrit 43.3, MCV 100, and platelet count of 129,000. Her chemistry showed a serum sodium 143, potassium 4, chloride 103, bicarbonate 32, anion gap of 8, BUN 28, creatinine 1.3, estimated GFR was 38 mL per minute. Her glucose was 110, calcium was 9. Total bilirubin, AST, ALT, alkaline phosphatase were normal. Her CK was 6. Troponin was less than 0.017. Total protein was 6.8, albumin was 3.6. Her lipase was 69. Urinalysis essentially showed that the urine was yellow, hazy with a pH of 5, specific gravity of 1.010. The urine was positive for nitrite. There was 1-4 wbc's, and moderate amount of bacteria. Her influenza A and B were negative. Her KUB showed nonobstructive bowel gas pattern. Chest x-ray was unremarkable. CT scan of the head showed small vessel ischemic changes, no significant changes compared to prior study. ASSESSMENT AND PLAN: In summary, the patient came in with multiple medical problems including generalized weakness. She actually slid from her bed down to the floor and she was found dehydrated with elevated BUN and creatinine. She has thrombocytopenia, leukopenia, urinary tract infection and constipation. BELÉN ANGLIN MD DR: GABRIEL/gary JOB#: [id number] / [id number]
[2019-08-17] MEDS ORDERED: NON FORMULARY ITEM (Carboxymethylcellulos/Glycerin (Refresh Optive Eye Drops) 1 DROP) EACHEYE SCH (13:00)
[2019-08-17] MEDS: DICYCLOMINE HCL 20 MG TABLET PO SCH ×2 (14:10→20:52)
--- NOTE | 2019-08-17 14:11 | NUR ---
PHARMACY REVIEW OF MEDICATION: Drugs that can cause Leukopenia- Gabapentin has 1.1% risk and Torsemide can also cause it, but no percentage given Drugs that can cause Thrombocytopenia - Carvedilol has a greater tahn 1% to 3% risk, Isosorbide Mononitrate has a 5% or less risk, Pantoprazole has a less than 1% risk, and Torsemide call alos cause it, but no percentage given.
[2019-08-17 16:00] VITALS: BP 119/70
[2019-08-17] MEDS ORDERED: WARFARIN 4 MG TABLET. PO SCH ×2 (16:00→19:30)
[2019-08-17] MEDS: LUBIPROSTONE 24 MCG CAPSULE PO SCH (17:19)
[2019-08-17] MEDS: CARVEDILOL 3.125 MG TABLET PO SCH (17:19)
[2019-08-17 19:07] VITALS: BP 120/76
[2019-08-17] MEDS: PANTOPRAZOLE 40 MG TABLET. PO SCH (20:52)
[2019-08-17] MEDS: LACTOBACILLUS RHAMNOSUS GG 1 CAPSULE. PO SCH (20:52)
[2019-08-17] MEDS: GABAPENTIN 300 MG CAPSULE. PO SCH (20:52)
[2019-08-17] MEDS ORDERED: ATORVASTATIN CALCIUM 20 MG TABLET PO SCH (21:00)
[2019-08-17] MEDS ORDERED: ATORVASTATIN CALCIUM 40 MG PO SCH (21:00)
[2019-08-17] MEDS ORDERED: tiZANidine 4 MG TABLET. PO SCH (21:00)
--- NOTE | 2019-08-17 21:42 | PN ---
DATE: 08/17/2019 SUBJECTIVE: The patient is resting flat, comfortably, in no apparent distress. The only complaint is pain in her feet. PHYSICAL EXAMINATION: GENERAL: When I examined her this morning, she looked well and was clearly in no apparent respiratory distress. No pallor, jaundice, cyanosis or thyromegaly. No jugular venous distention or limb edema. VITAL SIGNS: Her heart rate was 80, blood pressure was 121/75, temperature was 98, respiratory rate 18, and oxygen saturation was 97%. The rest of clinical exam is stable, has not really changed. Her intake was 1120, no output was recorded. LABORATORY DATA: Her lab work this morning showed her white cell count has dropped down to 1900, hemoglobin 11.8, hematocrit 36, MCV 99 and platelet count of 105,000 with normal manual differential. Her chemistry showed a serum sodium 141, potassium 3.8, chloride 104, bicarbonate 31, anion gap of 6, BUN 24, creatinine 1.1, estimated GFR was 47 mL per minute. Her glucose was 90, calcium was 8. Urinalysis showed that was positive for nitrite and leukocyte esterase. ASSESSMENT: 1. Generalized weakness for which we will order PT, OT. 2. She has also urinary tract infection for which she was started on Levaquin. 3. She has thrombocytopenia and leukopenia that is worsening. 4. Other medical problems include hypertension, hyperlipidemia, hypothyroidism, osteoarthritis, senile macular degeneration. She is also known to have sick sinus syndrome, status post automatic implantable cardioverter defibrillator. I will discuss with the pharmacist to go over her medication and see what could be causing her leukopenia and that she obviously came with it even prior we started her on Levaquin. BELÉN ANGLIN MD DR: GABRIEL/gary JOB#: [id number] / [id number]
[2019-08-17 22:47] VITALS: BP 110/68
[2019-08-18] MEDS: IV RINGERS SOLUTION,LACTATED 1,000 ML IV SCH ×2 (00:11→09:06)
[2019-08-18 05:37] VITALS: BP 115/75
[2019-08-18] MEDS ORDERED: LEVOTHYROXINE 100 MCG TABLET PO SCH (06:00)
[2019-08-18 06:25] LABS: HEMOGLOBIN 11.9 g/dL (12.0-15.5); RED BLOOD COUNT 3.71 x10^6/uL (3.50-5.40); RED CELL DISTRIBUTION WIDTH 16.3 % (11.5-14.5); WHITE BLOOD COUNT 2.3 x10^3/uL (4.0-11.0)
[2019-08-18 06:46] LABS: ALBUMIN 2.5 g/dL (3.4-5.0); ALBUMIN/GLOBULIN RATIO 0.9 (1.0-1.7); CALCIUM 8.2 mg/dL (8.5-10.1); CREATININE 1.2 mg/dL (0.6-1.0); GFR 42.7; POTASSIUM 3.9 mmol/L (3.5-5.1); TOTAL BILIRUBIN 0.5 mg/dL (0.2-1.0); TOTAL PROTEIN 5.2 g/dL (6.4-8.2)
[2019-08-18] MEDS: DICYCLOMINE HCL 20 MG TABLET PO SCH ×2 (08:16→13:30)
[2019-08-18] MEDS: LACTOBACILLUS RHAMNOSUS GG 1 CAPSULE. PO SCH (08:16)
[2019-08-18] MEDS: GABAPENTIN 300 MG CAPSULE. PO SCH (08:17)
[2019-08-18] MEDS: levoFLOXacin 250 MG TABLET PO SCH (08:17)
[2019-08-18] MEDS: PANTOPRAZOLE 40 MG TABLET. PO SCH (08:17)
[2019-08-18] MEDS: POLYVINYL ALCOHOL/POVIDONE/PF OPHTH SOLUTION DROPERETTE. OU SCH ×2 (08:18→12:43)
[2019-08-18] MEDS: CARVEDILOL 3.125 MG TABLET PO SCH (08:18)
[2019-08-18] MEDS: LUBIPROSTONE 24 MCG CAPSULE PO SCH (08:18)
[2019-08-18] MEDS ORDERED: MULTIVITAMIN I-VITE TABLET. PO SCH (09:00)
[2019-08-18] MEDS ORDERED: [UNRECOGNIZED DRUG - OTHER] PO SCH (09:00)
[2019-08-18] MEDS ORDERED: NON FORMULARY ITEM (Linaclotide (Linzess) 145 MCG) PO SCH (09:00)
[2019-08-18] MEDS ORDERED: LUTEIN PO SCH (09:00)
[2019-08-18] MEDS ORDERED: VIT E PO SCH (09:00)
[2019-08-18] MEDS ORDERED: ASPIRIN ENTERIC COATED 81 MG TABLET.DR. PO SCH (09:00)
[2019-08-18] MEDS ORDERED: VIT C PO SCH (09:00)
[2019-08-18] MEDS ORDERED: TORSEMIDE 20 MG TABLET. PO SCH (09:00)
[2019-08-18] MEDS ORDERED: FOLIC ACID 1 MG TABLET PO SCH (09:00)
[2019-08-18] MEDS ORDERED: ISOSORBIDE MONONITRATE ER 30 MG TAB.ER.24H PO SCH (09:00)
[2019-08-18] MEDS ORDERED: DULoxetine HCL 60 MG CAPSULE.DR PO SCH (09:00)
[2019-08-18] MEDS ORDERED: FOLIC ACID PO SCH (09:00)
[2019-08-18] MEDS ORDERED: OMEGA PO SCH (09:00)
[2019-08-18 10:26] VITALS: BP 121/80
[2019-08-18] MEDS ORDERED: ONDANSETRON ODT 4 MG TAB.RAPDIS PO PRN (10:45)
--- NOTE | 2019-08-18 10:47 | NUR ---
Pt complaint of nausea. 4mg Zofran Q8hrs PRN ordered per Dr. Rowe. Will continue to assess and monitor as necessary.
[2019-08-18] MEDS: GABAPENTIN 100 MG CAPSULE. PO SCH (12:13)
[2019-08-18] MEDS ORDERED: LEVO500T8 PO (14:04)
--- NOTE | 2019-08-18 14:39 | DS ---
DATE OF DISCHARGE: 08/18/2019 HOSPITAL COURSE: The patient is resting, slightly propped up in bed, no apparent distress. On questioning her, she said she is doing very well. She is back to her normal state of health and expressed her desire to go home. PHYSICAL EXAMINATION: GENERAL: When I examined her, she looked somewhat pale, but no jaundice, cyanosis or thyromegaly. No jugular venous distention. No limb edema. VITAL SIGNS: Her heart rate was 81, blood pressure 121/80, temperature was 97.6, respiratory rate 20, and oxygen saturation was 94%. HEAD, EYES, EARS, NOSE AND THROAT: Showed normocephalic, atraumatic. NECK: Supple. HEART: Showed normal first and second heart sounds. No gallop, rub or murmur. CHEST: Clear to auscultation. No crepitation or rhonchi. ABDOMEN: Distended, soft, nontender. NEUROLOGIC: She is definitely more awake, alert, responding appropriately. All cranial nerves are intact. She moves extremities without difficulty. She ambulates with a walker. Her intake over the last 24 hours was 1100, no output was recorded. LABORATORY DATA: This morning showed her white cell count to be 2300, hemoglobin 11.9, hematocrit 37, MCV 100, and platelet count 202,000. Serum sodium was 144, potassium 3.9, chloride 108, bicarbonate 32, anion gap of 4, BUN 17, creatinine 1.2, estimated GFR was 42 mL per minute. Her glucose 108, calcium was 8.2. Total bilirubin, AST, ALT, alkaline phosphatase were normal. Total protein was 5.2, albumin 2.5. Her prothrombin time was 23.4, INR of 2.3. Urinalysis was positive for nitrite and moderate amount of bacteria. The culture is still pending. Her influenza A and B were negative. DISCHARGE MEDICATIONS: The patient was discharged home to continue on Levaquin 250 mg once a day for 5 more days. She will continue all other medication including aspirin 81 mg once a day, atorvastatin calcium 40 mg at bedtime, Refresh Optive eyedrops 1 drop to both eyes 4 times a day, carvedilol 3.125 mg twice a day, dicyclomine 20 mg 3 times a day, duloxetine for Cymbalta 30 mg daily, estrogen conjugated cream 0.5 grams vaginally twice weekly, folic acid 1 mg daily, gabapentin 200 mg daily, gabapentin 300 mg twice a day, hydrocodone/APAP 5/325 one tablet every 6 hours, isosorbide mononitrate 30 mg once a day, lactobacillus 1 capsule daily, levothyroxine sodium 100 mcg once a day, linaclotide for Linzess 145 mcg once a day, nitroglycerin 0.4 mg sublingually every 5 minutes x 3, Protonix 40 mg twice a day, tizanidine 4 mg p.o. at bedtime, torsemide 20 mg daily, multivitamin 1 tablet once a day, warfarin 4 mg p.o. daily. FINAL DISCHARGE DIAGNOSES: Urinary tract infection, responding clinically to the oral Levaquin. Other problems include hypertension, hyperlipidemia, hypothyroidism, senile macular degeneration. She has sick sinus syndrome, status post automated implantable cardioverter defibrillator. BELÉN ANGLIN MD DR: GABRIEL/gary JOB#: [id number] / [id number]
--- NOTE | 2019-08-18 14:51 | NUR ---
Discharge Note: LEYDA RICHARDSON Discharge instructions and discharge home medications reviewed with Patient and a copy given. All questions have been answered and understanding verbalized. The following instructions and handouts were given: Take medications as prescribed, follow up with Primary Care Provider or sooner if needed. Discontinued lines and drains: discontinued peripheral IV, pressure dressing applied, catheter tip intact, no apparant complications . Patient discharged to [facility].
== END 2019-08-18 15:31 | disposition home or self-care (01) | DRG 690 ==
LOC: ER 17:11 → 1 SOUTH 19:00
PROVIDERS: ADMIT Internal Medicine; ATTEND Internal Medicine
DX: N39.0 Urinary tract infection, site not specified (principal); D68.51 Activated protein C resistance; F03.90 Unspecified dementia, unspecified severity, without behavioral disturbance, psychotic disturbance, mood disturbance, and anxiety; F32.9 Major depressive disorder, single episode, unspecified; K21.9 Gastro-esophageal reflux disease without esophagitis; I48.91 Unspecified atrial fibrillation; I49.5 Sick sinus syndrome; E86.0 Dehydration; E03.9 Hypothyroidism, unspecified; D69.6 Thrombocytopenia, unspecified; D72.819 Decreased white blood cell count, unspecified; K59.00 Constipation, unspecified; E78.5 Hyperlipidemia, unspecified; H35.30 Unspecified macular degeneration; I25.10 Atherosclerotic heart disease of native coronary artery without angina pectoris; I50.9 Heart failure, unspecified; I11.0 Hypertensive heart disease with heart failure; M19.90 Unspecified osteoarthritis, unspecified site; Z96.653 Presence of artificial knee joint, bilateral; Z87.891 Personal history of nicotine dependence; Z85.828 Personal history of other malignant neoplasm of skin; Z90.710 Acquired absence of both cervix and uterus; Z95.0 Presence of cardiac pacemaker; Z90.49 Acquired absence of other specified parts of digestive tract; Z95.5 Presence of coronary angioplasty implant and graft; Z88.0 Allergy status to penicillin; Z88.1 Allergy status to other antibiotic agents; Z88.8 Allergy status to other drugs, medicaments and biological substances; Z86.73 Personal history of transient ischemic attack (TIA), and cerebral infarction without residual deficits; Z98.42 Cataract extraction status, left eye; Z98.41 Cataract extraction status, right eye; Z82.3 Family history of stroke; Z80.3 Family history of malignant neoplasm of breast; Z80.0 Family history of malignant neoplasm of digestive organs
CPT/HCPCS: 36415; 70450; 71045; 74018; 80048; 80053; 81001; 82150; 82550; 83690; 84484; 85007; 85025; 85027; 85610; 85651; 87086; 87804; 93005; 94640; 94760; 96360; 99285; J7120; J7620; Q0162; 97110; 97116; 97530

== ENCOUNTER 2019-09-11 13:26 | Emergency (ER) | payer MEDICARE, BC, OTHER ==
[~2019-09-11] VITALS: Ht 167.6 cm; Wt 91.4 kg
[~2019-09-11 13:26] MED LIST changes: +LEVO500T8 PO; +MELA3TAB4 PO; -MELA3TAB56 PO
--- NOTE | 2019-09-11 13:56 | PHYS DOC ---
Past History Past Medical History: A-Fib, CHF, Constipation, Depression, DVT, GERD, Hypertension, Hypothyroid, Pneumonia, TIA, UTI, Other Additional Past Medical Histor: factor V Leiden Past Surgical History: Appendectomy, Cholecystectomy, Hysterectomy, Knee Replacement, Pacemaker, Other Additional Past Surgical Histo: cardiac stent, filter Smoking: Non-smoker, Quit Greater Than 1 Year Alcohol Use: Rarely Drug Use: None Adult General Chief Complaint Chief Complaint: FLU SYMPTOM HPI HPI Patient is a 84-year-old female with past medical history of congestive heart failure, A. fib on warfarin, pulmonary embolism, DVT status post IVC filter who presents with productive cough, shortness of breath and fatigue for the past week. She states that 6 days prior she began experiencing productive cough yellow sputum with his progress throughout the week to the point of experiencing mild dyspnea on exertion. She has not had a recorded fever but has been taking Tylenol as well as applying VapoRub's with minimal improvement of her symptoms. She denies any sick contacts. She did receive flu vaccine this year. She has not experienced any chest pain, palpitations, nausea, vomiting, constipation or diarrhea. She states that her right lower extremity is chronically enlarged compared to the left. Denies any new lower extremity swelling. Denies hemoptysis. Denies pleuritic chest pain, myalgias or joint pain. Review of Systems Review of Systems Constitutional: Denies fever or chills HENT: Denies nasal congestion, rhinorrhea or sore throat Respiratory: Reports cough productive of yellow sputum, dyspnea on exertion, mild shortness breath Cardiovascular: Denies chest pain or palpitations GI: Denies abdominal pain, nausea, or vomiting : Denies dysuria or hematuria Musculoskeletal: Denies myalgias or joint pain Neurologic: Denies headache, focal weakness or sensory changes Complete systems were reviewed and found to be within normal limits, except as documented in this note. Allergies Allergies Allergies Coded Allergies Type Severity Reaction Last Updated Verified Penicillins Allergy Intermediate RASH 08/26/18 Yes Sulfa (Sulfonamide Antibiotics) Allergy Intermediate 08/26/18 Yes sulfamethoxazole Allergy Intermediate 08/26/18 Yes trimethoprim Allergy Intermediate 08/26/18 Yes Physical Exam Physical Exam Constitutional: Morbidly obese female coughing in patient bed however in no acute distress. Conversational and speaking in full sentences on room air HENT: Normocephalic, atraumatic, oropharynx moist Eyes: Conjunctiva normal, no discharge Cardiovascular: Heart rate normal, regular rhythm Lungs & Thorax: Bilateral breath sounds clear to auscultation, no wheezing, rhonchi or rales Abdomen: Soft, non tenderness Extremities: Right lower extremity enlarged chronically compared to left. No calf tenderness bilaterally. Dorsalis pedis pulses stable bilaterally. Neurologic: Alert and oriented, no focal deficits noted Psychologic: Affect normal, judgment normal EKG EKG 1403: Atrial fibrillation with rate of 81. QRS 134. Right bundle-branch block. Similar compared to EKG on August 16, 2019 Radiology/Procedures Radiology/Procedures PROCEDURE: CHEST PA & LATERAL CHEST PA LATERAL History: Dyspnea on exertion, cough Comparison: 08/26/2019 Portable Chest X-ray Exam. Findings: Frontal and lateral views of the chest were obtained. Triple lead left-sided ICD is present. Frontal and lateral views of the chest were obtained. The cardiomediastinal silhouette is normal. Pulmonary vasculature is normal. Mitral valvular band appears to be present. The lungs are clear. No pleural effusion or pneumothorax is seen. There is no acute bone abnormality. Right upper quadrant surgical clips and inferior vena cava filter are seen. Pulmonary hyperinflation noted. IMPRESSION: Osteopenia. No acute process. Electronically signed by: Thomas Akers MD (09/11/2019 2:26 PM) [id number] Course & Med Decision Making Course & Med Decision Making Pertinent Labs and Imaging studies reviewed. (See chart for details) Patient is an 84-year-old female with past medical history of CHF, A. fib, PE and DVT status post IVC filter is presenting for evaluation of productive cough and shortness of breath. On arrival and is conversational and speaking in full sentences on room air while maintaining appropriate saturations. Vital signs stable and afebrile. Will plan to obtain basic labs for etiology of her cough as well as cardiac evaluation and flu swab. Pt given full strength aspirin in ED. Will also administer steroids for possible viral syndrome. Chest x-ray without evidence of acute process or infectious etiology for her symptoms. Flu negative. Lactate 1.4. CBC mild lymphopenia a normal absolute neutrophils. Creatinine 1.4, slightly elevated from her baseline at 1.2. BNP today is stable compared to that recorded on June 14. EKG similar to previous EKG August of this year. Troponin and CK-MB negative. Patient is actually supratherapeutic on her INR at 3.4. Based on her history of present illness, physical exam and supratherapeutic anticoagulation, feel that life-threatening etiology such as pulmonary embolism are far less likely and thus determined CTA risks to outweigh benefits given her poor renal function. Vital signs stable throughout her ED course and has maintained saturations above 95% on room air. Feel that cough is likely due to viral bronchitis. UA also with evidence of UTI which could explain some of the fatigue she has been experiencing. Patient given steroids during her course in the emergency department with interval improvement of symptoms. Will discharge home with continued course of oral steroids for her bronchitis as well as oral antibiotics for her UTI. Will also have her hold her Coumadin as she is supratherapeutic on her INR and will have her follow up with primary care physician. Patient stable for discharge with outpatient follow-up with PCP. Discussed findings and plan with patient, who acknowledges understanding and agreement. Dragon Disclaimer Dragon Disclaimer This electronic medical record was generated, in whole or in part, using a voice recognition dictation system. Departure Departure: Impression: Primary Impression: Bronchitis Additional Impressions: UTI (urinary tract infection) Supratherapeutic INR Disposition: HOME, SELF-CARE Condition: STABLE Referrals: MOLLY HAMILTON MD (PCP) Patient Instructions: Acute Bronchitis, [id number], Urinary Tract Infection, [id number] Additional Instructions: Your INR was high 3.4. Hold tonight's dose of coumadin and then restart. Please follow with your doctor next week for re-evaluation. Scripts Prednisone (PREDNISONE) 20 Mg Tablet 2 TAB PO DAILY for Bronchitis, #8 TAB Prov: MAAME VIVEROS DO 09/11/19 Cephalexin (KEFLEX) 500 Mg Capsule 1 CAP PO TID for UTI for 7 Days, #21 CAP 0 Refills Prov: MAAME VIVEROS DO 09/11/19 Problem Qualifiers Additional Impressions: UTI (urinary tract infection) Urinary tract infection type: acute cystitis Hematuria presence: without hematuria Qualified Codes: N30.00 - Acute cystitis without hematuria MAAME VIVEROS DO Sep 11, 2019 13:56
[2019-09-11] MEDS ORDERED: DEXAMETHASONE SOD PHOS 4 MG/ML VIAL IVP ONE (14:15)
[2019-09-11] MEDS ORDERED: ASPIRIN 325 MG TABLET PO ONE (14:15)
[2019-09-11 14:26] VITALS: BP 125/65
--- NOTE | 2019-09-11 14:29 | RAD ---
CHEST PA LATERAL History: Dyspnea on exertion, cough Comparison: 08/26/2019 Portable Chest X-ray Exam. Findings: Frontal and lateral views of the chest were obtained. Triple lead left-sided ICD is present. Frontal and lateral views of the chest were obtained. The cardiomediastinal silhouette is normal. Pulmonary vasculature is normal. Mitral valvular band appears to be present. The lungs are clear. No pleural effusion or pneumothorax is seen. There is no acute bone abnormality. Right upper quadrant surgical clips and inferior vena cava filter are seen. Pulmonary hyperinflation noted. IMPRESSION: Osteopenia. No acute process. Electronically signed by: Thomas Akers MD (09/11/2019 2:26 PM) [id number]
[2019-09-11 14:31] LABS: BASO % 1 % (0-3); EOS # 0.1 x10^3/uL (0.0-0.7); EOS % 2 % (0-3); HEMATOCRIT 37.2 % (36.0-47.0); LYMPH # 0.7 x10^3/uL (1.0-4.8); LYMPH % 21 % (24-48); MEAN CORPUSCULAR HEMOGLOBIN 32 pg (25-35); MEAN CORPUSCULAR HGB CONC 32 g/dL (31-37); MEAN CORPUSCULAR VOLUME 100 fL (79-100); MONO # 0.5 x10^3/uL (0.0-1.1); MONO % 14 % (0-9); NEUT # 2.2 x10^3uL (1.8-7.7); NEUT % 62 % (31-73); PLATELET COUNT 134 x10^3/uL (140-400); RED BLOOD COUNT 3.73 x10^6/uL (3.50-5.40); RED CELL DISTRIBUTION WIDTH 17.3 % (11.5-14.5); WHITE BLOOD COUNT 3.6 x10^3/uL (4.0-11.0)
[2019-09-11 14:35] LABS: CALCIUM 8.9 mg/dL (8.5-10.1); CREATININE 1.4 mg/dL (0.6-1.0); GFR 35.7; POTASSIUM 4.2 mmol/L (3.5-5.1)
[2019-09-11 14:52] LABS: ALBUMIN 3.1 g/dL (3.4-5.0); TOTAL PROTEIN 6.3 g/dL (6.4-8.2)
[2019-09-11 14:56] LABS: INFLUENZA A PATIENT NEGATIVE (NEGATIVE); INFLUENZA B PATIENT NEGATIVE (NEGATIVE)
--- NOTE | 2019-09-11 15:16 | EKG ---
[address] [address] Test Date: 2019-09-11 Test Time: 14:03:19 Pat Name: LEYDA RICHARDSON Department: Room: Gender: F Operations Specialist: : [id number] Requested By: MAAME VIVEROS Order Number: [id number] Reading MD: Measurements Intervals [place] Rate: 81 P: SC: QRS: -147 QRSD: 134 T: 37 QT: 412 QTc: 479 Interpretive Statements IRREGULAR RHYTHM, NO P-WAVE FOUND ABNORMAL RIGHT SUPERIOR AXIS DEVIATION LOW VOLTAGE S1,S2,S3 PATTERN RIGHT BUNDLE BRANCH BLOCK CONSIDER RIGHT VENTRICULAR HYPERTROPHY QRS(T) CONTOUR ABNORMALITY CONSIDER ANTEROSEPTAL MYOCARDIAL DAMAGE ABNORMAL ECG RI6.01 No previous ECG available for comparison
[2019-09-11 17:22] LABS: BACTERIA,URINE MOD /HPF (0-FEW); BILIRUBIN,URINE NEG (NEG); CLARITY,URINE CLOUDY; COLOR,URINE YELLOW; GLUCOSE,URINE NEG (NEG); NITRITE,URINE POS (NEG); SQUAMOUS EPITHELIAL CELL,UR MANY /LPF; UROBILINOGEN,URINE 0.2 mg/dL (0.2 mg/dL); WBC,URINE 20-40 /HPF (0-4)
[2019-09-11 17:23] LABS: HYALINE CASTS, URINE FEW /HPF
[2019-09-11] MEDS ORDERED: CEPH-264 PO (17:56)
[2019-09-11] MEDS ORDERED: PRED20TA PO (17:56)
[2019-09-11] MEDS ORDERED: IV NORMAL SALINE 50ML 50 ML ONE (18:04)
[2019-09-11] MEDS ORDERED: cefTRIAXone SODIUM 1 GM VIAL ONE (18:04)
== END 2019-09-11 19:50 | disposition home or self-care (01) ==
LOC: ER 13:30
DX: J40 Bronchitis, not specified as acute or chronic (principal); N30.00 Acute cystitis without hematuria; I48.91 Unspecified atrial fibrillation; I11.0 Hypertensive heart disease with heart failure; I50.9 Heart failure, unspecified; Z86.718 Personal history of other venous thrombosis and embolism; K21.9 Gastro-esophageal reflux disease without esophagitis; E03.9 Hypothyroidism, unspecified; Z86.73 Personal history of transient ischemic attack (TIA), and cerebral infarction without residual deficits; Z87.440 Personal history of urinary (tract) infections; Z90.49 Acquired absence of other specified parts of digestive tract; Z90.89 Acquired absence of other organs; Z90.710 Acquired absence of both cervix and uterus; Z87.891 Personal history of nicotine dependence; Z95.0 Presence of cardiac pacemaker; Z88.0 Allergy status to penicillin; Z88.2 Allergy status to sulfonamides; Z88.1 Allergy status to other antibiotic agents
CPT/HCPCS: 36415; 71046; 80053; 81001; 82553; 83605; 83880; 84484; 85025; 85610; 85730; 87086; 87804; 93005; 96365; 96375; 99285; J0696; J1100

== ENCOUNTER 2019-09-12 06:58 | Inpatient (IN) | payer MEDICARE, BC, OTHER ==
[~2019-09-12] VITALS: Ht 162.6 cm; Wt 92.5 kg
[~2019-09-12 06:58] MED LIST changes: +CEPH-264 PO; +PRED20TA PO
[2019-09-12] MEDS ORDERED: NEOMY/BACITR/POLYMYXIN OINT PACKET. TP ONE (07:15)
--- NOTE | 2019-09-12 07:20 | PHYS DOC ---
Past History Past Medical History: A-Fib, CHF, Constipation, Depression, DVT, GERD, Hypertension, Hypothyroid, Pneumonia, TIA, UTI, Other Additional Past Medical Histor: factor V Leiden Past Surgical History: Appendectomy, Cholecystectomy, Hysterectomy, Knee Replacement, Pacemaker, Other Additional Past Surgical Histo: cardiac stent, filter Smoking: Quit Greater Than 1 Year Alcohol Use: Rarely Drug Use: None Adult General Chief Complaint Chief Complaint: LACERATION/AVULSION HPI HPI Patient is a 84-year-old female who presents to the ED for evaluation of laceration and skin avulsion. Patient states that she was awake in bed and rolled over causing her to fall out of bed. Her right forearm caught the bed frame and caused a skin tear. Bleeding was minimal on scene. Patient is also complaining of left hand pain and bruising. She did not hit her head, lose consciousness, or have any neck pain. Of note patient was seen and evaluated by this physician yesterday and emergency department for concerns of flulike symptoms. At that time she was found to have evidence of urinary tract infection as well as bronchitis and was started on oral steroids as well as oral antibiotics. Today she feels that her cough has improved however she does state that she feels weaker than normal. Patient is accompanied by her son who expresses concern for her ability to care for herself at home at this time given the fact that her INR was supratherapeutic yesterday at 3.4. Patient lives at [facility] in an independent living facility but does have caregivers regularly check on her. She did recently have a fall last month as well. Today, patient denies any chest pain, palpitations, shortness of breath, syncope or presyncopal symptoms currently or preceding today's fall. Review of Systems Review of Systems Constitutional: Denies fever or chills HENT: Denies nasal congestion or sore throat Respiratory: Reports improving cough, productive. Denies shortness of breath. Cardiovascular: Denies chest pain or palpitations GI: Denies abdominal pain, nausea, or vomiting : Denies dysuria or hematuria Musculoskeletal: Reports right forearm pain as well as skin avulsion and bleeding. Reports left hand bruising. Integument: Reports right forearm laceration/skin tear. Reports left arm hematoma and left hand hematoma Neurologic: Denies headache, focal weakness or sensory changes Complete systems were reviewed and found to be within normal limits, except as documented in this note. Current Medications Current Medications Current Medications Medications (Trade) Dose Ordered Sig/[place] Start Time Stop Time Status Last Admin Dose Admin Neomycin/ Polymyxin/ Bacitracin (Triple Antibiotic Ointment) 1 pkt 1X ONCE 09/12/19 07:15 09/12/19 07:16 UNV Allergies Allergies Allergies Coded Allergies Type Severity Reaction Last Updated Verified Penicillins Allergy Intermediate RASH 08/26/18 Yes Sulfa (Sulfonamide Antibiotics) Allergy Intermediate 08/26/18 Yes sulfamethoxazole Allergy Intermediate 08/26/18 Yes trimethoprim Allergy Intermediate 08/26/18 Yes Physical Exam Physical Exam Constitutional: Well developed, obese, no acute distress, non-toxic appearance HENT: Normocephalic, atraumatic, oropharynx moist Eyes: Conjunctiva normal, no discharge Neck: Normal range of motion, no tenderness, Cardiovascular: Heart rate normal, regular rhythm Lungs & Thorax: Bilateral breath sounds clear to auscultation, no wheezing Abdomen: Soft, no tenderness Skin: 5 cm laceration with skin avulsion to the right forearm. Wound clean. Bleeding controlled. Extremities: Radial pulses +2 bilaterally, sensation intact, motor function intact. Tenderness to palpation along left second metacarpal with overlying hematoma. Range of motion intact without tenderness. Neurologic: Alert and oriented X 3, normal motor function, normal sensory function, no focal deficits noted Psychologic: Affect normal, judgment normal EKG EKG [] Radiology/Procedures Radiology/Procedures [] Course & Med Decision Making Course & Med Decision Making Pertinent Labs and Imaging studies reviewed. (See chart for details) Patient is an 84-year-old female who presents for evaluation skin avulsion and left hand pain after falling out of bed this morning. Laceration cleaned and repaired with sutures. X-ray of left hand negative for any fracture. Patient was seen in this emergency Department by me yesterday for concerns of flulike symptoms. She was found to have UTI as well as bronchitis at that time. She states that her cough seems to have improved however she does note that she feels "weak". She was also found yesterday to be supratherapeutic on her INR at 3.4. She also notes that she had a similar fall approximately one month ago. Given her level of anticoagulation, UTI, current steroid course, and weakness, discussed with patient and family benefits of admission for further monitoring improvement of her symptoms as well as avoiding future falls. Patient and family are in agreement. Patient requiring admission for further evaluation and treatment. Discussed with Dr. Rowe (hospitalist) who is in agreement with admission. Discussed findings and plan with patient and family, who acknowledge understanding and agreement. Dragon Disclaimer Dragon Disclaimer This electronic medical record was generated, in whole or in part, using a voice recognition dictation system. Departure Departure: Impression: Primary Impression: Fall Additional Impressions: Skin tear Hematoma Generalized weakness UTI (urinary tract infection) Bronchitis Disposition: ADMITTED INPATIENT Admitting Physician: Gissel Rowe Condition: STABLE Referrals: MOLLY HAMILTON MD (PCP) Laceration/Wound Repair Laceration/Wound Repair : Wound Location: upper extremity Wound's Depth, Shape: superficial, flap Wound Length (cm): 5 Wound Explored: clean Irrigated w/ Saline (ccs): 250 Betadine Prep?: No Anesthesia: Lidocaine w/ Epi (2%) Volume Anesthetic (ccs): 3 Wound Repaired With: sutures Suture Size/Type: 5:0, nylon Number of Sutures: 5 Layer Closure?: No Sterile Dressing Applied?: Yes Splint Applied?: No Progress Verbal consent obtained. Time out performed. Hand hygiene utilized. Wound cleaned with ChloraPrep. Anesthesia obtained via a 25-gauge hypodermic needle with (3) mL's of lidocaine 2% with epinephrine. Copious irrigation performed. Wound well approximated with 5-0 Nylon x 5 (horizontal mattress x 2 and simple interrupted x 3). Patient tolerated procedure well and without difficulty. Empiric antibiotic ointment applied prior to sterile dressing. Problem Qualifiers Primary Impression: Fall Encounter type: initial encounter Qualified Codes: W19.XXXA - Unspecified fall, initial encounter Additional Impressions: UTI (urinary tract infection) Urinary tract infection type: acute cystitis Hematuria presence: without hematuria Qualified Codes: N30.00 - Acute cystitis without hematuria MAAME VIVEROS DO Sep 12, 2019 07:20
[2019-09-12] MEDS ORDERED: LIDOCAINE 2%/EPI 1:100,000 20 ML VIAL. IJ ONE (08:00)
[2019-09-12 08:20] LABS: BASO % 0 % (0-3); EOS % 0 % (0-3); HEMATOCRIT 42.1 % (36.0-47.0); HEMOGLOBIN 13.8 g/dL (12.0-15.5); LYMPH # 0.5 x10^3/uL (1.0-4.8); LYMPH % 11 % (24-48); MEAN CORPUSCULAR HEMOGLOBIN 33 pg (25-35); MEAN CORPUSCULAR HGB CONC 33 g/dL (31-37); MEAN CORPUSCULAR VOLUME 100 fL (79-100); MONO # 0.1 x10^3/uL (0.0-1.1); MONO % 3 % (0-9); NEUT # 3.8 x10^3uL (1.8-7.7); NEUT % 86 % (31-73); PLATELET COUNT 160 x10^3/uL (140-400); RED BLOOD COUNT 4.22 x10^6/uL (3.50-5.40); RED CELL DISTRIBUTION WIDTH 17.4 % (11.5-14.5); WHITE BLOOD COUNT 4.5 x10^3/uL (4.0-11.0)
[2019-09-12 08:23] LABS: CALCIUM 9.5 mg/dL (8.5-10.1); CREATININE 1.4 mg/dL (0.6-1.0); GFR 35.7; POTASSIUM 4.4 mmol/L (3.5-5.1)
[2019-09-12 08:29] LABS: ALBUMIN 3.5 g/dL (3.4-5.0); ALBUMIN/GLOBULIN RATIO 0.9 (1.0-1.7); MAGNESIUM 2.1 mg/dL (1.8-2.4); TOTAL BILIRUBIN 0.9 mg/dL (0.2-1.0); TOTAL PROTEIN 7.3 g/dL (6.4-8.2)
--- NOTE | 2019-09-12 08:56 | RAD ---
Study: HAND LEFT 3V Indication: Hand swelling and pain after a fall. Comparison: None recently. Findings: No acute fracture seen throughout the hand or at the wrist noting the presence of osteopenia. No traumatic malalignment. Small erosion with sclerotic margins seen along the ulnar aspect of the little finger proximal phalanx adjacent to the MCP joint. Scattered degenerative changes such as involving several interphalangeal joints as well as the thumb CMC joint. Vascular calcifications. Mild soft tissue prominence seen at the distal forearm. Impression: 1. Taking into consideration osteopenia, no acute fracture seen throughout the left hand or at the wrist. 2. Scattered degenerative changes, as above, as well as mild soft tissue prominence at the dorsum of the distal forearm. Electronically signed by: ARIANNE SANCHEZ MD (09/12/2019 8:54 AM) [id number]
[2019-09-12 09:49] VITALS: BP 145/87
[2019-09-12] MEDS ORDERED: NITROGLYCERIN SUBLINGUAL 0.4 MG BOTTLE OF 25. SL PRN (11:15)
[2019-09-12] MEDS ORDERED: POLYVINYL ALCOHOL/POVIDONE/PF OPHTH SOLUTION DROPERETTE. OU PRN (11:45)
[2019-09-12] MEDS: GABAPENTIN 100 MG CAPSULE. PO SCH (12:27)
--- NOTE | 2019-09-12 13:43 | HP ---
ADMIT DATE: 09/12/2019 HISTORY OF PRESENT ILLNESS: The patient is an 84-year-old female patient who was seen originally yesterday at the Emergency Room. She apparently came complaining of flu-like symptoms that started about 6 days ago with some productive cough that is with yellow sputum that has progressed throughout the week to the point of experiencing mild dyspnea on exertion. She has not had any recorded fever, but has been taking Tylenol as well as applying Vaporub with minimal improvement in her symptoms. She denies any sick contact. She did receive her flu vaccine this year. She has not experienced any chest pain, palpitations, nausea, vomiting, constipation or diarrhea. Her right lower extremity is chronically larger than the left. Denied any new lower extremity swelling. Denied any hemoptysis. Denied any pleuritic chest pain, myalgia or joint pain. She apparently was extensively evaluated and her lab work showed if anything leukopenia with a white cell count of 3600 with normal hemoglobin, hematocrit and platelets. Her chemistry was remarkable for chronic kidney disease as well as markedly elevated BNP and her prothrombin time was 35.6, INR of 3.4. Urinalysis showed the urine was yellow, cloudy with pH of 6 and specific gravity 1.010. The urine was positive for nitrite as well as small amount of leukocyte esterase with 1-2 rbc's, 20-40 wbc's and many bacteria; however, her influenza A and B were negative. She did have a chest x-ray, which basically showed that she has triple lead left sided ICD present. Frontal and lateral views of the chest were obtained. The cardiomediastinal silhouette is normal. Pulmonary vasculature is normal. Mitral valvular band appears to be present. The lungs are clear. No pleural effusion or pneumothorax. There are no acute bony abnormalities. Her right upper quadrant surgical clips in the inferior vena cava filter are seen. Pulmonary hyperinflation is noted. She apparently was discharged home on a prescription for Keflex and steroids and she presented again this morning as she apparently fell from her bed. She stated that she was awake in bed and rolled over causing her to fall out of bed, sustaining laceration and skin avulsion. Her right forearm caught the bed frame and caused the skin tear. Bleeding was minimal on the scene. She was complaining of left hand pain and bruising. She did not hit her head, nor she lost consciousness or have any neck pain. The patient continues to be weak. Her INR was prolonged and was diagnosed with urinary tract infection and a fall with weakness. A decision was made to admit her and we held her Coumadin, continued on her Keflex and her tapering course of steroids together with all other medication. PAST MEDICAL HISTORY: Significant for she is known to have hypertension, hyperlipidemia, hypothyroidism, osteoarthritis, transient ischemic attack, senile macular degeneration. She is also known to have sick sinus syndrome, status post automatic implantable cardioverter defibrillator. PAST SURGICAL HISTORY: Significant for vaginal hysterectomy, cholecystectomy, appendectomy, exploratory laparotomy, bilateral total knee arthroplasty, bilateral cataract extraction and laser surgery. 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 ALLERGIES: She is allergic to PENICILLIN and SULFA DRUGS. FAMILY HISTORY: One brother of colon cancer and CVA. Her sister of breast cancer. Mother of colon cancer and her dad was alcoholic and she does not know him very well. SOCIAL HISTORY: She is . Her almost more than a year ago. She quit smoking in 1994 after smoking for almost 30 years. She does not drink alcohol or use recreational drugs. She is retired from [employer], currently lives in an independent living facility of [facility]. REVIEW OF SYSTEMS: As per history of present illness. MEDICATIONS: She is currently on following medications: She is on Keflex 500 mg 3 times a day, dicyclomine 20 mg 3 times a day, tizanidine 4 mg at bedtime, warfarin 4 mg daily, atorvastatin 40 mg at bedtime, isosorbide mononitrate 30 mg once a day, nitroglycerin 0.4 mg sublingually every 5 minutes x 3, carvedilol 3.125 mg twice a day with food. She is on aspirin 81 mg once a day, hydrocodone/APAP 5/325 one tablet every 6 hours, gabapentin 200 mg daily with lunch, gabapentin 300 mg twice a day, duloxetine 30 mg daily, torsemide 20 mg daily. She is on Refresh Optive eyedrops 1 drop 4 times a day, Protonix 40 mg twice a day, lactobacillus 1 capsule once a day and prednisone 20 mg 2 tablets daily. She is also on conjugated estrogen 0.5 grams vaginally twice weekly, levothyroxine sodium 100 mcg once a day, folic acid 1 mg once a day, Ocuvite soft gel 1 capsule daily. PHYSICAL EXAMINATION: GENERAL: On arrival to the Emergency Room, the patient looked well and was clearly in no apparent respiratory distress. No pallor, jaundice, cyanosis or thyromegaly. No jugular venous distension. No lower limb edema. VITAL SIGNS: Her heart rate was 80, blood pressure was 145/87, temperature was 97.7, respiratory rate 20 and oxygen saturation was 98%. HEAD, EYES, EARS, NOSE AND THROAT: Normocephalic, atraumatic. NECK: Supple. HEART: Showed normal first and second heart sounds. No gallop or murmur. CHEST: Clear to auscultation. No crepitation or rhonchi. ABDOMEN: Distended, soft, nontender. NEUROLOGIC: She is awake, alert, somewhat hard of hearing, otherwise all cranial nerves intact. EXTREMITIES: She moves extremities without difficulty. She ambulates with a walker. SKIN: Showed she has multiple bruises on both upper extremities. She has laceration of the right forearm that is covered with dressing. LABORATORY DATA: This morning showed a white cell count of 4500, hemoglobin 14, hematocrit 42, MCV 100 and platelet count of 160,000. Serum sodium was 140, potassium 4.4, chloride 101, bicarbonate 29, anion gap of 10, BUN 30, creatinine 1.4, estimated GFR was 36 mL per minute. Her glucose 151, calcium was 9.5, magnesium 2.1. Total bilirubin, AST, ALT, alkaline phosphatase were normal. Total protein was 7.3, albumin 2.5. Her prothrombin time was 37.2 with INR of 3.6 and her aPTT was 46. ASSESSMENT AND PLAN: In summary, this is an 84-year-old female patient who lives in an independent living facility at [facility], who apparently rolled from her bed, sustaining laceration to her forehead. She has multiple bruises. She has urinary tract infection and acute bronchitis. She has marked weakness and debility. PLAN: The plan is to hold her Coumadin. We will monitor her lab work and repeat all her labs tomorrow and particularly repeat the INR to make sure it is within therapeutic range and consult Physical and Occupational Therapy for strengthening. BELÉN ANGLIN MD DR: GABRIEL/gary JOB#: [id number] / [id number]
[2019-09-12] MEDS: CEPHALEXIN 250 MG CAPSULE PO SCH ×2 (13:52→20:38)
[2019-09-12] MEDS: DICYCLOMINE HCL 20 MG TABLET PO SCH ×2 (13:52→20:36)
[2019-09-12 15:37] VITALS: BP 116/63
[2019-09-12 15:42] LABS: % ATYL 1 % (0-0); % BANDS 13 % (0-9); % LYMPHS 8 % (24-48); % MONOS 4 % (0-10); % SEGS 74 % (35-66)
[2019-09-12 15:45] LABS: BURR CELLS FEW; PLT ESTIMATE ADEQUATE (ADEQUATE)
[2019-09-12] MEDS: LUBIPROSTONE 24 MCG CAPSULE PO SCH (17:05)
[2019-09-12] MEDS: BENZOCAINE/MENTHOL LOZNGE 18'S BOX. PO PRN (17:05)
[2019-09-12] MEDS: CARVEDILOL 3.125 MG TABLET PO SCH (17:06)
[2019-09-12 19:54] VITALS: BP 108/67
[2019-09-12] MEDS: ATORVASTATIN CALCIUM 20 MG TABLET PO SCH (20:34)
[2019-09-12] MEDS: LACTOBACILLUS RHAMNOSUS GG 1 CAPSULE. PO SCH (20:34)
[2019-09-12] MEDS: GABAPENTIN 300 MG CAPSULE. PO SCH (20:35)
[2019-09-12] MEDS: HYDROcodone/APAP 5/325MG 1 TAB TABLET PO PRN (20:35)
[2019-09-12] MEDS: tiZANidine 4 MG TABLET. PO SCH (20:36)
[2019-09-12] MEDS: PANTOPRAZOLE 40 MG TABLET. PO SCH (20:36)
[2019-09-12 23:02] VITALS: BP 103/65
[2019-09-13 05:10] VITALS: BP 115/73
[2019-09-13] MEDS: LEVOTHYROXINE 100 MCG TABLET PO SCH (05:49)
[2019-09-13 06:48] LABS: HEMATOCRIT 35.9 % (36.0-47.0); HEMOGLOBIN 11.9 g/dL (12.0-15.5); RED BLOOD COUNT 3.64 x10^6/uL (3.50-5.40); RED CELL DISTRIBUTION WIDTH 17.7 % (11.5-14.5); WHITE BLOOD COUNT 5.1 x10^3/uL (4.0-11.0)
[2019-09-13 06:56] LABS: CALCIUM 8.7 mg/dL (8.5-10.1); CREATININE 1.3 mg/dL (0.6-1.0); GFR 38.9; POTASSIUM 4.4 mmol/L (3.5-5.1)
[2019-09-13] MEDS: LUBIPROSTONE 24 MCG CAPSULE PO SCH ×2 (08:00→17:00)
[2019-09-13] MEDS: DULoxetine HCL 30 MG CAPSULE.DR PO SCH (09:00)
[2019-09-13] MEDS ORDERED: predniSONE 20 MG TABLET PO SCH (09:00)
[2019-09-13] MEDS: LACTOBACILLUS RHAMNOSUS GG 1 CAPSULE. PO SCH ×2 (09:20→20:56)
[2019-09-13] MEDS: GABAPENTIN 300 MG CAPSULE. PO SCH ×2 (09:20→20:57)
[2019-09-13] MEDS: CEPHALEXIN 250 MG CAPSULE PO SCH (09:20)
[2019-09-13] MEDS: PANTOPRAZOLE 40 MG TABLET. PO SCH ×2 (09:20→20:56)
[2019-09-13] MEDS: ASPIRIN ENTERIC COATED 81 MG TABLET.DR. PO SCH (09:20)
[2019-09-13] MEDS: TORSEMIDE 20 MG TABLET. PO SCH (09:21)
[2019-09-13] MEDS: CARVEDILOL 3.125 MG TABLET PO SCH ×2 (09:21→17:00)
[2019-09-13] MEDS: ISOSORBIDE MONONITRATE ER 30 MG TAB.ER.24H PO SCH (09:21)
[2019-09-13] MEDS: MULTIVITAMIN I-VITE TABLET. PO SCH (09:21)
[2019-09-13] MEDS: FOLIC ACID 1 MG TABLET PO SCH (09:22)
[2019-09-13] MEDS: DICYCLOMINE HCL 20 MG TABLET PO SCH ×3 (09:22→20:57)
--- NOTE | 2019-09-13 12:26 | PN ---
DATE: 09/13/2019 SUBJECTIVE: The patient continues to complain of generalized weakness. The ecchymosis is worsening in her left elbow. She also has pain in her left elbow joint. Her urine culture was negative; and therefore, I have discontinued her Keflex. I cut down her steroids. PHYSICAL EXAMINATION: GENERAL: When I saw her this morning, she looked well and was clearly in no apparent respiratory distress. No pallor, jaundice, cyanosis or thyromegaly. No jugular venous distention. No limb edema. VITAL SIGNS: Her heart rate was 82, blood pressure 115/73, temperature was 98, respiratory rate 20, and oxygen saturation was 93% on room air. HEAD, EYES, EARS, NOSE AND THROAT: Normocephalic, atraumatic. NECK: Supple. HEART: Showed normal first and second heart sounds. No gallop or murmur. CHEST: Clear to auscultation. No crepitation or rhonchi. ABDOMEN: Distended, soft, nontender. NEUROLOGIC: She is awake, alert, responding appropriately. All cranial nerves intact. She ambulates with a walker without difficulty. She has multiple bruises on her upper extremities. She has a laceration on the right forearm. Her intake over the last 24 hours was 480, no output was recorded. LABORATORY DATA: Her lab work this morning showed a white cell count to be 5100, hemoglobin 11.9, hematocrit 36, MCV 99 and platelet count of 160,000. Her chemistry showed a serum sodium 139, potassium 4.4, chloride 102, bicarbonate 26, anion gap of 9, BUN 36, creatinine 1.3, estimated GFR was 39 mL per minute. Her glucose 147, calcium was 8.7. Her prothrombin time this morning was 38.1, INR of 3.7. ASSESSMENT: 1. Fall with laceration of the right forehead as well as multiple bruises on both upper extremities. 2. Supratherapeutic INR. 3. Presumed urinary tract infection; however, her culture and sensitivity were negative. PLAN: My plan is to discontinue Keflex and cut down her steroids. Repeat her PT and INR tomorrow. If it is within the therapeutic range, she probably can be discharged back to independent living facility of [facility]. BELÉN ANGLIN MD DR: GABRIEL/gary JOB#: [id number] / [id number]
[2019-09-13] MEDS: GABAPENTIN 100 MG CAPSULE. PO SCH (13:32)
[2019-09-13 13:42] VITALS: BP 107/63
[2019-09-13 15:53] VITALS: BP 107/66
[2019-09-13 19:38] VITALS: BP 124/74
[2019-09-13] MEDS: HYDROcodone/APAP 5/325MG 1 TAB TABLET PO PRN (20:56)
[2019-09-13] MEDS: ATORVASTATIN CALCIUM 20 MG TABLET PO SCH (20:56)
[2019-09-13] MEDS: tiZANidine 4 MG TABLET. PO SCH (20:57)
[2019-09-13] MEDS: BENZOCAINE/MENTHOL LOZNGE 18'S BOX. PO PRN (20:58)
[2019-09-13 22:45] VITALS: BP 110/68
[2019-09-14 05:37] VITALS: BP 145/79
[2019-09-14] MEDS: LEVOTHYROXINE 100 MCG TABLET PO SCH (06:00)
[2019-09-14 06:21] LABS: HEMATOCRIT 36.6 % (36.0-47.0); HEMOGLOBIN 12.1 g/dL (12.0-15.5)
[2019-09-14] MEDS: LUBIPROSTONE 24 MCG CAPSULE PO SCH (08:00)
[2019-09-14] MEDS ORDERED: predniSONE 20 MG TABLET PO SCH (09:00)
[2019-09-14] MEDS: ASPIRIN ENTERIC COATED 81 MG TABLET.DR. PO SCH (09:07)
[2019-09-14] MEDS: ISOSORBIDE MONONITRATE ER 30 MG TAB.ER.24H PO SCH (09:08)
[2019-09-14] MEDS: GABAPENTIN 300 MG CAPSULE. PO SCH (09:08)
[2019-09-14] MEDS: DICYCLOMINE HCL 20 MG TABLET PO SCH ×2 (09:08→14:00)
[2019-09-14] MEDS: PANTOPRAZOLE 40 MG TABLET. PO SCH (09:08)
[2019-09-14 09:09] VITALS: BP 145/79
[2019-09-14] MEDS: CARVEDILOL 3.125 MG TABLET PO SCH (09:09)
[2019-09-14] MEDS: LACTOBACILLUS RHAMNOSUS GG 1 CAPSULE. PO SCH (09:09)
[2019-09-14] MEDS: FOLIC ACID 1 MG TABLET PO SCH (09:09)
[2019-09-14] MEDS: TORSEMIDE 20 MG TABLET. PO SCH (09:09)
[2019-09-14] MEDS: MULTIVITAMIN I-VITE TABLET. PO SCH (09:09)
[2019-09-14] MEDS: GABAPENTIN 100 MG CAPSULE. PO SCH (12:22)
[2019-09-14] MEDS: DULoxetine HCL 30 MG CAPSULE.DR PO SCH (12:22)
--- NOTE | 2019-09-14 13:49 | DS ---
DATE OF DISCHARGE: 09/14/2019 HOSPITAL COURSE: The patient is an 84-year-old female patient who lives in an independent living facility in [facility] who apparently rolled over her bed and fell sustaining laceration to her right forehead that was sutured and was covered with dressing. Her INR was supratherapeutic at 37.8 and 3.6 and therefore, I discontinued her Keflex, which was given for her UTI; however, I looked into her urine culture was negative. She has no wheezing and I discontinued her prednisone. Today's INR was 2.1; therefore, a decision was made to discharge her back home to continue only on 2 mg of Coumadin, to check her PT/INR at [facility] and contact Dr. Mahmood, her management associate to adjust her Coumadin. PHYSICAL EXAMINATION: GENERAL: When I saw her this afternoon, she looked well and was clearly in no apparent respiratory distress. No pallor, jaundice, cyanosis or thyromegaly. No jugular venous distention. No limb edema. VITAL SIGNS: Her heart rate was 80, blood pressure was 145/79, temperature was 97.5, respiratory rate was 18 and oxygen saturation was 93% on room air. HEAD, EYES, EARS, NOSE AND THROAT: Showed normocephalic, atraumatic. NECK: Supple. CARDIAC: Normal first and second heart sounds. No gallop or murmur. CHEST: Clear to auscultation. No crepitation or rhonchi. ABDOMEN: Distended, soft, nontender. NEUROLOGIC: She is awake, alert, responding appropriately. All cranial nerves intact. She moves extremities without difficulty. She ambulates with a walker. SKIN: Shows multiple bruises mostly on her upper extremities. Her intake over the last 24 hours was 418, no output was recorded. LABORATORY DATA: This morning showed a prothrombin time 22.2, INR of 2.1. Her chemistry showed a BUN of 36, creatinine 1.3. Her H and H was 12 and 36. DISCHARGE MEDICATIONS: The patient was discharged home to continue on aspirin 81 mg once a day, atorvastatin calcium 40 mg at bedtime. She is on Refresh Optive eyedrops 1 drop to both eyes 4 times a day, carvedilol 3.125 mg twice a day, dicyclomine 20 mg t.i.d., duloxetine for Cymbalta 30 mg once a day, conjugated estrogen 0.5 grams vaginally twice weekly as estrogen replacement, folic acid 1 mg daily, gabapentin 200 mg daily, gabapentin 300 mg twice a day, hydrocodone/APAP 5/325 one tablet every 6 hours, isosorbide mononitrate 30 mg once a day, Lactobacillus, probiotic 1 capsule once a day, levothyroxine sodium 100 mcg once a day, linaclotide for Linzess 145 mcg daily, nitroglycerin 0.4 mg sublingually as needed for chest pain, Protonix 40 mg twice a day, tizanidine 4 mg at bedtime, torsemide 20 mg daily, and Ocuvite 1 capsule daily. FINAL DISCHARGE DIAGNOSES: 1. Fall with right forearm laceration requiring suturing. 2. Multiple bruises due to supratherapeutic INR. 3. Other medical problems include hypertension, hyperlipidemia, hypothyroidism, osteoarthritis, transient ischemic attack, senile macular degeneration, sick sinus syndrome, status post automatic implantable cardioverter defibrillator. BELÉN ANGLIN MD DR: GABRIEL/gary JOB#: [id number] / [id number]
[2019-09-14] MEDS ORDERED: ESTRADIOL 0.01% VAGINAL CREAM 42.5GM TUBE. VG SCH (16:00)
[2019-09-15] MEDS ORDERED: DULoxetine HCL 30 MG CAPSULE.DR PO SCH (09:00)
== END 2019-09-14 14:32 | disposition home or self-care (01) | DRG 202 ==
LOC: ER 06:58 → 1 SOUTH 09:05
PROVIDERS: ADMIT Internal Medicine; ATTEND Internal Medicine
PROC: 0HQ0XZZ Repair Scalp Skin, External Approach (ICD-10-PCS; principal; 2019-09-12)
DX: J20.9 Acute bronchitis, unspecified (principal); D68.51 Activated protein C resistance; N30.00 Acute cystitis without hematuria; I13.0 Hypertensive heart and chronic kidney disease with heart failure and stage 1 through stage 4 chronic kidney disease, or unspecified chronic kidney disease; S01.81XA Laceration without foreign body of other part of head, initial encounter; E03.9 Hypothyroidism, unspecified; E78.5 Hyperlipidemia, unspecified; H35.30 Unspecified macular degeneration; I48.91 Unspecified atrial fibrillation; I49.5 Sick sinus syndrome; I50.9 Heart failure, unspecified; M19.90 Unspecified osteoarthritis, unspecified site; N18.9 Chronic kidney disease, unspecified; S51.811A Laceration without foreign body of right forearm, initial encounter; W06.XXXA Fall from bed, initial encounter; Y92.003 Bedroom of unspecified non-institutional (private) residence as the place of occurrence of the external cause; Z79.01 Long term (current) use of anticoagulants; Z80.0 Family history of malignant neoplasm of digestive organs; Z80.3 Family history of malignant neoplasm of breast; Z82.3 Family history of stroke; Z85.828 Personal history of other malignant neoplasm of skin; Z86.73 Personal history of transient ischemic attack (TIA), and cerebral infarction without residual deficits; Z87.891 Personal history of nicotine dependence; Z90.49 Acquired absence of other specified parts of digestive tract; Z90.710 Acquired absence of both cervix and uterus; Z91.81 History of falling; Z95.5 Presence of coronary angioplasty implant and graft; Z95.810 Presence of automatic (implantable) cardiac defibrillator; Z96.653 Presence of artificial knee joint, bilateral; Z98.41 Cataract extraction status, right eye; Z98.42 Cataract extraction status, left eye; F32.9 Major depressive disorder, single episode, unspecified; K21.9 Gastro-esophageal reflux disease without esophagitis; Z86.718 Personal history of other venous thrombosis and embolism; Z88.0 Allergy status to penicillin; Z88.2 Allergy status to sulfonamides; Z88.8 Allergy status to other drugs, medicaments and biological substances
CPT/HCPCS: 12002; 36415; 73130; 80048; 80053; 82947; 83735; 85007; 85014; 85018; 85025; 85027; 85610; 85730; J7512; 97116; 99285-25

== ENCOUNTER 2019-09-19 11:29 | Inpatient (IN) | payer MEDICARE, BC, OTHER ==
[~2019-09-19] VITALS: Ht 167.6 cm; Wt 86.5 kg
[2019-09-19] MEDS ORDERED: HYDROcodone/APAP 5/325MG 1 TAB TABLET PO ONE ×2 (12:00→14:45)
[2019-09-19] MEDS ORDERED: HYDROcodone/APAP 5/325MG 1 TAB TABLET ONE (12:08)
--- NOTE | 2019-09-19 12:08 | PHYS DOC ---
Past History Past Medical History: A-Fib, CHF, Constipation, Depression, DVT, GERD, Hypertension, Hypothyroid, Pneumonia, TIA, UTI, Other Additional Past Medical Histor: factor V Leiden Past Surgical History: Appendectomy, Cholecystectomy, Hysterectomy, Knee Replacement, Pacemaker, Other Additional Past Surgical Histo: cardiac stent, filter Smoking: Quit Greater Than 1 Year Alcohol Use: Rarely Drug Use: None Adult General Chief Complaint Chief Complaint: GROIN PAIN [facility] HPI Patient is a 84 year old female resident of correction with history of hypertension, dyslipidemia, depression, CHF, atrial fibrillation, DVT, factor V Leiden who presents by EMS with complaining of right groin pain. Patient complaining of right upper type and groin pain since yesterday as a constant nontraumatic pain that getting worse with movement and activity and states she had the same pain with previous DVT in her leg. Patient rated her pain 10 over 10 and states she was not able to walk because of the pain or go to the bathroom. [facility] reported that patient was able to walk and urinate without problem. Review of Systems Review of Systems Constitutional: Denies fever or chills [] Eyes: Denies change in visual acuity, redness, or eye pain [] HENT: Denies nasal congestion or sore throat [] Respiratory: Denies cough or shortness of breath [] Cardiovascular: No additional information not addressed in HPI [] GI: Denies abdominal pain, nausea, vomiting, bloody stools or diarrhea [] : Denies dysuria or hematuria [] Musculoskeletal: Denies back pain, reports joint pain [] Integument: Denies rash or skin lesions [] Neurologic: Denies headache, focal weakness or sensory changes [] Endocrine: Denies polyuria or polydipsia [] All other systems were reviewed and found to be within normal limits, except as documented in this note. Allergies Allergies Allergies Coded Allergies Type Severity Reaction Last Updated Verified Penicillins Allergy Intermediate RASH 08/26/18 Yes Sulfa (Sulfonamide Antibiotics) Allergy Intermediate 08/26/18 Yes sulfamethoxazole Allergy Intermediate 08/26/18 Yes trimethoprim Allergy Intermediate 08/26/18 Yes Physical Exam Physical Exam Constitutional: Well nourished, mild distress, non-toxic appearance. [] HENT: Normocephalic, atraumatic. Eyes: PERRLA, EOMI, conjunctiva normal, no discharge. [] Neck: Normal range of motion, no tenderness, supple, no stridor. [] Cardiovascular:Heart rate regular rhythm, no murmur [] Lungs & Thorax: Bilateral breath sounds clear to auscultation [] Abdomen: Bowel sounds normal, soft, no tenderness, no masses, no pulsatile masses. [] Skin: Warm, dry, no erythema, no rash. [] Back: No tenderness, no CVA tenderness. [] Extremities: Right lower extremity without deformity or edema or sign of infection, painful range of motion of hip, no tenderness, no cyanosis, no clubbing, no edema. [] Neurologic: Alert and oriented X 3, no focal deficits noted. [] Psychologic: Affect anxious, judgement normal, mood normal. [] EKG EKG [] Radiology/Procedures Radiology/Procedures [address] [address] IMAGING REPORT Signed PATIENT: LEYDA RICHARDSON ACCOUNT: [id number] : 1935 LOCATION: ER AGE: 84 SEX: F EXAM STATUS: REG ER ORD. PHYSICIAN: RAMILA DEAN MD REASON: RT GROIN/LEG PAIN, HX OF DVT, PT ON BLOOD THINNERS PROCEDURE: VENOUS LOWER EXTREMITY RIGHT EXAM: Right lower extremity venous Doppler sonogram. HISTORY: Pain and swelling. TECHNIQUE: Cabrera scale and color Doppler sonographic evaluation of the right lower extremity veins with spectral waveform analysis was performed. FINDINGS: There is chronic appearing nonocclusive thrombus within the right common femoral, superficial femoral and popliteal veins. There is normal color flow, normal compressibility and there are normal spectral waveforms in the common remainder of the lower extremity veins. IMPRESSION: Chronic appearing nonocclusive thrombus within the right common femoral, superficial femoral and popliteal veins. Electronically signed by: Venita Ortiz MD (09/19/2019 2:15 PM) [facility] [place] DICTATED AND SIGNED BY: VENITA ORTIZ MD DATE: 09/19/19 1413 CC: RAMILA DEAN MD; MOLLY HAMILTON MD ~ [address] [address] IMAGING REPORT Signed PATIENT: LEYDA RICHARDSON ACCOUNT: [id number] : 1935 LOCATION: ER AGE: 84 SEX: F EXAM STATUS: REG ER ORD. PHYSICIAN: RAMILA DEAN MD REASON: pain PROCEDURE: HIP RIGHT 2V WITH PELVIS EXAM: Pelvis and right hip, 2 views HISTORY: Pain. COMPARISON: None. FINDINGS: A frontal view the pelvis and frontal and frog-leg views of the right hip are obtained. No displaced fracture is seen. There is bilateral hip osteoarthritis with associated degenerative subchondral sclerosis and subchondral cyst formation. There is lumbar scoliosis and multilevel degenerative change involving the lumbar spine. There is an IVC filter in expected position. IMPRESSION: No acute osseous finding. Bilateral hip osteoarthritis and degenerative change involving the spine. Electronically signed by: Venita Ortiz MD (09/19/2019 1:39 PM) [facility] [place] DICTATED AND SIGNED BY: VENITA ORTIZ MD DATE: 09/19/193 CC: RAMILA DEAN MD; MOLLY HAMILTON MD ~ Course & Med Decision Making Course & Med Decision Making Pertinent Labs and Imaging studies reviewed. (See chart for details) Evaluation of patient in ER showed 84-year-old male patient resident of independent living home brought in by EMS because of complaining of groin pain. Patient had unremarkable DVT evaluation and x-ray of right hip. Labs showed chronic anemia. Patient's son is concent the patient is not a candidate for assisting living home[facility], and requesting admission for transfer to [facility]. INR is PENDING. Patient requiring admission for further evaluation and treatment. Discussed with Dr. Rowe who is in agreement with admission. Discussed findings and plan with patient and family, who acknowledge understanding and agreement. Dragon Disclaimer Dragon Disclaimer This electronic medical record was generated, in whole or in part, using a voice recognition dictation system. Departure Departure: Impression: Primary Impression: Generalized weakness Additional Impressions: Right groin pain longterm (current) use of anticoagulants Chronic anemia Renal insufficiency Disposition: ADMITTED INPATIENT (at 1429) Admitting Physician: Gissel Rowe (accepted admission at 1428) Condition: IMPROVED Referrals: MOLLY HAMILTON MD (PCP) Problem Qualifiers RAMILA DEAN MD Sep 19, 2019 12:07
--- NOTE | 2019-09-19 13:42 | RAD ---
EXAM: Pelvis and right hip, 2 views HISTORY: Pain. COMPARISON: None. FINDINGS: A frontal view the pelvis and frontal and frog-leg views of the right hip are obtained. No displaced fracture is seen. There is bilateral hip osteoarthritis with associated degenerative subchondral sclerosis and subchondral cyst formation. There is lumbar scoliosis and multilevel degenerative change involving the lumbar spine. There is an IVC filter in expected position. IMPRESSION: No acute osseous finding. Bilateral hip osteoarthritis and degenerative change involving the spine. Electronically signed by: Venita Hanna MD (09/19/2019 1:39 PM) [facility] [place]
[2019-09-19 14:03] LABS: BASO % 1 % (0-3); EOS # 0.1 x10^3/uL (0.0-0.7); EOS % 2 % (0-3); HEMOGLOBIN 10.7 g/dL (12.0-15.5); LYMPH # 0.8 x10^3/uL (1.0-4.8); LYMPH % 16 % (24-48); MEAN CORPUSCULAR HEMOGLOBIN 32 pg (25-35); MEAN CORPUSCULAR HGB CONC 32 g/dL (31-37); MEAN CORPUSCULAR VOLUME 100 fL (79-100); MONO # 0.3 x10^3/uL (0.0-1.1); MONO % 6 % (0-9); NEUT % 76 % (31-73); PLATELET COUNT 172 x10^3/uL (140-400); RED BLOOD COUNT 3.31 x10^6/uL (3.50-5.40); RED CELL DISTRIBUTION WIDTH 17.9 % (11.5-14.5); WHITE BLOOD COUNT 5.3 x10^3/uL (4.0-11.0)
[2019-09-19 14:17] LABS: CALCIUM 8.5 mg/dL (8.5-10.1); CREATININE 1.1 mg/dL (0.6-1.0); GFR 47.2; POTASSIUM 4.3 mmol/L (3.5-5.1)
--- NOTE | 2019-09-19 14:18 | RAD ---
EXAM: Right lower extremity venous Doppler sonogram. HISTORY: Pain and swelling. TECHNIQUE: Cabrera scale and color Doppler sonographic evaluation of the right lower extremity veins with spectral waveform analysis was performed. FINDINGS: There is chronic appearing nonocclusive thrombus within the right common femoral, superficial femoral and popliteal veins. There is normal color flow, normal compressibility and there are normal spectral waveforms in the common remainder of the lower extremity veins. IMPRESSION: Chronic appearing nonocclusive thrombus within the right common femoral, superficial femoral and popliteal veins. Electronically signed by: Venita Hanna MD (09/19/2019 2:15 PM) [facility] [place]
[2019-09-19 14:22] LABS: ALBUMIN 2.8 g/dL (3.4-5.0); ALBUMIN/GLOBULIN RATIO 1.1 (1.0-1.7); TOTAL BILIRUBIN 0.9 mg/dL (0.2-1.0); TOTAL PROTEIN 5.4 g/dL (6.4-8.2)
[2019-09-19 16:33] VITALS: BP 138/81
[2019-09-19 16:44] LABS: BILIRUBIN,URINE NEG (NEG); CLARITY,URINE HAZY; COLOR,URINE YELLOW; GLUCOSE,URINE NEG (NEG); NITRITE,URINE NEG (NEG); UROBILINOGEN,URINE 0.2 mg/dL (0.2 mg/dL)
[2019-09-19 16:45] LABS: BACTERIA,URINE FEW /HPF (0-FEW); SQUAMOUS EPITHELIAL CELL,UR MOD /LPF
[2019-09-19 19:10] VITALS: BP 116/76
[2019-09-19] MEDS ORDERED: NITROGLYCERIN SUBLINGUAL 0.4 MG BOTTLE OF 25. SL PRN (19:45)
[2019-09-19] MEDS: GABAPENTIN 300 MG CAPSULE. PO SCH (20:58)
[2019-09-19] MEDS: DICYCLOMINE HCL 20 MG TABLET PO SCH (20:58)
[2019-09-19] MEDS: ATORVASTATIN CALCIUM 20 MG TABLET PO SCH (20:58)
[2019-09-19] MEDS: tiZANidine 4 MG TABLET. PO SCH (20:58)
[2019-09-19] MEDS: PANTOPRAZOLE 40 MG TABLET. PO SCH (21:00)
[2019-09-19] MEDS: CARVEDILOL 3.125 MG TABLET PO SCH (21:04)
[2019-09-19 22:30] VITALS: BP 112/74
[2019-09-19] MEDS ORDERED: WARFARIN 6 MG TABLET. ONE (23:16)
[2019-09-19] MEDS: WARFARIN 6 MG TABLET. PO SCH (23:19)
[2019-09-19] MEDS: HYDROcodone/APAP 5/325MG 1 TAB TABLET PO PRN (23:44)
--- NOTE | 2019-09-20 04:19 | NUR ---
The patient, LEYDA RICHARDSON, 84 y/o, F admitted by BELÉN ANGLIN MD, was given written information regarding hospital policies, unit procedures and contact persons. Health history and home medications were reviewed with patient. Valuables were checked and left in room.
[2019-09-20 05:59] VITALS: BP 102/67
[2019-09-20] MEDS: LEVOTHYROXINE 100 MCG TABLET PO SCH (06:06)
[2019-09-20] MEDS: LACTOBACILLUS RHAMNOSUS GG 1 CAPSULE. PO SCH (09:00)
[2019-09-20] MEDS ORDERED: ASPIRIN ENTERIC COATED 81 MG TABLET.DR. PO SCH (09:00)
[2019-09-20] MEDS: GABAPENTIN 300 MG CAPSULE. PO SCH ×3 (09:00→16:05)
[2019-09-20] MEDS: FOLIC ACID 1 MG TABLET PO SCH (09:00)
[2019-09-20] MEDS: MULTIVITAMIN I-VITE TABLET. PO SCH (09:00)
[2019-09-20] MEDS ORDERED: ONDANSETRON PF 4 MG/2 ML VIAL. IVP PRN (09:30)
[2019-09-20] MEDS: LUBIPROSTONE 24 MCG CAPSULE PO SCH ×2 (09:48→18:15)
[2019-09-20] MEDS: DICYCLOMINE HCL 20 MG TABLET PO SCH ×3 (09:48→21:04)
--- NOTE | 2019-09-20 10:31 | NUR ---
Spoke with son numerous times about pt before she even woke up. Pt woke up in tears clutching RLQ of abd. PT unable to describe the pain and rated the pain as 11/10. PT keeps reporting she is unable to describe the pain. PT has not has bm in 3 days and bowel sounds hypoactive. PT given bentyl, amitiza, and fentanyl for pain. PT refusing to get up or roll due to pain in R groin. Does feel tight to palpation compared to let side. PT put on bed pain and unable to void. Miles placed due to retention and 400 cc clear yellow urine out. Will continue to monitor and keep the son updated. Ab CORBETT
[2019-09-20 11:36] VITALS: BP 137/79
[2019-09-20] MEDS: GABAPENTIN 100 MG CAPSULE. PO SCH (12:00)
--- NOTE | 2019-09-20 13:00 | RAD ---
CT PELVIS WO CONTRAST History: Right groin pain. Swelling. Fall on blood thinners. Comparison: None. Technique: Noncontrast CT imaging was performed of the pelvis. Coronal and sagittal reconstructions were performed. Exposure: One or more of the following individualized dose reduction techniques were utilized for this examination: 1. Automated exposure control 2. Adjustment of the mA and/or kV according to patient size 3. Use of iterative reconstruction technique. Findings: Extensive colonic diverticulosis. Decompressed urinary bladder with Miles catheter in place. Large right inguinal and medial proximal thigh hematoma partially imaged measures up to 11 cm transverse by 7.1 cm anterior posterior. There is adjacent soft tissue swelling. No dislocation. No fracture. Lower lumbar spondylosis. Impression: 1. Large right medial proximal thigh/inguinal hematoma with adjacent soft tissue swelling, partially imaged. 2. No acute osseous abnormality. Electronically signed by: James Munson DO (09/20/2019 12:57 PM) [id number]
--- NOTE | 2019-09-20 15:24 | HP ---
ADMIT DATE: 09/19/2019 HISTORY OF PRESENT ILLNESS: The patient is an 84-year-old female patient, who was brought yesterday to the Emergency Room with a complaint of pain in her thigh and inability to walk. According to her son after she was discharged from this facility on 09/14/2019, she went last Saturday to have her INR checked, it was only 1.4, so she contacted her director of player personnel's office who advised her to start Lovenox and she received Lovenox on Saturday, Saturday and and on Saturday, she was able to do her laundry, but started complaining of pain in her right leg and her pain has worsened on Saturday morning, and Saturday afternoon, the pain became unbearable and therefore she was brought to the Emergency Room and was evaluated, has had imaging studies there, which showed that she has had an x-ray of her hip and pelvis, which showed no acute osseous finding, has bilateral hip osteoarthritis and degenerative changes involving the spine and Doppler ultrasound of the right lower extremity showed that she has chronic appearing nonocclusive thrombus within the right common femoral, superficial femoral and popliteal veins. However, clinically the patient continued to have severe pain and was admitted for pain management and further evaluation. PAST MEDICAL HISTORY: Significant for the fact that she is known to have hypertension, hyperlipidemia, hypothyroidism, osteoarthritis, transient ischemic attack, senile macular degeneration. She is also known to have sick sinus syndrome, status post automatic implantable cardioverter defibrillator. She apparently is known to have factor V Leiden and has a history of DVTs before. PAST SURGICAL HISTORY: Significant for vaginal hysterectomy, cholecystectomy, appendectomy, exploratory laparotomy, bilateral total knee arthroplasty, bilateral cataract extraction and laser photocoagulation. 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 A colonoscopy done with no evidence of any polyps. ALLERGIES: SHE IS ALLERGIC TO PENICILLIN AND SULFA DRUGS. FAMILY HISTORY: One brother of colon cancer and CVA. Her sister of breast cancer. Mother of colon cancer and her dad was alcoholic. She does not know him very well. SOCIAL HISTORY: She is . Her at the end of 2017. She quit smoking in 1994 after smoking for almost 30 years. She does not drink alcohol or use recreational drugs. She retired from [employer]. Currently lives at an independent living facility at [place]. REVIEW OF SYSTEMS: As per history of present illness. PHYSICAL EXAMINATION: GENERAL: On arrival to the Emergency Room, she was awake, alert, responding appropriately. VITAL SIGNS: Her heart rate was 82, blood pressure 143/75, temperature was 97.5, respiratory rate 20, and oxygen saturation was 97%. HEAD, EYES, EARS, NOSE AND THROAT: Normocephalic, atraumatic. NECK: Supple. HEART: Showed normal first and second heart sounds. No gallop or murmur. CHEST: Clear to auscultation. No crepitation or rhonchi. ABDOMEN: Distended, soft, nontender. No guarding or rigidity. No organomegaly. All hernial orifice intact. Bowel sounds normal. NEUROLOGIC: She is awake, alert, somewhat hard of hearing, but otherwise all cranial nerves intact. EXTREMITIES: She moves all extremities without difficulty. She has severe pain, difficulty moving her right lower extremity. LABORATORY DATA: On admission showed a white cell count 5300, hemoglobin 10, hematocrit 33, MCV 100, and platelet count of 172,000. Her chemistry showed a serum sodium 140, potassium 4.3, chloride 104, bicarbonate 31, anion gap of 5, BUN 23, creatinine 1.1, estimated GFR was 47 mL per minute. Glucose was 122, calcium was 8.5. Total bilirubin was 0.9. AST, ALT, alkaline phosphatase were normal. Total protein was 5.4, albumin was 2.8. Her prothrombin time was 19.2, INR 1.9. Her urinalysis was essentially unremarkable. The urine was yellow, hazy with a pH of 6.5, specific gravity 1.015, the urine was negative for protein, glucose, ketones, blood, nitrite. There was small amount of leukocyte esterase, 1-2 rbc's, 11-20 wbc's, and very few bacteria. As I stated, her x-ray of the hip and pelvis showed no acute osseous finding, bilateral hip osteoarthritis and degenerative changes involving the spine. Her lower extremity Doppler ultrasound showed that she has chronic appearing nonocclusive thrombus within the right common femoral, superficial femoral and popliteal veins. ASSESSMENT AND PLAN: The patient was admitted and was continued on her gabapentin. She was started on fentanyl citrate 25 mcg IV every 2 hours and continue all her other medications. She is on hydrocodone. BELÉN ANGLIN MD DR: GABRIEL/gary JOB#: [id number] / [id number]
[2019-09-20 15:31] LABS: HEMATOCRIT 29.5 % (36.0-47.0); HEMOGLOBIN 9.7 g/dL (12.0-15.5); RED BLOOD COUNT 2.96 x10^6/uL (3.50-5.40); RED CELL DISTRIBUTION WIDTH 17.8 % (11.5-14.5); WHITE BLOOD COUNT 8.7 x10^3/uL (4.0-11.0)
[2019-09-20 15:37] LABS: CALCIUM 8.7 mg/dL (8.5-10.1); CREATININE 1.1 mg/dL (0.6-1.0); GFR 47.2; POTASSIUM 4.8 mmol/L (3.5-5.1)
[2019-09-20 15:43] LABS: ALBUMIN 2.8 g/dL (3.4-5.0); TOTAL BILIRUBIN 0.8 mg/dL (0.2-1.0); TOTAL PROTEIN 5.5 g/dL (6.4-8.2)
[2019-09-20] MEDS: WARFARIN 6 MG TABLET. PO SCH (15:46)
[2019-09-20 15:52] VITALS: BP 133/77
[2019-09-20] MEDS: DULoxetine HCL 30 MG CAPSULE.DR PO SCH (16:04)
[2019-09-20] MEDS: CARVEDILOL 3.125 MG TABLET PO SCH ×2 (16:04→16:51)
[2019-09-20] MEDS: PANTOPRAZOLE 40 MG TABLET. PO SCH ×2 (16:04→16:08)
[2019-09-20] MEDS: ISOSORBIDE MONONITRATE ER 30 MG TAB.ER.24H PO SCH (16:04)
[2019-09-20] MEDS: TORSEMIDE 20 MG TABLET. PO SCH (16:05)
--- NOTE | 2019-09-20 16:58 | NUR ---
Dr Rowe did speak with patient she does have a hematoma and DR Willams at [facility] did no recommend to drain hematoma r/t pt on blood thinners. Dr Rowe is to talk to DR Mahmood about pt stopping blood thinners. This makes pt very upset because she says she has had so many clots. PT crying numerous times today. DR Rowe also talked with son about the options today. 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 Ab CORBETT
[2019-09-20 20:05] VITALS: BP 109/69
[2019-09-20] MEDS: POLYVINYL ALCOHOL 1.4% OPHTH SOLUTION 15ML BOTTLE. OU SCH (21:00)
[2019-09-20] MEDS: ATORVASTATIN CALCIUM 20 MG TABLET PO SCH (21:03)
[2019-09-20] MEDS: HYDROcodone/APAP 5/325MG 1 TAB TABLET PO PRN (21:04)
[2019-09-20] MEDS: tiZANidine 4 MG TABLET. PO SCH (21:04)
[2019-09-21] VITALS (10 sets, daily range): BP systolic 90–134; BP diastolic 52–82
--- NOTE | 2019-09-21 02:56 | PN ---
DATE: 09/20/2019 SUBJECTIVE: The patient is resting slightly propped up in bed, no apparent distress. She was complaining of severe pain in her right thigh. She was seen in the Emergency Room; however, x-rays and Doppler ultrasound were uninformative, and therefore, I did actually order a CT scan of the pelvis without contrast and it did show that she has large right medial proximal thigh inguinal hematoma with adjacent soft tissue swelling partially imaged. No acute osseous abnormality. I did contact Dr. Willams, the orthopedic surgeon at [facility] and he did not recommend evacuating the hematoma if she would continue to be requiring the anticoagulation, is worried that it will bleed again and also opening it will expose it to infection. I explained to the son that I will contact Dr. Mahmood tomorrow and if he recommends that we should discontinue the anticoagulation altogether, we will be able to transfer her to [facility] with the idea of evacuating the hematoma. The patient herself is reluctant to go to [facility] on account of the fact that the first of coronavirus was there and she also has senile macular degeneration and she gets her injection of her eyes by her hackler doll wigs at [facility]. When I saw her this afternoon, she looked well and was clearly in no apparent respiratory distress, pale, no jaundice, cyanosis or thyromegaly. No jugular venous distention. No lower limb edema. Her heart rate was 82, blood pressure was 137/79, temperature was 98.5, respiratory rate was 18, and oxygen saturation was 98%. PHYSICAL EXAMINATION: HEAD, EYES, EARS, NOSE AND THROAT: Showed normocephalic, atraumatic. NECK: Supple. HEART: Showed normal first and second heart sounds. No gallop or murmur. CHEST: Clear to auscultation. No crepitation or rhonchi. ABDOMEN: Distended, soft, nontender. No guarding or rigidity. No organomegaly. All hernial orifice intact. Bowel sounds normal. NEUROLOGIC: She was awake, alert, responding appropriately. All cranial nerves intact. She moves upper extremities without difficulty. She moves the left lower extremity without difficulty. She has markedly swollen, tender area on the upper medial aspect of the right thigh; however, both dorsalis pedis and tibialis posterior are easily audible by handheld Doppler ultrasound. LABORATORY DATA: I did repeat her labs this morning, it showed that her white cell count was 8700, hemoglobin 9.7, hematocrit 29.5, MCV 100, and platelet count of 179,000. Her chemistry showed a serum sodium 141, potassium 4.8, chloride 105, bicarbonate 30, anion gap of 6, BUN 17, creatinine 1.1, estimated GFR was 47 mL per minute. Her glucose 136, calcium was 8.7. Her prothrombin time and INR is still pending at the time of this dictation. PLAN: My plan is to hold her Coumadin today and as well as aspirin. I will contact Dr. Mahmood's office tomorrow and we will decide on further management accordingly. If he says that the patient needs to continue on chronic anticoagulation, obviously that will limit option. She already has an IVC filter that will protect her lungs. Although she does have Factor V Leiden, she will be susceptible to clotting other systems. BELÉN ANGLIN MD DR: GABRIEL/gary JOB#: [id number] / [id number]
[2019-09-21] MEDS: LEVOTHYROXINE 100 MCG TABLET PO SCH (05:47)
[2019-09-21 06:28] LABS: HEMATOCRIT 23.8 % (36.0-47.0); HEMOGLOBIN 7.9 g/dL (12.0-15.5); RED BLOOD COUNT 2.39 x10^6/uL (3.50-5.40); RED CELL DISTRIBUTION WIDTH 17.9 % (11.5-14.5); WHITE BLOOD COUNT 8.2 x10^3/uL (4.0-11.0)
[2019-09-21 06:46] LABS: ALBUMIN 2.5 g/dL (3.4-5.0); CALCIUM 8.3 mg/dL (8.5-10.1); CREATININE 1.6 mg/dL (0.6-1.0); GFR 30.6; POTASSIUM 4.5 mmol/L (3.5-5.1); TOTAL BILIRUBIN 0.8 mg/dL (0.2-1.0); TOTAL PROTEIN 5.1 g/dL (6.4-8.2)
[2019-09-21] MEDS: ESTROGENS, CONJ VAGINAL CREAM 30GM TUBE. VG SCH (09:00)
[2019-09-21] MEDS: DULoxetine HCL 30 MG CAPSULE.DR PO SCH (09:03)
[2019-09-21] MEDS: FOLIC ACID 1 MG TABLET PO SCH (09:03)
[2019-09-21] MEDS: POLYVINYL ALCOHOL 1.4% OPHTH SOLUTION 15ML BOTTLE. OU SCH ×4 (09:03→21:00)
[2019-09-21] MEDS: LACTOBACILLUS RHAMNOSUS GG 1 CAPSULE. PO SCH (09:03)
[2019-09-21] MEDS: CARVEDILOL 3.125 MG TABLET PO SCH ×2 (09:03→17:44)
[2019-09-21] MEDS: MULTIVITAMIN I-VITE TABLET. PO SCH (09:03)
[2019-09-21] MEDS: PANTOPRAZOLE 40 MG TABLET. PO SCH ×2 (09:03→17:44)
[2019-09-21] MEDS: DICYCLOMINE HCL 20 MG TABLET PO SCH ×3 (09:03→22:15)
[2019-09-21] MEDS: LUBIPROSTONE 24 MCG CAPSULE PO SCH ×2 (09:04→17:44)
[2019-09-21] MEDS: ISOSORBIDE MONONITRATE ER 30 MG TAB.ER.24H PO SCH (09:04)
[2019-09-21] MEDS: TORSEMIDE 20 MG TABLET. PO SCH (09:04)
[2019-09-21] MEDS: GABAPENTIN 300 MG CAPSULE. PO SCH ×2 (09:05→22:15)
--- NOTE | 2019-09-21 09:09 | PN ---
DATE: 09/21/2019 ATTENDING PHYSICIAN: Dr. Rowe. CHIEF COMPLAINT: Leg pain, right thigh. SUBJECTIVE: The patient is very teary eyed. She is scared. She even stated "I'm scared of dying." Her pain is marginal. She has no appetite. She has been bedridden. She has been very despondent ever since she lost her a year and a half ago and the fact she has lost her freedom by being placed in an assisted living situation. I had a long discussion with her primary senior radiation protection technician and son who is very reasonable. OBJECTIVE FINDINGS: VITAL SIGNS: Her blood pressure today is 118/74, pulse is 55 and regular. She is afebrile. Her INR today is still elevated at 2.8, yesterday was 2.3. HEENT: Head is without trauma. Pupils are reactive. Sclerae nonicteric. The oropharynx is clear. NECK: Supple. LUNGS: Actually clear. Shallow respirations without any rhonchi. CARDIOVASCULAR: Showed distant heart tones. No obvious gallops. Peripheral pulses are palpable and full. ABDOMEN: Obese, protuberant. No organomegaly. Bowel sounds are hypoactive. EXTREMITIES: Showed no cyanosis. There is marked swelling of the right thigh. She is morbidly obese. There is no new discoloration. Her skin shows varying discolorations from a previous minor trauma. ASSESSMENT: 1. An 84-year-old female with large hematoma of the right proximal thigh. 2. History of factor V Leiden deficiency. 3. She already has an inferior vena cava filter to protect the lungs. 4. Obesity. 5. Major depression with anxiety. PLAN: 1. I recommend infusion of 2 units of fresh frozen plasma to reverse the abnormal INR. 2. Coumadin, obviously that been held for now. 3. Serial INRs. 4. There are no plans at this time for evacuation of hematoma given the risk-benefit ratio. I discussed with the son. 5. Diet as tolerated. SEBAS HALL MD DR: REHANA/gary JOB#: [id number] / [id number] BELÉN Koenig MD
[2019-09-21 12:53] LABS: FECAL OB PT NEGATIVE (NEG)
[2019-09-21] MEDS: GABAPENTIN 100 MG CAPSULE. PO SCH (14:39)
--- NOTE | 2019-09-21 17:08 | NUR ---
NSG NOTE; FIRST UNIT FFP COMPLETE CONSENT OBTAINED BLOOD TUBING PRIMED WITH NS THEN FFP TRANSFUSION STARTED AT 1430 AT 75 ML/HR. I STAYED AT BEDSIDE X 15 MIN; NO S/S OF TRANFUSION REACTION TRANSFUSION RATE INCREASED TO 1125 ML/HR AT THAT TIME TRANSFUSION COMPLETE AT 1650. LINE FLUSHED THEN SECOND UNIT STARTED Addendum: 09/21/19 at 1713 by EARLENE SHETH RN CORRECTION: INFUSION RATE INCREASED TO 125 ML/HR AFTER 15 MINUTES
--- NOTE | 2019-09-21 19:01 | NUR ---
NSG NOTE; SECOND UNIT FFP COMPLETE BLOOD TUBING PRIMED WITH NS THEN FFP FFP TRANSFUSION STARTED AT 1701 AT 75 ML/HR I STAYED WITH PT X 15 MIN WITH NO S/S TRANSFUSION REACTION TRANSFUSION RATE INCREASED TO 150 ML/HR AT THAT TIME TRANSFUSION COMPLETE AT 1850. TUBING FLUSHED AND DISCARDED
[2019-09-21] MEDS: tiZANidine 4 MG TABLET. PO SCH (22:15)
[2019-09-21] MEDS: ATORVASTATIN CALCIUM 20 MG TABLET PO SCH (22:15)
[2019-09-22] VITALS (10 sets, daily range): BP systolic 91–124; BP diastolic 46–81
[2019-09-22] MEDS: LEVOTHYROXINE 100 MCG TABLET PO SCH (06:11)
[2019-09-22] MEDS: TORSEMIDE 20 MG TABLET. PO SCH (09:00)
--- NOTE | 2019-09-22 09:00 | NUR ---
Nurse spoke with Dr Kowalski in regards to receiving morning labs, orders for INR, CBC and BMP placed. Critical hbg/hct reported and notifed to Dr Kowalski. Patient laying in bed at this time appears very pale, and weak. Denies pain or discomfort except for continued pain located to right groin. Patient encouraged to ambulate to bedside commode and sit up in chair this morning, patient required 2 person assistance with gait belt. PT/OT ordered but explained that patient will be receiving blood transfusions and is very weak at this time.
[2019-09-22 09:30] LABS: CREATININE 1.7 mg/dL (0.6-1.0); GFR 28.6; POTASSIUM 4.2 mmol/L (3.5-5.1)
[2019-09-22 09:41] LABS: BASO % 1 % (0-3); EOS % 1 % (0-3); LYMPH # 0.9 x10^3/uL (1.0-4.8); LYMPH % 14 % (24-48); MEAN CORPUSCULAR HEMOGLOBIN 34 pg (25-35); MEAN CORPUSCULAR HGB CONC 34 g/dL (31-37); MEAN CORPUSCULAR VOLUME 100 fL (79-100); MONO # 0.5 x10^3/uL (0.0-1.1); MONO % 8 % (0-9); NEUT # 5.4 x10^3uL (1.8-7.7); NEUT % 78 % (31-73); PLATELET COUNT 139 x10^3/uL (140-400); RED BLOOD COUNT 1.86 x10^6/uL (3.50-5.40); RED CELL DISTRIBUTION WIDTH 18.3 % (11.5-14.5)
[2019-09-22 09:43] LABS: HEMOGLOBIN 6.3 g/dL (12.0-15.5)
[2019-09-22 09:44] LABS: HEMATOCRIT 18.7 % (36.0-47.0)
[2019-09-22] MEDS: FOLIC ACID 1 MG TABLET PO SCH (10:00)
[2019-09-22] MEDS: ISOSORBIDE MONONITRATE ER 30 MG TAB.ER.24H PO SCH (10:01)
[2019-09-22] MEDS: MULTIVITAMIN I-VITE TABLET. PO SCH (10:01)
[2019-09-22] MEDS: DULoxetine HCL 30 MG CAPSULE.DR PO SCH (10:01)
[2019-09-22] MEDS: PANTOPRAZOLE 40 MG TABLET. PO SCH ×2 (10:01→17:14)
[2019-09-22] MEDS: DICYCLOMINE HCL 20 MG TABLET PO SCH ×3 (10:01→20:33)
[2019-09-22] MEDS: GABAPENTIN 300 MG CAPSULE. PO SCH ×2 (10:01→20:33)
[2019-09-22] MEDS: LUBIPROSTONE 24 MCG CAPSULE PO SCH ×2 (10:01→17:13)
[2019-09-22] MEDS: LACTOBACILLUS RHAMNOSUS GG 1 CAPSULE. PO SCH (10:02)
[2019-09-22] MEDS: CARVEDILOL 3.125 MG TABLET PO SCH ×2 (10:02→17:14)
[2019-09-22] MEDS: POLYVINYL ALCOHOL 1.4% OPHTH SOLUTION 15ML BOTTLE. OU SCH ×4 (10:02→20:34)
[2019-09-22] MEDS ORDERED: ACETAMINOPHEN 325 MG TABLET PO PRN (10:15)
--- NOTE | 2019-09-22 10:39 | PN ---
DATE: 09/22/2019 ATTENDING PHYSICIAN: Dr. Rowe and Dr. Hall. SUBJECTIVE: Weakness and multiple other issues. The patient is more active today. She is up in a chair. She denies any pain, swelling in her legs has subsided. They still remain abnormal on the right side, but is not nearly as tight. There are good pulses distally. PHYSICAL EXAMINATION: VITAL SIGNS: Her blood pressure is 109/80. She is afebrile. HEENT: Head is without trauma. Pupils are reactive. Sclerae is nonicteric. Oropharynx clear. NECK: Supple, no bruits. LUNGS: Otherwise clear. CARDIOVASCULAR: Showed regular heart tones. No obvious gallops. ABDOMEN: Obese, protuberant. No organomegaly. Bowel sounds are hypoactive. EXTREMITIES: Showed swelling, more so on the right thigh, it is not tight. Distal pulses are intact. She has minimal edema. NEUROLOGIC: Still flat affect, but she has much improved today. She said to me please fix me. LABORATORY DATA: Her blood work showed a decline in her hemoglobin down to 6.3 g/dL, admission 3 days ago it was 10.7 g/dL. INR is down from 2.8 yesterday, down to 1.8. ASSESSMENT: 1. An 84-year-old female with a hematoma of the right thigh. 2. Secondary anemia due to blood loss. 3. Coagulopathy due to Coumadin, which has been held. 4. Factor V Leiden deficiency. 5. She has placement of an inferior vena cava filter. 6. Depression with anxiety. 7. Generalized debilitation. PLAN: 1. Coumadin has been on hold. 2. Transfusion of 2 units of packed red cells today to increase the oxygen carrying capacity in this symptomatic patient. 3. Diet as tolerated. 4. Once again, I reassured her and her son that there are no plans for surgical debridement or evacuation of clot. We will allow this to be dissolved by the body's own fibrinolytic system, which will take some time. Hopefully, she understands. SEBAS HALL MD DR: REHANA/gary JOB#: [id number] / [id number] BELÉN Koenig MD
--- NOTE | 2019-09-22 11:41 | NUR ---
NURSING NOTE BLOOD BLOOD TRANSFUSION STARTED AT 1121. TUBING PRIMED WITH NORMAL SALINE AND THEN PRIMED WITH BLOOD. TRANSFUSION STARTED AT 25MLS PER HOUR, PATIENT MONITORED CLOSELY X15 MIN. NO REACTION NOTED. TRANSFUSION INCREASED TO 125 MLS PER HOUR. WILL CONTINUE TO MONITOR. CHELLE DONAHUE.
[2019-09-22] MEDS: GABAPENTIN 100 MG CAPSULE. PO SCH (12:38)
--- NOTE | 2019-09-22 13:36 | NUR ---
Patient completed 1 unit PRBC, spoke with lab and stated to order H&H per protocol. Once labs are completed then nurse will notify physician to see if he would like another unit obtained. Patients vitals remain stable and patient tolerated blood transfusion.
--- NOTE | 2019-09-22 14:00 | NUR ---
5 Sutures removed to right forearm today, area cleansed with wound wash, petroleum gauze and foam dressing applied.
[2019-09-22 16:25] LABS: HEMATOCRIT 23.4 % (36.0-47.0); HEMOGLOBIN 7.8 g/dL (12.0-15.5)
[2019-09-22] MEDS: tiZANidine 4 MG TABLET. PO SCH (20:33)
[2019-09-22] MEDS: ATORVASTATIN CALCIUM 20 MG TABLET PO SCH (20:33)
[2019-09-23] VITALS (10 sets, daily range): BP systolic 90–126; BP diastolic 37–73
[2019-09-23] MEDS: LEVOTHYROXINE 100 MCG TABLET PO SCH (05:17)
[2019-09-23 06:02] LABS: HEMATOCRIT 20.5 % (36.0-47.0); RED BLOOD COUNT 2.08 x10^6/uL (3.50-5.40); RED CELL DISTRIBUTION WIDTH 17.3 % (11.5-14.5); WHITE BLOOD COUNT 5.7 x10^3/uL (4.0-11.0)
[2019-09-23 06:06] LABS: HEMOGLOBIN 6.9 g/dL (12.0-15.5)
[2019-09-23 06:09] LABS: CALCIUM 7.9 mg/dL (8.5-10.1); CREATININE 1.3 mg/dL (0.6-1.0); GFR 38.9; POTASSIUM 3.8 mmol/L (3.5-5.1)
--- NOTE | 2019-09-23 06:21 | NUR ---
HGB RESULTS OF 6.9 CALLED IN TO [facility] PEDRO NO ORDERS GIVEN
--- NOTE | 2019-09-23 08:28 | NUR ---
1 Unit of Packed RBCs ordered per Dr. Kowalski.
[2019-09-23] MEDS: LUBIPROSTONE 24 MCG CAPSULE PO SCH ×2 (08:33→17:17)
[2019-09-23] MEDS: TORSEMIDE 20 MG TABLET. PO SCH (08:33)
[2019-09-23] MEDS: CARVEDILOL 3.125 MG TABLET PO SCH ×2 (08:34→17:17)
[2019-09-23] MEDS: GABAPENTIN 300 MG CAPSULE. PO SCH ×2 (08:34→20:37)
[2019-09-23] MEDS: LACTOBACILLUS RHAMNOSUS GG 1 CAPSULE. PO SCH (08:34)
[2019-09-23] MEDS: DULoxetine HCL 30 MG CAPSULE.DR PO SCH (08:34)
[2019-09-23] MEDS: DICYCLOMINE HCL 20 MG TABLET PO SCH ×3 (08:35→20:37)
[2019-09-23] MEDS: POLYVINYL ALCOHOL 1.4% OPHTH SOLUTION 15ML BOTTLE. OU SCH ×4 (08:35→20:36)
[2019-09-23] MEDS: ISOSORBIDE MONONITRATE ER 30 MG TAB.ER.24H PO SCH ×2 (08:35→09:00)
[2019-09-23] MEDS: FOLIC ACID 1 MG TABLET PO SCH (08:35)
[2019-09-23] MEDS: PANTOPRAZOLE 40 MG TABLET. PO SCH ×2 (08:37→17:16)
[2019-09-23] MEDS: MULTIVITAMIN I-VITE TABLET. PO SCH (08:37)
--- NOTE | 2019-09-23 10:12 | NUR ---
Blood transfusion started at 0945. Tubing primed with normal saline and then primed with blood. Transfusion started at 60mL/hr, pt monitored closely x15min. No reaction noted, transfusion increased to 125mL/hr. Will continue to monitor and assess as appropriate.
[2019-09-23] MEDS: GABAPENTIN 100 MG CAPSULE. PO SCH (13:05)
--- NOTE | 2019-09-23 15:42 | NUR ---
1345- Pt blood transfusion complete. No apparant reactions or infection from IV. Pt denies any fever, chills, or light headedness. IV tubing disconnected than blood products disposed of in red biohazard been. 1 hour post-transfusion vital signs stable. Will continue to monitor and assess as appropiate.
--- NOTE | 2019-09-23 16:11 | NUR ---
Called Dr. Kowalski to verify Hemoglobin recheck. HGB to be rechecked tomorrow morning with AM labs. Ordered CBC per. 's orders. Will continue to monitor and assess as appropiate.
--- NOTE | 2019-09-23 18:37 | NUR ---
Skin tear noted to L Arm, applied abdominal dressing. Addendum: 09/24/19 at 0711 by AMRIT JACK RN RN Skin tear happened while transferring pt from shower chair to bed. Will continue to monitor and assess as appropiate.
[2019-09-23] MEDS: tiZANidine 4 MG TABLET. PO SCH (20:36)
[2019-09-23] MEDS: ATORVASTATIN CALCIUM 20 MG TABLET PO SCH (20:37)
--- NOTE | 2019-09-23 20:59 | PN ---
DATE: ATTENDING PHYSICIAN: Dr. Rowe. SUBJECTIVE: The patient is actually feeling better today. 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 She says she feels stronger with blood transfusion yesterday. She is eating adequately and the swelling in her right thigh has actually subsided, is not nearly as tightened. OBJECTIVE FINDINGS: VITAL SIGNS: Today showed that her blood pressure is 105/52, her pulse is 80 and regular, temperature is 98.0, and oxygen saturation 97% on room air. HEENT: Head is without trauma. Pupils are reactive. Sclerae nonicteric. Oropharynx clear. NECK: Supple. LUNGS: Clear. CARDIOVASCULAR: Showed regular heart tones. No evidence of any gallops. ABDOMEN: Obese, protuberant. No organomegaly. Bowel sounds are hypoactive. EXTREMITIES: Showed swelling of the right thigh. She has significant tightness that is much improved from 2 days ago. Distal pulses are intact. She has trace pedal edema. LABORATORY DATA: Her INR today is down to 1.5 ____ drift down after 2 units of fresh frozen was administered on Saturday. Her hemoglobin has dropped slightly to 6.9 g/dL. ASSESSMENT: 1. An 84-year-old female with chronic anticoagulation. She has a large hematoma in the right thigh. 2. Secondary anemia due to blood loss, symptomatic. 3. Coagulopathy due to Coumadin, which has been held. 4. History of factor V Leiden deficiency. 5. She has placement of an inferior vena cava filter. 6. Depression with anxiety. 7. Generalized debilitation. PLAN: 1. Coumadin remains on hold. I think this should be held for the next several weeks until the hematoma is resolved. 2. Transfusion of 1 more unit of packed red blood cells today. Yesterday, I ordered 2 units, she only got 1 unit. 3. Diet as tolerated. 4. PT consult. 5. Her son called her assistant floor covering printer regarding her macular degeneration, that appointment has been postponed and she has been reassured that she will not go blind. 6. Followup INR and CBC in the morning. She can be discharged as early as tomorrow. She is medically stable, then she can have followup visit as an outpatient. SEBAS HALL MD DR: REHANA/gary JOB#: [id number] / [id number]
[2019-09-24] MEDS: HYDROcodone/APAP 5/325MG 1 TAB TABLET PO PRN ×2 (03:41→16:08)
[2019-09-24] MEDS: LEVOTHYROXINE 100 MCG TABLET PO SCH (05:11)
[2019-09-24 05:29] VITALS: BP 113/78
[2019-09-24 06:22] LABS: BASO % 1 % (0-3); EOS # 0.1 x10^3/uL (0.0-0.7); EOS % 2 % (0-3); HEMATOCRIT 25.7 % (36.0-47.0); HEMOGLOBIN 8.6 g/dL (12.0-15.5); LYMPH # 0.8 x10^3/uL (1.0-4.8); LYMPH % 12 % (24-48); MEAN CORPUSCULAR HEMOGLOBIN 33 pg (25-35); MEAN CORPUSCULAR HGB CONC 34 g/dL (31-37); MEAN CORPUSCULAR VOLUME 99 fL (79-100); MONO # 0.5 x10^3/uL (0.0-1.1); MONO % 7 % (0-9); NEUT % 78 % (31-73); PLATELET COUNT 153 x10^3/uL (140-400); RED BLOOD COUNT 2.61 x10^6/uL (3.50-5.40); RED CELL DISTRIBUTION WIDTH 17.2 % (11.5-14.5); WHITE BLOOD COUNT 6.4 x10^3/uL (4.0-11.0)
[2019-09-24] MEDS: POLYVINYL ALCOHOL 1.4% OPHTH SOLUTION 15ML BOTTLE. OU SCH ×4 (09:23→20:39)
[2019-09-24] MEDS: LUBIPROSTONE 24 MCG CAPSULE PO SCH ×2 (09:23→16:09)
[2019-09-24] MEDS: ISOSORBIDE MONONITRATE ER 30 MG TAB.ER.24H PO SCH (09:24)
[2019-09-24] MEDS: TORSEMIDE 20 MG TABLET. PO SCH (09:24)
[2019-09-24] MEDS: MULTIVITAMIN I-VITE TABLET. PO SCH (09:24)
[2019-09-24] MEDS: LACTOBACILLUS RHAMNOSUS GG 1 CAPSULE. PO SCH (09:24)
[2019-09-24] MEDS: DICYCLOMINE HCL 20 MG TABLET PO SCH ×3 (09:24→20:38)
[2019-09-24] MEDS: FOLIC ACID 1 MG TABLET PO SCH (09:24)
[2019-09-24] MEDS: GABAPENTIN 300 MG CAPSULE. PO SCH ×2 (09:25→20:36)
[2019-09-24] MEDS: CARVEDILOL 3.125 MG TABLET PO SCH ×2 (09:25→16:09)
[2019-09-24] MEDS: DULoxetine HCL 30 MG CAPSULE.DR PO SCH (09:25)
[2019-09-24] MEDS: PANTOPRAZOLE 40 MG TABLET. PO SCH ×2 (09:25→16:08)
[2019-09-24 11:00] VITALS: BP 96/61
[2019-09-24] MEDS: GABAPENTIN 100 MG CAPSULE. PO SCH (12:31)
[2019-09-24 15:00] VITALS: BP 127/84
--- NOTE | 2019-09-24 16:17 | PN ---
DATE: 09/24/2019 SUBJECTIVE: The patient is sitting on the edge of the bed comfortably in no apparent respiratory distress. She continued to complain of pain; however, she has been participating with Physical Therapy, sat in the chair for a while, and walked with Physical Therapy today. Her H and H has dropped yesterday to 6.9 and 20 and did receive 1 unit of packed RBCs and today's H and H was 8.6 and 25.7. PHYSICAL EXAMINATION: GENERAL: When I saw her this morning, she was pale, but no jaundice, cyanosis, or thyromegaly. No jugular venous distention. No lower limb edema. VITAL SIGNS: Her heart rate was 96, blood pressure was 96/61, temperature was 97.8, respiratory rate 20, and oxygen saturation was 96% on room air. HEAD, EYES, EARS, NOSE, AND THROAT: Showed normocephalic, atraumatic. NECK: Supple. HEART: Showed normal first and second heart sounds. No gallop or murmur. CHEST: Clear to auscultation. No crepitation or rhonchi. ABDOMEN: Distended, soft, nontender. NEUROLOGIC: She is awake, alert, responding appropriately. All her cranial nerves are intact. She moves extremities without difficulty. SKIN: Continued to have large hematoma on the anteromedial aspect of the right thigh. There are also multiple bruises in her upper extremities that are fading gradually. Her intake was 1560, output was 515. LABORATORY DATA: Her lab work this morning showed a white cell count 6400, hemoglobin 8.6, hematocrit 25.7, MCV 99, and platelet count of 153,000. Her chemistry showed a serum sodium 137, potassium 3.8, chloride 101, bicarbonate 28, anion gap of 8, BUN 34, creatinine 1.3, estimated GFR was 39 mL per minute, her glucose 142, calcium was 7.9. Her prothrombin time was 15.8, INR 1.5. Her stool for occult blood was negative. ASSESSMENT: 1. The patient was on chronic anticoagulation with Coumadin for history of DVT and factor V Leiden. Unfortunately, she developed large hematoma on the anteromedial aspect of the right thigh. 2. Acute blood loss anemia. The patient required so far 2 units of packed RBCs. 3. History of factor V Leiden. 4. She has an inferior vena cava filter. 5. Generalized debility. PLAN: To continue holding Coumadin. We will continue to monitor her lab work, and once her H and H stabilized, we can transfer her to swing bed. BELÉN ANGLIN MD DR: GABRIEL/gary JOB#: [id number] / [id number]
[2019-09-24 19:10] VITALS: BP 115/73
[2019-09-24] MEDS: tiZANidine 4 MG TABLET. PO SCH (20:36)
[2019-09-24] MEDS: ATORVASTATIN CALCIUM 20 MG TABLET PO SCH (20:36)
[2019-09-24 23:20] VITALS: BP 95/61
[2019-09-25] MEDS: LEVOTHYROXINE 100 MCG TABLET PO SCH (05:14)
[2019-09-25 06:14] VITALS: BP 124/79
[2019-09-25] MEDS: HYDROcodone/APAP 5/325MG 1 TAB TABLET PO PRN (07:14)
[2019-09-25 07:50] LABS: HEMATOCRIT 29.6 % (36.0-47.0); HEMOGLOBIN 9.9 g/dL (12.0-15.5)
--- NOTE | 2019-09-25 07:52 | NUR ---
Pt complaint of R leg pain. No redness or swelling noted. Propped leg up on pillow. Gave PRN Lortab as prescribed. Will continue to monitor and assess as necessary.
[2019-09-25 07:59] LABS: CALCIUM 8.6 mg/dL (8.5-10.1); CREATININE 1.2 mg/dL (0.6-1.0); GFR 42.7; POTASSIUM 3.7 mmol/L (3.5-5.1)
[2019-09-25] MEDS: DICYCLOMINE HCL 20 MG TABLET PO SCH (08:54)
[2019-09-25] MEDS: PANTOPRAZOLE 40 MG TABLET. PO SCH (08:54)
[2019-09-25] MEDS: MULTIVITAMIN I-VITE TABLET. PO SCH (08:54)
[2019-09-25] MEDS: ISOSORBIDE MONONITRATE ER 30 MG TAB.ER.24H PO SCH (08:55)
[2019-09-25 08:56] VITALS: BP 124/79
[2019-09-25] MEDS: CARVEDILOL 3.125 MG TABLET PO SCH (08:56)
[2019-09-25] MEDS: LUBIPROSTONE 24 MCG CAPSULE PO SCH (08:56)
[2019-09-25] MEDS: LACTOBACILLUS RHAMNOSUS GG 1 CAPSULE. PO SCH (08:56)
[2019-09-25] MEDS: TORSEMIDE 20 MG TABLET. PO SCH (08:57)
[2019-09-25] MEDS: DULoxetine HCL 30 MG CAPSULE.DR PO SCH (08:57)
[2019-09-25] MEDS: GABAPENTIN 300 MG CAPSULE. PO SCH (08:57)
[2019-09-25] MEDS: FOLIC ACID 1 MG TABLET PO SCH (08:57)
[2019-09-25] MEDS: ESTROGENS, CONJ VAGINAL CREAM 30GM TUBE. VG SCH (08:58)
[2019-09-25] MEDS: POLYVINYL ALCOHOL 1.4% OPHTH SOLUTION 15ML BOTTLE. OU SCH (08:58)
--- NOTE | 2019-09-25 10:17 | NUR ---
Discharge Note: [facility] Discharge instructions and discharge home medications reviewed with Patient and a copy given. All questions have been answered and understanding verbalized. The following instructions and handouts were given: Report to Swing Bed Unit Discontinued lines and drains: Peripheral IV left intact per Dr. Rowe Patient transferred to Swing Bed Unit
--- NOTE | 2019-09-25 17:11 | DS ---
DATE OF DISCHARGE: 09/25/2019 HOSPITAL COURSE: The patient is an 84-year-old female patient who was admitted with a complaint of severe pain in her thigh and inability to walk according to her son after she was discharged from this facility on 09/14/2019, her INR checked and was only 1.4, so she contacted her agate setter's office who advised her to start Lovenox. She received Lovenox on Saturday, Saturday and and on Saturday, she was able to do her laundry, but started complaining of pain in her right leg and her pain has worsened on Saturday morning and Saturday afternoon, the pain became unbearable and therefore, she was brought to the Emergency Room, was evaluated and her imaging studies which included x-ray of the hip and pelvis as well as Doppler ultrasound of the right lower extremity showed nonocclusive thrombus within the right common femoral, superficial femoral and popliteal veins. However, clinically the patient continued to have severe pain and was admitted for pain management and for further evaluation. We did actually CT scan of the pelvis and head, which showed that the patient has a large right inguinal and medial proximal thigh hematoma partially imaged measuring up to 11 cm transverse and 7.1 cm anteroposterior. There is adjacent soft tissue swelling, no dislocation and also multiple lower lumbar spondylosis and in consultation with Dr. Mahmood, we discontinued her Coumadin and in fact that her INR continued to be elevated, she has received fresh frozen plasma; however, the patient has lost significant amount of blood such that her hemoglobin and hematocrit that dropped from 10.7 and 33 down to 6.3 and ____, for which she received 1 unit of packed RBCs. In fact, she received a total of 2 units of packed RBCs and as of yesterday, her hemoglobin was 8.6, hematocrit 25.7 and today her hemoglobin was 9.9 and 29.6 and therefore, a decision was made to discharge her to swing bed to continue the process of rehabilitation and pain management. She has an IVC filter to protect her lungs. She does have also factor V Leiden; however, the risk of bleeding now outweighs the risk of clotting and therefore, we will continue holding her Coumadin for the time being. PHYSICAL EXAMINATION: GENERAL: When I saw her today, she looked well and was clearly in no apparent respiratory distress. She is pale, but no jaundice, cyanosis or thyromegaly. No jugular venous distention or limb edema. VITAL SIGNS: Her heart rate was 81, blood pressure was 124/79, temperature was 97.7, respiratory rate was 20 and oxygen saturation was 96%. The rest of clinical exam is stable. Her right thigh continued to be more swollen and somewhat tender, though less than before. She is now able to ambulate with a walker. As of this morning, her serum sodium was 137, potassium 3.7, chloride 99, bicarbonate 32, anion gap of 6, BUN 31, creatinine 1.2, estimated GFR was 43 mL/min. Her glucose 125 and calcium was 8.6. Her hemoglobin was 9.9, hematocrit was 29.6. DISCHARGE MEDICATIONS: She was transferred to [facility] bed to continue on following medication: Acetaminophen 650 mg every 4 hours, conjugated estrogen for Premarin 0.5 mg vaginally Saturday and Saturday, artificial tears 1 drop 4 times a day, gabapentin 200 mg at lunch, ondansetron 4 mg every 6 hours, multivitamin with minerals 1 tablet once a day, lactobacillus rhamnosus 1 capsule daily, furosemide 20 mg daily, isosorbide mononitrate 30 mg daily, folic acid 1 mg daily, duloxetine 30 mg daily, lubiprostone for Amitiza 24 mcg twice a day with meals, levothyroxine sodium 100 mcg once a day and hydrocodone/APAP 5/325 one tablet every 6 hours, atorvastatin calcium 40 mg at bedtime, tizanidine 4 mg at bedtime, Protonix 40 mg twice a day, gabapentin 300 mg twice a day, dicyclomine 20 mg 3 times a day, carvedilol 3.125 mg twice a day, nitroglycerin 0.4 mg sublingually every 5 minutes x 3. FINAL DISCHARGE DIAGNOSES: 1. The patient with chronic anticoagulation with Coumadin for history of deep venous thrombosis and factor V Leiden, unfortunately developed large hematoma on the anteromedial aspect of the right thigh. 2. Acute blood loss anemia with the patient has had so far 2 units of packed RBCs. Her hemoglobin and hematocrit today is 9.9 and ____. 3. Factor V Leiden. 4. She does have an inferior vena cava filter. 5. Generalized debility, weakness and difficulty walking. Other medical problems include hypertension, hyperlipidemia, hypothyroidism, transient ischemic attack, senile macular degeneration. She is also known to have sick sinus syndrome, status post automatic implantable cardioverter defibrillator. BELÉN ANGLIN MD DR: GABRIEL/gary JOB#: [id number] / [id number]
== END 2019-09-25 10:31 | DRG 299 ==
LOC: ER 11:29 → 1 SOUTH 14:30 → ER 16:18
PROVIDERS: ADMIT Internal Medicine; ATTEND Internal Medicine
PROC: 30233K1 Transfusion of Nonautologous Frozen Plasma into Peripheral Vein, Percutaneous Approach (ICD-10-PCS; principal; 2019-09-21)
PROC: 30233N1 Transfusion of Nonautologous Red Blood Cells into Peripheral Vein, Percutaneous Approach (ICD-10-PCS; 2019-09-22)
DX: I82.411 Acute embolism and thrombosis of right femoral vein (principal); E43 Unspecified severe protein-calorie malnutrition; N17.0 Acute kidney failure with tubular necrosis; D62 Acute posthemorrhagic anemia; D68.51 Activated protein C resistance; I82.431 Acute embolism and thrombosis of right popliteal vein; M16.0 Bilateral primary osteoarthritis of hip; I11.0 Hypertensive heart disease with heart failure; I50.9 Heart failure, unspecified; K21.9 Gastro-esophageal reflux disease without esophagitis; M19.90 Unspecified osteoarthritis, unspecified site; E78.5 Hyperlipidemia, unspecified; E66.9 Obesity, unspecified; F41.8 Other specified anxiety disorders; I48.91 Unspecified atrial fibrillation; T45.515A Adverse effect of anticoagulants, initial encounter; S70.11XA Contusion of right thigh, initial encounter; X58.XXXA Exposure to other specified factors, initial encounter; E03.9 Hypothyroidism, unspecified; Z96.653 Presence of artificial knee joint, bilateral; I49.5 Sick sinus syndrome; Z98.42 Cataract extraction status, left eye; Z98.41 Cataract extraction status, right eye; Z95.828 Presence of other vascular implants and grafts; Z95.810 Presence of automatic (implantable) cardiac defibrillator; Z95.5 Presence of coronary angioplasty implant and graft; Z90.710 Acquired absence of both cervix and uterus; Z90.49 Acquired absence of other specified parts of digestive tract; Z87.891 Personal history of nicotine dependence; Z86.73 Personal history of transient ischemic attack (TIA), and cerebral infarction without residual deficits; Z86.718 Personal history of other venous thrombosis and embolism; Z85.828 Personal history of other malignant neoplasm of skin; Z82.3 Family history of stroke; Z80.3 Family history of malignant neoplasm of breast; Z80.0 Family history of malignant neoplasm of digestive organs; Z79.01 Long term (current) use of anticoagulants; Z74.01 Bed confinement status; Z88.0 Allergy status to penicillin; Z88.2 Allergy status to sulfonamides; Z88.8 Allergy status to other drugs, medicaments and biological substances; Y92.89 Other specified places as the place of occurrence of the external cause; Y93.89 Activity, other specified; Y99.8 Other external cause status; Z68.30 Body mass index [BMI] 30.0-30.9, adult
CPT/HCPCS: 36415; 72192; 73502; 80048; 80053; 81001; 82274; 85014; 85018; 85025; 85027; 85610; 86850; 86900; 86901; 86920; 86927; 87086; 93971; J3010; P9016; P9017; 97116; 97530; 97535; 99285-25

== ENCOUNTER 2019-09-25 10:35 | Inpatient (IN) | payer MEDICARE, BC, OTHER ==
[~2019-09-25] VITALS: Ht 167.6 cm; Wt 92.2 kg
[2019-09-25] MEDS ORDERED: NITROGLYCERIN SUBLINGUAL 0.4 MG BOTTLE OF 25. SL PRN (11:15)
[2019-09-25] MEDS: GABAPENTIN 100 MG CAPSULE. PO SCH (12:13)
[2019-09-25] MEDS: DICYCLOMINE HCL 20 MG TABLET PO SCH ×2 (15:38→21:34)
[2019-09-25] MEDS: PANTOPRAZOLE 40 MG TABLET. PO SCH (17:14)
[2019-09-25] MEDS: CARVEDILOL 3.125 MG TABLET PO SCH (17:15)
[2019-09-25] MEDS: ATORVASTATIN CALCIUM 20 MG TABLET PO SCH (21:34)
[2019-09-25] MEDS: GABAPENTIN 300 MG CAPSULE. PO SCH (21:34)
[2019-09-25] MEDS: tiZANidine 4 MG TABLET. PO SCH (21:34)
[2019-09-25] MEDS: HYDROcodone/APAP 5/325MG 1 TAB TABLET PO PRN (21:34)
[2019-09-26 05:57] LABS: HEMATOCRIT 25.9 % (36.0-47.0); HEMOGLOBIN 8.7 g/dL (12.0-15.5); RED BLOOD COUNT 2.64 x10^6/uL (3.50-5.40); RED CELL DISTRIBUTION WIDTH 17.3 % (11.5-14.5); WHITE BLOOD COUNT 5.2 x10^3/uL (4.0-11.0)
[2019-09-26] MEDS: LEVOTHYROXINE 100 MCG TABLET PO SCH (06:00)
[2019-09-26 06:04] LABS: CALCIUM 8.3 mg/dL (8.5-10.1); CREATININE 1.1 mg/dL (0.6-1.0); GFR 47.2; POTASSIUM 3.6 mmol/L (3.5-5.1)
[2019-09-26 06:38] VITALS: BP 133/77
[2019-09-26] MEDS: ISOSORBIDE MONONITRATE ER 30 MG TAB.ER.24H PO SCH (07:45)
[2019-09-26] MEDS: GABAPENTIN 300 MG CAPSULE. PO SCH ×2 (07:46→20:20)
[2019-09-26] MEDS: PANTOPRAZOLE 40 MG TABLET. PO SCH ×2 (07:46→16:00)
[2019-09-26] MEDS: LACTOBACILLUS RHAMNOSUS GG 1 CAPSULE. PO SCH (07:46)
[2019-09-26] MEDS: DULoxetine HCL 30 MG CAPSULE.DR PO SCH (07:46)
[2019-09-26] MEDS: TORSEMIDE 20 MG TABLET. PO SCH (07:46)
[2019-09-26] MEDS: MULTIVITAMIN I-VITE TABLET. PO SCH (07:46)
[2019-09-26] MEDS: DICYCLOMINE HCL 20 MG TABLET PO SCH ×3 (07:46→20:20)
[2019-09-26] MEDS: FOLIC ACID 1 MG TABLET PO SCH (07:46)
[2019-09-26] MEDS: CARVEDILOL 3.125 MG TABLET PO SCH ×2 (07:46→16:01)
[2019-09-26] MEDS: GABAPENTIN 100 MG CAPSULE. PO SCH (11:37)
[2019-09-26] MEDS: HYDROcodone/APAP 5/325MG 1 TAB TABLET PO PRN (11:38)
--- NOTE | 2019-09-26 15:07 | HP ---
ADMIT DATE: 09/25/2019 HISTORY OF PRESENT ILLNESS: The patient is an 84-year-old female patient who was admitted to [facility] in [address] [place] [address] on 09/19/2019 after she presented to the Emergency Room with a complaint of pain in her right lower extremity and difficulty walking. Evaluation in the Emergency Room includes x-ray of the right hip and pelvis as well as Doppler ultrasound. X-ray showed bilateral hip osteoarthritis without any fracture or dislocation and her Doppler ultrasound of the right lower extremity showed chronic appearing nonocclusive thrombus within the right common femoral, superficial femoral and popliteal veins. However, she continued to complain of pain and therefore we did a CT scan of the pelvis which showed that she has large hematoma in the right medial proximal thigh inguinal area with adjacent soft tissue swelling partially imaged. We did stop her Coumadin in consultation with Dr. Mahmood. She did actually receive fresh frozen plasma to reverse the effect of Coumadin and she actually lost blood. In fact, her H and H has dropped down from 11 and 33, down to 6.3 and 18.7 and she received a total of 2 units of packed RBCs and her H and H was 9.9 and 29.6 on the day of discharge to a swing bed. When I saw her today, she seemed to be doing much better. She continued to have pain in her right thigh, but her ability to ambulate has dramatically improved. She is actually in very good spirits today. She had a shower and managed to get into the bathtub with total assistance. PAST MEDICAL HISTORY: Significant for hypertension, hyperlipidemia, hypothyroidism, generalized osteoarthritis, transient ischemic attack, senile macular degeneration, sick sinus syndrome, status post automatic implantable cardioverter defibrillator. She is apparently known to have factor V Leiden, history of DVT before. PAST SURGICAL HISTORY: Significant for vaginal hysterectomy, cholecystectomy, appendectomy, and exploratory laparotomy, bilateral total knee arthroplasty, bilateral cataract extraction, laser photocoagulation. She also had basal cell carcinoma removed from her nose, squamous cell carcinoma of the left neck. She has had an AICD placed and colonoscopy with no evidence of any polyp. She also has an inferior vena cava filter placed successfully. ALLERGIES: SHE IS ALLERGIC TO PENICILLIN AND SULFA DRUGS. FAMILY HISTORY: One brother of colon cancer and CVA. Her sister of breast cancer. Mother of colon cancer and her dad was alcoholic. She does not know him very well. SOCIAL HISTORY: She is . Her at the end of 2018. She quit smoking in 1994 after smoking for almost 30 years. She does not drink alcohol or use any recreational drugs. She retired from [employer], currently lives at an independent living facility at [place]. PHYSICAL EXAMINATION: GENERAL: When I saw her today, she looked well and was clearly in no apparent respiratory distress. She was pale, but no jaundice, cyanosis or thyromegaly. No jugular venous distention. No limb edema. VITAL SIGNS: Her heart rate was 81, blood pressure was 133/77, temperature was 98.2, respiratory rate was 16, and oxygen saturation was 100%. HEAD, EYES, EARS, NOSE AND THROAT: Showed normocephalic, atraumatic. NECK: Supple. HEART: Showed normal first and second heart sounds. No gallop or murmur. CHEST: Clear to auscultation. No crepitation or rhonchi. ABDOMEN: Distended, soft, nontender. No guarding or rigidity. No organomegaly. All hernial orifice intact. Bowel sounds normal. NEUROLOGIC: She was hard of hearing, but otherwise all cranial nerves intact. EXTREMITIES: She moves extremities without difficulty. She ambulates with a walker. LABORATORY DATA: Showed a white cell count 5200, hemoglobin 8.7, hematocrit 25.9, MCV 88 and platelet count of 167,000. Her serum sodium was 138, potassium 3.6, chloride 101, bicarbonate 32, anion gap of 5, BUN 31, creatinine 1.1, estimated GFR was 47 mL per minute. Her glucose 113 and calcium was 8.3. ASSESSMENT AND PLAN: In summary, this is an 84-year-old female patient who was transferred from acute care to swing bed to continue the process of rehabilitation. She has large hematoma on the anteromedial aspect of the right thigh that is apparently resolving. She has a rainbow appearance on her bruises on the medial aspect of the right thigh. She obviously has factor V Leiden, history of DVT for which she has an inferior vena cava filter. We will continue with all her medication except her Coumadin that include dicyclomine 20 mg 3 times a day, tizanidine 4 mg at bedtime, atorvastatin calcium 40 mg at bedtime, isosorbide mononitrate 30 mg daily, nitroglycerin 0.4 mg sublingually every 5 minutes x 3, carvedilol 3.125 mg twice a day with meals, hydrocodone/APAP 5/325 one tablet every 6 hours, gabapentin 200 mg daily with lunch, gabapentin 300 mg twice a day, duloxetine 30 mg daily, torsemide 20 mg once a day, Protonix 40 mg twice a day, lactobacillus casei for Restora RX capsule 1 capsule daily, linaclotide for Linzess 145 mcg daily and conjugated estrogen 0.5 mg vaginally twice a week. She is also on levothyroxine sodium 100 mcg once a day and folic acid 1 mg once a day, Ocuvite soft gel one capsule daily. Will obviously continue with physical and occupational therapy. We will monitor her H and H closely. BELÉN ANGLIN MD DR: GABRIEL/gary JOB#: [id number] / [id number]
[2019-09-26 18:41] VITALS: BP 107/63
[2019-09-26] MEDS: ATORVASTATIN CALCIUM 20 MG TABLET PO SCH (20:20)
[2019-09-26] MEDS: tiZANidine 4 MG TABLET. PO SCH (20:21)
[2019-09-27] MEDS: LEVOTHYROXINE 100 MCG TABLET PO SCH (06:06)
[2019-09-27 06:08] VITALS: BP 114/72
[2019-09-27] MEDS: TORSEMIDE 20 MG TABLET. PO SCH (09:04)
[2019-09-27] MEDS: DICYCLOMINE HCL 20 MG TABLET PO SCH ×3 (09:04→20:15)
[2019-09-27] MEDS: PANTOPRAZOLE 40 MG TABLET. PO SCH ×2 (09:04→16:40)
[2019-09-27] MEDS: DULoxetine HCL 30 MG CAPSULE.DR PO SCH (09:04)
[2019-09-27] MEDS: GABAPENTIN 300 MG CAPSULE. PO SCH ×2 (09:04→20:15)
[2019-09-27] MEDS: MULTIVITAMIN I-VITE TABLET. PO SCH (09:04)
[2019-09-27] MEDS: FOLIC ACID 1 MG TABLET PO SCH (09:05)
[2019-09-27] MEDS: CARVEDILOL 3.125 MG TABLET PO SCH ×2 (09:05→16:42)
[2019-09-27] MEDS: ISOSORBIDE MONONITRATE ER 30 MG TAB.ER.24H PO SCH (09:05)
[2019-09-27] MEDS: LACTOBACILLUS RHAMNOSUS GG 1 CAPSULE. PO SCH (09:23)
[2019-09-27] MEDS: GABAPENTIN 100 MG CAPSULE. PO SCH (11:16)
[2019-09-27] MEDS: HYDROcodone/APAP 5/325MG 1 TAB TABLET PO PRN ×2 (11:17→20:15)
[2019-09-27 16:34] VITALS: BP 133/76
[2019-09-27] MEDS: tiZANidine 4 MG TABLET. PO SCH (20:15)
[2019-09-27] MEDS: ATORVASTATIN CALCIUM 20 MG TABLET PO SCH (20:15)
[2019-09-28] MEDS: LEVOTHYROXINE 100 MCG TABLET PO SCH (05:44)
[2019-09-28 06:39] LABS: HEMATOCRIT 25.2 % (36.0-47.0); HEMOGLOBIN 8.4 g/dL (12.0-15.5); RED BLOOD COUNT 2.52 x10^6/uL (3.50-5.40); RED CELL DISTRIBUTION WIDTH 17.4 % (11.5-14.5); WHITE BLOOD COUNT 4.4 x10^3/uL (4.0-11.0)
[2019-09-28 06:40] VITALS: BP 111/65
[2019-09-28 06:48] LABS: CALCIUM 8.4 mg/dL (8.5-10.1); CREATININE 1.2 mg/dL (0.6-1.0); GFR 42.7; POTASSIUM 3.6 mmol/L (3.5-5.1)
[2019-09-28] MEDS: DICYCLOMINE HCL 20 MG TABLET PO SCH ×3 (08:20→21:40)
[2019-09-28] MEDS: MOXIFLOXACIN 0.5% OPHTH SOLUTION 3ML BOTTLE. OU SCH ×5 (08:20→21:41)
[2019-09-28] MEDS: MULTIVITAMIN I-VITE TABLET. PO SCH (08:21)
[2019-09-28] MEDS: DULoxetine HCL 30 MG CAPSULE.DR PO SCH (08:21)
[2019-09-28] MEDS: GABAPENTIN 300 MG CAPSULE. PO SCH ×2 (08:21→21:40)
[2019-09-28] MEDS: CARVEDILOL 3.125 MG TABLET PO SCH ×2 (08:21→17:12)
[2019-09-28] MEDS: LACTOBACILLUS RHAMNOSUS GG 1 CAPSULE. PO SCH (08:21)
[2019-09-28] MEDS: PANTOPRAZOLE 40 MG TABLET. PO SCH ×2 (08:21→17:11)
[2019-09-28] MEDS: ISOSORBIDE MONONITRATE ER 30 MG TAB.ER.24H PO SCH (08:22)
[2019-09-28] MEDS: FOLIC ACID 1 MG TABLET PO SCH (08:22)
[2019-09-28] MEDS: TORSEMIDE 20 MG TABLET. PO SCH (08:22)
[2019-09-28] MEDS ORDERED: ESTROGENS, CONJ VAGINAL CREAM 30GM TUBE. VG SCH (09:00)
[2019-09-28] MEDS: HYDROcodone/APAP 5/325MG 1 TAB TABLET PO PRN (10:11)
--- NOTE | 2019-09-28 11:33 | RAD ---
CHEST PA LATERAL History: Shortness of breath, productive cough Comparison: 09/11/2019 view chest x-ray exam. Findings: Frontal and lateral views of the chest were obtained. Dual-lead left-sided ICD is present. Prosthetic mitral valvular band noted. Borderline pulmonary hyperinflation noted. The cardiomediastinal silhouette is normal. Pulmonary vasculature is normal. The lungs are clear. No pleural effusion or pneumothorax is seen. There is no acute bone abnormality. IMPRESSION: No acute cardiopulmonary process. Electronically signed by: Thomas Akers MD (09/28/2019 11:30 AM) [id number]
[2019-09-28] MEDS: GABAPENTIN 100 MG CAPSULE. PO SCH (12:03)
[2019-09-28] MEDS ORDERED: ESTRADIOL 0.01% VAGINAL CREAM 42.5GM TUBE. VG SCH (16:00)
[2019-09-28 18:41] VITALS: BP 113/74
[2019-09-28] MEDS ORDERED: ACETAMINOPHEN 325 MG TABLET PO ONE (18:54)
[2019-09-28] MEDS: ACETAMINOPHEN 325 MG TABLET PO PRN (18:59)
[2019-09-28] MEDS: ATORVASTATIN CALCIUM 20 MG TABLET PO SCH (21:40)
[2019-09-28] MEDS: tiZANidine 4 MG TABLET. PO SCH (21:40)
[2019-09-29] MEDS: LEVOTHYROXINE 100 MCG TABLET PO SCH (05:48)
[2019-09-29 05:49] VITALS: BP 105/46
[2019-09-29] MEDS: TORSEMIDE 20 MG TABLET. PO SCH (08:38)
[2019-09-29] MEDS: LACTOBACILLUS RHAMNOSUS GG 1 CAPSULE. PO SCH (08:38)
[2019-09-29] MEDS: FOLIC ACID 1 MG TABLET PO SCH (08:38)
[2019-09-29] MEDS: PANTOPRAZOLE 40 MG TABLET. PO SCH ×2 (08:38→18:42)
[2019-09-29] MEDS: ISOSORBIDE MONONITRATE ER 30 MG TAB.ER.24H PO SCH (08:39)
[2019-09-29] MEDS: DULoxetine HCL 30 MG CAPSULE.DR PO SCH (08:39)
[2019-09-29] MEDS: DICYCLOMINE HCL 20 MG TABLET PO SCH ×3 (08:39→20:43)
[2019-09-29] MEDS: GABAPENTIN 300 MG CAPSULE. PO SCH ×2 (08:39→20:44)
[2019-09-29] MEDS: CARVEDILOL 3.125 MG TABLET PO SCH ×2 (08:39→18:42)
[2019-09-29] MEDS: MULTIVITAMIN I-VITE TABLET. PO SCH (08:39)
[2019-09-29] MEDS: MOXIFLOXACIN 0.5% OPHTH SOLUTION 3ML BOTTLE. OU SCH ×4 (08:42→20:46)
[2019-09-29] MEDS ORDERED: NEOMY/BACITR/POLYMYXIN OINT PACKET. TP ONE (09:54)
[2019-09-29] MEDS: HYDROcodone/APAP 5/325MG 1 TAB TABLET PO PRN (12:46)
[2019-09-29] MEDS: GABAPENTIN 100 MG CAPSULE. PO SCH (12:48)
[2019-09-29 16:53] VITALS: BP 126/65
[2019-09-29] MEDS: tiZANidine 4 MG TABLET. PO SCH (20:44)
[2019-09-29] MEDS: ATORVASTATIN CALCIUM 20 MG TABLET PO SCH (20:44)
[2019-09-30] MEDS: LEVOTHYROXINE 100 MCG TABLET PO SCH (05:20)
[2019-09-30] MEDS: ACETAMINOPHEN 325 MG TABLET PO PRN (05:28)
[2019-09-30 05:36] VITALS: BP 129/63
[2019-09-30] MEDS: CARVEDILOL 3.125 MG TABLET PO SCH ×2 (08:27→17:00)
[2019-09-30] MEDS: LACTOBACILLUS RHAMNOSUS GG 1 CAPSULE. PO SCH (08:27)
[2019-09-30] MEDS: FOLIC ACID 1 MG TABLET PO SCH (08:27)
[2019-09-30] MEDS: PANTOPRAZOLE 40 MG TABLET. PO SCH ×2 (08:27→16:59)
[2019-09-30] MEDS: DICYCLOMINE HCL 20 MG TABLET PO SCH ×3 (08:27→20:06)
[2019-09-30] MEDS: MULTIVITAMIN I-VITE TABLET. PO SCH (08:27)
[2019-09-30] MEDS: DULoxetine HCL 30 MG CAPSULE.DR PO SCH (08:27)
[2019-09-30] MEDS: TORSEMIDE 20 MG TABLET. PO SCH (08:27)
[2019-09-30] MEDS: GABAPENTIN 300 MG CAPSULE. PO SCH ×2 (08:28→20:07)
[2019-09-30] MEDS: MOXIFLOXACIN 0.5% OPHTH SOLUTION 3ML BOTTLE. OU SCH ×4 (08:28→20:06)
[2019-09-30] MEDS: ISOSORBIDE MONONITRATE ER 30 MG TAB.ER.24H PO SCH (09:00)
[2019-09-30] MEDS: GABAPENTIN 100 MG CAPSULE. PO SCH (14:45)
[2019-09-30 17:43] VITALS: BP 126/61
[2019-09-30] MEDS: ATORVASTATIN CALCIUM 20 MG TABLET PO SCH (20:07)
[2019-09-30] MEDS: tiZANidine 4 MG TABLET. PO SCH (20:08)
[2019-09-30] MEDS: HYDROcodone/APAP 5/325MG 1 TAB TABLET PO PRN (20:08)
[2019-09-30 20:32] VITALS: BP 129/68
[2019-09-30] MEDS ORDERED: ALBUTEROL SULFATE 2.5 MG/3 ML NEBU. NEB PRN (20:45)
[2019-10-01] MEDS: LEVOTHYROXINE 100 MCG TABLET PO SCH (05:04)
[2019-10-01 05:09] VITALS: BP 114/57
[2019-10-01] MEDS: FOLIC ACID 1 MG TABLET PO SCH (08:46)
[2019-10-01] MEDS: CARVEDILOL 3.125 MG TABLET PO SCH ×2 (08:46→16:26)
[2019-10-01] MEDS: LACTOBACILLUS RHAMNOSUS GG 1 CAPSULE. PO SCH (08:46)
[2019-10-01] MEDS: GABAPENTIN 300 MG CAPSULE. PO SCH ×2 (08:46→20:40)
[2019-10-01] MEDS: DULoxetine HCL 30 MG CAPSULE.DR PO SCH (08:46)
[2019-10-01] MEDS: TORSEMIDE 20 MG TABLET. PO SCH (08:46)
[2019-10-01] MEDS: MULTIVITAMIN I-VITE TABLET. PO SCH (08:46)
[2019-10-01] MEDS: ISOSORBIDE MONONITRATE ER 30 MG TAB.ER.24H PO SCH (08:46)
[2019-10-01] MEDS: ACETAMINOPHEN 325 MG TABLET PO PRN ×2 (08:47→20:39)
[2019-10-01] MEDS: MOXIFLOXACIN 0.5% OPHTH SOLUTION 3ML BOTTLE. OU SCH ×4 (08:47→20:43)
[2019-10-01] MEDS: DICYCLOMINE HCL 20 MG TABLET PO SCH ×3 (08:47→20:39)
[2019-10-01] MEDS: PANTOPRAZOLE 40 MG TABLET. PO SCH ×2 (08:47→16:25)
[2019-10-01] MEDS: GABAPENTIN 100 MG CAPSULE. PO SCH (11:41)
[2019-10-01 18:16] VITALS: BP 104/57
[2019-10-01] MEDS: ATORVASTATIN CALCIUM 20 MG TABLET PO SCH (20:40)
[2019-10-01] MEDS: tiZANidine 4 MG TABLET. PO SCH (20:40)
[2019-10-02] MEDS: NYSTATIN 100,000 UNITS/ML ORAL SUSPENSION 60ML BOTTLE. SWSW SCH ×5 (00:20→20:30)
[2019-10-02] MEDS: ACETAMINOPHEN 325 MG TABLET PO PRN (04:59)
[2019-10-02] MEDS: LEVOTHYROXINE 100 MCG TABLET PO SCH (05:00)
[2019-10-02 05:04] VITALS: BP 130/67
[2019-10-02 06:19] LABS: BASO % 1 % (0-3); EOS # 0.2 x10^3/uL (0.0-0.7); EOS % 5 % (0-3); HEMATOCRIT 26.8 % (36.0-47.0); HEMOGLOBIN 8.7 g/dL (12.0-15.5); LYMPH # 0.7 x10^3/uL (1.0-4.8); LYMPH % 20 % (24-48); MEAN CORPUSCULAR HEMOGLOBIN 33 pg (25-35); MEAN CORPUSCULAR HGB CONC 32 g/dL (31-37); MEAN CORPUSCULAR VOLUME 103 fL (79-100); MONO # 0.3 x10^3/uL (0.0-1.1); MONO % 8 % (0-9); NEUT # 2.4 x10^3uL (1.8-7.7); NEUT % 66 % (31-73); PLATELET COUNT 140 x10^3/uL (140-400); RED BLOOD COUNT 2.59 x10^6/uL (3.50-5.40); RED CELL DISTRIBUTION WIDTH 19.5 % (11.5-14.5); WHITE BLOOD COUNT 3.7 x10^3/uL (4.0-11.0)
[2019-10-02 06:22] LABS: ALBUMIN 2.5 g/dL (3.4-5.0); CALCIUM 8.5 mg/dL (8.5-10.1); CREATININE 1.1 mg/dL (0.6-1.0); GFR 47.2; POTASSIUM 3.7 mmol/L (3.5-5.1); TOTAL BILIRUBIN 1.7 mg/dL (0.2-1.0); TOTAL PROTEIN 5.1 g/dL (6.4-8.2)
[2019-10-02] MEDS: PANTOPRAZOLE 40 MG TABLET. PO SCH ×2 (08:18→17:20)
[2019-10-02] MEDS: LACTOBACILLUS RHAMNOSUS GG 1 CAPSULE. PO SCH (08:18)
[2019-10-02] MEDS: GABAPENTIN 300 MG CAPSULE. PO SCH ×2 (08:18→20:31)
[2019-10-02] MEDS: ISOSORBIDE MONONITRATE ER 30 MG TAB.ER.24H PO SCH (08:19)
[2019-10-02] MEDS: MULTIVITAMIN I-VITE TABLET. PO SCH (08:19)
[2019-10-02] MEDS: TORSEMIDE 20 MG TABLET. PO SCH (08:20)
[2019-10-02] MEDS: CARVEDILOL 3.125 MG TABLET PO SCH ×2 (08:20→17:21)
[2019-10-02] MEDS: DULoxetine HCL 30 MG CAPSULE.DR PO SCH (08:20)
[2019-10-02] MEDS: DICYCLOMINE HCL 20 MG TABLET PO SCH ×3 (08:20→20:31)
[2019-10-02] MEDS: FOLIC ACID 1 MG TABLET PO SCH (08:21)
[2019-10-02] MEDS: MOXIFLOXACIN 0.5% OPHTH SOLUTION 3ML BOTTLE. OU SCH ×4 (08:21→20:30)
[2019-10-02] MEDS ORDERED: NYSTATIN 100,000 UNITS/ML ORAL SUSPENSION 60ML BOTTLE. SWSW SCH (09:00)
[2019-10-02] MEDS: GABAPENTIN 100 MG CAPSULE. PO SCH (12:00)
--- NOTE | 2019-10-02 13:16 | RAD ---
CHEST PA LATERAL History: Cough Comparison: 09/28/2019 two-view chest x-ray exam. Findings: Frontal and lateral views of the chest were obtained. Dual-lead left-sided pacemaker is present. Prostatic mitral valvular band is present. Inferior vena cava filter is present. Right upper quadrant surgical clips are noted. The cardiomediastinal silhouette is normal. Pulmonary vasculature is normal. The lungs are clear. No pleural effusion or pneumothorax is seen. There is no acute bone abnormality. IMPRESSION: No acute cardiopulmonary process. Electronically signed by: Thomas Akers MD (10/02/2019 1:13 PM) [id number]
[2019-10-02] MEDS ORDERED: ESTRADIOL 0.01% VAGINAL CREAM 42.5GM TUBE. VG SCH (16:00)
[2019-10-02 18:23] VITALS: BP 129/62
[2019-10-02] MEDS: ATORVASTATIN CALCIUM 20 MG TABLET PO SCH (20:29)
[2019-10-02] MEDS: HYDROcodone/APAP 5/325MG 1 TAB TABLET PO PRN (20:31)
[2019-10-02] MEDS: tiZANidine 4 MG TABLET. PO SCH (20:31)
[2019-10-03] MEDS: LEVOTHYROXINE 100 MCG TABLET PO SCH (06:00)
[2019-10-03 06:11] VITALS: BP 116/52
[2019-10-03] MEDS: ACETAMINOPHEN 325 MG TABLET PO PRN ×3 (08:23→20:57)
[2019-10-03] MEDS: FOLIC ACID 1 MG TABLET PO SCH (08:23)
[2019-10-03] MEDS: DULoxetine HCL 30 MG CAPSULE.DR PO SCH (08:23)
[2019-10-03] MEDS: GABAPENTIN 300 MG CAPSULE. PO SCH ×2 (08:23→20:56)
[2019-10-03] MEDS: TORSEMIDE 20 MG TABLET. PO SCH (08:23)
[2019-10-03] MEDS: DICYCLOMINE HCL 20 MG TABLET PO SCH ×3 (08:23→20:56)
[2019-10-03] MEDS: PANTOPRAZOLE 40 MG TABLET. PO SCH (08:24)
[2019-10-03] MEDS: MULTIVITAMIN I-VITE TABLET. PO SCH (08:24)
[2019-10-03] MEDS: LACTOBACILLUS RHAMNOSUS GG 1 CAPSULE. PO SCH (08:24)
[2019-10-03] MEDS: CARVEDILOL 3.125 MG TABLET PO SCH (08:25)
[2019-10-03] MEDS: NYSTATIN 100,000 UNITS/ML ORAL SUSPENSION 60ML BOTTLE. SWSW SCH ×3 (08:28→20:58)
[2019-10-03] MEDS: ISOSORBIDE MONONITRATE ER 30 MG TAB.ER.24H PO SCH (08:28)
--- NOTE | 2019-10-03 12:48 | PN ---
DATE: 10/03/2019 SUBJECTIVE: The patient is sitting comfortably in her recliner, in no apparent distress. She continued to complain of pain in her right thigh. The swelling is going back and down. She has also had some cough, mostly dry and also complained of a sore throat. PHYSICAL EXAMINATION: GENERAL: When I examined her, she looked well and was clearly in no apparent respiratory distress. She was slightly pale, but no jaundice, cyanosis or thyromegaly. No jugular venous distention. No limb edema. VITAL SIGNS: Her heart rate was 79, blood pressure was 116/52, temperature was 98.6, respiratory rate was 18 and oxygen saturation was 97% on room air. HEAD, EYES, EARS, NOSE AND THROAT: Showed normocephalic, atraumatic. NECK: Supple. HEART: Showed normal first and second heart sounds. No gallop, rub or murmur. CHEST: Clear to auscultation. No crepitation or rhonchi. ABDOMEN: Distended, soft, nontender. No guarding or rigidity. No organomegaly. All hernial orifice intact. Bowel sounds normal. NEUROLOGIC: She is awake, alert, responding appropriately. All cranial nerves are intact. She moves extremities without difficulty. She ambulates with a walker. Actually, she walks with a walker with standby assist minimal, does not require assistance. She takes herself to the bathroom. She has been walking without difficulty. Examination of the right lower extremity showed that the hematoma is probably moving a little bit backward and downward with large bruises. She has also what seemed to be too small hematomas on the outer aspect of the left arm, although most of the bruises on the left upper extremity and right extremity have largely subsided. Her intake over the last 24 hours was 1500, no output was recorded. LABORATORY DATA: As of yesterday, her serum sodium was 141, potassium 3.7, chloride 103, bicarbonate 34, anion gap of 4, BUN 29, creatinine 1.1, estimated GFR was 47 mL per minute. Her glucose 114, calcium was 8.5, magnesium was 1.72. Total bilirubin slightly elevated at 1.7. However, AST, ALT, alkaline phosphatase were normal. Total protein was 5.1, albumin was 2.5. Her white cell count was 3700, hemoglobin 8.7, hematocrit 26.8, MCV 103 and platelet count of 140,000. Her group A streptococcus rapid test was negative and her most recent chest x-ray showed that the lungs are clear, no pleural effusion or pneumothorax is seen. There is no acute cardiopulmonary abnormality detected. ASSESSMENT: In summary, this is an 84-year-old female patient who was transferred from [address] [place] [address] to continue the process of rehabilitation. She has large hematoma on the anteromedial aspect of the right thigh that is apparently resolving after we stopped her Coumadin. Other medical problems include factor V Leiden with history of DVT for which she had an inferior vena cava filter. We will obviously continue with all her other medications. I will contact Dr. Mahmood on Saturday to see whether we should resume Coumadin. Meanwhile, we will continue with physical and occupational therapy. The patient wants to stay longer here. I told her that decision will be made by the physical therapist as well as clinical social worker and if they feel that you are ready to go, we will discharge her to [facility], perhaps with home health. BELÉN ANGLIN MD DR: GABRIEL/gary JOB#: [id number] / [id number]
[2019-10-03] MEDS: GABAPENTIN 100 MG CAPSULE. PO SCH (13:32)
[2019-10-03 18:37] VITALS: BP 108/61
[2019-10-03] MEDS: ATORVASTATIN CALCIUM 20 MG TABLET PO SCH (20:56)
[2019-10-03] MEDS: tiZANidine 4 MG TABLET. PO SCH (20:56)
[2019-10-04 05:00] VITALS: BP 144/81
[2019-10-04] MEDS: LEVOTHYROXINE 100 MCG TABLET PO SCH (06:17)
[2019-10-04] MEDS: CARVEDILOL 3.125 MG TABLET PO SCH ×2 (08:01→16:56)
[2019-10-04] MEDS: MULTIVITAMIN I-VITE TABLET. PO SCH (08:01)
[2019-10-04] MEDS: PANTOPRAZOLE 40 MG TABLET. PO SCH ×2 (08:02→16:56)
[2019-10-04] MEDS: DULoxetine HCL 30 MG CAPSULE.DR PO SCH (08:02)
[2019-10-04] MEDS: TORSEMIDE 20 MG TABLET. PO SCH (08:02)
[2019-10-04] MEDS: LACTOBACILLUS RHAMNOSUS GG 1 CAPSULE. PO SCH (08:02)
[2019-10-04] MEDS: DICYCLOMINE HCL 20 MG TABLET PO SCH ×3 (08:02→20:20)
[2019-10-04] MEDS: GABAPENTIN 300 MG CAPSULE. PO SCH ×2 (08:02→20:20)
[2019-10-04] MEDS: FOLIC ACID 1 MG TABLET PO SCH (08:02)
[2019-10-04] MEDS: ISOSORBIDE MONONITRATE ER 30 MG TAB.ER.24H PO SCH (08:02)
[2019-10-04] MEDS: NYSTATIN 100,000 UNITS/ML ORAL SUSPENSION 60ML BOTTLE. SWSW SCH ×4 (09:10→20:21)
[2019-10-04] MEDS: ACETAMINOPHEN 325 MG TABLET PO PRN (09:10)
[2019-10-04] MEDS: GABAPENTIN 100 MG CAPSULE. PO SCH (13:09)
[2019-10-04 17:13] VITALS: BP 122/67
[2019-10-04] MEDS: tiZANidine 4 MG TABLET. PO SCH (20:20)
[2019-10-04] MEDS: HYDROcodone/APAP 5/325MG 1 TAB TABLET PO PRN (20:21)
[2019-10-04] MEDS: ATORVASTATIN CALCIUM 20 MG TABLET PO SCH (20:21)
[2019-10-05] MEDS: LEVOTHYROXINE 100 MCG TABLET PO SCH (05:55)
[2019-10-05 06:06] VITALS: BP 121/60
[2019-10-05] MEDS: PANTOPRAZOLE 40 MG TABLET. PO SCH (08:44)
[2019-10-05] MEDS: TORSEMIDE 20 MG TABLET. PO SCH (08:44)
[2019-10-05] MEDS: DULoxetine HCL 30 MG CAPSULE.DR PO SCH (08:44)
[2019-10-05] MEDS: LACTOBACILLUS RHAMNOSUS GG 1 CAPSULE. PO SCH (08:44)
[2019-10-05] MEDS: DICYCLOMINE HCL 20 MG TABLET PO SCH ×2 (08:45→14:00)
[2019-10-05] MEDS: MULTIVITAMIN I-VITE TABLET. PO SCH (08:45)
[2019-10-05] MEDS: GABAPENTIN 300 MG CAPSULE. PO SCH (08:45)
[2019-10-05] MEDS: FOLIC ACID 1 MG TABLET PO SCH (08:45)
[2019-10-05 08:46] VITALS: BP 121/60
[2019-10-05] MEDS: CARVEDILOL 3.125 MG TABLET PO SCH (08:46)
[2019-10-05] MEDS: ISOSORBIDE MONONITRATE ER 30 MG TAB.ER.24H PO SCH (08:46)
[2019-10-05] MEDS: NYSTATIN 100,000 UNITS/ML ORAL SUSPENSION 60ML BOTTLE. SWSW SCH ×2 (09:00→13:00)
[2019-10-05] MEDS: GABAPENTIN 100 MG CAPSULE. PO SCH (11:21)
--- NOTE | 2019-10-05 13:44 | DS ---
DATE OF DISCHARGE: HOSPITAL COURSE: The patient is an 84-year-old female patient who was transferred to swing bed from acute care where she was admitted with acute hematoma in the right anteromedial thigh after she was treated with Lovenox and as her INR was slightly subtherapeutic, we did actually discontinue her Lovenox and Coumadin altogether. Her pain has improved and she was transferred to swing bed to continue the process of rehabilitation and she did actually very well, but the patient continued to require some assistance and therefore, a decision was made to transfer her to [facility] and eventually to go to the independent living. PHYSICAL EXAMINATION: GENERAL: When I saw her today, she looked well and was clearly in no apparent respiratory distress. She was pale, but no jaundice, cyanosis or thyromegaly. No jugular venous distention. No limb edema. VITAL SIGNS: Her heart rate was 80, blood pressure was 121/60, temperature was 98.3, respiratory rate was 16, and oxygen saturation was 93%. HEAD, EYES, EARS, NOSE AND THROAT: Showed normocephalic, atraumatic. NECK: Supple. HEART: Showed normal first and second heart sounds. No gallop, rub or murmur. CHEST: Clear to auscultation. No crepitation or rhonchi. ABDOMEN: Distended, soft, nontender. No guarding or rigidity. No organomegaly. All hernial orifice intact. Bowel sounds normal. NEUROLOGIC: She was awake, alert, responding appropriately. All cranial nerves are intact. She moves extremities without difficulty. She ambulates with a walker. Thus, the swelling and the bruises on the medial aspect of the right thigh is actually feeding slowly. LABORATORY DATA: Her most recent lab work showed a white cell count of 3700, hemoglobin 8.7, hematocrit 26.8, MCV 103 and platelet count of 140,000. Serum sodium was 141, potassium 3.7, chloride 103, bicarbonate 34, anion gap of 4, BUN 29, creatinine 1.1, estimated GFR was 47 mL per minute. Her glucose 114, calcium was 8.5, magnesium was 1.7. Total bilirubin, AST, ALT were normal. Total protein was 5.1, albumin was 2.5. DISCHARGE MEDICATIONS: She was discharged to [place] to continue on following medications: She was on multivitamin 1 tablet once a day, Tylenol 650 mg once a day, lactobacillus 1 capsule once a day, torsemide 20 mg once a day, isosorbide mononitrate 30 mg daily, folic acid 1 mg daily, duloxetine 30 mg once a day, levothyroxine sodium 100 mcg once a day, atorvastatin calcium 40 mg at bedtime, tizanidine 4 mg at bedtime, gabapentin 300 mg p.o. b.i.d., carvedilol 3.125 mg twice a day, Protonix 40 mg twice a day, hydrocodone 5/325 one tablet every 6 hours and nystatin suspension 5 mL for swish and swallow 4 times a day. FINAL DISCHARGE DIAGNOSES: 1. Large hematoma on the anteromedial aspect of the right thigh that is resolving slowly after we have stopped her Coumadin. 2. Her multiple other medical problems including: A. Factor V Leiden, history of DVT for which she has an inferior vena cava filter. She has history of hypertension, hyperlipidemia, hypothyroidism, transient ischemic attack, senile macular degeneration, generalized osteoarthritis, sick sinus syndrome, status post automatic implantable cardioverter-defibrillator. BELÉN ANGLIN MD DR: GABRIEL/gary JOB#: [id number] / [id number]
--- NOTE | 2019-10-08 06:53 | EKG ---
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
== END 2019-10-05 15:55 | DRG 556 ==
LOC: LND 10:35
PROVIDERS: ADMIT Internal Medicine; ATTEND Internal Medicine
DX: M79.651 Pain in right thigh (principal); D68.51 Activated protein C resistance; E03.9 Hypothyroidism, unspecified; E78.5 Hyperlipidemia, unspecified; I10 Essential (primary) hypertension; M16.0 Bilateral primary osteoarthritis of hip; Z79.01 Long term (current) use of anticoagulants; Z79.890 Hormone replacement therapy; Z79.899 Other long term (current) drug therapy; Z80.0 Family history of malignant neoplasm of digestive organs; Z80.3 Family history of malignant neoplasm of breast; S70.11XA Contusion of right thigh, initial encounter; Z82.3 Family history of stroke; Z85.828 Personal history of other malignant neoplasm of skin; Z86.718 Personal history of other venous thrombosis and embolism; Z86.73 Personal history of transient ischemic attack (TIA), and cerebral infarction without residual deficits; Z87.891 Personal history of nicotine dependence; Z90.710 Acquired absence of both cervix and uterus; Z95.810 Presence of automatic (implantable) cardiac defibrillator; Z96.653 Presence of artificial knee joint, bilateral; Z98.41 Cataract extraction status, right eye; Z98.42 Cataract extraction status, left eye; Z90.49 Acquired absence of other specified parts of digestive tract; Z88.0 Allergy status to penicillin; Z88.2 Allergy status to sulfonamides; Z88.8 Allergy status to other drugs, medicaments and biological substances
CPT/HCPCS: 36415; 71046; 80048; 80053; 84484; 85025; 85027; 87070; 87880; 93005; 94640; J7613; 97110; 97116; 97530; 97535

== ENCOUNTER 2019-11-27 17:29 | Inpatient (IN) | payer MEDICARE, BC, OTHER ==
[~2019-11-27] VITALS: Ht 167.6 cm; Wt 94.4 kg
[2019-11-27] MEDS ORDERED: IV NORMAL SALINE 500ML 500 ML IV ONE (17:45)
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
--- NOTE | 2019-11-27 18:00 | EKG ---
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
--- NOTE | 2019-11-27 18:13 | RAD ---
CHEST AP ONLY History: Dizziness Comparison: October 02, 2019 Findings: Patchy bibasilar opacities. Enlarged cardiac size. No pleural effusion. No pneumothorax. Stable left pacemaker/ICD. Chronic deformity of the right proximal humerus, unchanged. Impression: 1. Patchy bibasilar opacities, likely atelectasis. 2. Enlarged cardiac size, unchanged. Electronically signed by: James Munson DO (11/27/2019 6:10 PM) [facility]
[2019-11-27 18:19] LABS: BASO # 0.1 x10^3/uL (0.0-0.2); BASO % 2 % (0-3); EOS # 0.1 x10^3/uL (0.0-0.7); EOS % 3 % (0-3); HEMATOCRIT 35.6 % (36.0-47.0); HEMOGLOBIN 11.5 g/dL (12.0-15.5); LYMPH # 0.7 x10^3/uL (1.0-4.8); LYMPH % 24 % (24-48); MEAN CORPUSCULAR HEMOGLOBIN 32 pg (25-35); MEAN CORPUSCULAR HGB CONC 32 g/dL (31-37); MEAN CORPUSCULAR VOLUME 101 fL (79-100); MONO # 0.4 x10^3/uL (0.0-1.1); MONO % 13 % (0-9); NEUT # 1.7 x10^3uL (1.8-7.7); NEUT % 58 % (31-73); PLATELET COUNT 150 x10^3/uL (140-400); RED BLOOD COUNT 3.54 x10^6/uL (3.50-5.40); RED CELL DISTRIBUTION WIDTH 17.2 % (11.5-14.5)
[2019-11-27 18:28] LABS: CREATININE 1.7 mg/dL (0.6-1.0); GFR 28.6; POTASSIUM 4.1 mmol/L (3.5-5.1)
[2019-11-27 18:34] LABS: ALBUMIN 3.5 g/dL (3.4-5.0); ALBUMIN/GLOBULIN RATIO 1.4 (1.0-1.7); TOTAL BILIRUBIN 0.7 mg/dL (0.2-1.0)
[2019-11-27 19:21] LABS: BILIRUBIN,URINE NEG (NEG); CLARITY,URINE CLEAR; COLOR,URINE YELLOW; GLUCOSE,URINE NEG (NEG)
[2019-11-27 19:22] LABS: NITRITE,URINE NEG (NEG); UROBILINOGEN,URINE 0.2 mg/dL (0.2 mg/dL)
[2019-11-27 19:27] LABS: BACTERIA,URINE FEW /HPF (0-FEW); RBC,URINE 0 /HPF (0-2); SQUAMOUS EPITHELIAL CELL,UR MOD /LPF
[2019-11-27] MEDS ORDERED: FUROSEMIDE 40 MG/4 ML VIAL IVP ONE (20:15)
[2019-11-27] MEDS ORDERED: ACETAMINOPHEN 325 MG TABLET PO PRN (20:30)
[2019-11-27] MEDS ORDERED: ONDANSETRON PF 4 MG/2 ML VIAL. IVP PRN (20:30)
--- NOTE | 2019-11-27 21:22 | RAD ---
WRIST 3V LEFT History: Injury. Hematoma. Pain. Technique: 3 views left hand. Comparison: None. Findings: Normal alignment. No fracture. Vascular calcifications. Mild first carpal metacarpal triscaphe DJD. Impression: 1. No acute osseous abnormality. Electronically signed by: James Munson DO (11/27/2019 9:19 PM) [facility]
--- NOTE | 2019-11-27 21:54 | NUR ---
Patient is in hospital for a controlled fall to ground. Patient does not take treatments at home and does not have any reason for treatments on this admission. I would like to have a PRN order in place incase a treatment is needed but does not need or want scheduled.
--- NOTE | 2019-11-27 22:00 | NUR ---
The patient, LEYDA RICHARDSON, 84 y/o, F admitted by BELÉN ANGLIN MD, to room 107 was given written information regarding hospital policies, unit procedures and contact persons. Valuables were checked and left with the patient.
[2019-11-27 22:11] VITALS: BP 162/93
[2019-11-27] MEDS ORDERED: ATOR10TA60 PO (23:35)
[2019-11-27] MEDS ORDERED: WARF4TAB64 PO (23:35)
[2019-11-27] MEDS ORDERED: MOXI3DRO18 EACHEYE (23:35)
--- NOTE | 2019-11-27 23:52 | NUR ---
Per Nursing Awning Craftsman, instructed to change patient status from observation to inpatient.
[2019-11-28] VITALS (7 sets, daily range): BP systolic 87–128; BP diastolic 58–75
[2019-11-28] MEDS ORDERED: CARVEDILOL 3.125 MG TABLET PO ONE (00:30)
[2019-11-28] MEDS ORDERED: WARFARIN 2 MG TABLET. PO ONE (00:30)
[2019-11-28] MEDS ORDERED: tiZANidine 4 MG TABLET. PO ONE (00:30)
[2019-11-28] MEDS ORDERED: DULO60CA6 PO (00:32)
[2019-11-28] MEDS ORDERED: GABA-585 PO (01:59)
[2019-11-28 02:50] LABS: BASO % 1 % (0-3); EOS # 0.1 x10^3/uL (0.0-0.7); EOS % 4 % (0-3); HEMATOCRIT 33.3 % (36.0-47.0); HEMOGLOBIN 10.8 g/dL (12.0-15.5); LYMPH # 0.9 x10^3/uL (1.0-4.8); LYMPH % 30 % (24-48); MEAN CORPUSCULAR HEMOGLOBIN 32 pg (25-35); MEAN CORPUSCULAR HGB CONC 32 g/dL (31-37); MEAN CORPUSCULAR VOLUME 100 fL (79-100); MONO # 0.4 x10^3/uL (0.0-1.1); MONO % 13 % (0-9); NEUT # 1.5 x10^3uL (1.8-7.7); NEUT % 51 % (31-73); PLATELET COUNT 137 x10^3/uL (140-400); RED BLOOD COUNT 3.34 x10^6/uL (3.50-5.40); RED CELL DISTRIBUTION WIDTH 17.4 % (11.5-14.5); WHITE BLOOD COUNT 2.9 x10^3/uL (4.0-11.0)
[2019-11-28 02:59] LABS: CALCIUM 8.8 mg/dL (8.5-10.1); CREATININE 1.6 mg/dL (0.6-1.0); GFR 30.6; POTASSIUM 3.4 mmol/L (3.5-5.1)
[2019-11-28] MEDS ORDERED: ONDANSETRON PF 4 MG/2 ML VIAL. IVP PRN (06:00)
[2019-11-28] MEDS ORDERED: FUROSEMIDE 40 MG/4 ML VIAL IVP ONE (06:00)
[2019-11-28] MEDS: LEVOTHYROXINE 100 MCG TABLET PO SCH (06:10)
[2019-11-28] MEDS ORDERED: POTASSIUM CHLORIDE 20 MEQ TABLET.ER. PO ONE ×2 (06:15→19:00)
[2019-11-28] MEDS: PANTOPRAZOLE 40 MG TABLET. PO SCH ×2 (07:49→17:29)
[2019-11-28] MEDS: LACTOBACILLUS RHAMNOSUS GG 1 CAPSULE. PO SCH (07:49)
[2019-11-28] MEDS: MULTIVITAMIN I-VITE TABLET. PO SCH (07:49)
[2019-11-28] MEDS: GABAPENTIN 300 MG CAPSULE. PO SCH ×2 (07:49→20:47)
[2019-11-28] MEDS: CARVEDILOL 3.125 MG TABLET PO SCH ×2 (07:54→17:00)
[2019-11-28] MEDS: DULoxetine HCL 60 MG CAPSULE.DR PO SCH (07:54)
[2019-11-28] MEDS: DICYCLOMINE HCL 20 MG TABLET PO SCH ×3 (07:54→20:46)
[2019-11-28] MEDS: MOXIFLOXACIN 0.5% OPHTH SOLUTION 3ML BOTTLE. OU SCH ×4 (07:56→20:47)
[2019-11-28] MEDS ORDERED: IPRATRPIUM/ALBUTEROL 0.5/2.5MG 3 ML NEBU. NEB SCH (08:00)
[2019-11-28] MEDS: LUBIPROSTONE 24 MCG CAPSULE PO SCH ×2 (08:18→17:29)
[2019-11-28] MEDS ORDERED: TORSEMIDE 20 MG TABLET. PO SCH (09:00)
[2019-11-28] MEDS ORDERED: ISOSORBIDE MONONITRATE ER 30 MG TAB.ER.24H PO SCH (09:00)
[2019-11-28] MEDS ORDERED: MINERAL OIL/PETROLATUM,WHITE OPHTH OINT 3.5GM TUBE. OU PRN (09:00)
[2019-11-28] MEDS ORDERED: IPRATRPIUM/ALBUTEROL 0.5/2.5MG 3 ML NEBU. NEB PRN (09:30)
[2019-11-28] MEDS ORDERED: PROP15DR40 EACHEYE (10:31)
[2019-11-28] MEDS ORDERED: IV NORMAL SALINE 500ML 500 ML IV ONE (11:45)
[2019-11-28] MEDS ORDERED: GABAPENTIN 100 MG CAPSULE. PO SCH (12:00)
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
--- NOTE | 2019-11-28 12:48 | PN ---
DATE: 11/28/2019 SUBJECTIVE: The patient was admitted last night with a complaint of being weak and dizzy. She apparently fell while attempting to walk with her walker. Denied any loss of consciousness or dysrhythmia before the fall, but her main complaint was weakness. She has been compliant with her medication. She was investigated in the Emergency Room and was admitted with weakness and fall. She has bilateral forearm ecchymosis, anemia and marked weakness and deconditioning. She is known to have chronic diastolic dysfunction. When I spoke to her this morning, she was resting, lying flat in bed, continued to complain of being weak. Denied any dizziness or lightheadedness. Denied any vertigo. Denied any palpitation. PHYSICAL EXAMINATION: GENERAL: When I examined her, she was somewhat pale, no jaundice, cyanosis, or thyromegaly. No jugular venous distention. No limb edema. VITAL SIGNS: Her heart rate was 79, blood pressure was 111/72, temperature was 97.5, respiratory rate 20, and oxygen saturation was 94% on room air. HEAD, EYES, EARS, NOSE AND THROAT: Showed normocephalic, atraumatic. NECK: Supple. HEART: Showed normal first and second heart sounds with no gallop, rub or murmur. CHEST: Clear to auscultation. No crepitation or rhonchi. ABDOMEN: Distended, soft, nontender. No guarding or rigidity. No organomegaly. All hernial orifice intact. Bowel sounds normal. NEUROLOGIC: She is awake, alert, responding appropriately. All cranial nerves are intact. She moves extremities without difficulty; however, she is very weak and unable to walk. We did check her orthostatic and her blood pressure lying was 111/71 with a heart rate of 75 and her oxygen saturation was 95%. Sitting, her blood pressure was 107/70, heart rate of 84 and standing her blood pressure dropped down to 87/58 with a heart rate of 83 indicating she is probably somewhat dehydrated and volume depleted in the face of elevated high beta natriuretic peptide of 6487. My plan is to hold her Lasix and isosorbide mononitrate. I will consult the cardiology team. I will probably give her a bolus of normal saline at 500 mL and arrange for her to have an echocardiogram. BELÉN ANGLIN MD DR: GABRIEL/gary JOB#: [id number] / [id number]
[2019-11-28] MEDS ORDERED: POLYVINYL ALCOHOL/POVIDONE/PF OPHTH SOLUTION DROPERETTE. OU PRN (13:30)
[2019-11-28] MEDS: HYDROcodone/APAP 5/325MG 1 TAB TABLET PO PRN (14:53)
--- NOTE | 2019-11-28 15:03 | RAD ---
CT chest without contrast dated 11/28/2019. No comparison available. CLINICAL INDICATION: Dyspnea and cough. TECHNIQUE: Contiguous axial imaging of the chest performed without the administration of intravenous contrast. One or more of the following individualized dose reduction techniques were utilized for this examination: 1. Automated exposure control 2. Adjustment of the mA and/or kV according to patient size 3. Use of iterative reconstruction technique FINDINGS: Heart size is moderately enlarged. No pericardial effusion. Coronary artery calcifications. No mediastinal, hilar or axillary lymphadenopathy. Thyroid gland unremarkable. Central airways are patent. Diffuse bronchial wall thickening. Mild emphysema. Noncalcified pulmonary nodule in the subpleural left upper lobe posteriorly measures 6 mm. There is also some vague groundglass opacity in the anterior left upper lobe on image 15 that measures about 4 mm. Couple of small subpleural nodules in the anterior left upper lobe/lingula on image 32 measure about 2 to 3 mm in size age. Calcified granuloma right upper lobe. No consolidation or pleural effusion. No pneumothorax. Limited images of the upper abdomen unremarkable. IVC filter in place. Gallbladder surgically absent. Bone windows show no acute findings. Multilevel spondylosis. IMPRESSION: 1. No acute abnormality of chest. 2. There are at least 3 noncalcified pulmonary nodules within both lungs, nonspecific. Suggest follow-up imaging in 12 months to ensure stability. 3. Mild emphysema. 4. Coronary artery calcifications. Electronically signed by: Azar Olivas MD (11/28/2019 3:00 PM) [facility]
--- NOTE | 2019-11-28 15:07 | PDOC2 ---
CARDIAC CONSULT DATE OF CONSULT Date Of Consult DATE: 11/28/19 TIME: 15:00 REASON FOR CONSULT Reason for Consult Weakness and lightheadedness. REFERRING PHYSICIAN Referring Physician Dr. Rowe SOURCE Source: Chart review, Patient HPI History of Present Illness The patient is an 84-year-old female resident of a nursing facility who was admitted last evening due to episodes of increased fatigue and weakness. The patient had no loss of consciousness. Her EKG showed a paced rhythm. Her chest x-ray showed bilateral opacities. Troponins have been negative x2. BNP is elevated at 6487. Her creatinine is 1.6. The patient states she is feeling somewhat better today. She has an extensive history including a cardiac history of a defibrillator, coronary artery disease, heart failure and previous atrial fibrillation. PAST MEDICAL HISTORY Cardiovascular: AFIB, CAD, CHF, HTN, hyperipidemia, Other (DVT) Pulmonary: Pneumonia CENTRAL NERVOUS SYSTEM: CVA, TIA Heme/Onc: Other (Factor V Leiden) Musculoskeletal: Osteoarthritis Renal/: Chronic renal insuff PAST SURGICAL HISTORY Past Surgical History: Appendectomy, Cholecystectomy, Hysterectomy, Other (AICD) FAMILY HISTORY Family History: Hypertension SOCIAL HISTORY Smoke: Quit ALCOHOL: rare CURRENT MEDICATIONS Current Medications Current Medications Sodium Chloride 500 ml @ 0 mls/hr 1X ONCE IV ; Start 11/27/19 at 17:45; Stop 11/27/19 at 17:46; Status DC Furosemide (Lasix) 40 mg 1X ONCE IVP Last administered on 11/27/19at 21:11; Start 11/27/19 at 20:15; Stop 11/27/19 at 20:54; Status DC Ondansetron HCl (Zofran) 4 mg PRN Q4HRS PRN IVP NAUSEA/VOMITING; Start 11/27/19 at 20:30; Stop 11/28/19 at 06:04; Status DC Acetaminophen (Tylenol) 650 mg PRN Q4HRS PRN PO FEVER > 100.3'F Last administered on 11/28/19at 13:35; Start 11/27/19 at 20:30; Stop 11/28/19 at 20:29 Albuterol/ Ipratropium (Duoneb) 3 ml RTQID NEB ; Start 11/28/19 at 08:00; Stop 11/28/19 at 09:23; Status DC Furosemide (Lasix) 40 mg 1X ONCE IVP Last administered on 11/28/19at 06:10; Start 11/28/19 at 06:00; Stop 11/28/19 at 06:03; Status DC Warfarin Sodium (Coumadin) 2 mg 1X ONCE PO Last administered on 11/28/19at 00:30; Start 11/28/19 at 00:30; Stop 11/28/19 at 00:31; Status DC Carvedilol (Coreg) 3.125 mg 1X ONCE PO Last administered on 11/28/19at 00:30; Start 11/28/19 at 00:30; Stop 11/28/19 at 00:31; Status DC Tizanidine HCl (Zanaflex) 4 mg 1X ONCE PO Last administered on 11/28/19at 00:30 ; Start 11/28/19 at 00:30; Stop 11/28/19 at 00:31; Status DC Multi-Ingred Cream/Lotion/Oil/ Oint (Artificial Tears Eye Ointment) 1 akira PRN Q1HR PRN OU DRY EYE; Start 11/28/19 at 09:00; Stop 11/28/19 at 13:23; Status DC Atorvastatin Calcium (Lipitor) 10 mg HS PO ; Start 11/28/19 at 21:00 Carvedilol (Coreg) 3.125 mg BIDWMEALS PO Last administered on 11/28/19at 07:54; Start 11/28/19 at 08:00 Dicyclomine HCl (Bentyl) 20 mg TID PO Last administered on 11/28/19at 13:35; Start 11/28/19 at 09:00 Duloxetine HCl (Cymbalta) 60 mg DAILY PO Last administered on 11/28/19at 07:54; Start 11/28/19 at 09:00 Gabapentin (Neurontin) 200 mg NOON PO ; Start 11/28/19 at 12:00; Status UNV Gabapentin (Neurontin) 300 mg BID PO Last administered on 11/28/19at 07:49; Start 11/28/19 at 09:00 Acetaminophen/ Hydrocodone Bitart (Lortab 5/325) 1 tab PRN Q6HRS PRN PO PAIN Last administered on 11/28/19at 14:53; Start 11/28/19 at 05:45 Isosorbide Mononitrate (Imdur) 30 mg DAILY PO Last administered on 11/28/19at 07:53; Start 11/28/19 at 09:00; Stop 11/28/19 at 11:27; Status DC Levothyroxine Sodium (Synthroid) 100 mcg DAILY06 PO Last administered on 11/28/19at 06:10; Start 11/28/19 at 06:00 Moxifloxacin HCl (Vigamox) 1 drop QID OU Last administered on 11/28/19at 13:35; Start 11/28/19 at 09:00 Pantoprazole Sodium (Protonix) 40 mg BIDBFRMEAL PO Last administered on 11/28/19at 07:49; Start 11/28/19 at 07:30 Tizanidine HCl (Zanaflex) 4 mg HS PO ; Start 11/28/19 at 21:00 Torsemide (Demadex) 20 mg DAILY PO Last administered on 11/28/19at 07:54; Start 11/28/19 at 09:00; Stop 11/28/19 at 11:27; Status DC Warfarin Sodium (Coumadin) 4 mg DAILY16 PO ; Start 11/28/19 at 16:00 Lactobacillus Rhamnosus (Culturelle) 1 cap DAILY PO Last administered on 11/28/19at 07:49; Start 11/28/19 at 09:00 Lubiprostone (Amitiza) 24 mcg BIDWMEALS PO Last administered on 11/28/19at 08:18; Start 11/28/19 at 08:00 Multivitamins/ Minerals (I-Jia) 1 tab DAILY PO Last administered on 11/28/19at 07:49; Start 11/28/19 at 09:00 Ondansetron HCl (Zofran) 4 mg PRN Q4HRS PRN IVP NAUSEA/VOMITING; Start 11/28/19 at 06:00 Potassium Chloride (Klor-Con) 40 meq 1X ONCE PO ; Start 11/28/19 at 06:15; Stop 11/28/19 at 06:30; Status DC Albuterol/ Ipratropium (Duoneb) 3 ml PRN QID PRN NEB SHORTNESS OF BREATH; Start 11/28/19 at 09:30 Sodium Chloride 500 ml @ 0 mls/hr 1X ONCE IV Last administered on 11/28/19at 12:47; Start 11/28/19 at 11:45; Stop 11/28/19 at 11:46; Status DC Artificial Tears (Refresh Classic) 1 drop PRN Q1HR PRN OU DRY EYE; Start 11/28/19 at 13:30 Active Scripts Active Isosorbide Mononitrate Er (Isosorbide Mononitrate) 30 Mg Tab.er.24h 1 Tab PO DAILY 30 Days [place] 5-325 Tablet (Hydrocodone Bit/Acetaminophen) 1 Each Tablet 1 Tab PO PRN Q6HRS PRN Linzess (Linaclotide) 145 Mcg Capsule 145 Mcg PO DAILY 30 Days Protonix (Pantoprazole Sodium) 40 Mg Tablet.dr 40 Mg PO BID 90 Days LAST DOSE: today at 8AM NEXT DOSE: tomorrow at 8AM Carvedilol (Carvedilol) 3.125 Mg Tablet 3.125 Mg PO BIDWMEALS Reported Systane 0.3-0.4% Eye Drops (Propylene Glycol/Peg 400) 15 Ml Drops 1 Drop EACHEYE QID Gabapentin (Gabapentin) 100 Mg Capsule 200 Mg PO NOON Cymbalta (Duloxetine Hcl) 60 Mg Capsule.dr 1 Cap PO DAILY Vigamox (Moxifloxacin Hcl) 3 Ml Drops 1 Drop EACHEYE QID Warfarin Sodium 4 Mg Tablet 4 Mg PO DAILY Atorvastatin Calcium 10 Mg Tablet 1 Tab PO HS Torsemide 20 Mg Tablet 1 Tab PO DAILY Gabapentin (Gabapentin) 300 Mg Capsule 300 Mg PO BID [facility] Rx Capsule (Lactobacillus Casei/Folic Acid) 1 Each Capsule 1 Each PO DAILY Premarin (Estrogens, Conjugated) 30 Gm Cream.appl 0.5 Gm VG TWICE WEEKLY NOT GIVEN IN THE HOSPITAL NEXT DOSE DUE: DATE: RESTART ON YOUR REGULAR DAY Tizanidine Hcl (Tizanidine HCl) 4 Mg Tablet 4 Mg PO HS Ocuvite Softgel (Vit C/Vit E/Lutein/Min/[place]-3) 1 Each Capsule 1 Cap PO DAILY LAST DOSE GIVEN: DATE: TODAY TIME: AM NEXT DOSE DUE: DATE: TOMORROW TIME: AM Levothyroxine Sodium 100 Mcg Tablet 100 Mcg PO DAILY06 Bentyl (Dicyclomine Hcl) 20 Mg Tablet 20 Mg PO TID ALLERGIES Allergies: Coded Allergies: Penicillins (Verified Allergy, Intermediate, RASH, 08/26/18) Sulfa (Sulfonamide Antibiotics) (Verified Allergy, Intermediate, 08/26/18) UNKNOWN REACTION WAS TOLD I WAS ALLERGIC TO IT. sulfamethoxazole (Verified Allergy, Intermediate, 08/26/18) trimethoprim (Verified Allergy, Intermediate, 08/26/18) ROS General: YES: Fatigue Cardiovascular: yes: Lt [place] PHYSICAL EXAM General: mild distress HEENT: Atraumatic Lungs: Clear to auscultation Heart: Regular rate Abdomen: Normal bowel sounds VITALS Vital Signs Vital Signs Date Time Temp Pulse Resp B/P (MAP) Pulse Ox O2 Delivery O2 Flow Rate FiO2 11/28/19 14:53 18 96 Room Air 11/28/19 11:07 83 87/58 (68) 11/28/19 11:00 97.4 LABS LABS Laboratory Tests Test 11/27/19 17:45 11/27/19 18:25 11/28/19 02:40 White Blood Count 3.0 x10^3/uL (4.0-11.0) 2.9 x10^3/uL (4.0-11.0) Red Blood Count 3.54 x10^6/uL (3.50-5.40) 3.34 x10^6/uL (3.50-5.40) Hemoglobin 11.5 g/dL (12.0-15.5) 10.8 g/dL (12.0-15.5) Hematocrit 35.6 % (36.0-47.0) 33.3 % (36.0-47.0) Mean Corpuscular Volume 101 fL (79-100) 100 fL (79-100) Mean Corpuscular Hemoglobin 32 pg (25-35) 32 pg (25-35) Mean Corpuscular Hemoglobin Concent 32 g/dL (31-37) 32 g/dL (31-37) Red Cell Distribution Width 17.2 % (11.5-14.5) 17.4 % (11.5-14.5) Platelet Count 150 x10^3/uL (140-400) 137 x10^3/uL (140-400) Neutrophils (%) (Auto) 58 % (31-73) 51 % (31-73) Lymphocytes (%) (Auto) 24 % (24-48) 30 % (24-48) Monocytes (%) (Auto) 13 % (0-9) 13 % (0-9) Eosinophils (%) (Auto) 3 % (0-3) 4 % (0-3) Basophils (%) (Auto) 2 % (0-3) 1 % (0-3) Neutrophils # (Auto) 1.7 x10^3uL (1.8-7.7) 1.5 x10^3uL (1.8-7.7) Lymphocytes # (Auto) 0.7 x10^3/uL (1.0-4.8) 0.9 x10^3/uL (1.0-4.8) Monocytes # (Auto) 0.4 x10^3/uL (0.0-1.1) 0.4 x10^3/uL (0.0-1.1) Eosinophils # (Auto) 0.1 x10^3/uL (0.0-0.7) 0.1 x10^3/uL (0.0-0.7) Basophils # (Auto) 0.1 x10^3/uL (0.0-0.2) 0.0 x10^3/uL (0.0-0.2) Prothrombin Time 27.0 SEC (9.4-11.4) Prothromb Time International Ratio 2.6 (0.9-1.1) Activated Partial Thromboplast Time 39 SEC (23-33) Sodium Level 139 mmol/L (136-145) 142 mmol/L (136-145) Potassium Level 4.1 mmol/L (3.5-5.1) 3.4 mmol/L (3.5-5.1) Chloride Level 99 mmol/L (98-107) 102 mmol/L (98-107) Carbon Dioxide Level 29 mmol/L (21-32) 32 mmol/L (21-32) Anion Gap 11 (6-14) 8 (6-14) Blood Urea Nitrogen 31 mg/dL (7-20) 30 mg/dL (7-20) Creatinine 1.7 mg/dL (0.6-1.0) 1.6 mg/dL (0.6-1.0) Estimated GFR (Cockcroft-Gault) 28.6 30.6 BUN/Creatinine Ratio 18 (6-20) Glucose Level 108 mg/dL (70-99) 128 mg/dL (70-99) Calcium Level 9.0 mg/dL (8.5-10.1) 8.8 mg/dL (8.5-10.1) Total Bilirubin 0.7 mg/dL (0.2-1.0) Aspartate Amino Transf (AST/SGOT) 28 U/L (15-37) Alanine Aminotransferase (ALT/SGPT) 18 U/L (14-59) Alkaline Phosphatase 99 U/L (46-116) Troponin I Quantitative < 0.017 ng/mL (0-0.055) < 0.017 ng/mL (0-0.055) NC-Gqs-K-Type Natriuretic Peptide 6487 pg/mL (0-449) Total Protein 6.0 g/dL (6.4-8.2) Albumin 3.5 g/dL (3.4-5.0) Albumin/Globulin Ratio 1.4 (1.0-1.7) Urine Collection Type Unknown Urine Color Yellow Urine Clarity Clear Urine pH 5.0 Urine Specific [place] 1.010 Urine Protein Neg (NEG-TRACE) Urine Glucose (UA) Neg mg/dL (NEG) Urine Ketones (Stick) Neg mg/dL (NEG) Urine Blood Neg (NEG) Urine Nitrite Neg (NEG) Urine Bilirubin Neg (NEG) Urine Urobilinogen Dipstick 0.2 mg/dL (0.2 mg/dL) Urine Leukocyte Esterase Trace (NEG) Urine RBC 0 /HPF (0-2) Urine WBC 1-4 /HPF (0-4) Urine Squamous Epithelial Cells Mod /LPF Urine Bacteria Few /HPF (0-FEW) IMAGES IMAGES Checks x-ray with mild bibasilar opacities EKG EKG Paced rhythm ECHOCARDIOGRAM Echocardiogram Pending ASSESSMENT/PLAN Assessment/Plan 1. Weakness and lightheadedness. Paced rhythm. Multi-factorial. Agree with holding Lasix and Imdur. Will check an echocardiogram. Will attempt to obtain records regarding the patient's device. 2. Mild heart failure. Gentle diuresis as tolerated by the patient's blood pressure and her renal function. 3. ICD. Will attempt to obtain old records. 4. History of coronary artery disease. No reported chest pain. Paced rhythm as above. 5. History of a TIA and possible CVA. Continuing present treatments. 6. Factor V Leiden. Previous transfusions. Thank you for allowing us to participate in the care of your patient. OLU GREEN MD November 28, 2019 15:07
--- NOTE | 2019-11-28 15:43 | CARD ---
MR#: [id number] Date of Study: 11/28/2019 Ordering Physician: BELÉN ANGLIN, Referring Physician: BELÉN ANGLIN, Tech: Ana Trent RDCS APPROVED REPORT EXAM: Two-dimensional and M-mode echocardiogram with Doppler and color Doppler. Other Information Quality : GoodHR: 80bpm Rhythm : Atrial Fibrillation INDICATION Congestive Heart Failure 2D DIMENSIONS Left Atrium(2D)4.5 (1.6-4.0cm)IVSd0.8 (0.7-1.1cm) Aortic Root(2D)2.1 (2.0-3.7cm)LVDd4.0 (3.9-5.9cm) PWd0.8 (0.7-1.1cm)LA Mltnal63 (18-58mL) LVDs2.5 (2.5-4.0cm)FS (%) 38.6 % SV49.1 ml Aortic Valve AoV Peak Kee.145.8cm/sAoV VTI31.0cm AO Peak GR.8.5mmHgLVOT Peak Kee.92.1cm/s LVOT VTI 18.38cmAO Mean GR.6mmHg AI P 1/2 [id number] Tricuspid Valve TR P. [id number]/sTR Peak Gr.43mmHg Pulmonary Vein S1 Zzxgaimf11.3cm/s LEFT VENTRICLE The left ventricle is normal size. There is mild concentric left ventricular hypertrophy. The left ve ntricular systolic function is normal and the ejection fraction is within normal range. Left ventricu lar ejection fraction is 60-65%. There is normal LV segmental wall motion. No left ventricle thrombus noted on this study. There is no ventricular septal defect visualized. There is no left ventricular aneurysm. There is no mass noted in the left ventricle. RIGHT VENTRICLE The right ventricle is borderline dilated. There is normal right ventricular wall thickness. The righ t ventricular systolic function is normal. ATRIA The left atrium is mildly dilated. The right atrium is mild to moderately dilated. The interatrial se ptum is intact with no evidence for an atrial septal defect or patent foramen ovale as noted on 2-D o r Doppler imaging. AORTIC VALVE The aortic valve is normal in structure and function. Doppler and Color Flow revealed mild to moderat e aortic regurgitation. There is no significant aortic valvular stenosis. There is no aortic valvular vegetation. MITRAL VALVE The mitral valve is normal in structure and function. There is no evidence of mitral valve prolapse. There is no mitral valve stenosis. Doppler and Color Flow revealed mild mitral regurgitation. TRICUSPID VALVE The tricuspid valve is normal in structure and function. Doppler and Color Flow revealed moderate tri cuspid regurgitation. There is no tricuspid valve prolapse or vegetation. There is no tricuspid valve stenosis. PULMONIC VALVE The pulmonary valve is normal in structure and function. There is no pulmonic valvular stenosis. GREAT VESSELS The aortic root is normal in size. The ascending aorta is normal in size. The IVC is normal in size a nd collapses >50% with inspiration. PERICARDIAL EFFUSION There is no evidence of significant pericardial effusion. Critical Notification Critical Value: No <Conclusion> The left ventricle is normal size. The left ventricular systolic function is normal and the ejection fraction is within normal range. Left ventricular ejection fraction is 60-65%. There is mild to moderate concentric left ventricular hypertrophy. Doppler and Color Flow revealed mild to moderate aortic regurgitation. There is no significant aortic valvular stenosis. Doppler and Color Flow revealed mild mitral regurgitation. Doppler and Color Flow revealed moderate tricuspid regurgitation. Signed by : Pedro Hughes MD Electronically Approved : 11/28/2019 15:42:38
[2019-11-28] MEDS: WARFARIN 4 MG TABLET. PO SCH (17:29)
[2019-11-28] MEDS: tiZANidine 4 MG TABLET. PO SCH (20:46)
[2019-11-28] MEDS: ATORVASTATIN CALCIUM 10 MG TABLET. PO SCH (20:46)
[2019-11-29 05:56] VITALS: BP 105/54
[2019-11-29] MEDS: LEVOTHYROXINE 100 MCG TABLET PO SCH (06:24)
[2019-11-29 07:08] LABS: CALCIUM 9.1 mg/dL (8.5-10.1); CREATININE 1.4 mg/dL (0.6-1.0); GFR 35.7; POTASSIUM 3.7 mmol/L (3.5-5.1)
[2019-11-29] MEDS: DULoxetine HCL 60 MG CAPSULE.DR PO SCH (08:07)
[2019-11-29] MEDS: LACTOBACILLUS RHAMNOSUS GG 1 CAPSULE. PO SCH (08:07)
[2019-11-29] MEDS: DICYCLOMINE HCL 20 MG TABLET PO SCH ×3 (08:07→20:11)
[2019-11-29] MEDS: HYDROcodone/APAP 5/325MG 1 TAB TABLET PO PRN ×2 (08:07→20:14)
[2019-11-29] MEDS: PANTOPRAZOLE 40 MG TABLET. PO SCH ×2 (08:07→17:31)
[2019-11-29] MEDS: MULTIVITAMIN I-VITE TABLET. PO SCH (08:08)
[2019-11-29] MEDS: CARVEDILOL 3.125 MG TABLET PO SCH ×2 (08:08→17:31)
[2019-11-29] MEDS: GABAPENTIN 300 MG CAPSULE. PO SCH ×2 (08:08→20:11)
[2019-11-29] MEDS: LUBIPROSTONE 24 MCG CAPSULE PO SCH ×2 (08:08→17:00)
[2019-11-29] MEDS: MOXIFLOXACIN 0.5% OPHTH SOLUTION 3ML BOTTLE. OU SCH ×4 (08:44→20:15)
[2019-11-29 10:31] VITALS: BP 105/66
[2019-11-29] MEDS ORDERED: IV NORMAL SALINE 500ML 500 ML IV ONE (10:45)
--- NOTE | 2019-11-29 11:16 | PN ---
DATE: 11/29/2019 SUBJECTIVE: The patient is resting, slightly propped up in bed, in no apparent distress. She is awake, alert, continued to complain of weakness; however, she is definitely much improved today. We checked her orthostatics and there is mild postural hypertension, but much less than yesterday. She did have an echocardiogram done yesterday, which showed that her left ventricular size is normal, her left ventricular systolic function is normal, ejection fraction is within normal range. Ejection fraction was 60-65%. There is emwj-pi-abbzlpss concentric left ventricular hypertrophy. She has moderate aortic regurgitation, no significant aortic valvular stenosis. She has mild mitral regurgitation, moderate tricuspid regurgitation. CT scan of the chest without contrast showed the heart size is moderately enlarged, no pericardial effusion, coronary artery calcification. No mediastinal, hilar or axillary lymphadenopathy. Thyroid gland is unremarkable, central airways are patent, diffuse bronchial wall thickening, mild emphysema. She has noncalcified pulmonary nodule in the subpleural left upper lobe posteriorly measuring up to 6 mm. There is also some vague ground-glass opacity in the anterior left upper lobe on image 15 that measures about 4 mm, a couple of small subpleural nodules in the anterior left upper lobe lingula. Calcified granuloma right upper lobe. No consolidation, pleural effusion or pneumothorax. Limited images of the upper abdomen are unremarkable. IVC filter in place. Gallbladder surgically absent. Bone windows showed no acute finding. The impression is that there is no acute abnormality of the chest. There are at least 3 noncalcified pulmonary nodules within both lungs, nonspecific, suggest followup imaging in 12 months to ensure stability. She has mild emphysema and coronary artery calcification. PHYSICAL EXAMINATION: GENERAL: When I examined her this morning, she was resting slightly propped up in bed, in no apparent distress, slightly pale, but no jaundice, cyanosis or thyromegaly. No jugular venous distention. No lower limb edema. VITAL SIGNS: Heart rate was 81, blood pressure was 105/54, temperature was 98.4, respiratory rate was 18, and oxygen saturation was 92% on room air. HEAD, EYES, EARS, NOSE AND THROAT: Showed normocephalic, atraumatic. NECK: Supple. HEART: Showed normal first and second heart sounds. No gallop, rub or murmur. CHEST: Clear to auscultation. No crepitation or rhonchi. ABDOMEN: Distended, soft, nontender. NEUROLOGIC: She is definitely more awake, alert today. All her cranial nerves are intact. She moves her extremities without difficulty. Her intake over the last 24 hours was incompletely recorded, output was 1925. LABORATORY DATA: As of yesterday, her white cell count was 2900, hemoglobin 11, hematocrit 33, MCV 100, and platelet count 137,000. Her chemistry this morning showed a serum sodium 141, potassium 3.7, chloride 101, bicarbonate 33, anion gap of 7, BUN 25, creatinine 1.4, estimated GFR was 56 mL per minute. Her glucose was 106, calcium was 9.1. ASSESSMENT: In summary, the patient was admitted with weakness and lightheadedness. She has definite postural hypertension of more than 20 mm difference between lying and standing systolic pressure. I did actually held her Lasix and Imdur. I gave her 500 mL normal saline bolus and she seemed to be much improved. Acute kidney injury on chronic kidney disease, improving. 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 She is also on Coumadin and her INR is actually supratherapeutic. PLAN: My plan is to give her another bolus of normal saline. Continue with physical and occupational therapy. Hold her Coumadin today and evaluate her progress tomorrow. BELÉN ANGLIN MD DR: GABRIEL/gary JOB#: [id number] / [id number]
[2019-11-29] MEDS: WARFARIN 4 MG TABLET. PO SCH (14:57)
[2019-11-29 19:14] VITALS: BP 118/77
[2019-11-29] MEDS: ATORVASTATIN CALCIUM 10 MG TABLET. PO SCH (20:11)
[2019-11-29] MEDS: tiZANidine 4 MG TABLET. PO SCH (20:11)
[2019-11-29 22:16] VITALS: BP 136/77
[2019-11-30] MEDS: LEVOTHYROXINE 100 MCG TABLET PO SCH (05:45)
[2019-11-30 05:52] VITALS: BP 130/82
[2019-11-30 06:17] LABS: CALCIUM 8.9 mg/dL (8.5-10.1); CREATININE 1.2 mg/dL (0.6-1.0); GFR 42.7; POTASSIUM 3.7 mmol/L (3.5-5.1)
[2019-11-30] MEDS: MULTIVITAMIN I-VITE TABLET. PO SCH (07:55)
[2019-11-30] MEDS: PANTOPRAZOLE 40 MG TABLET. PO SCH ×2 (07:55→16:44)
[2019-11-30] MEDS: DULoxetine HCL 60 MG CAPSULE.DR PO SCH (07:55)
[2019-11-30] MEDS: GABAPENTIN 300 MG CAPSULE. PO SCH ×2 (07:55→20:28)
[2019-11-30] MEDS: DICYCLOMINE HCL 20 MG TABLET PO SCH ×3 (07:55→20:28)
[2019-11-30] MEDS: LUBIPROSTONE 24 MCG CAPSULE PO SCH ×2 (07:55→16:44)
[2019-11-30] MEDS: LACTOBACILLUS RHAMNOSUS GG 1 CAPSULE. PO SCH (07:55)
[2019-11-30] MEDS: CARVEDILOL 3.125 MG TABLET PO SCH ×2 (07:56→16:44)
[2019-11-30] MEDS: MOXIFLOXACIN 0.5% OPHTH SOLUTION 3ML BOTTLE. OU SCH ×4 (07:56→20:29)
[2019-11-30] MEDS: HYDROcodone/APAP 5/325MG 1 TAB TABLET PO PRN ×3 (09:48→22:45)
--- NOTE | 2019-11-30 10:21 | RAD ---
CT left femur without contrast History: Fall, femur fracture. Comparisons: None available. FINDINGS: No fracture. No dislocation. Streak artifact from metallic components of the distal femur of a total knee arthroplasty may decrease sensitivity for evaluating subtle bony and soft tissue abnormalities about the distal femur at the knee. Left hip osteoarthritis with joint space narrowing and bone spurs and cysts of the acetabulum. There are varicosities about the anterior medial thigh associated with the greater saphenous vein. Arterial vascular calcifications are noted. There is mild lateral mid to lower thigh soft tissue edema. No soft tissue hematoma evident. IMPRESSION: No acute osseous injury. Left hip osteoarthritis. Exposure: One or more of the following individualized dose reduction techniques were utilized for this examination: 1. Automated exposure control 2. Adjustment of the mA and/or kV according to patient size 3. Use of iterative reconstruction technique Electronically signed by: Dk Madsen MD (11/30/2019 10:18 AM) [id number]
--- NOTE | 2019-11-30 10:21 | PN ---
DATE: 11/30/2019 SUBJECTIVE: The patient is resting flat in bed, in no apparent distress. She is complaining of pain in her left leg, has had a CT scan done that was not read yet. PHYSICAL EXAMINATION: GENERAL: When I examined her, she looked pale. No jaundice, cyanosis or thyromegaly. No jugular venous distention or limb edema. VITAL SIGNS: Her heart rate was 81, blood pressure was 130/82, temperature was 98, respiratory rate was 18, and oxygen saturation was 92% on room air. HEAD, EYES, EARS, NOSE AND THROAT: Showed normocephalic, atraumatic. NECK: Supple. CARDIAC: Normal first and second heart sounds. No gallop or murmur. CHEST: Clear to auscultation. No crepitation or rhonchi. ABDOMEN: Distended, soft, nontender. No guarding or rigidity. No organomegaly. All hernial orifices intact. Bowel sounds normal. NEUROLOGIC: She was awake, alert, responding appropriately. All cranial nerves intact. She moves extremities without difficulty. She is able to stand and walk, which is when she states the pain is worse. Her intake was 1900, output was 1850. LABORATORY DATA: Her most recent white cell count was 2900, hemoglobin 11, hematocrit 33, MCV 100, and platelet count of 137,000. Her chemistry this morning showed a serum sodium 141, potassium 3.7, chloride 103, bicarbonate 34, anion gap of 4, BUN 22, creatinine 1.2, estimated GFR was 42 mL per minute. Her glucose 104, calcium was 8.9. ASSESSMENT: 1. Weakness and lightheadedness with marked postural hypotension more than 23 mmHg between lying and standing systolic pressure for which I held her Lasix and Imdur. She has received total of 1000 mL of normal saline bolus and she is doing much better. 2. Acute kidney injury on chronic kidney disease, improving. Her creatinine is down from 1.7 to 1.2. 3. 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 She is also on Coumadin and her INR was supratherapeutic. The patient has numerous other medical problems including: A. Hypertension. B. Hyperlipidemia. C. Hypothyroidism. D. Generalized osteoarthritis. E. Senile macular degeneration. PLAN: To continue with physical and occupational therapy. Continue with pain management. Continue to hold her Lasix, Imdur as well as Coumadin. If the CT scan of her left lower extremity is unremarkable, we will discharge her home tomorrow. BELÉN ANGLIN MD DR: GABRIEL/gary JOB#: [id number] / [id number]
[2019-11-30 10:27] VITALS: BP 120/77
[2019-11-30] MEDS: GABAPENTIN 100 MG CAPSULE. PO SCH (12:03)
[2019-11-30 14:23] VITALS: BP 106/70
--- NOTE | 2019-11-30 14:51 | NUR ---
NURSING NOTE PATIENT IS NICE AND PLEASANT DURING ASSESSMENT, STATED SHE HAS PAIN IN LLE, REQUESTED PAIN MEDICATION, LORTAB GIVEN ORDERED. WILL CONTINUE TO MONITOR.
[2019-11-30] MEDS: WARFARIN 4 MG TABLET. PO SCH (16:00)
[2019-11-30 19:21] VITALS: BP 112/48
[2019-11-30] MEDS: ATORVASTATIN CALCIUM 10 MG TABLET. PO SCH (20:28)
[2019-11-30] MEDS: tiZANidine 4 MG TABLET. PO SCH (20:28)
[2019-11-30 22:44] VITALS: BP 115/73
[2019-12-01] MEDS: LEVOTHYROXINE 100 MCG TABLET PO SCH (05:33)
[2019-12-01 05:42] VITALS: BP 111/74
[2019-12-01 05:58] LABS: HEMATOCRIT 36.8 % (36.0-47.0); HEMOGLOBIN 11.9 g/dL (12.0-15.5); RED BLOOD COUNT 3.67 x10^6/uL (3.50-5.40); RED CELL DISTRIBUTION WIDTH 17.7 % (11.5-14.5); WHITE BLOOD COUNT 2.9 x10^3/uL (4.0-11.0)
[2019-12-01 06:11] LABS: CALCIUM 9.1 mg/dL (8.5-10.1); CREATININE 1.3 mg/dL (0.6-1.0); GFR 38.9; POTASSIUM 4.4 mmol/L (3.5-5.1); TOTAL BILIRUBIN 0.5 mg/dL (0.2-1.0); TOTAL PROTEIN 6.1 g/dL (6.4-8.2)
[2019-12-01] MEDS: DULoxetine HCL 60 MG CAPSULE.DR PO SCH (08:17)
[2019-12-01] MEDS: LACTOBACILLUS RHAMNOSUS GG 1 CAPSULE. PO SCH (08:17)
[2019-12-01] MEDS: GABAPENTIN 300 MG CAPSULE. PO SCH ×2 (08:17→20:12)
[2019-12-01] MEDS: LUBIPROSTONE 24 MCG CAPSULE PO SCH ×2 (08:17→17:05)
[2019-12-01] MEDS: DICYCLOMINE HCL 20 MG TABLET PO SCH ×3 (08:17→20:12)
[2019-12-01] MEDS: PANTOPRAZOLE 40 MG TABLET. PO SCH ×2 (08:18→17:06)
[2019-12-01] MEDS: CARVEDILOL 3.125 MG TABLET PO SCH ×2 (08:18→17:06)
[2019-12-01] MEDS: MOXIFLOXACIN 0.5% OPHTH SOLUTION 3ML BOTTLE. OU SCH (09:00)
--- NOTE | 2019-12-01 09:08 | PDOC ---
TERE MANNING SHANK SCOURER 12/01/19 0908: CARDIO Progress Notes Date & Time Date of Service DATE: 12/01/19 TIME: 08:57 Time of Evaluation 08:57 Subjective Notes No SOA, dizziness, diaphoresis, or nausea/vomiting. Concerned as she had appointment with Dr. Mahmood today and she is not unable to make this. Vitals Vitals Vital Signs Date Time Temp Pulse Resp B/P (MAP) Pulse Ox O2 Delivery O2 Flow Rate FiO2 12/01/19 08:18 80 111/74 12/01/19 05:42 97.5 20 95 Room Air Weight Weight [ ] Input and Output I.O. Intake and Output 12/01/19 07:00 Intake Total 890 ml Balance 890 ml Intake Oral 890 ml # Voids 5 Laboratory Labs Laboratory Tests Test 11/30/19 05:45 11/30/19 05:51 12/01/19 05:47 Prothrombin Time 30.8 SEC (9.4-11.4) Prothromb Time International Ratio 3.0 (0.9-1.1) Sodium Level 141 mmol/L (136-145) 139 mmol/L (136-145) Potassium Level 3.7 mmol/L (3.5-5.1) 4.4 mmol/L (3.5-5.1) Chloride Level 103 mmol/L (98-107) 101 mmol/L (98-107) Carbon Dioxide Level 34 mmol/L (21-32) 35 mmol/L (21-32) Anion Gap 4 (6-14) 3 (6-14) Blood Urea Nitrogen 22 mg/dL (7-20) 22 mg/dL (7-20) Creatinine 1.2 mg/dL (0.6-1.0) 1.3 mg/dL (0.6-1.0) Estimated GFR (Cockcroft-Gault) 42.7 38.9 Glucose Level 104 mg/dL (70-99) 131 mg/dL (70-99) Calcium Level 8.9 mg/dL (8.5-10.1) 9.1 mg/dL (8.5-10.1) White Blood Count 2.9 x10^3/uL (4.0-11.0) Red Blood Count 3.67 x10^6/uL (3.50-5.40) Hemoglobin 11.9 g/dL (12.0-15.5) Hematocrit 36.8 % (36.0-47.0) Mean Corpuscular Volume 100 fL (79-100) Mean Corpuscular Hemoglobin 32 pg (25-35) Mean Corpuscular Hemoglobin Concent 32 g/dL (31-37) Red Cell Distribution Width 17.7 % (11.5-14.5) Platelet Count 156 x10^3/uL (140-400) BUN/Creatinine Ratio 17 (6-20) Total Bilirubin 0.5 mg/dL (0.2-1.0) Aspartate Amino Transf (AST/SGOT) 16 U/L (15-37) Alanine Aminotransferase (ALT/SGPT) 14 U/L (14-59) Alkaline Phosphatase 93 U/L (46-116) Total Protein 6.1 g/dL (6.4-8.2) Albumin 3.0 g/dL (3.4-5.0) Albumin/Globulin Ratio 1.0 (1.0-1.7) Microbiology Micro Microbiology 11/27/19 Urine Culture - Final, Complete Physical Exams HEENT: Neck Supple W Full Motion Chest: Symmetric Lungs: Clear to Auscultation, Other (diminished bases) Heart: S1S2, RRR Abdomen: Soft N/T Extremities: Other (2+ bilateral LE edema) Neurology: alert, follow commands Assessment Assessment 1. Weakness, dizziness. 2. Hypertension; BP low end and orthostatic hypotension noted 11/27. Lasix and Imdur held. S/p IV fluid bolus 3. Acute on chronic diastolic CHF with h/o cardiomyopathy; s/p AICD. Echo with preserved LV systolic function 4. ANA on CKD; CR improved 5. Hyperlipidemia; stain 6. History of mitral valve repair. 7. Factor V deficiency; PE/DVT. s/p IVC filter 8. PAFIB; on warfarin therapy. V-paced Recommendations Repeat orthos Continue ASA, statin, BB Continue to hold Imdur as BP remains low end Resume oral diuretic therapy F/u with primary mutuel teller, Dr. Mahmood supportive care DEXTER MATA MD 12/01/19 1701: CARDIO Progress Notes Plan Plan Patient seen and examined. Agree with above nurse practitioner note. Patient has diastolic heart failure with significant lower extremity edema. Agree with reinitiation of oral diuretics. Close monitoring of renal function. Poor terminal operations supervisor prognosis TERE MANNING APRN December 01, 2019 09:08 DEXTER MATA MD December 01, 2019 17:01
[2019-12-01] MEDS: TORSEMIDE 20 MG TABLET. PO SCH (09:52)
[2019-12-01] MEDS: MULTIVITAMIN I-VITE TABLET. PO SCH (09:52)
[2019-12-01 10:24] VITALS: BP 128/80
[2019-12-01] MEDS: GABAPENTIN 100 MG CAPSULE. PO SCH (12:00)
--- NOTE | 2019-12-01 14:55 | PN ---
DATE: SUBJECTIVE: The patient is resting, slightly propped up in bed, in no apparent respiratory distress. She is awake, alert, denied any complaint, has been participating with physical therapy and apparently she qualifies to go to [place] and will discharged tomorrow. PHYSICAL EXAMINATION: GENERAL: When I saw her today, she looked well and was clearly in no apparent respiratory distress. No pallor, jaundice, cyanosis or thyromegaly. No jugular venous distention. No limb edema. VITAL SIGNS: Her heart rate was 78, blood pressure was 128/80, temperature was 97.5, respiratory rate 20, and oxygen saturation was 97% on room air. HEAD, EYES, EARS, NOSE AND THROAT: Showed normocephalic, atraumatic. NECK: Supple. HEART: Showed normal first and second heart sounds. No gallop, rub or murmur. CHEST: Clear to auscultation. No crepitation or rhonchi. ABDOMEN: Distended, soft, nontender. NEUROLOGIC: She was awake, alert, responding appropriately. All cranial nerves intact. She moves extremities without difficulty. Her intake over the last 24 hours was 1500, no output was recorded. LABORATORY DATA: Her lab work this morning showed a white cell count of 2900, hemoglobin 11.9, hematocrit 37, MCV 100, and platelet count 156,000. Her chemistry showed a serum sodium 139, potassium 4.4, chloride 101, bicarbonate 35, anion gap of 3, BUN 22, creatinine 1.3. Estimated GFR was 39 mL per minute. Her glucose 131, calcium was 9.1. Total bilirubin, AST, ALT, alkaline phosphatase were normal. Total protein was 6.1, albumin 3. Urinalysis essentially unremarkable and today's prothrombin time and INR is still pending at the time of this dictation. ASSESSMENT: 1. Weakness and lightheadedness with marked postural hypotension more than 23 mmHg lying and standing and between lying and standing systolic pressure, which I held her Lasix and Imdur. She has received total of 1000 mL of normal saline bolus and she is not doing much better. 2. Acute kidney injury on chronic kidney disease, improving. Her creatinine is down from 1.7 to 1.2. 3. Factor V Leiden with multiple bilateral deep vein thrombosis, which she has an inferior vena cava filter. She is also on Coumadin and her INR was continued to be supratherapeutic. 4. The patient has multiple other medical problems including: A. Hypertension. B. Hyperlipidemia. C. Hypothyroidism. D. Generalized osteoarthritis. E. Senile macular degeneration. PLAN: I resumed her torsemide and Imdur. I will check her prothrombin time, INR and resume her Coumadin also; if it is within therapeutic range or subtherapeutic, she will be discharged to [facility] tomorrow. BELÉN ANGLIN MD DR: GABRIEL/gary JOB#: [id number] / [id number]
[2019-12-01] MEDS: WARFARIN 4 MG TABLET. PO SCH (16:00)
[2019-12-01 16:58] VITALS: BP_SYST 131; BP_SYST 139; BP_DIAS 79; BP_DIAS 82
[2019-12-01 17:00] VITALS: BP 129/82
[2019-12-01 18:30] VITALS: BP 145/98
[2019-12-01] MEDS: HYDROcodone/APAP 5/325MG 1 TAB TABLET PO PRN (20:11)
[2019-12-01] MEDS: ATORVASTATIN CALCIUM 10 MG TABLET. PO SCH (20:11)
[2019-12-01] MEDS: tiZANidine 4 MG TABLET. PO SCH (20:12)
[2019-12-01] MEDS ORDERED: WARFARIN 3 MG TABLET. PO ONE (21:00)
[2019-12-02] MEDS: LEVOTHYROXINE 100 MCG TABLET PO SCH (05:46)
[2019-12-02 05:52] VITALS: BP 100/65
[2019-12-02] MEDS ORDERED: WARF3TAB54 PO (07:36)
[2019-12-02] MEDS: TORSEMIDE 20 MG TABLET. PO SCH (07:48)
[2019-12-02] MEDS: MULTIVITAMIN I-VITE TABLET. PO SCH (07:48)
[2019-12-02] MEDS: LUBIPROSTONE 24 MCG CAPSULE PO SCH (07:48)
[2019-12-02] MEDS: DULoxetine HCL 60 MG CAPSULE.DR PO SCH (07:48)
[2019-12-02] MEDS: DICYCLOMINE HCL 20 MG TABLET PO SCH (07:49)
[2019-12-02] MEDS: LACTOBACILLUS RHAMNOSUS GG 1 CAPSULE. PO SCH (07:49)
[2019-12-02] MEDS: GABAPENTIN 300 MG CAPSULE. PO SCH (07:49)
[2019-12-02] MEDS: PANTOPRAZOLE 40 MG TABLET. PO SCH (07:49)
[2019-12-02] MEDS: CARVEDILOL 3.125 MG TABLET PO SCH (07:49)
[2019-12-02 08:00] VITALS: BP 124/67
--- NOTE | 2019-12-02 09:16 | PDOC ---
CARDIO Progress Notes Date & Time Date of Service DATE: 12/02/19 TIME: 09:13 Time of Evaluation 09:13 Subjective Notes LE edema Vitals Vitals Vital Signs Date Time Temp Pulse Resp B/P (MAP) Pulse Ox O2 Delivery O2 Flow Rate FiO2 12/02/19 07:49 78 12/02/19 05:52 98.2 20 100/65 (77) 94 Room Air Weight Weight [ ] Input and Output I.O. Intake and Output 12/02/19 07:00 Intake Total 1380 ml Balance 1380 ml Intake Oral 1380 ml # Voids 5 Laboratory Labs Laboratory Tests Test 12/01/19 05:47 12/01/19 16:08 White Blood Count 2.9 x10^3/uL (4.0-11.0) Red Blood Count 3.67 x10^6/uL (3.50-5.40) Hemoglobin 11.9 g/dL (12.0-15.5) Hematocrit 36.8 % (36.0-47.0) Mean Corpuscular Volume 100 fL (79-100) Mean Corpuscular Hemoglobin 32 pg (25-35) Mean Corpuscular Hemoglobin Concent 32 g/dL (31-37) Red Cell Distribution Width 17.7 % (11.5-14.5) Platelet Count 156 x10^3/uL (140-400) Sodium Level 139 mmol/L (136-145) Potassium Level 4.4 mmol/L (3.5-5.1) Chloride Level 101 mmol/L (98-107) Carbon Dioxide Level 35 mmol/L (21-32) Anion Gap 3 (6-14) Blood Urea Nitrogen 22 mg/dL (7-20) Creatinine 1.3 mg/dL (0.6-1.0) Estimated GFR (Cockcroft-Gault) 38.9 BUN/Creatinine Ratio 17 (6-20) Glucose Level 131 mg/dL (70-99) Calcium Level 9.1 mg/dL (8.5-10.1) Total Bilirubin 0.5 mg/dL (0.2-1.0) Aspartate Amino Transf (AST/SGOT) 16 U/L (15-37) Alanine Aminotransferase (ALT/SGPT) 14 U/L (14-59) Alkaline Phosphatase 93 U/L (46-116) Total Protein 6.1 g/dL (6.4-8.2) Albumin 3.0 g/dL (3.4-5.0) Albumin/Globulin Ratio 1.0 (1.0-1.7) Prothrombin Time 19.9 SEC (9.4-11.4) Prothromb Time International Ratio 1.9 (0.9-1.1) Microbiology Micro Microbiology 11/27/19 Urine Culture - Final, Complete Physical Exams HEENT: Neck Supple W Full Motion Chest: Symmetric Lungs: Clear to Auscultation, Other (diminished bases) Heart: S1S2, RRR Abdomen: Soft N/T Extremities: Other (1-2+ bilateral LE edema) Neurology: alert, follow commands Assessment Assessment 1. Weakness, dizziness, orthostatic hypotension. s/p fluid bolus. improved. Repeat orthos negative 2. Hypertension; controlled 3. Acute on chronic diastolic CHF with h/o cardiomyopathy; s/p AICD. Echo with preserved LV systolic function. 4. ANA on CKD; CR improved 5. Hyperlipidemia; stain 6. History of mitral valve repair. 7. Factor V deficiency; PE/DVT. s/p IVC filter 8. PAFIB; on warfarin therapy. V-paced Recommendations Continue ASA, statin, BB Continue oral diuretic therapy Discussed daily weight May discharge and follow up with primary concert promoter, Dr. Mahmood Supportive care TERE MANNING APRN December 02, 2019 09:16
--- NOTE | 2019-12-02 09:50 | DS ---
DATE OF DISCHARGE: 12/02/2019 ATTENDING PHYSICIAN: Dr. Rowe. FINAL DISCHARGE DIAGNOSES: 1. Dehydration. 2. Orthostatic hypotension, resolved. 3. Chronic anticoagulation. 4. Factor V Leiden deficiency. 5. Essential hypertension. 6. Pacemaker defibrillator. 7. Nonischemic cardiomyopathy. 8. Previous history of sick sinus syndrome. 9. History of transient ischemic attacks. 10. Hyperlipidemia. 11. Hypothyroidism, on replacement. 12. Coagulopathy with recent hematoma in her thigh. HISTORY OF PRESENT ILLNESS: This is an 84-year-old female with multiple medical issues. She was residing at [facility]. She was over diuresed and hypotensive. She was brought in for further treatment and evaluation. We held her diuretics and Imdur, and she was given IV boluses. Creatinine were higher than baseline. INR was 2.6. PHYSICAL EXAMINATION: Please see the dictated note. PERTINENT LABORATORY AND X-RAY STUDIES: Cardiology consultation is on the chart and they agree with holding her diuretics. Her hemoglobin is maintained at 11.9 g/dL with a white count of 2900. Chemistry panel showed an improvement of her creatinine from 1.4 down to 1.2. Potassium was replaced to 4.4 mEq. INR prior to discharge was 1.9. It had been 3.0 prior and was 1.9 prior to discharge. COURSE IN THE HOSPITAL: The patient was admitted. She was given intermittent boluses of fluid. Dr. Rowe held her diuretics and Imdur. She did well. She was up and ambulating and eating. She requested to go to subacute rehab at [facility]. On the day of discharge, her blood pressure was 100/65. She had minimal orthostasis, room air saturation 94%, heart rate was 80 and pacing. She was afebrile at 98.2 degrees Fahrenheit. She was eating and she was doing better at this time. She is discharged back to her home meds including the following: She will continue her Coumadin 3 mg daily, vitamin C, torsemide 20 mg daily, Zanaflex, propylene glycol, Protonix, Linzess, Synthroid 100 mcg daily, isosorbide mononitrate 30 mg daily, hydrocodone p.r.n., Neurontin, estrogen, Cymbalta, Bentyl, Coreg and Lipitor, doses unchanged. She was discharged then from our hospital in stable condition with explicit instructions and followup care. She remains a full code. Prior to discharge: I had a long discussion with her son regarding fluid management and the importance of daily weights and keeping her within a narrow range of her dry weight. SEBAS HALL MD DR: REHANA/gary JOB#: [id number] / [id number]
--- NOTE | 2019-12-02 10:36 | NUR ---
pt discharged to [facility] via son. PT is able to verbalize understanding of discharge and discharge instructions. Report called to Lauren at [facility] and verbalize understanding of poc and discharge instructions. PT left via via private vehicle with son driving [place]
== END 2019-12-02 10:30 | DRG 682 ==
LOC: ER 17:29 → 1 SOUTH 18:50 → OBSVTOIN 23:48
PROVIDERS: ADMIT Internal Medicine; ATTEND Internal Medicine
DX: N17.0 Acute kidney failure with tubular necrosis (principal); I50.33 Acute on chronic diastolic (congestive) heart failure; D68.51 Activated protein C resistance; I42.8 Other cardiomyopathies; I13.0 Hypertensive heart and chronic kidney disease with heart failure and stage 1 through stage 4 chronic kidney disease, or unspecified chronic kidney disease; I95.1 Orthostatic hypotension; D72.819 Decreased white blood cell count, unspecified; E03.9 Hypothyroidism, unspecified; E78.5 Hyperlipidemia, unspecified; E86.0 Dehydration; H35.30 Unspecified macular degeneration; I08.3 Combined rheumatic disorders of mitral, aortic and tricuspid valves; S60.212A Contusion of left wrist, initial encounter; X58.XXXA Exposure to other specified factors, initial encounter; I25.10 Atherosclerotic heart disease of native coronary artery without angina pectoris; Z96.653 Presence of artificial knee joint, bilateral; I48.0 Paroxysmal atrial fibrillation; N18.9 Chronic kidney disease, unspecified; J43.9 Emphysema, unspecified; M15.9 Polyosteoarthritis, unspecified; F32.9 Major depressive disorder, single episode, unspecified; F41.9 Anxiety disorder, unspecified; G89.29 Other chronic pain; I45.10 Unspecified right bundle-branch block; I49.5 Sick sinus syndrome; D64.9 Anemia, unspecified; K59.00 Constipation, unspecified; K21.9 Gastro-esophageal reflux disease without esophagitis; R91.1 Solitary pulmonary nodule; Z79.899 Other long term (current) drug therapy; Z98.42 Cataract extraction status, left eye; Z98.41 Cataract extraction status, right eye; Z90.49 Acquired absence of other specified parts of digestive tract; Z95.828 Presence of other vascular implants and grafts; Z95.810 Presence of automatic (implantable) cardiac defibrillator; Z95.5 Presence of coronary angioplasty implant and graft; Z90.710 Acquired absence of both cervix and uterus; Z87.891 Personal history of nicotine dependence; Z86.73 Personal history of transient ischemic attack (TIA), and cerebral infarction without residual deficits; Z86.718 Personal history of other venous thrombosis and embolism; Z86.711 Personal history of pulmonary embolism; Z85.828 Personal history of other malignant neoplasm of skin; Z82.49 Family history of ischemic heart disease and other diseases of the circulatory system; Z82.3 Family history of stroke; Z80.3 Family history of malignant neoplasm of breast; Z80.0 Family history of malignant neoplasm of digestive organs; Z79.01 Long term (current) use of anticoagulants; Y93.89 Activity, other specified; Y92.89 Other specified places as the place of occurrence of the external cause; Z87.440 Personal history of urinary (tract) infections; Y99.8 Other external cause status; Z87.01 Personal history of pneumonia (recurrent); Z88.0 Allergy status to penicillin; Z88.2 Allergy status to sulfonamides
CPT/HCPCS: 36415; 71045; 71250; 73110; 73700; 80048; 80053; 81001; 82947; 83880; 84484; 85025; 85027; 85610; 85730; 87086; 93005; 93306; G0378; G0379; J1940; J7040; 97116

== ENCOUNTER 2020-09-01 16:32 | Emergency (ER) | payer MEDICARE, BC, OTHER ==
[~2020-09-01] VITALS: Ht 167.6 cm; Wt 94.4 kg
[~2020-09-01 16:32] MED LIST changes: -AMIO200T4 PO; +AMIO200T6 PO; +ATOR10TA60 PO; -ENAL2.5T PO; +ENAL2.5T9 PO; -ISOS30TA4 PO; +ISOS30TA68 PO; +MOXI3DRO18 EACHEYE; +MULT-445 PO; -MULT1TAB52 PO; +PROP15DR40 EACHEYE; -WARF-78 PO; +WARF5TAB2 PO
--- NOTE | 2020-09-01 17:27 | PHYS DOC ---
Past History Past Medical History: A-Fib, Anxiety, Arthritis, Arrhythmia, CAD, CHF, Constipation, Depression, DVT, GERD, Hypertension, Hypothyroid, Pneumonia, TIA, UTI, Other Additional Past Medical Histor: factor V Leiden (NYDIA EVANGELISTA DO) Past Surgical History: Appendectomy, Cholecystectomy, Hysterectomy, Knee Replacement, Pacemaker, Other Additional Past Surgical Histo: cardiac stent, filter (NYDIA EVANGELISTA DO) Smoking: Quit Greater Than 1 Year Alcohol Use: Rarely Drug Use: None (NYDIA EVANGELISTA DO) General Adult EDM: Chief Complaint: MECHANICAL FALL HPI: HPI: 85 yo F PMH afib, factor 5 on coumadin, CHF, CAD, hypertension, hyperlipidemia and CKD (no HD), presents to the ED with complaints of left flank/left lower rib pain after pt fell at her [facility] last night. Patient states she refused to come to the ED last night. Does report hitting her head but no loss of consciousness. Believes her INR to be "2.1 or something like that." Patient denies any preceding chest pain, difficulties breathing, neurologic deficits, dizziness, lightheadedness or syncope. Patient's son is her DURABLE POWER OF ESTHETICIAN/SPA COORDINATOR and requests to be notified if she would be admitted to the hospital. (NYDIA EVANGELISTA DO) Review of Systems: Review of Systems: Constitutional: Denies fever or chills Eyes: Denies change in visual acuity HENT: Denies nasal congestion or sore throat Respiratory: Denies cough or shortness of breath Cardiovascular: Denies chest pain or edema GI: Denies abdominal pain, nausea, vomiting, bloody stools or diarrhea : Denies dysuria Musculoskeletal: Denies midine back pain or joint pain or saddle anesthesia Integument: Denies rash Neurologic: Denies headache, midline neck pain, focal weakness or sensory changes Endocrine: Denies polyuria or polydipsia Lymphatic: Denies swollen glands Psychiatric: Denies depression or anxiety (NYDIA EVANGELISTA DO) Allergies: Allergies: Allergies Coded Allergies Type Severity Reaction Last Updated Verified Penicillins Allergy Intermediate RASH 08/26/18 Yes Sulfa (Sulfonamide Antibiotics) Allergy Intermediate 08/26/18 Yes sulfamethoxazole Allergy Intermediate 08/26/18 Yes trimethoprim Allergy Intermediate 08/26/18 Yes (NYDIA EVANGELISTA DO) Physical Exam: PE: Constitutional: Well developed, well nourished, no acute distress, non-toxic appearance, obese, no hypotension HENT: Normocephalic, atraumatic, Eyes: EOMI, conjunctiva normal, no discharge. Neck: Normal range of motion, supple, Cardiovascular: S1/2 present, regular rhythm Lungs & Thorax: Speaking in full sentences, bilateral equal chest rise, no tachypnea or increased work of breathing Abdomen: soft, no right upper quadrant left upper quadrant tenderness, no rigidity or guarding Skin: Warm, dry, no erythema, no rash. [] Back: No mildline ttp or step off, left lower rib pain - no flail or subcutaneous emphysema, pain is also just under those ribs in her back - no contusions Extremities: No tenderness, no cyanosis, no joint deformity Neurologic: Alert, normal motor function, normal sensory function, no focal deficits noted. [] Psychologic: Affect normal, judgement normal, mood normal. [] (NYDIA EVANGELISTA DO) Current Patient Data: Vital Signs: Vital Signs Date Time Temp Pulse Resp B/P (MAP) Pulse Ox O2 Delivery O2 Flow Rate FiO2 09/01/20 16:34 97.8 82 16 117/54 (75) 93 Room Air (NYDIA EVANGELISTA DO) EKG: EKG: [] (NYDIA EVANGELISTA DO) Radiology/Procedures: Radiology/Procedures: [] (NYDIA EVANGELISTA DO) Heart Score: Risk Factors: Risk Factors: DM, Current or recent (<one month) smoker, HTN, HLP, family history of CAD, obesity. Risk Scores: Score 0 - 3: 2.5% MACE over next 6 weeks - Discharge Home Score 4 - 6: 20.3% MACE over next 6 weeks - Admit for Clinical Observation Score 7 - 10: 72.7% MACE over next 6 weeks - Early Invasive Strategies (NYDIA EVANGELISTA DO) Course & Med Decision Making: Course & Med Decision Making Pertinent Labs and Imaging studies reviewed. (See chart for details) Due to high volume in the ED, labs and imaging are pending at shift change. Patient was signed out to oncoming physician Dr. Ealr. (MIGUELINANYDIA DO) Course & Med Decision Making Patient is an 85-year-old female who presented after a fall. Has an L1 transverse process fracture. Called and discussed patient's case with the neurosurgeon Dr. Morrow who stated this was a stable fracture and as long as she was neurovascularly intact then a reasonable disposition would be home with pain medication, follow-up with her primary care physician and physical therapy. Advised to come back to the emergency department immediately with any new or concerning symptoms. Discussed these findings with patient and gave strict return precautions to the emergency department. Patient grateful, verbalized understanding and agreed with plan of discharge. (PHI EARL MD) Dragon Disclaimer: Dragon Disclaimer: This electronic medical record was generated, in whole or in part, using a voice recognition dictation system. (NYDIA EVANGELISTA DO) Departure Departure: Impression: Primary Impression: Lumbar transverse process fracture Disposition: 01 DC HOME SELF CARE/HOMELESS Condition: GOOD Referrals: MOLLY HAMILTON MD (PCP) Patient Instructions: Transverse Process Fracture Additional Instructions: Please read all the attached information. When ambulating, please use your cane or walker to promote stability. Please begin a Tylenol, and ice regimen at home for pain control. Please only use your prescription pain medicine for breakthrough pain and keep your Tylenol dosage below 3000 mg a day. Please call your primary care physician first thing in the morning to discuss your ED visit and set up a follow-up as soon as possible. Also discussed physical therapy with your primary care physician. Please come back to the emergency department immediately with any new or concerning symptoms as discussed. Scripts Hydrocodone Bit/Acetaminophen (HYDROCODONE-APAP 5-325 ) 1 Each Tablet 1 TAB PO PRN Q6HRS PRN for PAIN for 5 Days, #20 TAB 0 Refills Prov: PHI EARL MD 09/01/20 NYDIA EVANGLEISTA DO Sep 01, 2020 17:27 PHI EARL MD Sep 01, 2020 21:31
[2020-09-01] MEDS ORDERED: ONDANSETRON ODT 4 MG TAB.RAPDIS PO ONE (17:45)
[2020-09-01] MEDS ORDERED: HYDROcodone/APAP 10/325 1 TAB TABLET PO ONE (17:45)
[2020-09-01 18:19] LABS: BASO % 2 % (0-3); EOS # 0.2 x10^3/uL (0.0-0.7); EOS % 6 % (0-3); HEMATOCRIT 38.6 % (36.0-47.0); HEMOGLOBIN 12.2 g/dL (12.0-15.5); LYMPH % 34 % (24-48); MEAN CORPUSCULAR HEMOGLOBIN 30 pg (25-35); MEAN CORPUSCULAR HGB CONC 32 g/dL (31-37); MEAN CORPUSCULAR VOLUME 95 fL (79-100); MONO # 0.3 x10^3/uL (0.0-1.1); MONO % 10 % (0-9); NEUT # 1.4 x10^3uL (1.8-7.7); NEUT % 48 % (31-73); PLATELET COUNT 102 x10^3/uL (140-400); RED BLOOD COUNT 4.09 x10^6/uL (3.50-5.40); RED CELL DISTRIBUTION WIDTH 18.8 % (11.5-14.5)
[2020-09-01 18:24] LABS: CALCIUM 8.6 mg/dL (8.5-10.1); CREATININE 1.5 mg/dL (0.6-1.0); GFR 32.9; POTASSIUM 4.2 mmol/L (3.5-5.1)
--- NOTE | 2020-09-01 18:29 | RAD ---
CT head without contrast. CT cervical spine without contrast. PQRS statement: CT scans at this facility use dose reduction including either automated exposure cont rol, iterative reconstructions, and /or weight based radiation dosing via mA and kV modification when appropriate to reduce radiation dose to as low as reasonably achievable. HISTORY: Fell and hit head, head pain, neck pain. CT head findings: Moderate generalized brain atrophy. Cerebral periventricular as well as internal an d external white matter hypoattenuation likely advanced imaging changes of chronic small vessel ische jessie white matter disease. Dolichoectasia and calcified plaque intracranial arteries. Chronic subcenti meter left basal ganglia lacunar ischemic infarct stable to CT imaging from 2018. No new infarct or a cute ischemic change prior imaging. Orbits, mastoids and bones are unremarkable. IMPRESSION: No acute abnormality. Stable exam. CT cervical spine findings: Craniocervical junction intact. Arthritic change C1-C2 limited articulati on with bone spurring and bony sclerosis. Cervical vertebral body height and alignment intact. No fra cture of the cervical spine. There is intervertebral facet spurring contributing to mild to moderate neural foraminal stenoses. There may be some scattered soft disc protrusions as well as there are mil d disc osteophytes may contribute to at least mild spinal canal stenosis. Lung apices and paraspinal tissues are unremarkable. IMPRESSION: No acute osseous injury of the cervical spine. Cervical disc disease. See above. Electronically signed by: Dk Madsen MD (09/01/2020 6:27 PM) [facility]
--- NOTE | 2020-09-01 18:29 | EKG ---
[address] [address] Test Date: 2020-09-01 Test Time: 18:17:04 Pat Name: LEYDA RICHARDSON Department: Room: Gender: F Executive Candidate Developer: ANAID : [id number] Requested By: NYDIA EVANGELISTA Order Number: [id number] Reading MD: Measurements Intervals [place] Rate: 81 P: CO: QRS: 218 QRSD: 134 T: 30 QT: 412 QTc: 479 Interpretive Statements ACCELERATED JUNCTIONAL RHYTHM ABNORMAL RIGHT SUPERIOR AXIS DEVIATION LOW LIMB LEAD VOLTAGE RIGHT BUNDLE BRANCH BLOCK CONSIDER RIGHT VENTRICULAR HYPERTROPHY QRS(T) CONTOUR ABNORMALITY CONSIDER ANTEROSEPTAL INFARCT CONSIDER INFERIOR INFARCT ABNORMAL ECG Compared to ECG 09/01/2020 17:07:55 Accelerated junctional rhythm now present
[2020-09-01 18:30] LABS: ALBUMIN 3.1 g/dL (3.4-5.0); ALBUMIN/GLOBULIN RATIO 1.1 (1.0-1.7); TOTAL PROTEIN 5.8 g/dL (6.4-8.2)
--- NOTE | 2020-09-01 18:42 | RAD ---
Exam: CT of chest, abdomen and pelvis without contrast. CT thoracic and lumbar spine INDICATION: Left flank pain, back pain TECHNIQUE: Sequential axial images through the chest, abdomen and pelvis obtained without IV contrast . Sagittal and coronal reformatted images were reconstructed from the axial data and reviewed. [facility] own reconstructed images of the thoracic and lumbar spine were also reviewed Comparisons: 11/28/2019 FINDINGS: No enlarged mediastinal lymph nodes are identified. Heart is mildly enlarged. Pacer with leads terminating the right heart. No pericardial effusion. Thor acic aorta has a normal course and caliber. Pulmonary artery is not enlarged. Airways are patent. Strandy opacities at dependent portion lungs likely representing atelectasis. No consolidation or pneumothorax. 5 mm nodule left upper lobe series 2 image 29, stable from prior exams . Mild centrilobular emphysematous change noted predominantly at the upper lungs. No pleural effusion or thickening. Evaluation of solid organs is limited secondary to noncontrast technique. Liver, spleen, pancreas, adrenals are unremarkable. Gallbladder is absent. No perinephric inflammation or hydronephrosis. Several hypoattenuating cystic lesions noted within th e kidneys bilaterally incompletely characterized on this noncontrast exam. No renal or ureteral calcu li are identified. Bladder is decompressed not well evaluated. Uterus is absent. No abnormal adnexal mass. There is extensive diverticulosis noted throughout the colon particularly at the sigmoid colon withou t evidence of acute diverticulitis. Remainder of the large and small bowel are unremarkable. No free intra-abdominal air or fluid. No obstruction. Abdominal aorta has a normal course and caliber. IVC filter noted. No enlarged intra-abdominal lymph nodes are identified. No suspicious osseous lesions or acute fractures. Thoracolumbar spine: Vertebral body heights and alignment are well-maintained. There is a mildly displaced fracture through the left transverse process of L1. Multilevel spondylotic change in cervical spine with degenerative disc disease greatest at L2-L3 and L3-L4. Mild bilateral facet arthropathy is also noted. IMPRESSION: 1. Mildly displaced fracture through the left transverse process of L1. 2. Otherwise, no sequela of acute rheumatic injury identified within the chest, abdomen or pelvis. 3. Extensive diverticulosis. 4. Numerous cystic lesions in the kidney incompletely characterized on this exam. Further evaluation with nonemergent/outpatient renal protocol CT or MRI is recommended. 5. Other incidental findings as described above. Exposure: One or more of the following in the visualized dose reduction techniques were utilized for this examination: 1. Automated exposure control 2. Adjustment of the MA and/or KV according to patient size 3. Use of iterative of reconstructive technique Electronically signed by: Brenda Darnell MD (09/01/2020 6:39 PM) [facility]
[2020-09-01] MEDS ORDERED: HYDR-2155 PO (21:30)
[2020-09-01 21:48] VITALS: BP 110/62
== END 2020-09-01 21:49 | disposition home or self-care (01) ==
LOC: ER 16:32
DX: S32.018A Other fracture of first lumbar vertebra, initial encounter for closed fracture (principal); I48.20 Chronic atrial fibrillation, unspecified; F41.9 Anxiety disorder, unspecified; M19.90 Unspecified osteoarthritis, unspecified site; K59.00 Constipation, unspecified; I11.0 Hypertensive heart disease with heart failure; I50.9 Heart failure, unspecified; F32.9 Major depressive disorder, single episode, unspecified; K21.9 Gastro-esophageal reflux disease without esophagitis; E03.9 Hypothyroidism, unspecified; Z90.89 Acquired absence of other organs; Z90.49 Acquired absence of other specified parts of digestive tract; Z90.710 Acquired absence of both cervix and uterus; Z95.0 Presence of cardiac pacemaker; Z98.890 Other specified postprocedural states; Z87.891 Personal history of nicotine dependence; Z88.0 Allergy status to penicillin; Z88.2 Allergy status to sulfonamides; Z88.8 Allergy status to other drugs, medicaments and biological substances; W18.39XA Other fall on same level, initial encounter; Y93.89 Activity, other specified; Y92.89 Other specified places as the place of occurrence of the external cause; Y99.8 Other external cause status
CPT/HCPCS: 36415; 70450; 71250; 72125; 74176; 80053; 84484; 85025; 85610; 85730; 93005; 99285; Q0162

== ENCOUNTER 2020-09-08 09:36 | Emergency (ER) | payer MEDICARE, BC, OTHER ==
[~2020-09-08] VITALS: Ht 167.6 cm; Wt 90.1 kg
[2020-09-08] MEDS ORDERED: METHYLNALTREXONE 12 MG/0.6 ML VIAL. SQ ONE (11:00)
--- NOTE | 2020-09-08 11:06 | RAD ---
XR ABDOMEN COMP ACUTE INDICATION: abd pain, constipated . COMPARISON STUDY: None. FINDINGS: Left pectoral ICD/pacemaker. Lungs: Normal lung volume. No pulmonary mass or consolidation. The tracheobronchial tree and hilar st ructures are normal. Pleura: No pleural effusion or pneumothorax. Heart and Mediastinum: Cardiomegaly. Tortuous atherosclerotic aorta. Abdomen: Nonobstructive bowel gas pattern. No free air. Moderate colonic stool burden. IVC filter. Ri ght upper quadrant surgical clips. IMPRESSION: 1. Nonobstructive bowel gas pattern. Moderate colonic stool burden. 2. No focal airspace disease. Electronically signed by: Donn Haro MD (09/08/2020 11:04 AM) [id number]
[2020-09-08] MEDS ORDERED: SODIUM PHOSPHATES 19/7GM 133 ML ENEMA. PR ONE (11:15)
[2020-09-08 12:26] VITALS: BP 150/84
[2020-09-08] MEDS ORDERED: SENN-121 PO (13:06)
--- NOTE | 2020-09-08 13:07 | PHYS DOC ---
Past History Past Medical History: A-Fib, Anxiety, Arthritis, Arrhythmia, CAD, CHF, Constipation, Depression, DVT, GERD, Hypertension, Hypothyroid, Pneumonia, TIA, UTI, Other Additional Past Medical Histor: factor V Leiden Past Surgical History: Appendectomy, Cholecystectomy, Hysterectomy, Knee Replacement, Pacemaker, Other Additional Past Surgical Histo: cardiac stent, filter Smoking: Quit Greater Than 1 Year Alcohol Use: None Drug Use: None Adult General Chief Complaint Chief Complaint: CONSTIPATION HPI HPI Patient is an 85-year-old female who presents to the emergency room complaining of back pain. Patient is not a good historian. According to EMS patient is here for constipation. Patient's son did show up and give us a more complete history. She has been taking [place] [id number] since she developed a lumbar fracture last week. Since then she has not had a bowel movement which has been 8 days. She also has been urinating somewhat less. There are no other changes at this time. Patient denies any complaints other than the pain she has had since her fall last week. Review of Systems Review of Systems Complete ROS is negative unless otherwise documented in HPI Current Medications Current Medications Current Medications Medications (Trade) Dose Ordered Sig/[place] Start Time Stop Time Status Last Admin Dose Admin Methylnaltrexone [place] (Relistor) 12 mg 1X ONCE 09/08/20 11:00 09/08/20 11:01 DC 09/08/20 12:23 12 MG Sodium Biphosphate/ Sodium Phosphate (Fleet Adult) 133 ml 1X ONCE 09/08/20 11:15 09/08/20 11:17 DC 09/08/20 12:23 133 ML Allergies Allergies Allergies Coded Allergies Type Severity Reaction Last Updated Verified Penicillins Allergy Intermediate RASH 08/26/18 Yes Sulfa (Sulfonamide Antibiotics) Allergy Intermediate 08/26/18 Yes sulfamethoxazole Allergy Intermediate 08/26/18 Yes trimethoprim Allergy Intermediate 08/26/18 Yes Physical Exam Physical Exam General: Awake, alert, NAD. Well Nourished, well hydrated. Cooperative HEENT: Atraumatic, EOMI, PERRL, airway patent, moist oral mucosa Neck: Supple, trachea midline Respiratory: CTA bilaterally, normal effort, no wheezing/crackles CV: RRR, no murmur, cap refill <2 GI: Soft, nondistended, nontender, no masses MSK: No obvious deformities Skin: Warm, dry, intact Neuro: A&O x3, speech NL, sensory and motor grossly intact, no focal deficits Psych: Normal affect, normal mood, not suicidal or homicidal Current Patient Data Vital Signs Vital Signs Date Time Temp Pulse Resp B/P (MAP) Pulse Ox O2 Delivery O2 Flow Rate FiO2 09/08/20 12:26 80 18 150/84 (106) 95 Room Air 09/08/20 09:36 98.1 EKG EKG [] Radiology/Procedures Radiology/Procedures [] Heart Score Risk Factors: Risk Factors: DM, Current or recent (<one month) smoker, HTN, HLP, family history of CAD, obesity. Risk Scores: Risk Factors: DM, Current or recent (<one month) smoker, HTN, HLP, family history of CAD, obesity. Course & Med Decision Making Course & Med Decision Making Pertinent Labs and Imaging studies reviewed. (See chart for details) Patient is an 85-year-old female who presents to the emergency room complaining of constipation. She has a known lumbar fracture which she has had pain from for the last week. Patient appears to have narcotic induced constipation. X- ray does not show impaction or significant constipation though she does have moderate amount of stool. Bladder scan was done as there was concerned maybe she was retaining urine and her bladder scan does not suggest retention at this time. And she does appear to be making urine. Patient was given an enema and did have a bowel movement. Patient's test results and vitals while in the ED were fully reviewed and discussed with the patient. Patient is stable and at this time does not need admission to the hospital. We have discussed strict return precautions and the importance of following up with their Primary Care Physician. Patient stated understanding and was given an opportunity to ask any questions. Patient is in agreement with plan. Dragon Disclaimer Dragon Disclaimer This electronic medical record was generated, in whole or in part, using a voice recognition dictation system. Departure Departure: Impression: Primary Impression: Constipation Disposition: 01 DC HOME SELF CARE/HOMELESS Condition: STABLE Referrals: MOLLY HAMILTON MD (PCP) Patient Instructions: Constipation, Adult Scripts Sennosides/Docusate Sodium (Colace 2-in-1 Tablet) 1 Each Tablet 1 TAB PO QHS for constipation for 30 Days, #30 TAB 0 Refills Prov: GRADY HEWITT MD 09/08/20 GRADY HEWITT MD Sep 08, 2020 13:07
== END 2020-09-08 13:30 | disposition home or self-care (01) ==
LOC: ER 09:36
DX: K59.00 Constipation, unspecified (principal); I48.91 Unspecified atrial fibrillation; I11.0 Hypertensive heart disease with heart failure; I50.9 Heart failure, unspecified; I25.10 Atherosclerotic heart disease of native coronary artery without angina pectoris; K21.9 Gastro-esophageal reflux disease without esophagitis; E03.9 Hypothyroidism, unspecified; Z86.718 Personal history of other venous thrombosis and embolism; Z86.73 Personal history of transient ischemic attack (TIA), and cerebral infarction without residual deficits; Z90.49 Acquired absence of other specified parts of digestive tract; Z90.89 Acquired absence of other organs; Z90.710 Acquired absence of both cervix and uterus; Z87.891 Personal history of nicotine dependence; Z88.0 Allergy status to penicillin; Z88.1 Allergy status to other antibiotic agents; Z88.2 Allergy status to sulfonamides
CPT/HCPCS: 74022; 96372; 99284; J2212

== ENCOUNTER 2020-09-30 19:51 | Emergency (ER) | payer MEDICARE, BC, OTHER ==
[~2020-09-30] VITALS: Ht 167.6 cm; Wt 90.1 kg
[~2020-09-30 19:51] MED LIST changes: +SENN-121 PO
--- NOTE | 2020-09-30 21:12 | RAD ---
INDICATION: Reason: increased circum, pain, hx dvt / Spl. Instructions: / History: COMPARISON: September 19, 2019. TECHNIQUE: Grayscale, color and doppler ultrasound images were obtained of the right lower extremity venous vasculature. RIGHT: No thrombus identified in the common femoral vein, femoral vein, popliteal vein or visualized calf ve ins. There is some flow reversal in the common femoral vein which could be from reflux from the greater sa phenous vein. Varicose veins. IMPRESSION: * No thrombus identified in deep venous system of right lower extremity. Electronically signed by: Chapito Lerma MD (09/30/2020 9:10 PM) [id number]
--- NOTE | 2020-09-30 21:56 | PHYS DOC ---
Past History Past Medical History: A-Fib, Anxiety, Arthritis, Arrhythmia, CAD, CHF, Constipation, Depression, DVT, GERD, Hypertension, Hypothyroid, Pneumonia, TIA, UTI, Other Additional Past Medical Histor: factor V Leiden Past Surgical History: Appendectomy, Cholecystectomy, Hysterectomy, Knee Replacement, Pacemaker, Other Additional Past Surgical Histo: cardiac stent, filter Smoking: Quit Greater Than 1 Year Alcohol Use: None Drug Use: None Adult General Chief Complaint Chief Complaint: LOWER EXT PAIN HPI HPI Patient is a 85yo female presenting [facility] for [facility]LE pain. She has history of factor V leiden and has had numerous DVTs and PEs, she is currently on warfarin with last INR 2.1 5 days ago (goal 2.0-3.0). She represents with x1 day of worsened RLE edema, pain in the calf region and mild erythema to touch which concerned her for prior DVT prompting her [place] to send her here for eval uation. No fever, shob, cp or other concerning symptoms reported Review of Systems Review of Systems Fourteen body systems of review of systems have been reviewed. See HPI for pertinent positives and negative responses, other goldsmith all other systems are negative, non-pertinent or non-contributory Allergies Allergies Allergies Coded Allergies Type Severity Reaction Last Updated Verified Penicillins Allergy Intermediate RASH 08/26/18 Yes Sulfa (Sulfonamide Antibiotics) Allergy Intermediate 08/26/18 Yes sulfamethoxazole Allergy Intermediate 08/26/18 Yes trimethoprim Allergy Intermediate 08/26/18 Yes Physical Exam Physical Exam Constitutional: Well developed, well nourished, no acute distress, non-toxic appearance. HENT: Normocephalic, atraumatic, bilateral external ears normal, oropharynx moist, no oral exudates, nose normal. Eyes: PERRLA, EOMI, conjunctiva normal, no discharge. Neck: Normal range of motion, no tenderness, supple, no stridor. Cardiovascular: Heart rate regular, sinus rhythm Lungs & Thorax: Bilateral breath sounds clear to auscultation Abdomen: Bowel sounds normal, soft, no tenderness, no masses, no pulsatile masses. Nonsurgical abdomen, no peritoneal signs Skin: Warm, dry, no erythema, no rash. Back: No tenderness, no CVA tenderness. Extremities: No tenderness, no cyanosis, no clubbing, ROM intact, 1+ pitting edema to bilateral lower extremities, right lower extremity increased increased circumference with positive Homans' sign and mild warmth appreciated with palpation to right calf Neurologic: Alert and oriented X 3, grossly normal motor & sensory function, no focal deficits noted. Psychologic: Affect normal, judgement normal, mood normal. Current Patient Data Vital Signs Vital Signs Date Time Temp Pulse Resp B/P (MAP) Pulse Ox O2 Delivery O2 Flow Rate FiO2 09/30/20 20:00 98.3 82 20 150/84 (106) 96 Room Air Vital Signs Date Time Temp Pulse Resp B/P (MAP) Pulse Ox O2 Delivery O2 Flow Rate FiO2 09/30/20 22:30 78 18 123/64 (83) 97 Room Air 09/30/20 20:00 98.3 Lab Results Laboratory Tests Test 09/30/20 20:27 Prothrombin Time 25.2 SEC (9.4-11.4) H Prothrombin Time INR 2.5 (0.9-1.1) H Activated Partial Thromboplast Time 37 SEC (23-33) H EKG EKG [] Radiology/Procedures Radiology/Procedures PROCEDURE: VENOUS LOWER EXTREMITY RIGHT INDICATION: Reason: increased circum, pain, hx dvt / Spl. Instructions: / History: COMPARISON: September 19, 2019. TECHNIQUE: Grayscale, color and doppler ultrasound images were obtained of the right lower extremity venous vasculature. RIGHT: No thrombus identified in the common femoral vein, femoral vein, popliteal vein or visualized calf veins. There is some flow reversal in the common femoral vein which could be from reflux from the greater saphenous vein. Varicose veins. IMPRESSION: * No thrombus identified in deep venous system of right lower extremity. Electronically signed by: Chapito Lerma MD (09/30/2020 9:10 PM) [id number] Heart Score C/O Chest Pain: No HEART Score for Chest Pain: HEART Score for Chest Pain Response (Comments) Value History Slighlty/Non-Suspicious 0 Age > 65 2 Risk Factors >3 Risk Factors or Hx CAD 2 Total 4 Risk Factors: Risk Factors: DM, Current or recent (<one month) smoker, HTN, HLP, family history of CAD, obesity. Risk Scores: Risk Factors: DM, Current or recent (<one month) smoker, HTN, HLP, family history of CAD, obesity. Course & Med Decision Making Course & Med Decision Making Hemodynamically stable with HPI and physical exam concerning for DVT. ER workup did not show DVT on US, INR within goal 2.0-3.0 Continued supportive care and close PCP follow-up advised. Strict return precautions discussed and understood, all questions and concerns addressed prior to departure Ko Disclaimer [place] Disclaimer This electronic medical record was generated, in whole or in part, using a voice recognition dictation system. Departure Departure: Impression: Primary Impression: Edema of right lower extremity Additional Impressions: Factor 5 Leiden mutation, heterozygous halfway (current) use of anticoagulants Disposition: DC HOME SELF CARE/HOMELESS Condition: STABLE Referrals: MOLLY HAMILTON MD (PCP) Additional Instructions: As discussed prior to ER departure, there was no evidence of an acute blood clot of your right lower extremity. Your INR was also checked today and found to be 2.5 which is in range, no dose adjustments of your warfarin is required I recommend you continue taking all medications as prescribed and follow-up with your primary care physician to review ER visit today It was a pleasure to take care of you and I wish you the best going forward Problem Qualifiers MAGGIE DUONG DO Sep 30, 2020 21:56
[2020-09-30] MEDS ORDERED: ACETAMINOPHEN 500 MG TABLET PO ONE (22:15)
[2020-09-30 22:30] VITALS: BP 123/64
== END 2020-09-30 22:35 | disposition home or self-care (01) ==
LOC: ER 19:51
DX: R60.0 Localized edema (principal); D68.51 Activated protein C resistance; M79.604 Pain in right leg; I48.91 Unspecified atrial fibrillation; F41.9 Anxiety disorder, unspecified; M19.90 Unspecified osteoarthritis, unspecified site; I25.10 Atherosclerotic heart disease of native coronary artery without angina pectoris; I11.0 Hypertensive heart disease with heart failure; I50.9 Heart failure, unspecified; F32.9 Major depressive disorder, single episode, unspecified; E03.9 Hypothyroidism, unspecified; Z79.01 Long term (current) use of anticoagulants; Z87.440 Personal history of urinary (tract) infections; Z86.73 Personal history of transient ischemic attack (TIA), and cerebral infarction without residual deficits; Z87.891 Personal history of nicotine dependence; Z95.0 Presence of cardiac pacemaker; Z88.0 Allergy status to penicillin; Z88.1 Allergy status to other antibiotic agents; Z88.2 Allergy status to sulfonamides
CPT/HCPCS: 36415; 85610; 85730; 93971; 99284

== ENCOUNTER 2020-12-05 09:10 | Inpatient (IN) | payer MEDICARE, BC, OTHER ==
[~2020-12-05] VITALS: Ht 167.6 cm; Wt 85.0 kg
--- NOTE | 2020-12-05 09:24 | PHYS DOC ---
Past History Past Medical History: A-Fib, Anxiety, Arthritis, Arrhythmia, CAD, CHF, Constipation, Depression, DVT, Gallstones, GERD, Hypertension, Hypothyroid, Pneumonia, TIA, UTI, Other Additional Past Medical Histor: factor V Leiden; fx of L1 4 wks ago Past Surgical History: Appendectomy, Cholecystectomy, Hysterectomy, Knee Replacement, Pacemaker, Other Additional Past Surgical Histo: cardiac stent, filter; mitral valve rep--robotic @[facility] Smoking: Quit Greater Than 1 Year Alcohol Use: None Drug Use: None General Adult EDM: Chief Complaint: ABDOMINAL PAIN HPI: HPI: Patient is a 85-year-old female coming in for 4 days of right upper quadrant ab dominal pain. Patient states she has not had any vomiting but has had a couple episodes of diarrhea. States the pain is unchanged by eating but has had decreased p.o. intake. Patient is on Eliquis, was changed about 6 days ago from Coumadin. Patient is a history of factor V Leiden and pacemaker. Review of Systems: Review of Systems: All other systems within normal limits except for as noted in the HPI Allergies: Allergies: Allergies Coded Allergies Type Severity Reaction Last Updated Verified Penicillins Allergy Intermediate RASH 08/26/18 Yes Sulfa (Sulfonamide Antibiotics) Allergy Intermediate 08/26/18 Yes sulfamethoxazole Allergy Intermediate 08/26/18 Yes trimethoprim Allergy Intermediate 08/26/18 Yes Physical Exam: PE: Constitutional: Well developed, well nourished, no acute distress, non-toxic appearance. [] HENT: Normocephalic, atraumatic, bilateral external ears normal, nose normal. [] Eyes: PERRLA, conjunctiva normal, no discharge. [] Neck: No rigidity, supple, no stridor. [] Cardiovascular: Regular rate and rhythm, brisk cap refill [] Lungs & Thorax: Non labored symmetric respirations, no tachypnea or respiratory distress [] Abdomen: Soft, nondistended. Skin: Warm, dry, no erythema, no rash. [] Back: Unremarkable Extremities: No deformities, range of motion grossly intact, no lower extremity edema [] Neurologic: Alert and oriented X 3, no focal deficits noted. [] Psychologic: Affect normal, judgement normal, mood normal. [] EKG: EKG: Paced rhythm, wide complex, no ST elevation or depression. Heart rate 80 bpm [] Radiology/Procedures: Radiology/Procedures: Study: CT abdomen/pelvis with intravenous contrast Indication: Right upper quadrant abdominal pain. Comparison: 09/01/2020 Technique: Helical CT imaging performed of the abdomen and pelvis after the intravenous administration of 60 cc Omnipaque 300 contrast. Sagittal and coronal reformats were obtained. One or more of the following individualized dose reduction techniques were utilized for this examination: 1. Automated exposure control 2. Adjustment of the mA and/or kV according to patient size 3. Use of iterative reconstruction technique. Findings: The study is essentially unenhanced given failure of the patient's IV. No newly seen abnormality at the lower chest with several chronic findings as previously described to include a small hiatal hernia. No focal hepatic parenchymal abnormality. Surgically absent gallbladder. No apparent ductal dilatation more pronounced fullness of the pancreatic head comparison and some peripancreatic edema-like attenuation in this region. A punctate focus of calcification at the head/uncinate process, image 24 series 2, was present previously. No well delineated mass. No ductal dilatation. Partial fatty infiltration of the pancreatic body and tail. Splenic granulomas. The spleen is within normal limits for size. Low-attenuation measuring fluid density at the expected location of the right adrenal gland and abutting the liver margin, image 18 series 2, is unchanged measuring 2.3 cm AP by 1.5 cm transverse. No adrenal gland mass seen on the left. Redemonstration of bilateral renal hypoattenuating foci which have not appreciably changed in size but are again incompletely evaluated. More pronounced ectasia of the renal pelvis on both the right and left from the prior but without caliectasis or hydroureter. No nephrolithiasis is seen. Unremarkable urinary bladder. Absent uterus. No concerning adnexal abnormality. Extensive diverticulosis without definitive diverticulitis. Absent appendix. Nonobstructed small bowel. Limited evaluation of the stomach due to underdistention. Extensive calcific atherosclerosis. Mildly tortuous abdominal aorta. No aneurysmal dilatation. No pathologically enlarged lymph nodes. No free fluid or pneumoperitoneum. No complex body wall hernia. Small hip joint effusion on the left also present previously. Osteopenia. No change in vertebral body height or alignment. Ununited fracture of the left L1 transverse process which was seen previously. Impression: 1. Subtle increased fullness of the pancreatic head from the comparison and with mild edema-like attenuation of the surrounding fat. The appearance is concerning for mild acute pancreatitis. Recommend correlation with lipase levels. Short-term follow-up is needed to exclude an underlying malignancy. No lymphadenopathy is identified throughout the abdomen. 2. Multiple chronic/unchanged observations detailed in the body of the report.[] Heart Score: C/O Chest Pain: No Risk Factors: Risk Factors: DM, Current or recent (<one month) smoker, HTN, HLP, family history of CAD, obesity. Risk Scores: Score 0 - 3: 2.5% MACE over next 6 weeks - Discharge Home Score 4 - 6: 20.3% MACE over next 6 weeks - Admit for Clinical Observation Score 7 - 10: 72.7% MACE over next 6 weeks - Early Invasive Strategies Course & Med Decision Making: Course & Med Decision Making Pertinent Labs and Imaging studies reviewed. (See chart for details) [] Dragon Disclaimer: Dragon Disclaimer: This electronic medical record was generated, in whole or in part, using a voice recognition dictation system. Departure Departure: Impression: Primary Impression: Pancreatitis Disposition: ADMITTED INPATIENT Admitting Physician: Dustin Kowalski Condition: STABLE Referrals: MOLLY HAMILTON MD (PCP) BURT BLEVINS MD December 05, 2020 09:23
[2020-12-05 10:10] LABS: BASO # 0.1 x10^3/uL (0.0-0.2); BASO % 2 % (0-3); EOS # 0.1 x10^3/uL (0.0-0.7); EOS % 3 % (0-3); HEMATOCRIT 43.8 % (36.0-47.0); HEMOGLOBIN 14.4 g/dL (12.0-15.5); LYMPH % 32 % (24-48); MEAN CORPUSCULAR HEMOGLOBIN 31 pg (25-35); MEAN CORPUSCULAR HGB CONC 33 g/dL (31-37); MEAN CORPUSCULAR VOLUME 96 fL (79-100); MONO # 0.3 x10^3/uL (0.0-1.1); MONO % 10 % (0-9); NEUT # 1.7 x10^3uL (1.8-7.7); NEUT % 53 % (31-73); PLATELET COUNT 125 x10^3/uL (140-400); RED BLOOD COUNT 4.58 x10^6/uL (3.50-5.40); RED CELL DISTRIBUTION WIDTH 19.1 % (11.5-14.5); WHITE BLOOD COUNT 3.3 x10^3/uL (4.0-11.0)
[2020-12-05 10:13] LABS: CALCIUM 9.4 mg/dL (8.5-10.1); CREATININE 1.4 mg/dL (0.6-1.0); GFR 35.7
[2020-12-05 10:25] LABS: ALBUMIN 4.1 g/dL (3.4-5.0); ALBUMIN/GLOBULIN RATIO 1.5 (1.0-1.7); TOTAL PROTEIN 6.8 g/dL (6.4-8.2)
[2020-12-05] MEDS ORDERED: CONTRAST GIVEN. MC PRN (10:30)
[2020-12-05] MEDS ORDERED: IV NORMAL SALINE 1,000ML 1,000 ML IV ONE (10:30)
[2020-12-05] MEDS ORDERED: IOHEXOL 300 MG/ML 75 ML VIAL. IV ONE (10:30)
[2020-12-05 11:17] LABS: BILIRUBIN,URINE NEG (NEG); CLARITY,URINE CLEAR; COLOR,URINE YELLOW; GLUCOSE,URINE NEG (NEG); NITRITE,URINE NEG (NEG); RBC,URINE 0 /HPF (0-2); UROBILINOGEN,URINE 0.2 mg/dL (0.2 mg/dL); WBC,URINE 0 /HPF (0-4)
[2020-12-05 11:18] LABS: BACTERIA,URINE 0 /HPF (0-FEW); SQUAMOUS EPITHELIAL CELL,UR FEW /LPF
--- NOTE | 2020-12-05 11:44 | RAD ---
Study: CT abdomen/pelvis with intravenous contrast Indication: Right upper quadrant abdominal pain. Comparison: 09/01/2020 Technique: Helical CT imaging performed of the abdomen and pelvis after the intravenous administratio n of 60 cc Omnipaque 300 contrast. Sagittal and coronal reformats were obtained. One or more of the following individualized dose reduction techniques were utilized for this examinat ion: 1. Automated exposure control 2. Adjustment of the mA and/or kV according to patient size 3. Use of iterative reconstruction technique. Findings: The study is essentially unenhanced given failure of the patient's IV. No newly seen abnormality at the lower chest with several chronic findings as previously described to include a small hiatal hernia. No focal hepatic parenchymal abnormality. Surgically absent gallbladder. No apparent ductal dilatatio n more pronounced fullness of the pancreatic head comparison and some peripancreatic edema-like atten uation in this region. A punctate focus of calcification at the head/uncinate process, image 24 serie s 2, was present previously. No well delineated mass. No ductal dilatation. Partial fatty infiltratio n of the pancreatic body and tail. Splenic granulomas. The spleen is within normal limits for size. L ow-attenuation measuring fluid density at the expected location of the right adrenal gland and abutti ng the liver margin, image 18 series 2, is unchanged measuring 2.3 cm AP by 1.5 cm transverse. No adr enal gland mass seen on the left. Redemonstration of bilateral renal hypoattenuating foci which have not appreciably changed in size bu t are again incompletely evaluated. More pronounced ectasia of the renal pelvis on both the right and left from the prior but without caliectasis or hydroureter. No nephrolithiasis is seen. Unremarkable urinary bladder. Absent uterus. No concerning adnexal abnormality. Extensive diverticulosis without definitive diverticulitis. Absent appendix. Nonobstructed small dominik l. Limited evaluation of the stomach due to underdistention. Extensive calcific atherosclerosis. Mildly tortuous abdominal aorta. No aneurysmal dilatation. No pathologically enlarged lymph nodes. No free fluid or pneumoperitoneum. No complex body wall herni a. Small hip joint effusion on the left also present previously. Osteopenia. No change in vertebral body height or alignment. Ununited fracture of the left L1 transverse process which was seen previously. Impression: 1. Subtle increased fullness of the pancreatic head from the comparison and with mild edema-like att enuation of the surrounding fat. The appearance is concerning for mild acute pancreatitis. Recommend correlation with lipase levels. Short-term follow-up is needed to exclude an underlying malignancy. N o lymphadenopathy is identified throughout the abdomen. 2. Multiple chronic/unchanged observations detailed in the body of the report. Electronically signed by: ARIANNE SANCHEZ MD (12/05/2020 11:42 AM) [facility]
[2020-12-05] MEDS ORDERED: ONDANSETRON PF 4 MG/2 ML VIAL. IVP PRN (13:15)
[2020-12-05] MEDS: MORPHINE SULFATE 2 MG/ML DISP.SYRIN. IVP PRN ×2 (14:03→20:19)
--- NOTE | 2020-12-05 14:30 | NUR ---
Pt admitted to room 107 via rney. monitor applied. admission questions answered by son. gar.
[2020-12-05 14:51] VITALS: BP 146/86
[2020-12-05] MEDS ORDERED: POLY17PO5 PO (15:40)
[2020-12-05] MEDS ORDERED: MENT3.5O TP (15:40)
[2020-12-05] MEDS ORDERED: LIDO700A21 TP (15:40)
[2020-12-05] MEDS ORDERED: MAGN400O7 PO (15:40)
[2020-12-05] MEDS ORDERED: APIX2.5T PO (15:40)
[2020-12-05] MEDS ORDERED: MAGN296S68 PO (15:40)
[2020-12-05] MEDS ORDERED: LOPE2TAB27 PO (15:40)
[2020-12-05] MEDS ORDERED: HYDR-2759 PO (15:40)
[2020-12-05] MEDS ORDERED: POTA10TA12 PO (15:40)
[2020-12-05] MEDS ORDERED: PETR18JE TP (15:40)
[2020-12-05] MEDS ORDERED: LUBI24CA7 PO (15:40)
[2020-12-05] MEDS ORDERED: ACET500T33 PO (15:40)
[2020-12-05] MEDS: IV NORMAL SALINE 1,000ML 1,000 ML IV SCH (16:05)
[2020-12-05] MEDS: NON FORMULARY ITEM (Propylene Glycol/Peg 400 (Systane 0.3-0.4% Eye Drops) 1 DROP) OU SCH ×2 (17:00→21:00)
[2020-12-05] MEDS ORDERED: MOXIFLOXACIN 0.5% OPHTH SOLUTION 3ML BOTTLE. OU SCH (17:00)
--- NOTE | 2020-12-05 18:39 | EKG ---
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
[2020-12-05 19:15] VITALS: BP 142/91
[2020-12-05 23:00] VITALS: BP 159/82
[2020-12-06] MEDS: IV NORMAL SALINE 1,000ML 1,000 ML IV SCH (04:35)
[2020-12-06 05:52] VITALS: BP 136/74
[2020-12-06 06:16] LABS: CALCIUM 8.6 mg/dL (8.5-10.1); GFR 52.6
[2020-12-06] MEDS: MORPHINE SULFATE 2 MG/ML DISP.SYRIN. IVP PRN ×2 (06:17→09:07)
[2020-12-06 06:28] LABS: BASO % 1 % (0-3); EOS # 0.1 x10^3/uL (0.0-0.7); EOS % 3 % (0-3); HEMATOCRIT 41.4 % (36.0-47.0); HEMOGLOBIN 13.5 g/dL (12.0-15.5); LYMPH # 0.8 x10^3/uL (1.0-4.8); LYMPH % 23 % (24-48); MEAN CORPUSCULAR HEMOGLOBIN 31 pg (25-35); MEAN CORPUSCULAR HGB CONC 33 g/dL (31-37); MEAN CORPUSCULAR VOLUME 96 fL (79-100); MONO # 0.3 x10^3/uL (0.0-1.1); MONO % 8 % (0-9); NEUT # 2.3 x10^3uL (1.8-7.7); NEUT % 65 % (31-73); PLATELET COUNT 113 x10^3/uL (140-400); RED BLOOD COUNT 4.32 x10^6/uL (3.50-5.40); RED CELL DISTRIBUTION WIDTH 18.1 % (11.5-14.5); WHITE BLOOD COUNT 3.6 x10^3/uL (4.0-11.0)
[2020-12-06] MEDS: NON FORMULARY ITEM (Propylene Glycol/Peg 400 (Systane 0.3-0.4% Eye Drops) 1 DROP) OU SCH ×4 (09:00→20:49)
[2020-12-06] MEDS: PANTOPRAZOLE IV 40 MG VIAL. IVP SCH (09:06)
[2020-12-06] MEDS: LIDOCAINE (700MG/PATCH) PATCH. TP SCH (09:10)
--- NOTE | 2020-12-06 10:07 | HP ---
ADMIT DATE: 12/06/2020 ATTENDING PHYSICIAN: Dr. Kowalski. CHIEF COMPLAINT: Right upper quadrant pain. HISTORY OF PRESENT ILLNESS: The patient is an 85-year-old female with diffuse abdominal pain, situated epigastric and right upper quadrant. She has had nausea for the last 2 days. She does have chronic medical issues. In the ED, the workup showed a subtle evidence of pancreatitis with some minimal swelling; however, the lipase level was not elevated. She was given a tentative diagnosis of pancreatitis, which is questionable. She is on Eliquis and doing a drug review, I have not seen Eliquis-induced pancreatitis due to its rarity. Certainly, it is possible that has been held. She is admitted for further treatment of symptoms. PAST MEDICAL HISTORY: Significant for an admission a year ago with Coumadin-induced hematoma of the thigh. She has been since switched to Eliquis. She has a factor V Leiden deficiency, paroxysmal atrial fibrillation, chronic anxiety, degenerative arthritis, coronary artery disease, TIAs, hypothyroidism, hypertension, gastroesophageal reflux disease and UTIs. PAST SURGICAL HISTORY: Includes appendectomy, cholecystectomy, hysterectomy, knee replacement, permanent pacemaker, cardiac stents and mitral valve robotic repair. SOCIAL HISTORY: She was a smoker remotely in the past. She is a nondrinker. ALLERGIES: INCLUDE PENICILLIN, SULFA DRUGS AND BACTRIM. CURRENT MEDICINES: Reviewed. She takes Tylenol, Eliquis, atorvastatin, Coreg, dicyclomine, Cymbalta, estrogens, Neurontin, hydrocodone, isosorbide, lactobacillus, Synthroid, Lidoderm patch, Linzess, loperamide, lubiprostone, mannitol, moxifloxacin, Protonix, petroleum, MiraLax, potassium, senna, tizanidine, torsemide and vitamin C. FAMILY HISTORY: Noncontributory. REVIEW OF SYSTEMS: The patient has chronic factor V Leiden deficiency. She had been on Coumadin. She had a hematoma. She has become progressively weak. She is forgetful. No COVID exposure. She has chronic constipation. PHYSICAL EXAMINATION: GENERAL: When I saw her, this is a chronically ill-appearing female. INITIAL VITAL SIGNS: Showed a blood pressure 136/78, pulse is 80 and regular. She is afebrile. Oxygen saturation 93% on room air. HEENT: Head is without trauma. Pupils are reactive. Sclerae nonicteric. Oropharynx is clear. NECK: Supple, no bruits identified. LUNGS: Otherwise clear. CARDIOVASCULAR: Showed regular heart tones. Peripheral pulses are palpable. ABDOMEN: Soft. Minimal guarding, no rebound or tenderness. No masses. Bowel sounds are hypoactive. EXTREMITIES: Showed no cyanosis or edema. NEUROLOGIC: Focally intact. Speech is fluent. SKIN: Warm and dry. PERTINENT LABORATORY STUDIES: Her lipase level on admission was normal at 136, creatinine is 1.4, BUN 29. Electrolytes within normal range. Hemoglobin 13.5 gram, white count 3600, Urine is clear. IMAGING STUDIES: Showed possible pancreatitis, some fullness, but no overt signs. ASSESSMENT: 1. An 85-year-old female with abdominal pain. Tentative diagnosis of pancreatitis etiology due to Eliquis is quite rare. 2. She is status post cholecystectomy. 3. Factor V Leiden deficiency. 4. Chronic anticoagulation. 5. Atrial fibrillation. 6. Gastroesophageal reflux disease. 7. Essential hypertension 8. Generalized debilitation. 9. Polypharmacy. PLAN: 1. Admit to the inpatient unit. 2. To treat the tentative diagnosis of pancreatitis, we treated symptomatically. We have kept her n.p.o. except for clear liquids. 3. We have held her Eliquis and I will discuss with her son when to restart this. 4. She lives currently at [facility], she may need a higher level of care at the time of discharge. 5. We will simplify her meds. 6. Advance diet as tolerated. ARI DR: Rufus TID: [id number] CC: MOLLY HAMILTON MD
[2020-12-06 11:38] VITALS: BP 121/74
[2020-12-06 15:20] VITALS: BP 131/79
[2020-12-06] MEDS: WARFARIN 4 MG TABLET. PO SCH (16:00)
[2020-12-06] MEDS: ONDANSETRON ODT 4 MG TAB.RAPDIS PO PRN (16:27)
[2020-12-06 19:23] VITALS: BP 135/82
[2020-12-07] MEDS: PANTOPRAZOLE IV 40 MG VIAL. IVP SCH (08:06)
[2020-12-07] MEDS: NON FORMULARY ITEM (Propylene Glycol/Peg 400 (Systane 0.3-0.4% Eye Drops) 1 DROP) OU SCH ×4 (08:07→19:51)
[2020-12-07] MEDS: LIDOCAINE (700MG/PATCH) PATCH. TP SCH ×2 (08:07→08:12)
[2020-12-07 10:55] VITALS: BP 127/82
[2020-12-07] MEDS ORDERED: IOHEXOL 350 MG/ML 100 ML VIAL. IV ONE (15:00)
[2020-12-07 15:24] LABS: CREATININE 1.1 mg/dL (0.6-1.0); GFR 47.1; POTASSIUM 4.4 mmol/L (3.5-5.1)
[2020-12-07 15:26] LABS: TOTAL BILIRUBIN 1.6 mg/dL (0.2-1.0); TOTAL PROTEIN 6.1 g/dL (6.4-8.2)
[2020-12-07 16:05] VITALS: BP 148/80
[2020-12-07] MEDS: WARFARIN 4 MG TABLET. PO SCH (17:13)
[2020-12-07] MEDS ORDERED: oxyCODONE IR 5 MG TABLET PO PRN (17:15)
--- NOTE | 2020-12-07 17:24 | NUR ---
SHIFT NOTE Pt resting and sleeping comfortably throughout day. Per subway conductor RN, pt did not sleep well throughout night. Pt's family spoke wit Dr. Rowe and all questions addressed. Imaging and lab results pending. Will continue to monitor. CC, RN
--- NOTE | 2020-12-07 17:30 | RAD ---
Examination: CT angiography abdomen and pelvis with IV contrast HISTORY: History of abdominal pain COMPARISON: Noncontrast CT from 12/05/2020 TECHNIQUE: Axial CT angiographic images of the abdomen pelvis were performed with IV contrast. Nation l and sagittal 3-D MIP reformats are performed. Exposure: One or more of the following individualized dose reduction techniques were utilized for thi s examination: 1. Automated exposure control 2. Adjustment of the mA and/or kV according to patient size 3. Use of iterative reconstruction technique FINDINGS: Trace bilateral pleural effusions. No evidence of free air identified in the abdomen. The liver, sple en, adrenals grossly appears unremarkable. The stomach is mildly distended. There is questionable fat stranding identified about the pancreas similar to prior exam. The small bowel is nondilated. Feces and gas noted in the colon. Numerous colonic diverticulosis identified. There is questionable faint f at stranding identified about the sigmoid colon diverticula. Multiple cystic structures identified in the bilateral kidneys likely cysts with the largest measuring 1.5 cm in the left kidney. Moderate ao rtic atherosclerosis. Moderate atherosclerotic opacities identified in the celiac artery, superior me senteric artery. The bilateral renal arteries are patent. The inferior mesenteric artery is patent The bilateral common iliac arteries, internal and external iliac arteries are patent. Moderate athero sclerotic calcifications identified in the aortic branches. Examination limited due to motion artifac t Severe degenerative changes lumbar spine. IMPRESSION: 1. Numerous colonic diverticulosis. There is questionable faint fat stranding identified about the s igmoid colon diverticula could be mild diverticulitis. Correlate clinically and with lab values. 2. Questionable fat stranding identified about the pancreas similar to prior exam, nonspecific. Elisabet elate with lab values for mild pancreatitis.. 3. Trace bilateral pleural effusions. 4. Bilateral renal cysts. Electronically signed by: Micah Treadwell MD (12/07/2020 5:28 PM) [id number]
[2020-12-07] MEDS: ONDANSETRON ODT 4 MG TAB.RAPDIS PO PRN (18:34)
[2020-12-07 19:20] VITALS: BP 138/80
[2020-12-07] MEDS: ENOXAPARIN ** NOTE DOSE ** SYRINGE SQ SCH (19:50)
--- NOTE | 2020-12-07 22:24 | PN ---
DATE: 12/07/2020 SUBJECTIVE: The patient is resting flat, comfortably in bed in no apparent distress. She is very confused, forgetful, very anorexic. Abdominal pain is diffuse, worsened by eating, making intestinal angina highly likely. Her CT scan of the abdomen and pelvis showed that she has extensive calcific atherosclerosis; however, it did not really specify whether there is any narrowing or stenosis of the celiac or superior mesenteric artery. I did repeat all her labs again this afternoon including PT/INR, CBC, CMP, LDH, and arranged for CT angio of the abdomen as her creatinine has improved from 1.4 to 1. PHYSICAL EXAMINATION: GENERAL: When I examined her, she looked somewhat pale, but no jaundice, cyanosis or thyromegaly. No jugular venous distention. No lower limb edema. VITAL SIGNS: Her heart rate was 80, blood pressure is 127/82, temperature was 98.5, respiratory rate was 18 and oxygen saturation was 96% on 1.5 liters of oxygen. HEAD, EYES, EARS, NOSE AND THROAT: Normocephalic, atraumatic. NECK: Supple. HEART: Normal first and second heart sounds. No gallop or murmur. CHEST: Clear to auscultation, no crepitation or rhonchi. ABDOMEN: Mildly diffusely tender, but no guarding or rigidity. No organomegaly. All hernial orifice intact. Bowel sounds normal. NEUROLOGICAL: The patient apparently has advanced macular degeneration. She is legally blind. Otherwise, all other cranial nerves intact. She moves extremities without difficulty; however, she is mostly bedbound. LABORATORY DATA: As of yesterday, her white cell count was 3600, hemoglobin 13.5, hematocrit 41, MCV 96 and platelet count of 113,000. Her chemistry showed a serum sodium 145, potassium 4, chloride 109, bicarbonate 26, anion gap of 10, BUN 19, creatinine 1, estimated GFR was 53 mL per minute. Her glucose was 86, calcium was 8.6. Her prothrombin time was 13.8, INR 1.4. ASSESSMENT: Altered mental status, poor memory and probably dementia, advanced senile macular degeneration. The patient is legally blind and diffuse abdominal pain. The patient was diagnosed with pancreatitis, although there are some changes in the CT scan. His serum lipase was normal. The diffuse nature of her pain is worrisome about intestinal angina. She is known to have factor V Leiden and has a history of DVT. She has an IVC filter. She was switched to Coumadin and we will cover her with overlapping course of Lovenox. We will arrange for her to have a CT angio of the abdomen and pelvis with IV contrast and decide the further management accordingly. CELINE DR: Carmen TID: [id number]
[2020-12-08 06:20] VITALS: BP 139/83
[2020-12-08 07:03] LABS: HEMATOCRIT 41.7 % (36.0-47.0); HEMOGLOBIN 13.6 g/dL (12.0-15.5); RED BLOOD COUNT 4.33 x10^6/uL (3.50-5.40); RED CELL DISTRIBUTION WIDTH 18.1 % (11.5-14.5); WHITE BLOOD COUNT 3.7 x10^3/uL (4.0-11.0)
[2020-12-08] MEDS: LIDOCAINE (700MG/PATCH) PATCH. TP SCH (07:53)
[2020-12-08] MEDS: PANTOPRAZOLE IV 40 MG VIAL. IVP SCH (07:53)
[2020-12-08] MEDS: ENOXAPARIN ** NOTE DOSE ** SYRINGE SQ SCH (07:53)
[2020-12-08] MEDS: NON FORMULARY ITEM (Propylene Glycol/Peg 400 (Systane 0.3-0.4% Eye Drops) 1 DROP) OU SCH ×3 (07:54→16:41)
[2020-12-08 11:07] VITALS: BP 121/73
[2020-12-08] MEDS ORDERED: fentaNYL PF 250 MCG/5 ML VIAL IV PRN (11:30)
[2020-12-08 11:51] LABS: ALBUMIN/GLOBULIN RATIO 1.1 (1.0-1.7); CALCIUM 9.1 mg/dL (8.5-10.1); TOTAL PROTEIN 5.8 g/dL (6.4-8.2)
[2020-12-08 11:52] LABS: CREATININE 1.1 mg/dL (0.6-1.0); GFR 47.1; POTASSIUM 4.3 mmol/L (3.5-5.1); TOTAL BILIRUBIN 1.5 mg/dL (0.2-1.0)
--- NOTE | 2020-12-08 14:39 | DS ---
DATE OF DISCHARGE: 12/08/2020 HOSPITAL COURSE: The patient is an 85-year-old female patient was admitted with abdominal pain that is diffuse, worsened by eating, making possibility of intestinal angina, likely; however, CT scan of the abdomen and pelvis showed that she has extensive calcific atherosclerosis; however, I did actually a CT angio of the abdomen and pelvis yesterday and basically showed that there is moderate atherosclerotic opacities identified in the celiac artery, superior mesenteric artery, the bilateral renal arteries are patent, the inferior mesenteric artery is patent, the bilateral common iliac arteries and internal and external iliac arteries are patent. Moderate atherosclerotic calcification identified in aortic branches. She has also numerous colonic diverticulosis and questionable fat stranding identified about the pancreas similar to prior exam, although his multiple bibasilar all within normal range. Whether the patient has pancreatic tumor is obviously a possibility as the first CT scan showed subtle increased fullness of the pancreatic head from the comparison and with mild edema-like attenuation of the surrounding. The appearance is concerning for mild acute pancreatitis. Recommend correlation with lipase. Short-term followup is needed to exclude an underlying malignancy. No lymphadenopathy is identified throughout the abdomen. Multiple chronic unchanged observation detailed in the body of the pancreas. They report given that the lipase is normal, the LDH is normal, the CT angio showed no evidence of occlusion of the celiac or superior mesenteric artery, I decided to transfer the patient to [facility] to consult the block saw operator. When I saw her today, she seemed to be more awake today, although she has very poor short-term memory. Her vision also is very poor as she has advanced senile macular degeneration. PHYSICAL EXAMINATION: GENERAL: When I examined her, she was pale, but not jaundiced or cyanosed from thyromegaly. No jugular distention. No edema. VITAL SIGNS: Heart rate was 80, blood pressure was 121/73, temperature was 98.1, respiratory rate 20, and oxygen saturation was 94% on 1 L of oxygen. HEAD, EYES, EARS, NOSE AND THROAT: Normocephalic and atraumatic. NECK: Supple. HEART: Showed normal first and second heart sounds, no gallop, murmur. CHEST: Clear to auscultation. No crepitation or rhonchi. ABDOMEN: Slightly distended, diffusely tender. No guarding or rigidity. No organomegaly. All hernial orifice intact. Bowel sounds normal. NEUROLOGIC: She is legally blind, but otherwise all her cranial nerves intact. She moves extremities without difficulty. Her intake over the last 24 hours was 480 and output was recorded. LABORATORY DATA: As of this morning showed a white cell count of 3700, hemoglobin 13.6, hematocrit 42, MCV 96 and platelet count 99,000. Her chemistry showed a serum sodium 142, potassium 4.3, chloride 106, bicarbonate 29, anion gap of 7, BUN 17, creatinine 1.1. Estimated GFR was 47 mL per minute. Her glucose 115, calcium was 9.1, total bilirubin is 1.5. AST, ALT, alkaline phosphatase are normal. Lactate dehydrogenase was 185. Total protein 5.8, albumin was 3, and serum lipase was only 58. Her prothrombin time was 13.3, INR 1.3. Urinalysis essentially unremarkable. The patient was transferred to [facility]. FINAL DISCHARGE DIAGNOSES: Intractable abdominal pain, questionable pancreatic cancer as there is no evidence of pancreatitis at least serum lipase twice was normal and there is no evidence of critical bowel ischemia, although there is some atherosclerotic plaque in the celiac and superior mesenteric. There is no evidence of critical stenosis. 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 She is known to have hypertension, hyperlipidemia, hypothyroidism, generalized osteoarthritis, sick sinus syndrome, status automatic implantable cardioverter defibrillator. She apparently has advanced macular degeneration and she is legally blind. TWYLA DR: Carmen TID: [id number]
[2020-12-08 15:26] VITALS: BP 131/81
[2020-12-08] MEDS: WARFARIN 4 MG TABLET. PO SCH (16:41)
--- NOTE | 2020-12-08 18:37 | NUR ---
Transfer Pt transferred to [facility] for higher level of care. GI consult and further imaging needed for proper diagnosis. IV continued for PMC use and all belongings given to EMS. Family notified of transfer and report given to CHELLE Vanegas at [facility]. CHELLE JAVED
== END 2020-12-08 17:30 | disposition short-term general hospital (02) | DRG 438 ==
LOC: ER 09:10 → 1 SOUTH 13:03 → ER 14:14
PROVIDERS: ADMIT Hospitalist; ATTEND Hospitalist
DX: K85.90 Acute pancreatitis without necrosis or infection, unspecified (principal); N17.0 Acute kidney failure with tubular necrosis; C25.9 Malignant neoplasm of pancreas, unspecified; D68.51 Activated protein C resistance; K55.1 Chronic vascular disorders of intestine; K86.1 Other chronic pancreatitis; E03.9 Hypothyroidism, unspecified; E11.9 Type 2 diabetes mellitus without complications; E78.5 Hyperlipidemia, unspecified; F03.90 Unspecified dementia, unspecified severity, without behavioral disturbance, psychotic disturbance, mood disturbance, and anxiety; H35.30 Unspecified macular degeneration; H54.8 Legal blindness, as defined in USA; I11.0 Hypertensive heart disease with heart failure; I25.10 Atherosclerotic heart disease of native coronary artery without angina pectoris; I48.0 Paroxysmal atrial fibrillation; I50.9 Heart failure, unspecified; K21.9 Gastro-esophageal reflux disease without esophagitis; K57.30 Diverticulosis of large intestine without perforation or abscess without bleeding; M15.9 Polyosteoarthritis, unspecified; Z79.01 Long term (current) use of anticoagulants; Z82.49 Family history of ischemic heart disease and other diseases of the circulatory system; Z86.718 Personal history of other venous thrombosis and embolism; Z86.73 Personal history of transient ischemic attack (TIA), and cerebral infarction without residual deficits; Z87.891 Personal history of nicotine dependence; Z90.49 Acquired absence of other specified parts of digestive tract; Z90.710 Acquired absence of both cervix and uterus; Z95.5 Presence of coronary angioplasty implant and graft; Z95.828 Presence of other vascular implants and grafts; Z96.659 Presence of unspecified artificial knee joint; F32.9 Major depressive disorder, single episode, unspecified; F41.9 Anxiety disorder, unspecified; Z88.0 Allergy status to penicillin; Z88.8 Allergy status to other drugs, medicaments and biological substances
CPT/HCPCS: 36415; 74174; 74177; 80048; 80053; 81001; 83605; 83615; 83690; 83880; 84484; 85025; 85027; 85610; 93005; 96360; 96361; C9113; J1650; J2270; J2405; J3010; Q0162; Q9967; 97530; 99285-25; J7030

== ENCOUNTER 2021-02-23 11:27 | Emergency (ER) | payer MEDICARE, BC, OTHER ==
[~2021-02-23] VITALS: Ht 167.6 cm; Wt 88.3 kg
[~2021-02-23 11:27] MED LIST changes: +ACET500T33 PO; +APIX2.5T PO; +HYDR-2759 PO; +LIDO700A21 TP; +LINA72CA PO; +LOPE2TAB27 PO; +LUBI24CA7 PO; +MAGN296S68 PO; +MENT3.5O TP; +PETR18JE TP; +POTA10TA12 PO; +SENN8.6T11 PO; +VIT1CAPS12 PO
[2021-02-23] MEDS ORDERED: ASPIRIN CHEWABLE 81 MG TABLET. PO ONE (11:45)
--- NOTE | 2021-02-23 11:53 | EKG ---
[address] [address] Test Date: 2021-02-23 Test Time: 11:33:15 Pat Name: LEYDA RICHARDSON Department: Room: Gender: F [employer] Owner: RADHA : 1935 Requested By: MICHEL SILVA Order Number: [id number] Reading MD: Measurements Intervals [place] Rate: 83 P: IN: QRS: 204 QRSD: 136 T: 34 QT: 406 QTc: 483 Interpretive Statements ACCELERATED JUNCTIONAL RHYTHM ABNORMAL RIGHT SUPERIOR AXIS DEVIATION LOW LIMB LEAD VOLTAGE RIGHT BUNDLE BRANCH BLOCK CONSIDER RIGHT VENTRICULAR HYPERTROPHY QRS(T) CONTOUR ABNORMALITY CONSIDER ANTEROLATERAL MYOCARDIAL DAMAGE ABNORMAL ECG RI6.02 No previous ECG available for comparison
--- NOTE | 2021-02-23 11:57 | PHYS DOC ---
Past History Past Medical History: A-Fib, Anxiety, Arthritis, Arrhythmia, CAD, CHF, Constipation, Depression, DVT, Gallstones, GERD, Hypertension, Hypothyroid, Pneumonia, TIA, UTI, Other Additional Past Medical Histor: , SICK SINU SYNDROME, IMPLANTABLE DEFIBRILATOR (MICHEL SILVA APRN) Past Surgical History: Other Additional Past Surgical Histo: IMPLANTABLE DEFIBRILATOR (MICHEL SILVA APRN) Smoking: Quit Greater Than 1 Year Alcohol Use: None Drug Use: None (MICHEL SILVA APRN) General Adult EDM: Chief Complaint: CHEST PAIN HPI: HPI: Patient is an 85-year-old female who resides at [facility] who presents to the ER via EMS for chest pain located under her pacemaker for the last 2 days. Patient denies any current pain. She denies radiation. No treatment prior to arrival. No alleviating or aggravating factors. Patient denies cough, shortness of breath, nausea, vomiting, lightheadedness. Patient has an extensive medical history including chronic kidney disease, congestive heart failure, hyperlipidemia, hypothyroidism, sick sinus syndrome, DVT, orthostatic hypotension, lymphedema, GERD, and irritable bowel syndrome. Her son is at her bedside and reports he believes patient is having a CHF exacerbation. Patient denies any increased swelling in her lower extremities. Her son reports that she was having repeated episodes of urinary incontinence therefore instead of taking her furosemide every day her doctor changed it to every other day last week. Patient is also been having diarrhea due to her irritable bowel syndrome. Patient's vital signs are stable at this time and she is in no acute distress. (MICHEL SILVA APRN) Review of Systems: Review of Systems: 14 body systems of the review of systems have been reviewed. See HPI for pertinent positive and negative responses, otherwise all other systems are negative, nonpertinent or noncontributory (MICHEL SILVA APRN) Current Medications: Current Meds: Current Medications Medications (Trade) Dose Ordered Sig/[place] Start Time Stop Time Status Last Admin Dose Admin Aspirin (Aspirin Chewable) 324 mg 1X ONCE 02/23/21 11:45 02/23/21 11:46 DC 02/23/21 11:44 324 MG (MICHEL SILVA APRN) Allergies: Allergies: Allergies Coded Allergies Type Severity Reaction Last Updated Verified Penicillins Allergy Intermediate RASH 08/26/18 Yes Sulfa (Sulfonamide Antibiotics) Allergy Intermediate 08/26/18 Yes sulfamethoxazole Allergy Intermediate 08/26/18 Yes trimethoprim Allergy Intermediate 08/26/18 Yes (MICHEL SILVA APRN) Physical Exam: PE: Constitutional: Well developed, well nourished, no acute distress, non-toxic appearance. [] HENT: Normocephalic, atraumatic Eyes: PERRL, EOMI, conjunctiva normal, no discharge. [] Neck: Normal range of motion, no tenderness, supple, no stridor. [] Cardiovascular:Heart rate regular rhythm, no murmur, chest pain not reproducible, pacemaker left chest, 2+ pitting edema noted to right lower ext remity, 1+ pitting edema noted to left lower extremity, strong DP pulses noted to bilateral lower extremities. [] Lungs & Thorax: Bilateral breath sounds clear to auscultation [] Abdomen: Bowel sounds normal, soft, no tenderness, no masses, no pulsatile masses. [] Skin: Warm, dry, no erythema, no rash. [] Back: Normal range of motion Extremities: No tenderness, no cyanosis, no clubbing, ROM intact, no edema. [] Neurologic: Alert and oriented X 3, normal motor function, normal sensory function, no focal deficits noted. [] Psychologic: Affect normal, judgement normal, mood normal. [] (MICHEL SILVA APRN) Current Patient Data: Labs: Laboratory Tests Test 02/23/21 11:54 White Blood Count 2.7 x10^3/uL Red Blood Count 4.06 x10^6/uL Hemoglobin 13.0 g/dL Hematocrit 39.6 % Mean Corpuscular Volume 98 fL Mean Corpuscular Hemoglobin 32 pg Mean Corpuscular Hemoglobin Concent 33 g/dL Red Cell Distribution Width 17.9 % Platelet Count 117 x10^3/uL Neutrophils (%) (Auto) 52 % Lymphocytes (%) (Auto) 33 % Monocytes (%) (Auto) 10 % Eosinophils (%) (Auto) 4 % Basophils (%) (Auto) 2 % Neutrophils # (Auto) 1.4 x10^3uL Lymphocytes # (Auto) 0.9 x10^3/uL Monocytes # (Auto) 0.3 x10^3/uL Eosinophils # (Auto) 0.1 x10^3/uL Basophils # (Auto) 0.1 x10^3/uL Prothrombin Time 20.7 SEC Prothromb Time International Ratio 2.1 Activated Partial Thromboplast Time 32 SEC D-Dimer (Leanna) 1.67 mg/L Sodium Level 145 mmol/L Potassium Level 4.2 mmol/L Chloride Level 106 mmol/L Carbon Dioxide Level 34 mmol/L Anion Gap 5 Blood Urea Nitrogen 21 mg/dL Creatinine 1.2 mg/dL Estimated GFR (Cockcroft-Gault) 42.6 BUN/Creatinine Ratio 18 Glucose Level 114 mg/dL Calcium Level 8.9 mg/dL Total Bilirubin 1.0 mg/dL Aspartate Amino Transf (AST/SGOT) 25 U/L Alanine Aminotransferase (ALT/SGPT) 23 U/L Alkaline Phosphatase 107 U/L Troponin I Quantitative < 0.017 ng/mL JM-Sof-X-Type Natriuretic Peptide 3011 pg/mL Total Protein 6.5 g/dL Albumin 3.7 g/dL Albumin/Globulin Ratio 1.3 Current Medications Medications (Trade) Dose Ordered Sig/[place] Route PRN Reason Start Time Stop Time Status Last Admin Dose Admin Aspirin (Aspirin Chewable) 324 mg 1X ONCE PO 02/23/21 11:45 02/23/21 11:46 DC 02/23/21 11:44 (MICHEL SILVA APRN) EKG: EKG: EKG performed by ER staff at 1133 shows paced rhythm, no STEMI. Read by Dr. Leiva at 1140. (MICHEL SILVA APRN) Radiology/Procedures: Radiology/Procedures: PROCEDURE: PORTABLE CHEST 1V XR CHEST 1V History: Reason: chest pain / Spl. Instructions: / History: Comparison: November 27, 2019 Findings: Mild bibasilar linear atelectasis. No pleural effusion. No pneumothorax. Stable left-sided pacemaker/ICD. Unchanged enlarged cardiac size. 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 Impression: 1. No acute cardiopulmonary process. Electronically signed by: James Munson DO (02/23/2021 12:02 PM) [id number] DICTATED AND SIGNED BY: JAMES MUNSON DO DATE: 02/23/21 1200 CC: EMERGENCY,DEPARTMENT; MOLLY HAMILTON MD; MICHEL SILVA APRN ~MTH0 0 [] (MICHEL SILVA APRN) Heart Score: C/O Chest Pain: Yes HEART Score for Chest Pain: HEART Score for Chest Pain Response (Comments) Value History Moderately Suspicious 1 ECG Nonspecific Repolarizatio 1 Age > 65 2 Risk Factors >3 Risk Factors or Hx CAD 2 Troponin < Normal Limit 0 Total 6 Risk Factors: Risk Factors: DM, Current or recent (<one month) smoker, HTN, HLP, family history of CAD, obesity. Risk Scores: Score 0 - 3: 2.5% MACE over next 6 weeks - Discharge Home Score 4 - 6: 20.3% MACE over next 6 weeks - Admit for Clinical Observation Score 7 - 10: 72.7% MACE over next 6 weeks - Early Invasive Strategies (MICHEL SILVA APRN) Course & Med Decision Making: Course & Med Decision Making Pertinent Labs and Imaging studies reviewed. (See chart for details) Patient is an 85-year-old female being seen in the ER for chest pain. Patient has an extensive cardiac history. Work-up in the ER consisted of blood work, EKG, chest x-ray. Patient was in the ER. She denies any current pain while in the ER therefore nitro was not administered. Chest x-ray negative. Patient was noted to have leukopenia which is her baseline. CMP unremarkable. Negative troponin. BNP 3011 which is slightly elevated compared to her last visit 3 months prior. Patient's heart score is 6. Wells score 1.5. Patient's D-dimer is 1.6. Patient takes Coumadin. I spoke with Dr. Lowry the admitting physician. He reported that patient had a recent cardiac work-up that was unremarkable. He advised to give 40 mg of Lasix IV in the ER and told the patient and the group home which she resides to continue to give the furosemide daily. Dr. Kowalski advised patient to be discharged home. Patient to follow-up with the physician at the group home. Patient's vital signs continued to be stable. I discussed with patient all findings and diagnostic testing as well as the need to follow-up with PCP for further evaluation and treatment or return to the ER if any new or worsening symptoms. Strict return precautions were also discussed at length. Patient voiced understanding and agreement with the plan. Patient is hemodynamically stable at the time of disposition. (MICHEL SILVA APRN) Dragon Disclaimer: Dragon Disclaimer: This electronic medical record was generated, in whole or in part, using a voice recognition dictation system. (MICHEL SILVA APRN) Attending Co-Sign The patient was seen and interviewed as well as examined at the bedside. The chart was reviewed. The case was discussed. Agree with the plan of care. (MANUELITO LEIVA DO) Departure Departure: Impression: Primary Impression: Chest pain Qualified Codes: R07.9 - Chest pain, unspecified Disposition: HOME / SELF CARE / HOMELESS Condition: GOOD Referrals: MOLLY HAMILTON MD (PCP) Patient Instructions: Chest Pain (Nonspecific) Additional Instructions: You were seen in the ER today for chest pain. Your vital signs were stable while in the ER. Your chest x-ray was unremarkable. You were noted to have an elevation in your BNP which is an indicator for congestive heart failure. You were given a dose of Lasix in the ER. You are advised to continue taking your furosemide daily when you return home. Please follow-up with your primary care provider or the physician at the rehab facility regarding this. You will need to follow-up with the physician at the rehab facility when you return today. If you develop worsening of your chest pain, shortness of breath, lightheadedness, palpitations, nausea, vomiting, fevers refractory to treatment, increased lower extremity edema please return to the ER immediately. EMERGENCY DEPARTMENT GENERAL DISCHARGE INSTRUCTIONS Thank you for coming to [facility] (ED) today and trusting us with you care. We trust that you had a positivie experience in our Emergency Department. If you wish to speak to the department management, you may call the director at [phone]. YOUR FOLLOW UP INSTRUCTIONS ARE FOLLOWS: 1. Do you have a private Doctor? If you do not have a private doctor, please ask for a resource list of physicians or clinics that may be able to assist you with follow up care. 2. The Emergency Physician has interpreted your x-rays. The X-Ray specialist will also review them. If there is a change in the findings, you will be notified in 48 hours when at all possible. 3. A lab test or culture has been done, your results will be reviewed and you will be notified if you need a change in treatment. ADDITIONAL INSTRUCTIONS AND INFORMATION: 1. Your care today has been supervised by a physician who is specially trained in emergency care. Many problems require more than one evaluation for a complete diagnosis and treatment. We recommend that you schedule your follow up appointment as recommended to ensure complete treatment of you illness or injury. If you are unable to obtain follow up care and continue to have a problem, or if your condition worsens, we recommend that you return to the ED. 2. We are not able to safely determine your condition over the phone nor are we able to give sound medical advice over the phone. For these safety reasons, if you call for medical advice we will ask you to come to the ED for further evaluation. 3. If you have any questions regarding these discharge instructions please call the ED at [phone]. SAFETY INFORMATION: In the interest of safety, wellness, and injury prevention; we encourage you to wear your sealbelt, if you smoke; quite smoking, and we encourage family to use a protective helmet for bicycling and other sporting events that present an increased risk for head injury. IF YOUR SYMPTOMS WORSEN OR NEW SYMPTOMS DEVELOP, OR YOU HAVE CONCERNS ABOUT YOUR CONDITION; OR IF YOUR CONDITION WORSENS WHILE YOU ARE WAITING FOR YOUR FOLLOW UP APPOINTMENT; EITHER CONTACT YOUR PRIMARY CARE DOCTOR, THE PHYSICIAN WHOSE NAME AND NUMBER YOU WERE GIVEN, OR RETURN TO THE ED IMMEDIATELY. Scripts Torsemide (TORSEMIDE) 20 Mg Tablet 1 TAB PO DAILY for fluid retention for 3 Days, #3 TAB 0 Refills Prov: MICHEL SILVA APRN 02/23/21 MICHEL SILVA APRN Feb 23, 2021 11:57 MANUELITO LEIVA DO Feb 24, 2021 06:14
--- NOTE | 2021-02-23 12:04 | RAD ---
XR CHEST 1V History: Reason: chest pain / Spl. Instructions: / History: Comparison: November 27, 2019 Findings: Mild bibasilar linear atelectasis. No pleural effusion. No pneumothorax. Stable left-sided pacemaker/ ICD. Unchanged enlarged cardiac size. 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 Impression: 1. No acute cardiopulmonary process. Electronically signed by: James Musnon DO (02/23/2021 12:02 PM) [id number]
[2021-02-23 12:13] LABS: BASO # 0.1 x10^3/uL (0.0-0.2); BASO % 2 % (0-3); EOS # 0.1 x10^3/uL (0.0-0.7); EOS % 4 % (0-3); HEMATOCRIT 39.6 % (36.0-47.0); LYMPH # 0.9 x10^3/uL (1.0-4.8); LYMPH % 33 % (24-48); MEAN CORPUSCULAR HEMOGLOBIN 32 pg (25-35); MEAN CORPUSCULAR HGB CONC 33 g/dL (31-37); MEAN CORPUSCULAR VOLUME 98 fL (79-100); MONO # 0.3 x10^3/uL (0.0-1.1); MONO % 10 % (0-9); NEUT # 1.4 x10^3uL (1.8-7.7); NEUT % 52 % (31-73); PLATELET COUNT 117 x10^3/uL (140-400); RED BLOOD COUNT 4.06 x10^6/uL (3.50-5.40); RED CELL DISTRIBUTION WIDTH 17.9 % (11.5-14.5); WHITE BLOOD COUNT 2.7 x10^3/uL (4.0-11.0)
[2021-02-23 12:39] LABS: CALCIUM 8.9 mg/dL (8.5-10.1); CREATININE 1.2 mg/dL (0.6-1.0); GFR 42.6; POTASSIUM 4.2 mmol/L (3.5-5.1)
[2021-02-23 12:45] LABS: ALBUMIN 3.7 g/dL (3.4-5.0); ALBUMIN/GLOBULIN RATIO 1.3 (1.0-1.7); TOTAL PROTEIN 6.5 g/dL (6.4-8.2)
[2021-02-23] MEDS ORDERED: FUROSEMIDE 40 MG/4 ML VIAL IVP ONE (13:30)
[2021-02-23] MEDS ORDERED: TORS20TA2 PO (14:29)
[2021-02-23 14:45] VITALS: BP 140/80
== END 2021-02-23 14:45 | disposition home or self-care (01) ==
LOC: ER 11:27
DX: R07.89 Other chest pain (principal); R32 Unspecified urinary incontinence; R19.7 Diarrhea, unspecified; I48.91 Unspecified atrial fibrillation; F41.9 Anxiety disorder, unspecified; M19.90 Unspecified osteoarthritis, unspecified site; I25.10 Atherosclerotic heart disease of native coronary artery without angina pectoris; I11.0 Hypertensive heart disease with heart failure; I50.9 Heart failure, unspecified; K21.9 Gastro-esophageal reflux disease without esophagitis; E03.9 Hypothyroidism, unspecified; Z86.718 Personal history of other venous thrombosis and embolism; Z87.440 Personal history of urinary (tract) infections; Z86.73 Personal history of transient ischemic attack (TIA), and cerebral infarction without residual deficits; Z87.891 Personal history of nicotine dependence; Z88.0 Allergy status to penicillin; Z88.2 Allergy status to sulfonamides; Z88.1 Allergy status to other antibiotic agents
CPT/HCPCS: 36415; 71045; 80053; 83880; 84484; 85025; 85379; 85610; 85730; 93005; 96374; 99285; J1940

== ENCOUNTER 2021-04-16 11:48 | Inpatient (IN) | payer MEDICARE, BC, OTHER ==
[~2021-04-16] VITALS: Ht 167.6 cm; Wt 91.2 kg
[~2021-04-16 11:48] MED LIST changes: +AMIO200T54 PO; -AMIO200T6 PO; -DULO60CA6 PO; +DULO60CA7 PO; -LEVO500T8 PO; +LEVO500T9 PO; +MAGN400T48 PO; -MAGN400T5 PO; +POTA-121 PO; +TIZA-75 PO; -TIZA4TAB2 PO
--- NOTE | 2021-04-16 12:54 | PHYS DOC ---
Past History Past Medical History: A-Fib, Anxiety, Arthritis, Arrhythmia, CAD, CHF, Constipation, Depression, DVT, Gallstones, GERD, Hypertension, Hypothyroid, Pneumonia, TIA, UTI, Other Additional Past Medical Histor: UNKNOWN, awaiting paperwork from [facility] Past Surgical History: Other Additional Past Surgical Histo: UNKNOWN, awaiting paperwork from [facility] Smoking: Quit Greater Than 1 Year Alcohol Use: None Drug Use: None General Adult EDM: Chief Complaint: FATIGUE HPI: HPI: 86 yo F PMH factor V Leiden on Coumadin, pAF, SSS w/AICD, CAD, CHF, HTN, hypothyroidism, and GERD, presents to the ED by EMS from [facility], complains of weakness stating " a chronic fall last night and needed to nurses to help me." Reports "milky" urine after completing a cycle of Cipro for UTI. Patient also recently received her Covid booster. EMS did not provide any papers with patient. Review of Systems: Review of Systems: Constitutional: Denies fever or chills Eyes: Denies change in visual acuity HENT: Denies nasal congestion or sore throat Respiratory: Denies cough or shortness of breath Cardiovascular: Denies chest pain or edema GI: Denies abdominal pain, nausea, vomiting, bloody stools or diarrhea : Denies hematuria or flank pain Musculoskeletal: Denies new back pain or joint pain Integument: Denies diaphoresis or desquamation Neurologic: Denies headache, focal weakness or sensory changes Endocrine: Denies polyuria or polydipsia Lymphatic: Denies swollen glands Psychiatric: Denies depression or anxiety Allergies: Allergies: Allergies Coded Allergies Type Severity Reaction Last Updated Verified Penicillins Allergy Intermediate RASH 08/26/18 Yes Sulfa (Sulfonamide Antibiotics) Allergy Intermediate 08/26/18 Yes sulfamethoxazole Allergy Intermediate 08/26/18 Yes trimethoprim Allergy Intermediate 08/26/18 Yes Physical Exam: PE: Constitutional: Smells of recent emesis, flu and frail appearing, HENT: Normocephalic, atraumatic, dry mucous membranes, no signs of trauma Eyes: EOMI, conjunctiva normal, no discharge. Neck: Normal range of motion, supple, no midline neck pain Cardiovascular: S1/2 present, wide-complex rhythm Lungs & Thorax: Speaking in full sentences, bilateral equal chest rise, no tachypnea or increased work of breathing, sounds wet/crackly Abdomen: soft, no tenderness, Skin: Warm, dry, Back: No no midline step-off or tenderness, no CVA tenderness. [] Extremities: No tenderness, no cyanosis, bilateral lower extremity edema with hemosiderin deposition Neurologic: Alert and oriented X 3, normal motor function, normal sensory function, no focal deficits noted. [] Psychologic: Affect normal, judgement normal, mood normal. [] Current Patient Data: Vital Signs: Vital Signs Date Time Temp Pulse Resp B/P (MAP) Pulse Ox O2 Delivery O2 Flow Rate FiO2 04/16/21 12:24 98.2 85 18 169/99 (122) 95 Nasal Cannula 2.0 EKG: EKG: Ventricular paced rhythm, 80 bpm, extreme right axis deviation, QRS 140, QTc 460, left bundle branch present, no GWYN/no STD Radiology/Procedures: Radiology/Procedures: IMAGING REPORT Signed PATIENT: LEYDA RICHARDSON ACCOUNT: [id number] : 1935 LOCATION: ER AGE: 86 SEX: F EXAM STATUS: REG ER ORD. PHYSICIAN: NYDIA EVANGELISTA DO REASON: fatigue PROCEDURE: PORTABLE CHEST 1V EXAM: Chest, single view. HISTORY: Fatigue. COMPARISON: 02/23/2021 FINDINGS: A frontal view of the chest is obtained. There are stable chronic interstitial changes. There is no consolidation, pleural effusion or pneumothorax. There is a stable prominent cardiac silhouette and cardiac pacemaker defibrillator. There is a stable fracture deformity of the right hum eral neck. IMPRESSION: No acute pulmonary finding. Electronically signed by: Venita Ortiz MD (04/16/2021 1:05 PM) [id number] DICTATED AND SIGNED BY: VENITA ORTIZ MD DATE: 04/16/21 1304 CC: MOLLY HAMILTON MD; NYDIA EVANGELISTA DO ~MTH0 0 Heart Score: C/O Chest Pain: No Risk Factors: Risk Factors: DM, Current or recent (<one month) smoker, HTN, HLP, family history of CAD, obesity. Risk Scores: Score 0 - 3: 2.5% MACE over next 6 weeks - Discharge Home Score 4 - 6: 20.3% MACE over next 6 weeks - Admit for Clinical Observation Score 7 - 10: 72.7% MACE over next 6 weeks - Early Invasive Strategies Course & Med Decision Making: Course & Med Decision Making Pertinent Labs and Imaging studies reviewed. (See chart for details) Concern for weakness in the setting of supratherapeutic INR and fall risk patient, urinalysis still not reported after 5 hours in the emergency department. Will admit for further medical management. Patient stable at time of admission agrees with this plan. I have spoken with the patient and/or caregivers. I have explained the patient's condition, diagnosis and treatment plan based on the information available to me at this time. I have answered the patient's and/or caregivers questions and answered any concerns. The patient and/or caregivers have as good an understanding of the patient's diagnosis, condition and treatment plan as can be expected at this point. The patient has been stabilized within the capability of the emergency department. The patient will be transported for further care and management or will be moved to an observation or inpatient service. I have communicated with the staff or medical practitioner taking over this patient's care. Ko Disclaimer: Ko Disclaimer: This electronic medical record was generated, in whole or in part, using a voice recognition dictation system. Departure Departure: Impression: Primary Impression: Elevated INR Additional Impressions: Risk for falls Weakness Disposition: ADMITTED INPATIENT Admitting Physician: Gissel Rowe Condition: STABLE Referrals: MOLLY HAMILTON MD (PCP) NYDIA EVANGELISTA DO Apr 16, 2021 12:54
--- NOTE | 2021-04-16 13:08 | RAD ---
EXAM: Chest, single view. HISTORY: Fatigue. COMPARISON: 02/23/2021 FINDINGS: A frontal view of the chest is obtained. There are stable chronic interstitial changes. The re is no consolidation, pleural effusion or pneumothorax. There is a stable prominent cardiac silhoue tte and cardiac pacemaker defibrillator. There is a stable fracture deformity of the right humeral ne ck. IMPRESSION: No acute pulmonary finding. Electronically signed by: Venita Hanna MD (04/16/2021 1:05 PM) [id number]
[2021-04-16 13:50] LABS: CALCIUM 9.2 mg/dL (8.5-10.1); CREATININE 1.2 mg/dL (0.6-1.0); GFR 42.5; POTASSIUM 4.4 mmol/L (3.5-5.1)
[2021-04-16 13:51] LABS: BASO % 1 % (0-3); EOS # 0.1 x10^3/uL (0.0-0.7); EOS % 2 % (0-3); HEMATOCRIT 39.4 % (36.0-47.0); HEMOGLOBIN 12.7 g/dL (12.0-15.5); LYMPH # 0.6 x10^3/uL (1.0-4.8); LYMPH % 12 % (24-48); MEAN CORPUSCULAR HEMOGLOBIN 31 pg (25-35); MEAN CORPUSCULAR HGB CONC 32 g/dL (31-37); MEAN CORPUSCULAR VOLUME 97 fL (79-100); MONO # 0.5 x10^3/uL (0.0-1.1); MONO % 10 % (0-9); NEUT # 3.8 x10^3uL (1.8-7.7); NEUT % 76 % (31-73); PLATELET COUNT 118 x10^3/uL (140-400); RED BLOOD COUNT 4.09 x10^6/uL (3.50-5.40); RED CELL DISTRIBUTION WIDTH 16.7 % (11.5-14.5)
[2021-04-16 13:54] LABS: ACETAMIN < 2.0 mcg/mL (10-30); SALIC < 2.8 mg/dL (2.8-20.0)
--- NOTE | 2021-04-16 14:00 | EKG ---
[address] [address] Test Date: 2021-04-16 Test Time: 12:27:01 Pat Name: LEYDA RICHARDSON Department: Room: Gender: F Parts Manager: RADHA : 1935 Requested By: NYDIA EVANGELISTA Order Number: [id number] Reading MD: Robby Choi Measurements Intervals [place] Rate: 80 P: 0 CO: 336 QRS: 206 QRSD: 140 T: 28 QT: 396 QTc: 460 Interpretive Statements VENTRICULAR PACED RHYTHM Electronically Signed On 04-16-2021 16:33:42 CDT by Robby Choi
[2021-04-16 14:01] LABS: ALBUMIN 3.6 g/dL (3.4-5.0); ALBUMIN/GLOBULIN RATIO 1.3 (1.0-1.7); TOTAL BILIRUBIN 1.1 mg/dL (0.2-1.0); TOTAL PROTEIN 6.4 g/dL (6.4-8.2)
[2021-04-16 14:08] LABS: INFLUENZA A PATIENT NEGATIVE (NEGATIVE); INFLUENZA B PATIENT NEGATIVE (NEGATIVE)
[2021-04-16 16:23] LABS: BARBITURATES NEG (NEG); BENZODIAZEPINES NEG (NEG); BILIRUBIN,URINE NEG (NEG); CANNABINOIDS NEG (NEG); CLARITY,URINE CLOUDY; COCAINE NEG (NEG); COLOR,URINE YELLOW; GLUCOSE,URINE NEG (NEG); METHADONE NEG (NEG); OPIATES POS (NEG); PHENCYCLIDINE NEG (NEG)
[2021-04-16 16:24] LABS: NITRITE,URINE POS (NEG); UROBILINOGEN,URINE 0.2 mg/dL (0.2 mg/dL)
[2021-04-16 16:25] LABS: AMPHETAMINE/METHAMPHETAMINE NEG (NEG)
[2021-04-16 16:29] LABS: BACTERIA,URINE MOD /HPF (0-FEW); SQUAMOUS EPITHELIAL CELL,UR FEW /LPF; WBC,URINE TNTC /HPF (0-4)
[2021-04-16] MEDS ORDERED: FOSFOMYCIN TROMETHAMINE 3 GM PACKET PO ONE (17:30)
[2021-04-17] MEDS ORDERED: MIDAZOLAM HCL PF 5 MG/5 ML VIAL. ONE (02:54)
[2021-04-17] MEDS ORDERED: MIDAZOLAM HCL PF 2 MG/2 ML VIAL. IVP ONE (03:00)
[2021-04-17] MEDS ORDERED: MIDAZOLAM HCL PF 5 MG/5 ML VIAL. IV ONE (03:15)
[2021-04-17 08:45] VITALS: BP 113/76
[2021-04-17] MEDS ORDERED: ACET325T21 PO (08:56)
[2021-04-17] MEDS ORDERED: WARF4TAB64 PO (08:56)
[2021-04-17] MEDS ORDERED: WARF3TAB50 PO (08:56)
[2021-04-17 11:32] VITALS: BP 118/75
[2021-04-17] MEDS ORDERED: HYDROcodone/APAP 5/325MG 1 TAB TABLET PO PRN (13:45)
[2021-04-17] MEDS ORDERED: MAGNESIUM HYDROXIDE 2,400 MG/30 ML ORAL.SUSP. PO PRN (13:45)
[2021-04-17] MEDS ORDERED: ACETAMINOPHEN 325 MG TABLET PO PRN (13:45)
[2021-04-17 13:47] LABS: GFR 52.4
--- NOTE | 2021-04-17 14:13 | HP ---
HISTORY OF PRESENT ILLNESS: The patient is an 86-year-old female patient, who presented to the Emergency Room from [facility] with a complaint of generalized weakness and easy fatigability. She apparently fell the night before and needed nurses to help her. She also reported that her urine was looking very turbid and milky after completing a cycle of Cipro for UTI. She did receive COVID booster recently and was extensively investigated in the Emergency Room, has had lab work and imaging studies. Her lab work showed that her prothrombin time, INR are supratherapeutic. However, her blood count are within acceptable range. Her chemistry was also mostly unremarkable except for chronic kidney disease. Her urinalysis showed the patient has cloudy urine with a pH of 5.5, specific gravity of 1.020, small amount of protein, negative for glucose, trace of ketones, moderate amount of blood and positive for nitrite. There was large amount of leukocyte esterase, 1-2 rbc's, too numerous to count wbc's and moderate amount of bacteria. Her toxic screen was positive for opiates. The patient was admitted with generalized weakness, urinary tract infection and a supratherapeutic PT/INR. We held her Coumadin and did receive fosfomycin tromethamine. For some reason, she received large doses of midazolam in the Emergency Room. PAST MEDICAL HISTORY: Significant for, she is known to have factor V Leiden, paroxysmal atrial fibrillation, chronic anxiety, degenerative osteoarthritis, coronary artery disease, TIA, hypothyroidism, hypertension, gastroesophageal reflux disease and recurrent UTIs. Does have also sick sinus syndrome, status post automatic implantable cardioverter defibrillator, senile macular degeneration, history of DVT. PAST SURGICAL HISTORY: Significant for vaginal hysterectomy, cholecystectomy, appendectomy, exploratory laparotomy, bilateral total knee arthroplasty, bilateral cataract extraction, laser photocoagulation. She also has basal cell carcinoma removed from her nose. Squamous cell carcinoma of the left neck. She has had an AICD placed and colonoscopy with no evidence of any polyps. She also has an inferior vena cava filter placed successfully. ALLERGIES: SHE IS ALLERGIC TO PENICILLIN AND SULFA DRUGS. FAMILY HISTORY: One brother of colon cancer and CVA. Her sister of breast cancer. Mother of colon cancer and her dad was alcoholic. She does not know him very well. SOCIAL HISTORY: She is . Her at the end of 2017. She quit smoking in 1994 after smoking for almost 30 years. She does not drink alcohol or use recreational drugs. She retired from [employer] and currently lives at assisted living facility in [facility]. PHYSICAL EXAMINATION: GENERAL: On arrival to the Emergency Room, the patient looked well and was clearly in no apparent respiratory distress. There is no pallor, jaundice, cyanosis or thyromegaly. No jugular venous distention. No limb edema. VITAL SIGNS: Her heart rate was 81, blood pressure was 169/95, temperature was 98.2, respiratory rate was 18 and oxygen saturation was 93% on 4 liters of oxygen. HEAD, EYES, EARS, NOSE, AND THROAT: Normocephalic, atraumatic. NECK: Supple. HEART: Showed normal first and second heart sounds, no gallop, rub or murmur. CHEST: Clear to auscultation. No crepitation or rhonchi. ABDOMEN: Distended, soft, nontender. NEUROLOGIC: She was somewhat lethargic, but arousable. All cranial nerves intact. She moves extremities without difficulty. LABORATORY DATA: Her lab work on arrival showed a white cell count 5000, hemoglobin 12.7, hematocrit 39, MCV 97 and platelet count of 118,000. Her chemistry showed serum sodium 140, potassium 4.4, chloride 102, bicarbonate 31, anion gap of 7, BUN 25, creatinine 1.2. Estimated GFR was 42 mL per minute. Her glucose 109. Calcium was 9.2, magnesium 2. Total bilirubin, AST, ALT, alkaline phosphatase slightly elevated. CK was 81. Her beta natriuretic peptide was 6479. Total protein was 6.4, albumin was 3.6. Her prothrombin time was 46.3, INR 4.7 and aPTT was 51. Her urinalysis showed large amount of leukocyte esterase, too numerous to count wbc's and moderate amount of bacteria consistent with urinary tract infection. Her toxic screen was positive for opiates. Her influenza A and B were negative and coronavirus by PCR was negative. Plan is to hold her Coumadin and continue with home medications including dicyclomine 10 mg 3 times a day. We will hold the warfarin. Continue with atorvastatin 10 mg once a day, isosorbide mononitrate 30 mg daily, carvedilol 3.125 mg twice a day with meals, hydrocodone/APAP 5/325, she takes two tablets every 6 hours, acetaminophen 650 mg every 8 hours, gabapentin 100 mg daily, gabapentin 300 mg at bedtime. She is on duloxetine for Cymbalta 60 mg daily. She is on potassium chloride 10 mEq once a day, torsemide 20 mg daily. She is also on Systane eyedrops 1 drop to both eyes 4 times a day; magnesium hydroxide for milk of magnesia 30 mL p.o. daily p.r.n. for constipation, senna 1 tablet daily for constipation and Protonix 40 mg once a day, levothyroxine sodium 100 mcg once a day and multivitamin with mineral 1 tablet once a day. PLAN: We will obviously reconcile all her medications except the Coumadin for now. We will monitor her H and H, her PT/INR and adjust Coumadin to maintain INR between 2-2.5 and await the result of the urine culture and sensitivity. We will consult PT, OT. GABRIEL/RIKA DR: GABRIEL/gary TID: [id number]
[2021-04-17 15:40] VITALS: BP 148/77
[2021-04-17] MEDS: DICYCLOMINE HCL 20 MG TABLET PO SCH ×2 (16:09→20:32)
[2021-04-17] MEDS: CARVEDILOL 3.125 MG TABLET PO SCH (16:10)
[2021-04-17] MEDS: PANTOPRAZOLE 40 MG TABLET. PO SCH (16:10)
[2021-04-17] MEDS: POLYVINYL ALCOHOL 1.4% OPHTH SOLUTION 15ML BOTTLE. OU SCH ×2 (17:00→20:31)
[2021-04-17] MEDS ORDERED: GABAPENTIN 100 MG CAPSULE. PO SCH (17:00)
[2021-04-17 19:56] VITALS: BP 186/138
[2021-04-17 19:58] VITALS: BP 147/81
[2021-04-17] MEDS ORDERED: GABAPENTIN 300 MG CAPSULE. PO SCH (21:00)
[2021-04-17] MEDS ORDERED: ATORVASTATIN CALCIUM 10 MG TABLET. PO SCH (21:00)
[2021-04-17 23:31] VITALS: BP 113/69
--- NOTE | 2021-04-18 01:30 | PN ---
DATE: 04/17/2021 SUBJECTIVE: The patient is resting, slightly propped up in bed, in no apparent respiratory distress. She continued to complain of generalized weakness, chest pain, shortness of breath. She was extensively investigated in the Emergency Room and was found to have supratherapeutic INR as well as a urinary tract infection and treated with fosfomycin tromethamine, Monurol. Her blood cultures still showed no growth after 1 day as well as urine culture is still pending. PHYSICAL EXAMINATION: GENERAL: When I examined her, she was somewhat pale, but no jaundice, cyanosis, no lymphadenopathy, no thyromegaly, no jugular venous distention. No limb edema. VITAL SIGNS: Her heart rate was 81, blood pressure was 118/75, temperature was 98, respiratory rate 20, and oxygen saturation was 94% on 2 liters of oxygen. HEAD, EYES, EARS, NOSE AND THROAT: Normocephalic, atraumatic. NECK: Supple. HEART: Showed normal first and second heart sounds, no gallop, rub or murmur. CHEST: Clear to auscultation, no crepitation or rhonchi. ABDOMEN: Distended, soft, nontender. EXTREMITIES: She does have mild right-sided residual hemiparesis. NEUROLOGIC: She was grossly intact, although she is demented. Her intake and output are incompletely recorded. LABORATORY DATA: This morning showed her serum sodium 140, potassium 4, chloride 104, bicarbonate 28, anion gap of 8, BUN 20, creatinine 1, estimated GFR was 52 mL per minute. Her glucose was 92, calcium was 9. Her prothrombin time, INR is still pending at the time of this dictation. ASSESSMENT AND PLAN: 1. Generalized weakness, probably multifactorial. 2. Supratherapeutic INR, for which we held her Coumadin. 3. Urinary tract infection, treated with fosfomycin tromethamine 3 grams orally once. Her urine and blood culture is still pending at the time of this dictation. 4. She has multiple medical problems including history of DVT, factor V Leiden, hypertension, hypothyroidism, atrial fibrillation, congestive heart failure. I have consulted the PT, OT. She continued to be somewhat lethargic and apparently has received about 6 mg of Versed overnight in the Emergency Room. Once she became more alert and awake, and hopefully tomorrow, she can be discharged back to either assisted living or [facility] for further rehabilitation. EILEEN DR: Carmen TID: [id number]
[2021-04-18] MEDS ORDERED: LEVOTHYROXINE 100 MCG TABLET PO SCH (06:00)
[2021-04-18 06:04] VITALS: BP 168/88
[2021-04-18 06:27] LABS: ALBUMIN 2.7 g/dL (3.4-5.0); CALCIUM 8.4 mg/dL (8.5-10.1); GFR 52.4; POTASSIUM 3.9 mmol/L (3.5-5.1); TOTAL BILIRUBIN 1.5 mg/dL (0.2-1.0); TOTAL PROTEIN 5.4 g/dL (6.4-8.2)
[2021-04-18] MEDS ORDERED: POTASSIUM CHLORIDE 10 MEQ TABLET.ER. PO SCH (08:00)
[2021-04-18] MEDS ORDERED: LUBIPROSTONE 24 MCG CAPSULE PO SCH (08:00)
[2021-04-18] MEDS ORDERED: ISOSORBIDE MONONITRATE ER 30 MG TAB.ER.24H PO SCH (09:00)
[2021-04-18] MEDS ORDERED: DULoxetine HCL 60 MG CAPSULE.DR PO SCH (09:00)
[2021-04-18] MEDS ORDERED: MULTIVITAMIN I-VITE TABLET. PO SCH (09:00)
[2021-04-18] MEDS ORDERED: TORSEMIDE 20 MG TABLET. PO SCH ×2 (09:00)
[2021-04-18] MEDS ORDERED: SENNOSIDES 8.6 MG TABLET PO SCH (09:00)
[2021-04-18] MEDS: DICYCLOMINE HCL 20 MG TABLET PO SCH ×2 (09:41→15:11)
[2021-04-18] MEDS: PANTOPRAZOLE 40 MG TABLET. PO SCH (09:41)
[2021-04-18] MEDS: CARVEDILOL 3.125 MG TABLET PO SCH (09:48)
[2021-04-18 09:50] VITALS: BP 144/80
[2021-04-18] MEDS: POLYVINYL ALCOHOL 1.4% OPHTH SOLUTION 15ML BOTTLE. OU SCH ×2 (10:06→13:56)
[2021-04-18 11:08] VITALS: BP 134/89
[2021-04-18] MEDS ORDERED: PHYTONADIONE 10 MG/ML ORAL SOLUTION. PO ONE (14:15)
[2021-04-18] MEDS ORDERED: PHYTONADIONE 10 MG/ML AMPUL. SQ ONE (14:30)
[2021-04-18 14:43] VITALS: BP 128/81
--- NOTE | 2021-04-18 14:46 | DISCH ---
DISCHARGE ORDERS DISCHARGE DATE: Apr 18, 2021 FINAL DIAGNOSIS Warfarin induced coagulopathy urinary tract infection CONDITION AT DISCHARGE: Stable Code Status: Full SNF STAY <30 DAYS: Yes POST DISCHARGE ORDERS: ACTIVITY ORDERS: Activity as tolerated WEIGHT BEARING STATUS: As tolerated DIET AFTER DISCHARGE: Cardiac WOUND/INCISION CARE: Reinforce dressing PRN CHECKS AFTER DISCHARGE: CHECKS AFTER DISCHARGE: Check blood press - daily, Check your Temp as needed TREATMENT/EQUIPMENT ORDERS: ADAPTIVE EQUIPMENT NEEDED: Four wheeled walker RESPIRATORY EQUIPMENT: Oxygen DISCHARGE MEDICATIONS: Home Meds Active Scripts Torsemide (TORSEMIDE) 20 Mg Tablet, 1 TAB PO DAILY for fluid retention for 3 Days, #3 TAB 0 Refills Prov:MICHEL SILVA TAXATION ECONOMIST 02/23/21 Isosorbide Mononitrate (ISOSORBIDE MONONITRATE ER) 30 Mg Tab.er.24h, 1 TAB PO DAILY for chf for 30 Days, #30 TAB 5 Refills Prov:BELÉN ANGLIN MD 06/16/19 Pantoprazole Sodium (PROTONIX) 40 Mg Tablet.dr, 40 MG PO BID for REFLUX for 90 Days, #180 TAB LAST DOSE: today at 8AM NEXT DOSE: tomorrow at 8AM Prov:HAMZAH GAMBINO DO 02/14/17 Carvedilol (CARVEDILOL ) 3.125 Mg Tablet, 3.125 MG PO BIDWMEALS, #AD TAB Prov:IMMANUELCLARKHAMZAH M DO 08/15/16 Reported Medications Acetaminophen (ACETAMINOPHEN) 325 Mg Tablet, 2 TAB PO PRN Q8HRS PRN for pain or fever, TAB 04/17/21 Sennosides (SENNA LAXATIVE) 8.6 Mg Tablet, 1 TAB PO DAILY for constipation for 30 Days, #30 TAB 0 Refills 01/15/21 Gabapentin (GABAPENTIN ) 300 Mg Capsule, 300 MG PO HS for NEUROGENIC PAIN, CAP 01/15/21 Gabapentin (GABAPENTIN ) 100 Mg Capsule, 100 MG PO DAILYBFRSUP for NEUROGENIC PAIN, CAP 01/15/21 Torsemide (TORSEMIDE) 20 Mg Tablet, 1 TAB PO DAILY for ., #90 TAB 1 Refill 01/15/21 Vit A/Vit C/Vit E/Zinc/Copper (PRESERVISION AREDS SOFTGEL) 1 Each Capsule, 1 EACH PO DAILY for supplement, CAP 01/14/21 Linaclotide (Linzess) 72 Mcg Capsule, 72 MCG PO QODAY for constipation, CAP 01/14/21 Magnesium Hydroxide (MILK OF MAGNESIA) 400 Mg/5 Ml Oral.susp, 30 ML PO UD for LAXATIVE, LIQUID 12/05/20 Potassium Chloride (POTASSIUM CHLORIDE ) 10 Meq Tab.er.prt, 10 MEQ PO DAILY for SUPPLEMENT, TAB.SR 12/05/20 Hydrocodone/Acetaminophen (Hydrocodone-Acetamin 5-325 mg) 1 Each Tablet, 2 EACH PO PRN Q6HRS PRN for PAIN, TAB 12/05/20 Propylene Glycol/Peg 400 (SYSTANE 0.3-0.4% EYE DROPS) 15 Ml Drops, 1 DROP EACHEYE QID for dry eyes, #30 ML 5 Refills 11/28/19 Duloxetine Hcl (CYMBALTA) 60 Mg Capsule.dr, 1 CAP PO DAILY for DEPRESSION, #90 CAP 3 Refills 11/28/19 Atorvastatin Calcium (ATORVASTATIN CALCIUM) 10 Mg Tablet, 1 TAB PO HS for THRIOD, #30 TAB 5 Refills 11/27/19 Levothyroxine Sodium (LEVOTHYROXINE SODIUM) 100 Mcg Tablet, 100 MCG PO DAILY06 for thyroid hormone supplement 05/06/17 Dicyclomine Hcl (BENTYL) 20 Mg Tablet, 10 MG PO TID for IBS 06/25/14 Discontinued Reported Medications Warfarin Sodium (WARFARIN SODIUM) 4 Mg Tablet, 4 MG PO DAILYWSUP for anticoagulant, TAB 04/17/21 Warfarin Sodium (WARFARIN SODIUM) 3 Mg Tablet, 3 MG PO DAILYWSUP for anticoagulants, TAB 04/17/21 BELÉN ANGLIN MD Apr 18, 2021 14:46
[2021-04-18] MEDS ORDERED: HYDR-2155 PO (14:57)
--- NOTE | 2021-04-18 16:14 | PN ---
DATE: 04/18/2021 SUBJECTIVE: The patient is definitely more awake, alert, although continued to be confused, has been refusing to participate with physical therapy, claiming that I told her to lie flat in bed. PHYSICAL EXAMINATION: GENERAL: When I examined her, she was pale, not jaundiced or cyanosed, no lymphadenopathy, no thyromegaly, no jugular venous distention. No lower limb edema. VITAL SIGNS: Her heart rate is 72, blood pressure is 134/89, temperature was 97.6, respiratory rate was 18, and oxygen saturation was 100% on room air. HEAD, EYES, EARS, NOSE, AND THROAT: Normocephalic, atraumatic. NECK: Supple. HEART: Showed normal first and second heart sounds. No gallop or murmur. CHEST: Clear to auscultation. No crepitation or rhonchi. ABDOMEN: Distended, soft, nontender. NEUROLOGIC: She is awake, alert, definitely more better than yesterday, although she continued to be confused at times. All her cranial nerves are intact. She moves extremities without difficulty. Her intake and output were incompletely recorded. LABORATORY DATA: Her lab work this morning showed a serum sodium 144, potassium 3.9, chloride 105, bicarbonate 32, anion gap of 7, BUN 20, creatinine 1, estimated GFR was 52 mL per minute. Her glucose was 86, calcium was 8.4. Total bilirubin, AST, ALT, alkaline phosphatase were normal. Her ammonia was less than 10. Total bilirubin 5.4, albumin was 2.7. Today's prothrombin time and INR are still pending at the time of this dictation. Her toxic screen was positive for opiates and her urine culture has grown more than 100,000 colony forming units per mL of gram-negative rods identified as Escherichia coli. She was treated with fosfomycin tromethamine 3 grams orally. ASSESSMENT: She has multiple other medical problems including history of DVT, status post IVC filter placement, factor V Leiden, hypertension, hypothyroidism, chronic atrial fibrillation, and congestive heart failure. PLAN: I will repeat her PT/INR and I asked physical therapy to see her and if she is able to ambulate, we probably can discharge her back to her assisted living facility. GABRIEL/MEAGHAN DR: Carmen TID: [id number]
--- NOTE | 2021-05-19 12:45 | DS ---
DATE OF DISCHARGE: 04/18/2021 HOSPITAL COURSE: The patient is an 86-year-old female patient who was admitted to the [facility] Emergency Room with a complaint of generalized weakness and easy fatigability. She apparently fell the night before and needed nurses to help her up. She also reported that her urine was looking very turbid and milky after completing a cycle of Cipro for UTI. She did receive COVID booster recently. She was extensively investigated in the Emergency Room and has had lab work and imaging studies. Her lab work showed that her prothrombin time INR is supratherapeutic. However, her blood counts are within acceptable range. Her chemistry is also mostly unremarkable except for chronic kidney disease. Her urinalysis showed the patient has cloudy urine with a pH of 5.5, specific gravity 1.020, small amount of protein, negative for glucose, trace of ketones, moderate amount of blood and positive for nitrite. She has large amount of leukocyte esterase, 1-2 rbc's, too numerous to count wbc's and moderate amount of bacteria. Her toxic screen was positive for opiates. The patient was admitted with generalized weakness, urinary tract infection and a supratherapeutic PT/INR. We held her Coumadin and she did receive fosfomycin and tromethamine for her urinary tract infection. Her strength has gradually improved and we did give her 2 mg of subcutaneous vitamin K; however, on the day of discharge, her INR continued to be supratherapeutic at 48.4 and 4.7. On the day of discharge, her blood cultures negative, urine culture has grown more than 100,000 colony forming units per mL of gram-negative rods identified as Escherichia coli; however, at that time, she was already treated with fosfomycin and the sensitivities still pending and; therefore, the patient was transferred to [facility] to continue the process of rehabilitation. PHYSICAL EXAMINATION: GENERAL: On the day of discharge, she looked well and was clearly in no apparent respiratory distress. She was somewhat pale, but not jaundiced or cyanosed, no lymphadenopathy, no thyromegaly, no jugular venous distention. No limb edema. VITAL SIGNS: Her heart rate was 80, blood pressure is 128/81, temperature was 98, respiratory rate was 18 and oxygen saturation was 100% on 3 liters of oxygen by nasal cannula. HEAD, EYES, EARS, NOSE, AND THROAT: Normocephalic, atraumatic. NECK: Supple. HEART: Showed normal first and second heart sounds, no gallop or murmur. CHEST: Clear to auscultation. No crepitation or rhonchi. ABDOMEN: Distended, soft, nontender. NEUROLOGIC: She is demented, but without any obvious lateralizing sign. LABORATORY DATA: Her white cell count was 5000, hemoglobin 13, hematocrit 39, MCV 97 and platelet count of 118,000 with normal manual differential. Her chemistry showed a serum sodium 144, potassium 3.9, chloride 105, bicarbonate 32, anion gap of 7, BUN 20, creatinine 1, estimated GFR was 52 mL per minute. Her glucose was 86, calcium was 8.4. Total bilirubin slightly elevated at 1.5. However, her AST, ALT, alkaline phosphatase as well as serum ammonia were normal. Her total protein was 5.4, albumin was 2.7. Her prothrombin time was 48.4, INR 4.7. DISCHARGE MEDICATIONS: She was discharged to [facility] to continue on her medications that include hydrocodone/APAP 5/325 one tablet every 6 hours as needed, acetaminophen 650 mg every 8 hours, atorvastatin calcium 10 mg at bedtime, carvedilol 3.125 mg twice a day, dicyclomine 20 mg 3 times a day, duloxetine 60 mg once a day, gabapentin 100 mg daily, gabapentin 300 mg at bedtime, isosorbide mononitrate 30 mg once a day, levothyroxine sodium 100 mcg once a day, linaclotide for Linzess 72 mcg every other day and magnesium hydroxide for milk of magnesia 30 mL p.o. daily p.r.n. for constipation, potassium chloride 10 mEq once a day. FINAL DISCHARGE DIAGNOSES: 1. Generalized weakness, multifactorial. 2. Supratherapeutic INR, for which we held her Coumadin and gave her 2 mg of subcutaneous vitamin K. 3. Urinary tract infection, was treated with fosfomycin at 3 grams orally. The urine culture and sensitivities still pending at the time of this dictation. 4. The patient has multiple other medical problems including: A. DVT. B. Factor V Leiden. C. Hypertension. D. Hypothyroidism. E. Atrial fibrillation. F. Congestive heart failure. LINDA/SEBASTIEN DR: GABRIEL/gary TID: [id number]
== END 2021-04-18 16:45 | DRG 441 ==
LOC: ER 11:48 → 1 SOUTH 17:01
PROVIDERS: ADMIT Internal Medicine; ATTEND Internal Medicine
DX: K76.7 Hepatorenal syndrome (principal); J96.01 Acute respiratory failure with hypoxia; N17.8 Other acute kidney failure; D68.51 Activated protein C resistance; N39.0 Urinary tract infection, site not specified; I13.0 Hypertensive heart and chronic kidney disease with heart failure and stage 1 through stage 4 chronic kidney disease, or unspecified chronic kidney disease; I48.20 Chronic atrial fibrillation, unspecified; I69.351 Hemiplegia and hemiparesis following cerebral infarction affecting right dominant side; I50.32 Chronic diastolic (congestive) heart failure; Z20.822 Contact with and (suspected) exposure to COVID-19; E03.9 Hypothyroidism, unspecified; I25.10 Atherosclerotic heart disease of native coronary artery without angina pectoris; I48.0 Paroxysmal atrial fibrillation; N18.9 Chronic kidney disease, unspecified; Z79.01 Long term (current) use of anticoagulants; Z80.0 Family history of malignant neoplasm of digestive organs; Z80.3 Family history of malignant neoplasm of breast; Z82.3 Family history of stroke; Z85.828 Personal history of other malignant neoplasm of skin; Z86.718 Personal history of other venous thrombosis and embolism; Z87.440 Personal history of urinary (tract) infections; Z87.891 Personal history of nicotine dependence; Z90.710 Acquired absence of both cervix and uterus; Z91.81 History of falling; Z95.810 Presence of automatic (implantable) cardiac defibrillator; Z95.828 Presence of other vascular implants and grafts; Z96.653 Presence of artificial knee joint, bilateral; Z98.41 Cataract extraction status, right eye; Z98.42 Cataract extraction status, left eye; F32.A Depression, unspecified; F41.9 Anxiety disorder, unspecified; K21.9 Gastro-esophageal reflux disease without esophagitis; M19.90 Unspecified osteoarthritis, unspecified site; Z88.0 Allergy status to penicillin; Z88.2 Allergy status to sulfonamides; Z88.8 Allergy status to other drugs, medicaments and biological substances
CPT/HCPCS: 36415; 71045; 80048; 80053; 80307; 80329; 81001; 82140; 82550; 83605; 83690; 83735; 83880; 84443; 84484; 85025; 85610; 85730; 87040; 87077; 87086; 87186; 87804; 93005; 96374; J2250; J3430; U0003; 99285-25; G0480

== ENCOUNTER 2021-05-16 14:21 | Emergency (ER) | payer MEDICARE, BC, OTHER ==
[~2021-05-16] VITALS: Ht 167.6 cm; Wt 85.0 kg
[~2021-05-16 14:21] MED LIST changes: +ACET325T21 PO; +WARF3TAB50 PO
[2021-05-16 14:28] VITALS: BP 140/76
[2021-05-16] MEDS ORDERED: IOHEXOL 300 MG/ML 75 ML VIAL. IV ONE (14:45)
[2021-05-16] MEDS ORDERED: CONTRAST GIVEN. MC PRN (15:00)
--- NOTE | 2021-05-16 15:13 | PHYS DOC ---
Past History Past Medical History: A-Fib, Anxiety, Arthritis, Arrhythmia, CAD, CHF, Constipation, Depression, DVT, Gallstones, GERD, Hypertension, Hypothyroid, Pneumonia, TIA, UTI, Other Additional Past Medical Histor: insomnia, blind, Past Surgical History: Appendectomy, Cholecystectomy, Hysterectomy, Pacemaker, Other Additional Past Surgical Histo: bilat knee replacement Smoking: Quit Greater Than 1 Year Alcohol Use: None Drug Use: None General Adult EDM: Chief Complaint: MECHANICAL FALL HPI: HPI: 86-year-old female presents after mechanical fall at her care facility. The patient needed to go to the bathroom and the staff was not coming in quickly enough. She decided she would get up and walk to her wheelchair. She does not walk without a wheelchair at baseline. Patient states that she got from feet and then tripped over her socks. She fell and hit her head on the bottom of her bed. She currently complains of posterior head pain, cervical pain, and some lumbar pain. Patient has old injury of the lumbar spine and is not sure if she hit this area when she fell. She denies numbness, tingling, altered sensation. The patient is on Coumadin. Her last dose was 2 and half milligrams yesterday evening. Her most recent INR was 1.9. Review of Systems: Review of Systems: Constitutional: Denies fever or chills Eyes: Denies change in visual acuity HENT: Neck pain, head pain. Denies nasal congestion or sore throat Respiratory: Denies cough or shortness of breath Cardiovascular: Denies chest pain or edema GI: Denies abdominal pain, nausea, vomiting, bloody stools or diarrhea : Denies dysuria Musculoskeletal: low back pain Integument: Denies rash Neurologic: Headache. Denies focal weakness or sensory changes Endocrine: Denies polyuria or polydipsia Lymphatic: Denies swollen glands Psychiatric: Denies depression or anxiety Current Medications: Current Meds: Current Medications Medications (Trade) Dose Ordered Sig/[place] Start Time Stop Time Status Last Admin Dose Admin Info (Do NOT chart on this entry -- for MONITORING) 1 each PRN DAILY PRN 05/16/21 15:00 05/18/21 14:59 Iohexol (Omnipaque 300 Mg/ml) 75 ml 1X ONCE 05/16/21 14:45 05/16/21 14:47 DC Allergies: Allergies: Allergies Coded Allergies Type Severity Reaction Last Updated Verified Penicillins Allergy Intermediate RASH 05/16/21 Yes Sulfa (Sulfonamide Antibiotics) Allergy Intermediate 05/16/21 Yes sulfamethoxazole Allergy Intermediate 05/16/21 Yes trimethoprim Allergy Intermediate 05/16/21 Yes I S O L A T I O N *CONTACT* Allergy Unknown 04/20/21 Yes Physical Exam: PE: Constitutional: Well developed, well nourished, no acute distress, non-toxic appearance. [] HENT: Normocephalic, atraumatic, bilateral external ears normal, oropharynx moist, no oral exudates, nose normal. [] Eyes: PERRLA, EOMI, conjunctiva normal, no discharge. [] Neck: Normal range of motion, upper cervical bony tenderness, supple, no stridor. [] Cardiovascular: Heart rate regular rhythm, no murmur [] Lungs & Thorax: Bilateral breath sounds clear to auscultation [] Abdomen: Bowel sounds normal, soft, no tenderness, no masses, no pulsatile masses. [] Skin: Warm, dry, no erythema, no rash. [] Back: Tenderness over L1-2. [] Extremities: No tenderness, no cyanosis, no clubbing, ROM intact, no edema. [] Neurologic: Alert and oriented X 3, normal motor function, normal sensory function, no focal deficits noted. [] Psychologic: Affect normal, judgement normal, mood normal. [] Current Patient Data: Vital Signs: Vital Signs Date Time Temp Pulse Resp B/P (MAP) Pulse Ox O2 Delivery O2 Flow Rate FiO2 05/16/21 14:28 97.6 78 18 140/76 (97) 100 EKG: EKG: Sinus rhythm, rate 80, rightward axis, no ST elevation or depression. Prolonged TN, right bundle branch block. [] Radiology/Procedures: Radiology/Procedures: [] Impressions: CT scan of the head without contrast 05/16/2021 Clinical History: Fall with head injury. Technique: Unenhanced, contiguous, 5 mm axial sections were obtained through the head. One or more of the following individualized dose reduction techniques were utilized for this study: 1. Automated exposure control. 2. Adjustment of the mA and/or kV according to patient size. 3. Use of iterative reconstruction technique. Findings: Comparison study is dated 01/14/2021. There is generalized parenchymal atrophy. Areas of decreased attenuation are seen within the periventricular and subcortical white matter of both cerebral hemispheres consistent with areas of small vessel ischemic disease. No acute parenchymal abnormality is seen. No extra-axial fluid collection is noted. No skull fracture is seen. Impression: No acute intracranial abnormality is seen. CT scan of the cervical spine without contrast 05/16/2021 Clinical history: Fall with neck injury. Technique: Unenhanced, contiguous, 0.625 mm axial sections were obtained through the cervical spine. 2 mm reconstructed axial and 2 mm coronal and sagittal reconstructed images were obtained. One or more of the following individualized dose reduction techniques were utilized for this study: 1. Automated exposure control. 2. Adjustment of the mA and/or kV according to patient size. 3. Use of iterative reconstruction technique. Findings: Sagittal and coronal reconstructed images demonstrate mild straightening of the normal cervical lordosis. Degenerative changes consisting of disc space narrowing, vertebral endplate sclerosis and minimal to mild anterior and posterior vertebral body osteophyte formation are seen involving mid and lower cervical disc spaces. Atherosclerotic calcification is seen in the region of the carotid bifurcations. No fracture or subluxation of the cervical vertebrae is seen. Degenerative changes are seen involving the uncovertebral and facet joints throughout the cervical disc spaces. Impression: No fracture or subluxation of the cervical vertebra is identified. Electronically signed by: Noe Godinez MD (05/16/2021 3:31 PM) [id number] DICTATED AND SIGNED BY: NOE GODINEZ MD DATE: 05/16/21 1524 CC: MANUELITO LEIVA DO; MOLLY HAMILTON MD ~MTH0 0 Study: XR CHEST 1V Indication: Fall. Comparison: 04/16/2021 Findings: Left chest wall multilead pacer/AICD. Unchanged cardiomediastinal silhouette and kevin. Aortic calcific atherosclerosis. Valvular prosthesis. Similar aeration pattern of the lungs with mild generalized interstitial prominence. No localized airspace opacity, pleural effusion or pneumothorax. Chronic proximal humerus deformity on the right. Evaluation is limited on the single obtained view but no displaced rib fracture is apparent. Impression: No acute radiographic abnormality of the chest. No relevant change from the 04/16/2021 comparison. Electronically signed by: ARIANNE SANCHEZ MD (05/16/2021 3:33 PM) UIC-ONOF DICTATED AND SIGNED BY: ARIANNE SANCHEZ MD DATE: 05/16/211530 CC: MANUELITO LEIVA DO; MOLLY HAMILTON MD ~MTH0 0 CT scan of the lumbar spine without contrast 05/16/2021 CLINICAL HISTORY: Fall with low back pain. TECHNIQUE: Unenhanced contiguous, 0.625 mm axial sections were obtained through the lumbar spine. 3 mm reconstructed sagittal, axial and coronal images were obtained. One or more of the following individualized dose reduction techniques were utilized for this study: 1. Automated exposure control. 2. Adjustment of the mA and/or kV according to patient size. 3. Use of iterative reconstruction technique. FINDINGS: Sagittal and coronal reconstructed images demonstrate mild S-shaped cu rvature of the thoracolumbar spine. Degenerative changes consisting of varying degrees of disc space narrowing, vertebral endplate sclerosis, vacuum disc phenomenon and mild to moderate anterolateral vertebral body osteophyte formation are seen throughout the lumbar disc spaces. Atherosclerotic calcification of the abdominal aorta and its branches is noted. An IVC filter is noted in place. Multiple diverticula are seen involving the sigmoid colon. No fracture or subluxation of the lumbar vertebrae seen. The changes of degenerative disc disease are seen throughout the lumbar disc spaces consisting of mild to moderate generalized disc bulges, degenerative changes involving the facet joints and mild to moderate ligamentum flavum hypertrophy. These findings results in mild to moderate left greater than right central spinal canal stenosis at L2-3, mild to moderate right greater than left central spinal canal stenosis at L3-4 and mild central spinal canal stenosis at L4-5 mild right-sided neural foraminal stenosis is seen at L1-2. Mild to moderate left greater than right neural foraminal stenosis is seen at L2-3 moderate to severe left greater than right neural foraminal stenosis is seen at L3-4. Mild to moderate left greater than right neural foraminal stenosis is seen L4-5. Moderate to severe bilateral neural foraminal stenosis is seen at L5-S1. IMPRESSION: No fracture or subluxation of the lumbar vertebrae is seen. Electronically signed by: Noe Godinez MD (05/16/2021 3:38 PM) [id number] DICTATED AND SIGNED BY: NOE GODINEZ MD DATE: 05/16/211530 CC: MANUELITO LEIVA DO; MOLLY HAMILTON MD ~MTH0 0 Heart Score: C/O Chest Pain: N/A Risk Factors: Risk Factors: DM, Current or recent (<one month) smoker, HTN, HLP, family history of CAD, obesity. Risk Scores: Score 0 - 3: 2.5% MACE over next 6 weeks - Discharge Home Score 4 - 6: 20.3% MACE over next 6 weeks - Admit for Clinical Observation Score 7 - 10: 72.7% MACE over next 6 weeks - Early Invasive Strategies Course & Med Decision Making: Course & Med Decision Making Pertinent Labs and Imaging studies reviewed. (See chart for details) The patient's labs are unremarkable and similar to previous. Her head and cervical spine CT are negative for acute findings. Her lumbar spine CT is negative for acute findings. Her chest x-ray is negative for acute findings. There are multiple chronic findings consistent with her age. See official read for details. The patient's INR is 1.7. Her urinalysis does reveal urinary tract infection. I will treat her with Macrobid for 5 days. We will give the first dose in the ER. The patient is stable to return to [place] at this time. [] Dragon Disclaimer: Dragon Disclaimer: This electronic medical record was generated, in whole or in part, using a voice recognition dictation system. Departure Departure: Impression: Primary Impression: Fall from standing Qualified Codes: W19.XXXA - Unspecified fall, initial encounter Additional Impression: UTI (urinary tract infection) Qualified Codes: N30.01 - Acute cystitis with hematuria Disposition: HOME / SELF CARE / HOMELESS Condition: STABLE Referrals: MOLLY HAMILTON MD (PCP) Patient Instructions: Urinary Tract Infection, Kijl-hc-Vton Scripts Nitrofurantoin Monohyd/M-Cryst (MACROBID 100 MG CAPSULE) 100 Mg Capsule 1 CAP PO BID for UTI for 5 Days, #10 CAP 0 Refills Prov: MANUELITO LEIVA DO 05/16/21 MANUELITO LEIVA DO May 16, 2021 15:13
--- NOTE | 2021-05-16 15:14 | EKG ---
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
--- NOTE | 2021-05-16 15:34 | RAD ---
CT scan of the head without contrast 05/16/2021 Clinical History: Fall with head injury. Technique: Unenhanced, contiguous, 5 mm axial sections were obtained through the head. One or more of the following individualized dose reduction techniques were utilized for this study: 1. Automated exposure control. 2. Adjustment of the mA and/or kV according to patient size. 3. Use of iterative reconstruction technique. Findings: Comparison study is dated 01/14/2021. There is generalized parenchymal atrophy. Areas of decreased attenuation are seen within the perivent ricular and subcortical white matter of both cerebral hemispheres consistent with areas of small vess el ischemic disease. No acute parenchymal abnormality is seen. No extra-axial fluid collection is not ed. No skull fracture is seen. Impression: No acute intracranial abnormality is seen. CT scan of the cervical spine without contrast 05/16/2021 Clinical history: Fall with neck injury. Technique: Unenhanced, contiguous, 0.625 mm axial sections were obtained through the cervical spine. 2 mm reconstructed axial and 2 mm coronal and sagittal reconstructed images were obtained. One or more of the following individualized dose reduction techniques were utilized for this study: 1. Automated exposure control. 2. Adjustment of the mA and/or kV according to patient size. 3. Use of iterative reconstruction technique. Findings: Sagittal and coronal reconstructed images demonstrate mild straightening of the normal cerv ical lordosis. Degenerative changes consisting of disc space narrowing, vertebral endplate sclerosis and minimal to mild anterior and posterior vertebral body osteophyte formation are seen involving mid and lower cervical disc spaces. Atherosclerotic calcification is seen in the region of the carotid b ifurcations. No fracture or subluxation of the cervical vertebrae is seen. Degenerative changes are seen involving the uncovertebral and facet joints throughout the cervical disc spaces. Impression: No fracture or subluxation of the cervical vertebra is identified. Electronically signed by: Noe Godinez MD (05/16/2021 3:31 PM) [id number]
--- NOTE | 2021-05-16 15:35 | RAD ---
Study: XR CHEST 1V Indication: Fall. Comparison: 04/16/2021 Findings: Left chest wall multilead pacer/AICD. Unchanged cardiomediastinal silhouette and kevin. Aortic calcific atherosclerosis. Valvular prosthesis . Similar aeration pattern of the lungs with mild generalized interstitial prominence. No localized air space opacity, pleural effusion or pneumothorax. Chronic proximal humerus deformity on the right. Evaluation is limited on the single obtained view bu t no displaced rib fracture is apparent. Impression: No acute radiographic abnormality of the chest. No relevant change from the 04/16/2021 comparison. Electronically signed by: ARIANNE SANCHEZ MD (05/16/2021 3:33 PM) [facility]
--- NOTE | 2021-05-16 15:40 | RAD ---
CT scan of the lumbar spine without contrast 05/16/2021 CLINICAL HISTORY: Fall with low back pain. TECHNIQUE: Unenhanced contiguous, 0.625 mm axial sections were obtained through the lumbar spine. 3 m m reconstructed sagittal, axial and coronal images were obtained. One or more of the following individualized dose reduction techniques were utilized for this study: 1. Automated exposure control. 2. Adjustment of the mA and/or kV according to patient size. 3. Use of iterative reconstruction technique. FINDINGS: Sagittal and coronal reconstructed images demonstrate mild S-shaped curvature of the thorac olumbar spine. Degenerative changes consisting of varying degrees of disc space narrowing, vertebral endplate sclerosis, vacuum disc phenomenon and mild to moderate anterolateral vertebral body osteophy te formation are seen throughout the lumbar disc spaces. Atherosclerotic calcification of the abdomin al aorta and its branches is noted. An IVC filter is noted in place. Multiple diverticula are seen in volving the sigmoid colon. No fracture or subluxation of the lumbar vertebrae seen. The changes of degenerative disc disease are seen throughout the lumbar disc spaces consisting of mil d to moderate generalized disc bulges, degenerative changes involving the facet joints and mild to mo derate ligamentum flavum hypertrophy. These findings results in mild to moderate left greater than ri ght central spinal canal stenosis at L2-3, mild to moderate right greater than left central spinal ca nal stenosis at L3-4 and mild central spinal canal stenosis at L4-5 mild right-sided neural foraminal stenosis is seen at L1-2. Mild to moderate left greater than right neural foraminal stenosis is seen at L2-3 moderate to severe left greater than right neural foraminal stenosis is seen at L3-4. Mild t o moderate left greater than right neural foraminal stenosis is seen L4-5. Moderate to severe bilater al neural foraminal stenosis is seen at L5-S1. IMPRESSION: No fracture or subluxation of the lumbar vertebrae is seen. Electronically signed by: Noe Godinez MD (05/16/2021 3:38 PM) [id number]
[2021-05-16 15:58] LABS: BASO % 1 % (0-3); EOS # 0.1 x10^3/uL (0.0-0.7); EOS % 3 % (0-3); HEMATOCRIT 39.5 % (36.0-47.0); HEMOGLOBIN 12.7 g/dL (12.0-15.5); LYMPH % 29 % (24-48); MEAN CORPUSCULAR HEMOGLOBIN 31 pg (25-35); MEAN CORPUSCULAR HGB CONC 32 g/dL (31-37); MEAN CORPUSCULAR VOLUME 97 fL (79-100); MONO # 0.5 x10^3/uL (0.0-1.1); MONO % 14 % (0-9); NEUT # 1.9 x10^3uL (1.8-7.7); NEUT % 54 % (31-73); PLATELET COUNT 112 x10^3/uL (140-400); RED BLOOD COUNT 4.07 x10^6/uL (3.50-5.40); RED CELL DISTRIBUTION WIDTH 18.6 % (11.5-14.5); WHITE BLOOD COUNT 3.5 x10^3/uL (4.0-11.0)
[2021-05-16 16:03] LABS: CALCIUM 9.4 mg/dL (8.5-10.1); CREATININE 1.3 mg/dL (0.6-1.0); GFR 38.7
[2021-05-16 16:09] LABS: ALBUMIN 3.4 g/dL (3.4-5.0); ALBUMIN/GLOBULIN RATIO 0.9 (1.0-1.7); TOTAL BILIRUBIN 1.2 mg/dL (0.2-1.0)
[2021-05-16 17:19] LABS: BILIRUBIN,URINE NEG (NEG); CLARITY,URINE HAZY; COLOR,URINE YELLOW; GLUCOSE,URINE NEG (NEG); NITRITE,URINE POS (NEG); UROBILINOGEN,URINE 0.2 mg/dL (0.2 mg/dL)
[2021-05-16] MEDS ORDERED: NITROFURANTOIN MONOHYD/M-CRYST 100 MG CAPSULE. PO ONE (17:30)
[2021-05-16] MEDS ORDERED: NITR100C62 PO (17:31)
[2021-05-16] MEDS ORDERED: cefTRIAXone SODIUM 1 GM VIAL ONE (17:36)
[2021-05-16] MEDS ORDERED: HYDROcodone/APAP 5/325MG 1 TAB TABLET PO ONE (17:45)
[2021-05-16] MEDS ORDERED: cefTRIAXone IM 1 GM VIAL IM ONE (17:45)
== END 2021-05-16 18:00 | disposition home or self-care (01) ==
LOC: ER 14:21
DX: N30.01 Acute cystitis with hematuria (principal); R51.9 Headache, unspecified; M54.2 Cervicalgia; M54.59 Other low back pain; I48.91 Unspecified atrial fibrillation; F41.9 Anxiety disorder, unspecified; M19.90 Unspecified osteoarthritis, unspecified site; I25.10 Atherosclerotic heart disease of native coronary artery without angina pectoris; I11.0 Hypertensive heart disease with heart failure; I50.9 Heart failure, unspecified; K21.9 Gastro-esophageal reflux disease without esophagitis; E03.9 Hypothyroidism, unspecified; Z86.718 Personal history of other venous thrombosis and embolism; Z87.440 Personal history of urinary (tract) infections; Z86.73 Personal history of transient ischemic attack (TIA), and cerebral infarction without residual deficits; Z87.891 Personal history of nicotine dependence; Z95.0 Presence of cardiac pacemaker; Z90.49 Acquired absence of other specified parts of digestive tract; Z90.89 Acquired absence of other organs; Z90.710 Acquired absence of both cervix and uterus; Z88.0 Allergy status to penicillin; Z88.2 Allergy status to sulfonamides; Z88.1 Allergy status to other antibiotic agents; Z88.8 Allergy status to other drugs, medicaments and biological substances; W18.09XA Striking against other object with subsequent fall, initial encounter; Y93.89 Activity, other specified; Y92.89 Other specified places as the place of occurrence of the external cause; Y99.8 Other external cause status
CPT/HCPCS: 36415; 70450; 71045; 72125; 72131; 80053; 81003; 84484; 85025; 85610; 85730; 93005; 96372; 99285; J0696

== ENCOUNTER 2021-07-17 10:41 | Emergency (ER) | payer MEDICARE, BC, OTHER ==
[~2021-07-17] VITALS: Ht 167.6 cm; Wt 76.9 kg
[~2021-07-17 10:41] MED LIST changes: +NITR100C62 PO
[2021-07-17] MEDS ORDERED: EPINEPHrine SYRINGE 1 MG/10 ML SYRINGE. ONE (11:00)
--- NOTE | 2021-07-17 11:14 | PHYS DOC ---
Past History Past Medical History: A-Fib, Anxiety, Arthritis, Arrhythmia, CAD, CHF, Constipation, Depression, DVT, Gallstones, GERD, Hypertension, Hypothyroid, Pneumonia, TIA, UTI, Other Additional Past Medical Histor: insomnia, blind, Past Surgical History: Appendectomy, Cholecystectomy, Hysterectomy, Pacemaker, Other Additional Past Surgical Histo: bilat knee replacement Smoking: Quit Greater Than 1 Year Alcohol Use: None Drug Use: None General Adult EDM: Chief Complaint: CPR/FULL ARREST HPI: HPI: 86-year-old female presents via EMS as a CODE BLUE. The entire history comes from EMS reports. She was having respiratory distress at her care facility when EMS was called. EMS witnessed her cardiac arrest. She had pulseless electrical activity during transport. She was given 3 rounds of epinephrine prior to arrival. There was a photocopy of a DNR order but no original available. Review of Systems: Review of Systems: Unable to assess due to unresponsive state Allergies: Allergies: Allergies Coded Allergies Type Severity Reaction Last Updated Verified Penicillins Allergy Intermediate RASH 05/16/21 Yes Sulfa (Sulfonamide Antibiotics) Allergy Intermediate 05/16/21 Yes sulfamethoxazole Allergy Intermediate 05/16/21 Yes trimethoprim Allergy Intermediate 05/16/21 Yes I S O L A T I O N *CONTACT* Allergy Unknown 04/20/21 Yes Physical Exam: PE: Constitutional: Well developed, well nourished, severe acute distress. [] HENT: Normocephalic, atraumatic, bilateral external ears normal, oropharynx moist, no oral exudates, nose normal. [] Eyes: PERRLA, EOMI, conjunctiva normal, no discharge. [] Neck: No obvious deformity [] Cardiovascular: PEA [] Lungs & Thorax: I-gel in place, coarse breath sounds bilaterally [] Abdomen: Bowel sounds normal, soft, no tenderness, no masses, no pulsatile masses. [] Skin: Warm, dry, no erythema, no rash. [] Back: No obvious trauma. [] Extremities: No obvious trauma or deformity. [] Neurologic: Unresponsive, pupils fixed and dilated. [] . [] EKG: EKG: [] Radiology/Procedures: Radiology/Procedures: [] Heart Score: C/O Chest Pain: N/A Risk Factors: Risk Factors: DM, Current or recent (<one month) smoker, HTN, HLP, family history of CAD, obesity. Risk Scores: Score 0 - 3: 2.5% MACE over next 6 weeks - Discharge Home Score 4 - 6: 20.3% MACE over next 6 weeks - Admit for Clinical Observation Score 7 - 10: 72.7% MACE over next 6 weeks - Early Invasive Strategies Course & Med Decision Making: Course & Med Decision Making Pertinent Labs and Imaging studies reviewed. (See chart for details) With the uncertainty of the patient's CODE STATUS, we continued CPR in the emergency room. She was given several rounds of epinephrine and was persistently in PEA. The decision was made to cease interventions. The patient was intub ated by Aneta Gilmore advanced practice registered nurse under my direct supervision. There were 2 attempts. Intubation was confirmed by capnography and direct visualization. As we were about to call time of , the patient's internal defibrillator shocked her and she developed an organized rhythm. Her son arrived and confirmed that she was DNR and did not want advanced life support measures. I discussed this with him and talked about her condition and the fact that she was intubated. He stated that her wishes were to not be on a ventilator and to not be intubated. He was comfortable with extubation and supplemental oxygen. That is what we did per his and her wishes. The patient stabilized and had a measurable blood pressure for a couple of hours. She was on a nonrebreather to provide oxygen. She never regained consciousness. After a period of time, the patient's blood pressure continued to decline and her respirations and heart rate decreased. She did at 1532. [] Dragon Disclaimer: Dragon Disclaimer: This electronic medical record was generated, in whole or in part, using a voice recognition dictation system. Departure Departure: Impression: Primary Impression: Cardiopulmonary arrest Disposition: 20 Condition: Referrals: MOLLY HAMILTON MD (PCP) MANUELITO LEIVA DO Jul 17, 2021 11:14
[2021-07-17 17:18] VITALS: BP 67/37
== END 2021-07-17 17:53 ==
LOC: ER 10:41
DX: I46.9 Cardiac arrest, cause unspecified (principal); I48.91 Unspecified atrial fibrillation; F41.9 Anxiety disorder, unspecified; M19.90 Unspecified osteoarthritis, unspecified site; I25.10 Atherosclerotic heart disease of native coronary artery without angina pectoris; I11.0 Hypertensive heart disease with heart failure; I50.9 Heart failure, unspecified; K21.9 Gastro-esophageal reflux disease without esophagitis; E03.9 Hypothyroidism, unspecified; Z86.718 Personal history of other venous thrombosis and embolism; Z87.440 Personal history of urinary (tract) infections; Z86.73 Personal history of transient ischemic attack (TIA), and cerebral infarction without residual deficits; Z87.891 Personal history of nicotine dependence; Z95.0 Presence of cardiac pacemaker; Z88.0 Allergy status to penicillin; Z88.2 Allergy status to sulfonamides; Z88.1 Allergy status to other antibiotic agents; Z88.8 Allergy status to other drugs, medicaments and biological substances
CPT/HCPCS: 31500; 92950; 99285; J0171